=== PATIENT | male | born 1945 | race Caucasian/White ===

== ENCOUNTER 2021-03-18 14:50 | Inpatient (IN) ==
--- NOTE | 2021-03-18 15:11 | Emergency Department Note ---
History of Present Illness General Chief complaint: Bleeding Stated complaint: LARGE R ANKLE BLEED Time Seen by Provider: 03/18/21 15:09 History of Present Illness This is a 75-year-old male that presents to the emergency department via private vehicle with complaints of "large right ankle wound/bleeding". The patient notes that he has been experiencing a wound to the right ankle/heel region and has [facility] for [facility]. He has been seeing a reverse engineer as well as his PCP. He has been applying what he believes is a DuoDERM dressing. He states that he was scheduled to see wound clinic this coming Sunday. Unfortunately about an hour prior to arrival today he notes that the wound opened up and began bleeding a fair amount. He also notes that recently the wound was cultured and he was started on p.o. antibiotics. He denies any known trauma or injury today. No pain. No fevers or chills. Home Medications Medication Instructions Recorded Confirmed Type aspirin 81 mg tablet,delayed 81 mg PO QAM 07/30/18 03/18/21 History release (Adult Low Dose Aspirin) atorvastatin 40 mg tablet 40 mg PO QAM 07/30/18 03/18/21 History gabapentin 300 mg capsule 600 mg PO BID 07/30/18 03/18/21 History losartan 100 mg tablet (Cozaar) 50 mg PO QAM 07/30/18 03/18/21 History tamsulosin 0.4 mg capsule (Flomax) 0.4 mg PO QAM 07/30/18 03/18/21 History tiotropium bromide 18 mcg capsule 1 cap INH QAM 07/30/18 03/18/21 History with inhalation device (Spiriva with HandiHaler) albuterol sulfate 90 mcg/actuation 2 inh INHALATION QID PRN 03/12/20 03/18/21 History breath activated powder inhaler budesonide-formoterol HFA 160 2 puff INHALATION BID 03/12/20 03/18/21 History mcg-4.5 mcg/actuation aerosol inhaler metoprolol succinate 25 mg 25 mg PO QPM 03/12/20 03/18/21 History tablet,extended release 24 hr diclofenac sodium 1 % topical gel 4 g TOPICAL QID PRN 03/25/20 03/18/21 History (Voltaren) finasteride 5 mg tablet 5 mg PO DAILY #90 tab 04/06/20 03/18/21 Rx allopurinol 100 mg tablet 200 mg PO DAILY 03/18/21 03/18/21 History ibuprofen 200 mg tablet 400 mg PO BID 03/18/21 03/18/21 History potassium citrate 10 mEq (1,080 10 meq PO DAILY 03/18/21 03/18/21 History mg) tablet,extended release (Urocit-K 10) sulfamethoxazole 800 1 tab PO BID 03/18/21 03/18/21 History mg-trimethoprim 160 mg tablet Allergies Allergy/AdvReac Type Severity Reaction Status Date / Time No Known Allergies Allergy Verified 03/18/21 17:08 Past Med/Surg History Medical History (Updated 03/18/21 @ 22:12 by Juan Mota PA-C) Ascending aortic aneurysm Stable 4.1 ascending aorta aneurysm per 10/2019 CT, under surveillance by [facility] BPH (benign prostatic hyperplasia) COPD (chronic obstructive pulmonary disease) History of skin cancer Hx of gout Hyperlipemia Hypertension Insomnia Kidney stones Neuropathy Osteoarthritis Prediabetes Surgical History H/O spinal fusion LUMBAR History of colonoscopy History of herniorrhaphy History of tonsillectomy History of tooth extraction Family History Mother Family history of diabetes mellitus Social History Smoking Status: Former smoker Smoking End Date: "two and a half years ago"; Second Hand Exposure: No; Do You Dip or Chew Tobacco: No; Hx Alcohol Use: Yes Alcohol type: beer Hx Substance Use: No Preferred Language: Moldovan Communication Ability: Effective Visual Impairment: Diminished Hearing Ability: Use of Hearing Aid Child Care Lead Teacher Required: No Beliefs That Will Affect Care: None marital status: / Current Living Situation: Alone current occupational status: employed and unemployed Other Information That Helps Us Care for You: No Feels Safe at Home: Yes Safety Concerns: Feels Safe At This Time Assistive Devices: Cane, Glasses, Hearing Aid - Left, Hearing Aid - Right and Walker Physical Exam Vital Signs Vital Signs - 24 hr 03/18/21 14:56 03/18/21 16:00 03/18/21 16:30 Temperature 36.4 C L Temperature Source Temporal Artery Scan Pulse Rate 108 H Pulse Rate [Apical] 69 Pulse Rhythm [Apical] Pulse Strength [Apical] Respiratory Rate 20 16 Respiratory Effort / Characteristics Respiratory Depth Respiratory Pattern Blood Pressure 109/57 L Blood Pressure [Right Arm] 117/46 L Blood Pressure Mean 74 Blood Pressure Mean [Right Arm] 69 Blood Pressure Position Sitting Pulse Oximetry 96 96 91 Oxygen Delivery Method Room Air Room Air Room Air Sepsis Recent Fever Within 48 Hours No Sepsis New/Unexplained Change in Mental Status No Sepsis Action Taken by Nursing No Action Required 03/18/21 17:30 Temperature Temperature Source Pulse Rate Pulse Rate [Apical] 74 Pulse Rhythm [Apical] Regular Pulse Strength [Apical] Normal Respiratory Rate 18 Respiratory Effort / Characteristics Non-Labored Spontaneous Respiratory Depth Normal Respiratory Pattern Regular Blood Pressure Blood Pressure [Right Arm] 100/53 L Blood Pressure Mean Blood Pressure Mean [Right Arm] 68 Blood Pressure Position Pulse Oximetry 94 Oxygen Delivery Method Room Air Sepsis Recent Fever Within 48 Hours Sepsis New/Unexplained Change in Mental Status Sepsis Action Taken by Nursing VITAL SIGNS - Vital signs and nursing notes were reviewed. Stable and afebrile. GENERAL - 75-year-old male appearing his stated age who is in no acute distress. Communicates well with provider and answers questions appropriately. SKIN -there is a large approximately 10 cm x 4 cm open wound noted to the posterior aspect of the patient's right ankle region overlying the Achilles. There is exposed what appears to be muscle belly with fibrinous tissue. Foul- smelling odor noted as well. Small amount of bleeding from the wound noted. No hemorrhage. HEAD - NC/AT. EYES -sclera anicteric. EXTREMITIES - No clubbing or peripheral cyanosis. No pretibial edema present. In addition to the wound noted above there is erythema surrounding the wound on the right lower extremity with surrounding edema. He is neurovascularly intact distal to the wound. +5/5 strength noted in UE/LE bilaterally. PSYCH -patient is alert and oriented. Patient cooperates fully. Course Administered Medications Folic Acid (Folic Acid 1 Mg Tab) 1 mg PO QAM [facility] Stop: 04/17/21 20:21 Last Admin: 03/18/21 21:55 Dose: 1 mg Documented by: [id number] Gabapentin (Gabapentin 600 Mg Tab) 600 mg PO BID [facility] Stop: 04/17/21 20:59 Last Admin: 03/18/21 21:53 Dose: 600 mg Documented by: [id number] Piperacillin Sod/Tazobactam (Sod 3.375 gm/ Dextrose) 115 mls @ 28.75 mls/hr IV Q8H [facility]; Protocol Stop: 03/25/21 21:59 Last Admin: 03/18/21 21:56 Dose: 28.8 mls/hr Documented by: [id number] Ibuprofen (Ibuprofen 200 Mg Tab) 400 mg PO BID [facility] Stop: 04/17/21 20:59 Last Admin: 03/18/21 21:54 Dose: 400 mg Documented by: [id number] Metoprolol Succinate (Metoprolol Succ 25mg Ext Rel Tab) 25 mg PO QPM [facility] Stop: 04/17/21 20:59 Last Admin: 03/18/21 21:55 Dose: 25 mg Documented by: [id number] Thiamine HCl (Thiamine Hcl 100 Mg Tab) 100 mg PO QAM [facility] Stop: 04/17/21 20:21 Last Admin: 03/18/21 21:55 Dose: 100 mg Documented by: [id number] Discontinued Medications Piperacillin Sod/Tazobactam Sod (Zosyn) 4.5 gm in 120 mls @ 240 mls/hr IV NOW ONE Stop: 03/18/21 16:16 Last Infusion: 03/18/21 18:19 Dose: 0 mls/hr Documented by: [id number] Admin: 03/18/21 16:19 Dose: 240 mls/hr Documented by: [id number] Vancomycin HCl 2,000 mg/ (Sodium Chloride) 540 mls @ 200 mls/hr IV NOW ONE Stop: 03/18/21 18:41 Last Infusion: 03/18/21 20:17 Dose: 0 mls/hr Documented by: [id number] Admin: 03/18/21 17:30 Dose: 200 mls/hr Documented by: [id number] Medical Decision Making Laboratory Data Result diagrams: 03/18/21 15:49 03/18/21 15:49 Lab Results 03/18/21 03/18/21 03/18/21 Range/Units 15:49 15:49 15:49 WBC 9.01 (4.8-10.8) K/uL RBC 4.05 L (4.7-6.1) M/uL Hgb 12.7 L (14.0-18.0) g/dL Hct 38.3 L (42-52) % MCV 94.6 (80-100) fL MCH 31.4 (25-34) pg MCHC 33.2 (32-36) g/dL RDW Std Deviation 46.8 H (36.4-46.3) fL RDW Coeff of Norm 13.5 (11.5-14.5) % Plt Count 409 H (130-400) K/uL MPV 10.1 (7.4-10.4) fL Immature Gran % (Auto) 0.8 % Neut % (Auto) 70.2 % Lymph % (Auto) 19.9 % Woodson % (Auto) 5.8 % Eos % (Auto) 2.9 % Baso % (Auto) 0.4 % Neut # (Auto) 6.33 (1.4-6.5) K/uL Lymph # (Auto) 1.79 (1.2-3.4) K/uL Woodson # (Auto) 0.52 (0.11-0.59) K/uL Eos # (Auto) 0.26 (0-0.5) K/uL Baso # (Auto) 0.04 (0-0.2) K/uL Immature Gran # (Auto) 0.07 H (0.00-0.02) K/uL Sodium 138 (136-145) mmol/L Potassium 4.3 (3.5-5.1) mmol/L Chloride 105 (98-107) mmol/L Carbon Dioxide 27 (21-32) mmol/L Anion Gap 6.0 (3-11) BUN 17 (7-18) mg/dl Creatinine 1.08 (0.6-1.4) mg/dl Est Cr Clr Drug Dosing 75.6 ml/min Est GFR ( Amer) 78.5 ml/min Est GFR (Non-Af Amer) 67.7 ml/min BUN/Creatinine Ratio 15.3 (10-20) Glucose 119 H (70-99) mg/dl Lactate 1.3 (0.4-2.0) mmol/L Calcium 9.0 (8.5-10.1) mg/dl Total Bilirubin 0.5 (0.2-1) mg/dl AST 24 (15-37) U/L ALT 44 (12-78) U/L Alkaline Phosphatase 149 H (45-117) U/L Total Protein 8.0 (6.4-8.2) gm/dl Albumin 2.8 L (3.4-5.0) gm/dl Globulin 5.2 H (2.5-4.0) gm/dl Albumin/Globulin Ratio 0.5 L (0.9-2) Procalcitonin (0-0.5) ng/ml COVID-19 Eval Order SARS-CoV-2 (PCR) (Negative) 03/18/21 03/18/21 03/18/21 Range/Units 15:49 16:00 16:00 WBC (4.8-10.8) K/uL RBC (4.7-6.1) M/uL Hgb (14.0-18.0) g/dL Hct (42-52) % MCV (80-100) fL MCH (25-34) pg MCHC (32-36) g/dL RDW Std Deviation (36.4-46.3) fL RDW Coeff of Norm (11.5-14.5) % Plt Count (130-400) K/uL MPV (7.4-10.4) fL Immature Gran % (Auto) % Neut % (Auto) % Lymph % (Auto) % Woodson % (Auto) % Eos % (Auto) % Baso % (Auto) % Neut # (Auto) (1.4-6.5) K/uL Lymph # (Auto) (1.2-3.4) K/uL Woodson # (Auto) (0.11-0.59) K/uL Eos # (Auto) (0-0.5) K/uL Baso # (Auto) (0-0.2) K/uL Immature Gran # (Auto) (0.00-0.02) K/uL Sodium (136-145) mmol/L Potassium (3.5-5.1) mmol/L Chloride (98-107) mmol/L Carbon Dioxide (21-32) mmol/L Anion Gap (3-11) BUN (7-18) mg/dl Creatinine (0.6-1.4) mg/dl Est Cr Clr Drug Dosing ml/min Est GFR ( Amer) ml/min Est GFR (Non-Af Amer) ml/min BUN/Creatinine Ratio (10-20) Glucose (70-99) mg/dl Lactate (0.4-2.0) mmol/L Calcium (8.5-10.1) mg/dl Total Bilirubin (0.2-1) mg/dl AST (15-37) U/L ALT (12-78) U/L Alkaline Phosphatase (45-117) U/L Total Protein (6.4-8.2) gm/dl Albumin (3.4-5.0) gm/dl Globulin (2.5-4.0) gm/dl Albumin/Globulin Ratio (0.9-2) Procalcitonin < 0.05 (0-0.5) ng/ml COVID-19 Eval Order Covid19 at [facility] SARS-CoV-2 (PCR) NEGATIVE (Negative) Imaging Data Radiologist's Impression: Tibia/Fibula X-Ray 03/18/21 15:33 XR tibia fibula RT 2V CLINICAL HISTORY: wound R lower calf COMPARISON: None. DISCUSSION: There are advanced degenerative changes within the knee. There are vascular calcifications present. There is a soft tissue wound over the posterior lower leg. Involvement of the Achilles tendon cannot be excluded on conventional radiographic imaging. An MRI could be obtained in follow-up as deemed clinically appropriate.. IMPRESSION: 1. No fractures identified 2. Degenerative changes within the knee 3. Posterior soft tissue wound within the lower calf posteriorly with an overlying dressing. There is possible air within the soft tissues. Involvement of the Achilles tendon cannot be excluded. An MRI could be obtained in follow-up as deemed clinically appropriate. ACT 112: Negative or not required by law. Electronically signed by: Pankaj Hidalgo M.D. 03/18/2021 4:09 PM [facility] Narrative Patient was seen and evaluated as above in room D02. Review was performed of nursing notes and vital signs. After obtaining a thorough history and physical examination the above work up was performed. Patient presents to us today noting that the chronic wound to the right posterior ankle has now opened up and is bleeding a fair amount. He denies any pain. No fevers or chills. He is currently on antibiotics. Options of care were discussed with the patient. IV access established. Labs were drawn. There is a large wound to the posterior aspect of the right ankle with what appears to be exposed muscle belly that appears to be detached at one end and in poor shape. This is protruding from the wound by several centimeters. This is malodorous as well. Patient was given empiric IV antibiotics. It is felt that the benefit outweighs the risk. Laboratory stud ies reveal no leukocytosis or emergent anemia. No emergent metabolic disturbance. Covid testing negative. X-ray was obtained. Results as above. This time I do believe that further evaluation in the mid inpatient setting is warranted. This wound is something that I believe would be quite complicated if he was discharged at this immediate time. The wound was cleansed with sterile saline and Betadine and dressed with wet-to-dry. I did discuss the presentation with the on-call orthopedist and spoke to Toñito Garrett PA-C. They will consult on the patient and see him while here in the hospital. I believe this is reasonable. Patient stable at this time. Case discussed with the hospitalist. Please refer to further documentation regarding his stay. Case was discussed with the attending physician. GCS: 15 In the evaluation and treatment of this patient the following differential d iagnoses were entertained: Infection, necrosis, fracture, dislocation, subluxation, osteomyelitis, among others. Attending Attestation: I Cedric Paris MD independently saw and evaluated this patient and agree with history and physical is otherwise documented by the physician senior office assistant. See their note for full details. Patient reported with bleeding from R posterior lower leg but on exam bleeding has stopped. Large defect/wound on the posterior RLE in the area of the Achilles ~10x4cm. Appears to have some tendon and muscle belly exposed with foul swell present. Patient with significant neuropathy in the b/l LEs and does not feel pain or touch in area of wound. Intact plantar flexion on R foot. Concern infection here although patient does not appear septic. Wound cleaned by DELIA. IV abx given. Will need admission for wound care and surgical consultations for wound. Impression & Plan Open leg wound Discharge Plan Visit Data Chief Complaint: Bleeding Stated Complaint: LARGE R ANKLE BLEED ED Provider: Cedric Paris ED Midlevel Provider: Juan Mota Discharge Problem: Open leg wound Patient Disposition: Admitted As Inpatient Condition: Good Discharge Instructions Interventions: ED Discharge Assessment Last Done: 03/18/21 21:54
[2021-03-18] MEDS ORDERED: PIPERACILLIN/TAZOBACTAM 4.5 GM/120 ML BAG IV ONE (15:47)
[2021-03-18] MEDS ORDERED: PIPERACILL/TAZOBAC CONSULT ACTIVE PRN ×2 (15:47→20:22)
[2021-03-18] MEDS ORDERED: VANCOMYCIN CONSULT ACTIVE PRN ×2 (16:00→20:22)
[2021-03-18] MEDS ORDERED: VANCOMYCIN HCL 2,000 MG in SODIUM CHLORIDE 0.9% 500 ML IV ONE ×2 (16:00→20:22)
[2021-03-18 16:03] LABS: Basophils # (auto) 0.04 K/uL (0-0.2); Basophils % (auto) 0.4 %; Eosinophils # (auto) 0.26 K/uL (0-0.5); Eosinophils % (auto) 2.9 %; Hematocrit (blood only) 38.3 % (42-52); Hemoglobin 12.7 g/dL (14.0-18.0); Immature Granulocytes # (auto) 0.07 K/uL (0.00-0.02); Immature Granulocytes % (auto) 0.8 %; Lymphocytes # (auto) 1.79 K/uL (1.2-3.4); Lymphocytes % (auto) 19.9 %; Mean Corpuscular Hemoglobin 31.4 pg (25-34); Mean Corpuscular Hgb Conc 33.2 g/dL (32-36); Mean Corpuscular Volume 94.6 fL (80-100); Mean Platelet Volume 10.1 fL (7.4-10.4); Monocytes # (auto) 0.52 K/uL (0.11-0.59); Monocytes % (auto) 5.8 %; Neutrophils # (auto) 6.33 K/uL (1.4-6.5); Neutrophils % (auto) 70.2 %; Platelet Count 409 K/uL (130-400); RDW Coefficient of Variation 13.5 % (11.5-14.5); RDW Standard Deviation 46.8 fL (36.4-46.3); Red Blood Count 4.05 M/uL (4.7-6.1); White Blood Count 9.01 K/uL (4.8-10.8)
--- NOTE | 2021-03-18 16:10 | XRay Report ---
XR tibia fibula RT 2V CLINICAL HISTORY: wound R lower calf COMPARISON: None. DISCUSSION: There are advanced degenerative changes within the knee. There are vascular calcification s present. There is a soft tissue wound over the posterior lower leg. Involvement of the Achilles ten don cannot be excluded on conventional radiographic imaging. An MRI could be obtained in follow-up as deemed clinically appropriate.. IMPRESSION: 1. No fractures identified 2. Degenerative changes within the knee 3. Posterior soft tissue wound within the lower calf posteriorly with an overlying dressing. There is possible air within the soft tissues. Involvement of the Achilles tendon cannot be excluded. An MRI could be obtained in follow-up as deemed clinically appropriate. ACT 112: Negative or not required by law. Electronically signed by: Pankaj Hidalgo M.D. 03/18/2021 4:09 PM
[2021-03-18 16:21] LABS: Albumin Level 2.8 gm/dl (3.4-5.0); BUN Creatinine Ratio 15.3 (10-20); Creatinine Clr Calc Pharmacy 75.6 ml/min; Est GFR (African American) 78.5 ml/min; Est GFR (Non-African American) 67.7 ml/min; Potassium 4.3 mmol/L (3.5-5.1)
[2021-03-18 16:24] LABS: Albumin Globulin Ratio 0.5 (0.9-2); Bilirubin,Total 0.5 mg/dl (0.2-1); Globulin 5.2 gm/dl (2.5-4.0)
--- NOTE | 2021-03-18 18:35 | History & Physical Report ---
Date of Service March 18, 2021 Assessment & Plan (1) Pressure ulcer: Plan: Bola is a 75-year-old male with a notable past medical history hypertension, hyperlipidemia, COPD, BPH, COPD, neuropathy who presented to [facility] for evaluation of right heel ulcer, subsequently found to have evidence of tendon necrosis and exposed muscle belly on exam. Severe RLE Ulcer Significant concern for tendon necrosis and exposed muscle belly on exam in the setting of a patient with profound polyneuropathy. There is also likely a degree of cellulitis present. He does have good pedal pulses Proceed with broad-spectrum antibiotics, inclusive of both Zosyn and vancomycin Consult plastic surgery and vascular surgery for evaluation of potential reconstruction versus need for BKA Consider orthopedics consult if there is need for BKA Consult wound care nurse, appreciate aid in management for now Fall precautions. Patient will require physical therapy prior to leaving the hospital Wound culture ordered N.p.o. at midnight in case of possible procedure Low suspicion for SIRS/sepsis at present. Await BCX. Frequent alcohol use/concern for alcohol withdrawal Patient reporting consumption of 5-6 beers a day, has been found to have Ethyl alcohol level of over 250 in the ER before Patient without known history of alcohol withdrawal We will proceed with AWSS and as needed Ativan for scores greater than 6 Hypertension Found to be with softer pressures in the ED, absence of fever or tachycardia Patient reporting that in the outpatient setting, they have been working on reducing effective overmedication Hold losartan 50 mg daily Continue home metoprolol COPD Patient on room air, no acute needs at present Continue home inhalers Polyneuropathy, radiculopathy at L5 Continue gabapentin Code: Full code Diet: N.p.o. at midnight Prophylaxis: SCDs Dispo: MedSurg (2) Hypertension: (3) Hyperlipemia: (4) Neuropathy: (5) COPD (chronic obstructive pulmonary disease): (6) Benign hypertension: (7) Polyneuropathy: (8) BPH associated with nocturia: (9) Traumatic wound: (10) COPD (chronic obstructive pulmonary disease): (11) S/P hernia repair: (12) HTN, goal to be determined: (13) Dyslipidemia: (14) Polyarthritis: (15) Gout: (16) Nephrolithiasis: History of Present Illness Primary Care Provider: Chrissie Kwan Bola is a 75-year-old male with a notable past medical history hypertension, hyperlipidemia, COPD, BPH, COPD, neuropathy who presented to [facility] for evaluation of right heel ulcer. Patient says that he has been following with wound care regularly for this right ankle ulcer. He said that he noticed increased swelling within this area on Sunday, and return to his wound clinicwas subsequently prescribed antibiotics. Today, he was at the [facility] when he "looked down and saw a puddle of blood." He then reported to the ER for further evaluation. My exam, patient reports significant neuropathy in both of his lower extremities bilaterally, he does not endorse any pain and says that he feels comfortable. Denies any recent fevers, chills, night sweats. Says appetite has been good. Of note, patient reports that he does drink between 5 and 6 beers a day. He denies any withdrawal in the past, but does not think he is ever stop suddenly. In the ED, patient was found to have a gaping right lower extremity ulcer with evidence of necrotic tendon and exposed muscle belly. Peripheral pulses are intact, capillary refill under 3 seconds. Patient was found to be afebrile and hemodynamically stable. X-ray of the right foot demonstrating no fracture, but extensive posterior soft tissue wound as well as air within the soft tissue. Patient was given Zosyn and bank. Hospitalist was Vanc for admission. Allergies Allergy/AdvReac Type Severity Reaction Status Date / Time No Known Allergies Allergy Verified 03/18/21 17:08 Home Medications Medication Instructions Recorded Confirmed Type aspirin 81 mg tablet,delayed 81 mg PO QAM 07/30/18 03/18/21 History release (Adult Low Dose Aspirin) atorvastatin 40 mg tablet 40 mg PO QAM 07/30/18 03/18/21 History gabapentin 300 mg capsule 600 mg PO BID 07/30/18 03/18/21 History losartan 100 mg tablet (Cozaar) 50 mg PO QAM 07/30/18 03/18/21 History tamsulosin 0.4 mg capsule (Flomax) 0.4 mg PO QAM 07/30/18 03/18/21 History tiotropium bromide 18 mcg capsule 1 cap INH QAM 07/30/18 03/18/21 History with inhalation device (Spiriva with HandiHaler) albuterol sulfate 90 mcg/actuation 2 inh INHALATION QID PRN 03/12/20 03/18/21 History breath activated powder inhaler budesonide-formoterol HFA 160 2 puff INHALATION BID 03/12/20 03/18/21 History mcg-4.5 mcg/actuation aerosol inhaler metoprolol succinate 25 mg 25 mg PO QPM 03/12/20 03/18/21 History tablet,extended release 24 hr diclofenac sodium 1 % topical gel 4 g TOPICAL QID PRN 03/25/20 03/18/21 History (Voltaren) finasteride 5 mg tablet 5 mg PO DAILY #90 tab 04/06/20 03/18/21 Rx allopurinol 100 mg tablet 200 mg PO DAILY 03/18/21 03/18/21 History ibuprofen 200 mg tablet 400 mg PO BID 03/18/21 03/18/21 History potassium citrate 10 mEq (1,080 10 meq PO DAILY 03/18/21 03/18/21 History mg) tablet,extended release (Urocit-K 10) sulfamethoxazole 800 1 tab PO BID 03/18/21 03/18/21 History mg-trimethoprim 160 mg tablet Past Med/Surg History Medical History (Updated 02/18/21 @ 00:05 by [employer]) Ascending aortic aneurysm Stable 4.1 ascending aorta aneurysm per 10/2019 CT, under surveillance by [facility] BPH (benign prostatic hyperplasia) COPD (chronic obstructive pulmonary disease) History of skin cancer Hx of gout Hyperlipemia Hypertension Insomnia Kidney stones Neuropathy Osteoarthritis Prediabetes Surgical History H/O spinal fusion LUMBAR History of colonoscopy History of herniorrhaphy History of tonsillectomy History of tooth extraction Family History Mother Family history of diabetes mellitus Social History Smoking Status: Former smoker Second Hand Exposure: Yes (IN THE PAST); Hx Alcohol Use: Yes Alcohol type: beer Hx Substance Use: No Preferred Language: Cypriot Communication Ability: Effective Visual Impairment: Diminished Hearing Ability: Use of Hearing Aid Board Runner Required: No Beliefs That Will Affect Care: None marital status: / Current Living Situation: Alone current occupational status: employed and unemployed Feels Safe at Home: Yes Assistive Devices: Cane, Denture - Upper, Denture - Lower, Glasses and Hearing Aid - Bilateral Review of Systems Review of Systems: Constitutional: Denies fever, chills, malaise, weight change Eyes: Denies double vision, vision change, eye pain ENT: Denies ear pain, sore throat, sinus pain Cardiovascular: Denies Chest pain, chest pressure, palpitations, extremity swelling Respiratory: Denies shortness of breath, cough, sputum production, difficulty breathing Gastrointestinal: Denies abdominal pain, nausea, vomiting, constipation, diarrhea Genitourinary: Denies urinary symptoms including dysuria Musculoskeletal: Denies weakness, muscle aches/pain, joint aches/pain Integumentary:Denies rash, lesions, bruising Neurological: as per HPI Physical Exam Physical Exam: General: Overall, well-appearing 75-year-old male who is lying back in his hospital bed, lies upon my arrival. He converses freely and is alert and oriented. No acute distress. Does not appear sickly. HEENT: NCAT. Eyes - Sclera are white, anicteric, and without injection. PERRL. EOMs display full ROM bilaterally. Mouth - MMM with no tonsillar edema or exud ates. Cardiac: Normal rate and regular rhythm; S1 and S2 present with no murmurs, rubs, or gallops. Pulmonary: Good respiratory effort with symmetric expansion of the chest. No use of accessory muscles. Lungs were clear to auscultation bilaterally with no crackles or wheezes. Abdominal: Normoactive bowel sounds. Abdomen was soft, nondistended, and non- tender to palpation. Derm: Examination of the posterior aspect of the right calf demonstrates a gaping, exposed open wound with protrusion of muscle belly and what appears to be necrotic tendon. There is also surrounding erythema, that is mild, extending circumferentially to the anterior beltrna. Extremities: Upper and lower extremities are warm and well perfused. Radial and dorsalis pedis pulses were 2+ b/l. Capillary refill assessed in UE was < 3 sec. Psych: Well-developed, well-nourished, appropriately dressed for occasion. Behavior is cooperative and appropriate. Affect is WNL. Insight is appropriate. Results & Data Results & Data ([facility]) Vital Signs (Past 12 Hours) Vital Signs Temp Pulse Pulse Resp BP BP Pulse Ox 03/18/21 17:30 74 18 100/53 L 94 03/18/21 16:30 69 16 117/46 L 91 03/18/21 16:00 96 03/18/21 14:56 36.4 C L 108 H 20 109/57 L 96 Supervising Physician Co-Signing Physician Notes Pt seen/examined in conjunction with resident MD. Orders and plan of admission formulated with resident. 75 y/o M Hx HTN, HLD, BPH, gout, COPD, BPH, lower extremity neuropathy. Presenting with an open wound of his RLE and a necrotic tendon. The pt has been attending wound care for some time and noted that his tendon was now protruding through the wound. He has not had fevers or rigors. OE: General: AAO x 3, no distress ENT: No erythema or exudates, no thrush Eyes: VONNIE, EOMI Head and neck: Normocephalic, atraumatic, No JVD, neck is supple. Chest/heart: Nontender, S1,2, RRR, no murmurs, no gallops Lungs: CTAB, no wheezing or crackles Abdomen: Nontender, nondistended, BS+ Neuro: AAO x 3, speech is clear, no unilateral weakness or loss of sensation, coordination intact Musculoskeletal: No joint inflammation, muscle tenderness, FROM Skin: Open wound and mild surrounding cellulitis Extremities: There is a necrotic tendon protruding through the back of the RLE - the foot is well perfused P: 1) Cellulitis - necrotic tendon with open wound - Antibiotics provided - ortho had offered a BKA but pt is reluctant - we have consulted plastics and vascular at the behest of ortho. 2) HTN - cont metoprolol 3) HLD - statin 4) Gout - allopurinol 5) COPD - cont prescribed inhalers 6) Neuropathy - cont BRII 7) The pt does describe excessive ETOH - placed on a CIWA protocol although he has not previously had issues withdrawing form ETOH Full code - SCDs Total time for this admit including review of labs, meds, imaging, records - discussion with pt and ER attending - 38 min Resident Activity Tracking Resident Involvement: Resident Care Provided Care Provided: Adult Hospital Medicine (1) Pressure ulcer Laterality: left Pressure injury location: heel Pressure injury stage: stage 1 Qualified Code(s): L89.621 - Pressure ulcer of left heel, stage 1 (2) Hypertension Hypertension type: unspecified Qualified Code(s): I10 - Essential (primary) hypertension
[2021-03-18] MEDS ORDERED: ONDANSETRON INJ 2 MG/ML 2 ML VIAL IV PRN (20:22)
[2021-03-18] MEDS ORDERED: DICLOFENAC SOD 1% GEL 100 GM TUBE EXT PRN (20:22)
[2021-03-18] MEDS ORDERED: LORazepam 1 MG TAB PO PRN (20:22)
[2021-03-18] MEDS ORDERED: POLYETHYLENE (MIRALAX) 17 GM PACK PO PRN (20:22)
[2021-03-18] MEDS ORDERED: ALBUTEROL HFA 8 GM INHALER INH PRN (20:22)
[2021-03-18] MEDS ORDERED: ACETAMINOPHEN 325 MG TAB PO PRN (20:22)
--- NOTE | 2021-03-18 20:58 | Pharmacy Report ---
Pharmacy Abx Dose Short Note - Date of Service March 18, 2021 - Assessment & Plan Assessment 75 year old M receiving IV Vancomycin and Zosyn for treatment of severe RLE ulcer Day # 1 of antimicrobial therapy. * Patient received Vancomycin 2000mg (~20mg/kg) IV x 1 as a loading dose in the ED * Renal function appears to be at baseline. Estimated pharmacokinetic parameters: * Ke ~0.067/hr, T1/2 ~10.3 hrs Plan Vancomycin * Initiate Vancomycin 1500mg (~15mg/kg) IV q12 as maintenance regimen * Goal trough level for SST : ~15 mcg/mL * Trough level ordered for: 03/20/21 @ 1330 Zosyn * Zosyn 4.5g was given x 1 as a loading dose in the ED * Initiate Zosyn 3.375g IV q8 (extended infusion) for CrCl >20 mL/min Pharmacy will continue to follow and will adjust dose/frequency as necessary. Thank you.
--- NOTE | 2021-03-18 21:04 | Consultation Report ---
DATE OF CONSULTATION: 03/18/2021 CHIEF COMPLAINT: Right leg/ankle ulcer. HISTORY OF PRESENT ILLNESS: A 75-year-old gentleman with multiple medical comorbidities including hy pertension, elevated cholesterol, COPD, chronic neuropathy, BPH, who we are consulted on for right he el/lower leg ulcer. The patient states he has about a 3-month history of ulceration on the posterior aspect of his ankle, managed by the [facility] along with the straightener gun parts. It sounds like was it pretty stable and healing; it has gotten worse over the past week or so. He was at the local [employer] I think this afternoon when it started bleeding, he presented to the Emergency Room. Not a lot of pain. Denies any significant diabetes. He apparently does have some underlying neuropathy. PAST MEDICAL HISTORY: Ast per the admission H and P. PHYSICAL EXAMINATION: VITAL SIGNS: Temperature is 36.4. Vital signs are stable. GENERAL: Shows a pleasant, elderly male. He is lying in bed with his ankle up on some gauze pads. EXTREMITIES: Examination of the right lower extremity reveals venous stasis changes distally. He do es have an open ulcer over the posterior distal Achilles, measuring about 10 cm x 4 cm. There is a c learly exposed necrotic tendon with some muscle belly also in the wound. There is a surrounding red appearance to it consistent with dysvascularity. There is no obvious gross pus. He can dorsiflex an d plantarflex his foot appropriately. He does have a distal pulse in the dorsalis pedis. X-RAYS: X-rays of the right tib-fib reveal a soft tissue defect. He has got knee arthritis. No obv ious sign of bone involvement. ASSESSMENT: A 75-year-old male with multiple medical comorbidities including peripheral neuropathy w ith a large exposed chronic heel ulcer over his Achilles tendon with necrosis of the Achilles tendon. I think the likelihood of him healing this wound is essentially zero. He has got a necrotic A chilles tendon in the wound and I do not think there is any significant chance of him healing this wi th good function of his leg. Having said that, the patient is not keen on considering a below-knee a mputation, which would be my recommendation. PLAN: We discussed treatment options. He can certainly have a wet-to-dry normal saline dressing lena kathies. I do not think there is any active infection that necessarily needs an urgent debridement. In my opinion, I do not think a debridement is appropriate and I think the most appropriate next step w ould be a below-knee amputation. The patient is not in favor of that, that certainly understanding. In light of this, I might recommend a plastic surgery consult to see if there is anything they could do. I would also recommend a vascular consult to see if he has gotten a blood supply to even have a chance of healing this wound distally. I would also recommend a wound care consult as they can do a bedside debridement and maybe treat with wound VAC. Once again from the orthopedic standpoint, treat ment would be below-knee amputation, and if and when he decides that, we can certainly be reconsulted . I do not think he needs any formal irrigation and debridement from my standpoint as I think it is unlikely to be successful. He should be wet-to-dry dressings currently. Currently antibiotics are ap propriate. I do not think they necessarily need to be IV for suppression of the infection. Any orth opedic questions can be directed to me at . Job ID: [id number]
[2021-03-18] MEDS: GABAPENTIN 600 MG TAB PO SCH (21:53)
[2021-03-18] MEDS: IBUPROFEN 200 MG TAB PO SCH (21:54)
[2021-03-18] MEDS: METOPROLOL SUCC 25MG EXT REL TAB PO SCH (21:55)
[2021-03-18] MEDS: FOLIC ACID 1 MG TAB PO SCH (21:55)
[2021-03-18] MEDS: THIAMINE HCL 100 MG TAB PO SCH (21:55)
[2021-03-18] MEDS: PIPERACILLIN/TAZOBACTAM 3.375 GM in DEXTROSE 5% 100 ML IV SCH (21:56)
[2021-03-19] MEDS: VANCOMYCIN HCL 1,500 MG in SODIUM CHLORIDE 0.9% 500 ML IV SCH ×2 (02:07→13:38)
[2021-03-19] MEDS: PIPERACILLIN/TAZOBACTAM 3.375 GM in DEXTROSE 5% 100 ML IV SCH ×3 (05:00→22:15)
[2021-03-19 06:35] LABS: Basophils # (auto) 0.06 K/uL (0-0.2); Basophils % (auto) 0.7 %; Eosinophils # (auto) 0.26 K/uL (0-0.5); Eosinophils % (auto) 3.1 %; Hematocrit (blood only) 35.3 % (42-52); Hemoglobin 11.6 g/dL (14.0-18.0); Immature Granulocytes # (auto) 0.06 K/uL (0.00-0.02); Immature Granulocytes % (auto) 0.7 %; Lymphocytes # (auto) 2.06 K/uL (1.2-3.4); Lymphocytes % (auto) 24.2 %; Mean Corpuscular Hemoglobin 31.4 pg (25-34); Mean Corpuscular Hgb Conc 32.9 g/dL (32-36); Mean Corpuscular Volume 95.7 fL (80-100); Monocytes # (auto) 0.53 K/uL (0.11-0.59); Monocytes % (auto) 6.2 %; Neutrophils # (auto) 5.53 K/uL (1.4-6.5); Neutrophils % (auto) 65.1 %; Platelet Count 410 K/uL (130-400); RDW Coefficient of Variation 13.4 % (11.5-14.5); RDW Standard Deviation 47.1 fL (36.4-46.3); Red Blood Count 3.69 M/uL (4.7-6.1)
[2021-03-19 07:06] LABS: BUN Creatinine Ratio 16.3 (10-20); Calcium 8.7 mg/dl (8.5-10.1); Est GFR (African American) 72.8 ml/min; Est GFR (Non-African American) 62.8 ml/min; Potassium 4.6 mmol/L (3.5-5.1)
[2021-03-19 07:11] LABS: C Reactive Protein 2.82 mg/dl (0-0.29); Prealbumin 11.5 mg/dl (20-40)
[2021-03-19 07:22] LABS: Estimated Average Glucose 143 mg/dl; Hemoglobin A1C 6.6 % (4.5-5.6)
--- NOTE | 2021-03-19 09:15 | Surgery Consultation ---
Date of Consultation March 19, 2021 Assessment & Plan (1) Open leg wound: (2) Polyneuropathy: Findings discussed with patient. Will await vascular input and culture results. Consider MRI of lower extremity to ankle with contrast to look for osteomyelitis/extent of muscle involvement per radiology report. In the setting of patient's age, extensive smoking history, alcoholism, poor nutrition, diabetes, and lack of protective sensation, as well as likely loss of function per ortho assessment, amputation is the most likely outcome. He is not willing to consider this at the present time. Attempted reconstruction of distal lower extremity wound this size would require free tissue transfer, which cannot be performed here. As such, would recommend local wound care, offloading of foot with waffle boot, optimization of nutrition for now. Pending MRI results, can further discuss options re potential for BK vs salvage. History of Present Illness Reason for Consultation: RLE posterior leg wound Attending Physician: Sky Matos MD History of Present Illness 75-year-old male with a past medical history DM II (on no meds per patient due to HA1c <7) hypertension, hyperlipidemia, COPD, BPH, COPD, 20 year history of neuropathy who presented to [facility] for evaluation of right heel ulcer. Patient says wound began about three months ago, unknown mechanism but believes it was from a sneaker rubbing. He had been seen by podiatry at the [place], treated with Duoderm. He said that he noticed increased swelling within this area on Sunday, and is scheduled to be seen at the wound care center Sunday. Yesterday he was at the [facility] when he noted significant bleeding. Denies pain at present, states it was painful previously. Denies any recent fevers, chills, night sweats. Notes very minimal sensation of feet. Ortho evaluated patient last evening, recommended BKA. Patient does not want to consider, concerned about ability to drive. Was seen by [facility] about 2 years ago for left lower extremity wound that did ultimately heal. Denies symptoms of claudication at present. Review of chart indicates he drinks between 5 and 6 beers a day. Previously a 2 pack per day smoker, has now quit. X-ray of the right foot demonstrating no fracture, but extensive posterior soft tissue wound as well as air within the soft tissue. Allergies Allergy/AdvReac Type Severity Reaction Status Date / Time No Known Allergies Allergy Verified 03/18/21 17:08 Home Medications Medication Instructions Recorded Confirmed Type aspirin 81 mg tablet,delayed 81 mg PO QAM 07/30/18 03/18/21 History release (Adult Low Dose Aspirin) atorvastatin 40 mg tablet 40 mg PO QAM 07/30/18 03/18/21 History gabapentin 300 mg capsule 600 mg PO BID 07/30/18 03/18/21 History losartan 100 mg tablet (Cozaar) 50 mg PO QAM 07/30/18 03/18/21 History tamsulosin 0.4 mg capsule (Flomax) 0.4 mg PO QAM 07/30/18 03/18/21 History tiotropium bromide 18 mcg capsule 1 cap INH QAM 07/30/18 03/18/21 History with inhalation device (Spiriva with HandiHaler) albuterol sulfate 90 mcg/actuation 2 inh INHALATION QID PRN 03/12/20 03/18/21 History breath activated powder inhaler budesonide-formoterol HFA 160 2 puff INHALATION BID 03/12/20 03/18/21 History mcg-4.5 mcg/actuation aerosol inhaler metoprolol succinate 25 mg 25 mg PO QPM 03/12/20 03/18/21 History tablet,extended release 24 hr diclofenac sodium 1 % topical gel 4 g TOPICAL QID PRN 03/25/20 03/18/21 History (Voltaren) finasteride 5 mg tablet 5 mg PO DAILY #90 tab 04/06/20 03/18/21 Rx allopurinol 100 mg tablet 200 mg PO DAILY 03/18/21 03/18/21 History ibuprofen 200 mg tablet 400 mg PO BID 03/18/21 03/18/21 History potassium citrate 10 mEq (1,080 10 meq PO DAILY 03/18/21 03/18/21 History mg) tablet,extended release (Urocit-K 10) sulfamethoxazole 800 1 tab PO BID 03/18/21 03/18/21 History mg-trimethoprim 160 mg tablet Patient History Medical History (Updated 03/18/21 @ 22:12 by Juan Mota PA-C) Ascending aortic aneurysm Stable 4.1 ascending aorta aneurysm per 10/2019 CT, under surveillance by [facility] BPH (benign prostatic hyperplasia) COPD (chronic obstructive pulmonary disease) History of skin cancer Hx of gout Hyperlipemia Hypertension Insomnia Kidney stones Neuropathy Osteoarthritis Prediabetes Surgical History H/O spinal fusion LUMBAR History of colonoscopy History of herniorrhaphy History of tonsillectomy History of tooth extraction Family History Mother Family history of diabetes mellitus Social History Smoking Status: Former smoker Smoking End Date: "two and a half years ago"; Second Hand Exposure: No; Do You Dip or Chew Tobacco: No; Hx Alcohol Use: Yes Alcohol type: beer Hx Substance Use: No Preferred Language: Syriac Communication Ability: Effective Visual Impairment: Diminished Hearing Ability: Use of Hearing Aid Stone Layer Required: No Beliefs That Will Affect Care: None marital status: / Current Living Situation: Alone current occupational status: employed and unemployed Other Information That Helps Us Care for You: No Feels Safe at Home: Yes Safety Concerns: Feels Safe At This Time Assistive Devices: Cane, Glasses, Hearing Aid - Left, Hearing Aid - Right and Walker Physical Exam Physical Exam: 10x4 cm open wound posterior right lower leg involving ankle and heel; foul odor, necrotic tendon and bogginess to muscle. some peripheral erythema. Able to dorsi/plantar flex foot. No purulence. Results & Data ([facility]) Vital Signs (Past 12 Hours) Vital Signs Temp Pulse Resp BP Pulse Ox 03/19/21 07:14 97.9 F 58 L 16 108/56 L 93 03/19/21 06:17 97.9 F 64 18 122/71 92 03/19/21 01:11 97.5 F L 61 18 117/71 92 03/18/21 22:39 97.5 F L 64 18 125/78 94 03/18/21 21:54 98.1 F 18 94 03/18/21 21:50 69 125/73 Laboratory Results WBC 8.5 ESR 76 HA1c 6.6 CRP 2.82 Prealbumin 11.5 Etoh ED last evening 252 wound culture pending Diagnostic Findings XR right tib/fib 1. No fractures identified 2. Degenerative changes within the knee 3. Posterior soft tissue wound within the lower calf posteriorly with an overlying dressing. There is possible air within the soft tissues. Involvement of the Achilles tendon cannot be excluded. An MRI could be obtained in follow-up as deemed clinically appropriate. PG Care Time/CCT Total # of Minutes Spent Total Time Spent with Patient: Total time spent is greater than 50% in coordination of care (as documented) at patient's floor/unit and/or counseling patient: Coding Level of Care Code 89763 Inpt Consult Level 3 Diagnoses Open leg wound S81.809A Polyneuropathy G62.9
[2021-03-19 09:31] LABS: Folate (Folic Acid) 11.9 ng/ml (>5.38)
[2021-03-19] MEDS: ASPIRIN 81 MG ECTAB PO SCH (09:41)
[2021-03-19] MEDS: FOLIC ACID 1 MG TAB PO SCH (09:42)
[2021-03-19] MEDS: IBUPROFEN 200 MG TAB PO SCH ×2 (09:42→22:06)
[2021-03-19] MEDS: GABAPENTIN 600 MG TAB PO SCH ×2 (09:42→22:07)
[2021-03-19] MEDS: FINASTERIDE 5 MG TAB PO SCH (09:42)
[2021-03-19] MEDS: ATORVASTATIN 40 MG TAB PO SCH (09:42)
[2021-03-19] MEDS: THIAMINE HCL 100 MG TAB PO SCH (09:43)
[2021-03-19] MEDS: POTASSIUM CITRATE 10 MEQ TAB PO SCH (09:43)
[2021-03-19] MEDS: TAMSULOSIN HCL 0.4 MG CAP PO SCH (09:43)
[2021-03-19] MEDS: allopurinoL 100 MG TAB PO SCH (09:43)
[2021-03-19] MEDS: UMECLIDINIUM BROMIDE 62.5MCG/BLISTER 7 PUFFS/INHALER INH SCH (09:45)
[2021-03-19] MEDS: FLUTICASONE/VILANTEROL 100/25MCG 14 PUFFS/INHALER INH SCH (09:45)
[2021-03-19] MEDS: DAKIN'S SOLN 0.125% QUARTER STRENGTH 1000 ML BTL EXT SCH ×2 (11:18→22:07)
[2021-03-19] MEDS ORDERED: LORazepam 1 MG TAB PO PRN (11:30)
[2021-03-19] MEDS ORDERED: diazePAM 5 MG TABLET PO PRN (15:52)
--- NOTE | 2021-03-19 15:53 | Hospitalist Progress Note ---
Date of Service March 19, 2021 Assessment & Plan (1) Open leg wound: Plan: Significant concern for tendon necrosis and exposed muscle belly on exam in the setting of a patient with profound polyneuropathy. There is also likely a degree of cellulitis present. Continue Zosyn/Vancomycin for broad spectrum coverage. - Gram stain/wound culture and blood cultures pending. - Plastic surgery consulted - would ultimately recommend BKA but patient does not wish to pursue this option. Reconstruction cannot be completed at [facility]. - Orthopedics consulted - recommend BKA as well, will continue to follow. - Vascular surgery consult and wound nurse consult is pending. - Did not tolerate MRI of right ankle today; will attempt to repeat on 03/20 with Valium 5 mg PO prior to imaging. - Will require PT evaluation prior to leaving hospital. (2) Polyneuropathy: Plan: - Continue home Gabapentin 600 mg BID. - Continue Folic acid 1 mg PO daily. (3) ETOH abuse: Plan: - AWSS protocol. (4) Hypertension: Plan: - Continue Metoprolol as prescribed. (5) COPD (chronic obstructive pulmonary disease): Plan: - Continue home inhalers. (6) Dyslipidemia: Plan: - Continue home Lipitor. (7) BPH associated with nocturia: Plan: - Continue home Flomax and Proscar. (8) Anemia: Plan: - Hgb trending down - will continue to monitor. DVT ppx: SCDs bilat; holding pharmacologic ppx for possible procedure. Dispo: Discharge pending vascular consult along with MRI results. Will require close follow up with the wound clinic, does have appt on 03/22/21. Admission and Anticipated Discharge Date Admission Date: March 18, 2021 Supervising Physician Co-Signing Physician Notes Attending Attestation - Personal bedside evaluation not performed, but chart reviewed, and care plan d/w DELIA Rodriguez. I agree w/ the urrutia components of her documentation. Sanchez Lopez MD Subjective Mr. España is doing well overall; patient does not wish to pursue BKA but this would be the best option. Evaluated by both orthopedics and plastic surgery; vascular surgery consult is pending. He was not able to tolerate right ankle MRI today to rule out osteomyelitis; will attempt MRI again on 03/20 with Valium prior to study. Review of Systems Review of Systems: Constitutional: Negative for weight loss, night sweats, or fever Eyes: Negative for event change of vision ENT: Negative for epistaxis, nasal discharge, sore throat, or deafness Cardiovascular: Negative for anginal type chest pain, palpitations, dizziness, diaphoresis Respiratory: Negative for new shortness of breath,hemoptysis, or purulent cough Gastrointestinal: Negative for diarrhea, hematemesis, melena, nausea, vomiting, or dyspepsia Integumentary (skin): Negative for rash or jaundice discoloration Genitourinary: Negative for urinary frequency, hematuria, or dysuria Neurological: Negative for weakness, seizure activity, headache, or dizziness Lymphatic/Hematologic: Negative for petechiae, bleeding or new adenopathy Musculoskeletal: Negative for new joint or back pain Allergic/Immunologic: +Right ankle ulcer Physical Exam Physical Exam: Constitutional: Vitals are stable Respiratory: Lung sounds were generally clear bilaterally. Cardiovascular: Heart was RRR without significant murmur, gallops or rubs. Musculoskeletal System: The musculoskeletal system seemed concordant with age. Skin: The skin was negative for jaundice. Extremities: Did not visualize ulcer on right LE. Results & Data Results & Data ([facility]) Vital Signs (Past 12 Hours) Vital Signs Temp Pulse Resp BP Pulse Ox 03/19/21 07:14 36.6 C 58 L 16 108/56 L 93 03/19/21 06:17 36.6 C 64 18 122/71 92 Laboratory Results 03/19/21 03/19/21 03/19/21 Range/Units 05:57 05:57 05:57 WBC (4.8-10.8) K/uL RBC (4.7-6.1) M/uL Hgb (14.0-18.0) g/dL Hct (42-52) % MCV (80-100) fL MCH (25-34) pg MCHC (32-36) g/dL RDW Std Deviation (36.4-46.3) fL RDW Coeff of Norm (11.5-14.5) % Plt Count (130-400) K/uL MPV (7.4-10.4) fL Immature Gran % (Auto) % Neut % (Auto) % Lymph % (Auto) % [place] % (Auto) % Eos % (Auto) % Baso % (Auto) % Neut # (Auto) (1.4-6.5) K/uL Lymph # (Auto) (1.2-3.4) K/uL [place] # (Auto) (0.11-0.59) K/uL Eos # (Auto) (0-0.5) K/uL Baso # (Auto) (0-0.2) K/uL Immature Gran # (Auto) (0.00-0.02) K/uL ESR (0-20) mm/hr Sodium 136 (136-145) mmol/L Potassium 4.6 (3.5-5.1) mmol/L Chloride 106 (98-107) mmol/L Carbon Dioxide 28 (21-32) mmol/L Anion Gap 2.0 L (3-11) BUN 19 H (7-18) mg/dl Creatinine 1.15 (0.6-1.4) mg/dl Est Cr Clr Drug Dosing 73.0 ml/min Est GFR ( Amer) 72.8 ml/min Est GFR (Non-Af Amer) 62.8 ml/min BUN/Creatinine Ratio 16.3 (10-20) Glucose 105 H (70-99) mg/dl Estimat Average Glucose 143 mg/dl Hemoglobin A1c 6.6 H (4.5-5.6) % Lactate (0.4-2.0) mmol/L Calcium 8.7 (8.5-10.1) mg/dl Total Bilirubin (0.2-1) mg/dl AST (15-37) U/L ALT (12-78) U/L Alkaline Phosphatase (45-117) U/L C-Reactive Protein 2.82 H (0-0.29) mg/dl Total Protein (6.4-8.2) gm/dl Albumin (3.4-5.0) gm/dl Globulin (2.5-4.0) gm/dl Albumin/Globulin Ratio (0.9-2) Prealbumin 11.5 L (20-40) mg/dl Vitamin B12 437 (193-986) pg/ml Folate 11.90 (>5.38) ng/ml Procalcitonin (0-0.5) ng/ml COVID-19 Eval Order SARS-CoV-2 (PCR) (Negative) Hepatitis C Ab Screen 03/19/21 03/19/21 03/19/21 Range/Units 05:57 05:57 05:57 WBC 8.50 (4.8-10.8) K/uL RBC 3.69 L (4.7-6.1) M/uL Hgb 11.6 L (14.0-18.0) g/dL Hct 35.3 L (42-52) % MCV 95.7 (80-100) fL MCH 31.4 (25-34) pg MCHC 32.9 (32-36) g/dL RDW Std Deviation 47.1 H (36.4-46.3) fL RDW Coeff of Norm 13.4 (11.5-14.5) % Plt Count 410 H (130-400) K/uL MPV 10.0 (7.4-10.4) fL Immature Gran % (Auto) 0.7 % Neut % (Auto) 65.1 % Lymph % (Auto) 24.2 % [place] % (Auto) 6.2 % Eos % (Auto) 3.1 % Baso % (Auto) 0.7 % Neut # (Auto) 5.53 (1.4-6.5) K/uL Lymph # (Auto) 2.06 (1.2-3.4) K/uL [place] # (Auto) 0.53 (0.11-0.59) K/uL Eos # (Auto) 0.26 (0-0.5) K/uL Baso # (Auto) 0.06 (0-0.2) K/uL Immature Gran # (Auto) 0.06 H (0.00-0.02) K/uL ESR 76 H (0-20) mm/hr Sodium (136-145) mmol/L Potassium (3.5-5.1) mmol/L Chloride (98-107) mmol/L Carbon Dioxide (21-32) mmol/L Anion Gap (3-11) BUN (7-18) mg/dl Creatinine (0.6-1.4) mg/dl Est Cr Clr Drug Dosing ml/min Est GFR ( Amer) ml/min Est GFR (Non-Af Amer) ml/min BUN/Creatinine Ratio (10-20) Glucose (70-99) mg/dl Estimat Average Glucose mg/dl Hemoglobin A1c (4.5-5.6) % Lactate (0.4-2.0) mmol/L Calcium (8.5-10.1) mg/dl Total Bilirubin (0.2-1) mg/dl AST (15-37) U/L ALT (12-78) U/L Alkaline Phosphatase (45-117) U/L C-Reactive Protein (0-0.29) mg/dl Total Protein (6.4-8.2) gm/dl Albumin (3.4-5.0) gm/dl Globulin (2.5-4.0) gm/dl Albumin/Globulin Ratio (0.9-2) Prealbumin (20-40) mg/dl Vitamin B12 (193-986) pg/ml Folate (>5.38) ng/ml Procalcitonin (0-0.5) ng/ml COVID-19 Eval Order SARS-CoV-2 (PCR) (Negative) Hepatitis C Ab Screen Pending 03/18/21 03/18/21 03/18/21 Range/Units 16:00 16:00 15:49 WBC (4.8-10.8) K/uL RBC (4.7-6.1) M/uL Hgb (14.0-18.0) g/dL Hct (42-52) % MCV (80-100) fL MCH (25-34) pg MCHC (32-36) g/dL RDW Std Deviation (36.4-46.3) fL RDW Coeff of Norm (11.5-14.5) % Plt Count (130-400) K/uL MPV (7.4-10.4) fL Immature Gran % (Auto) % Neut % (Auto) % Lymph % (Auto) % [place] % (Auto) % Eos % (Auto) % Baso % (Auto) % Neut # (Auto) (1.4-6.5) K/uL Lymph # (Auto) (1.2-3.4) K/uL [place] # (Auto) (0.11-0.59) K/uL Eos # (Auto) (0-0.5) K/uL Baso # (Auto) (0-0.2) K/uL Immature Gran # (Auto) (0.00-0.02) K/uL ESR (0-20) mm/hr Sodium (136-145) mmol/L Potassium (3.5-5.1) mmol/L Chloride (98-107) mmol/L Carbon Dioxide (21-32) mmol/L Anion Gap (3-11) BUN (7-18) mg/dl Creatinine (0.6-1.4) mg/dl Est Cr Clr Drug Dosing ml/min Est GFR ( Amer) ml/min Est GFR (Non-Af Amer) ml/min BUN/Creatinine Ratio (10-20) Glucose (70-99) mg/dl Estimat Average Glucose mg/dl Hemoglobin A1c (4.5-5.6) % Lactate (0.4-2.0) mmol/L Calcium (8.5-10.1) mg/dl Total Bilirubin (0.2-1) mg/dl AST (15-37) U/L ALT (12-78) U/L Alkaline Phosphatase (45-117) U/L C-Reactive Protein (0-0.29) mg/dl Total Protein (6.4-8.2) gm/dl Albumin (3.4-5.0) gm/dl Globulin (2.5-4.0) gm/dl Albumin/Globulin Ratio (0.9-2) Prealbumin (20-40) mg/dl Vitamin B12 (193-986) pg/ml Folate (>5.38) ng/ml Procalcitonin < 0.05 (0-0.5) ng/ml COVID-19 Eval Order Covid19 at [facility] SARS-CoV-2 (PCR) NEGATIVE (Negative) Hepatitis C Ab Screen 03/18/21 03/18/21 03/18/21 Range/Units 15:49 15:49 15:49 WBC 9.01 (4.8-10.8) K/uL RBC 4.05 L (4.7-6.1) M/uL Hgb 12.7 L (14.0-18.0) g/dL Hct 38.3 L (42-52) % MCV 94.6 (80-100) fL MCH 31.4 (25-34) pg MCHC 33.2 (32-36) g/dL RDW Std Deviation 46.8 H (36.4-46.3) fL RDW Coeff of Norm 13.5 (11.5-14.5) % Plt Count 409 H (130-400) K/uL MPV 10.1 (7.4-10.4) fL Immature Gran % (Auto) 0.8 % Neut % (Auto) 70.2 % Lymph % (Auto) 19.9 % [place] % (Auto) 5.8 % Eos % (Auto) 2.9 % Baso % (Auto) 0.4 % Neut # (Auto) 6.33 (1.4-6.5) K/uL Lymph # (Auto) 1.79 (1.2-3.4) K/uL [place] # (Auto) 0.52 (0.11-0.59) K/uL Eos # (Auto) 0.26 (0-0.5) K/uL Baso # (Auto) 0.04 (0-0.2) K/uL Immature Gran # (Auto) 0.07 H (0.00-0.02) K/uL ESR (0-20) mm/hr Sodium 138 (136-145) mmol/L Potassium 4.3 (3.5-5.1) mmol/L Chloride 105 (98-107) mmol/L Carbon Dioxide 27 (21-32) mmol/L Anion Gap 6.0 (3-11) BUN 17 (7-18) mg/dl Creatinine 1.08 (0.6-1.4) mg/dl Est Cr Clr Drug Dosing 75.6 ml/min Est GFR ( Amer) 78.5 ml/min Est GFR (Non-Af Amer) 67.7 ml/min BUN/Creatinine Ratio 15.3 (10-20) Glucose 119 H (70-99) mg/dl Estimat Average Glucose mg/dl Hemoglobin A1c (4.5-5.6) % Lactate 1.3 (0.4-2.0) mmol/L Calcium 9.0 (8.5-10.1) mg/dl Total Bilirubin 0.5 (0.2-1) mg/dl AST 24 (15-37) U/L ALT 44 (12-78) U/L Alkaline Phosphatase 149 H (45-117) U/L C-Reactive Protein (0-0.29) mg/dl Total Protein 8.0 (6.4-8.2) gm/dl Albumin 2.8 L (3.4-5.0) gm/dl Globulin 5.2 H (2.5-4.0) gm/dl Albumin/Globulin Ratio 0.5 L (0.9-2) Prealbumin (20-40) mg/dl Vitamin B12 (193-986) pg/ml Folate (>5.38) ng/ml Procalcitonin (0-0.5) ng/ml COVID-19 Eval Order SARS-CoV-2 (PCR) (Negative) Hepatitis C Ab Screen PG Care Time/CCT Total # of Minutes Spent Total Time Spent with Patient: Total time spent is greater than 50% in coordination of care (as documented) at patient's floor/unit and/or counseling patient: [place] [address] Subseq Hosp Care Lvl 2 Patient Type Established Diagnoses Open leg wound S81.809A Polyneuropathy G62.9 ETOH abuse F10.10 Hypertension I10 Hypertension type: unspecified COPD (chronic obstructive pulmonary disease) J44.9 Anemia D64.9 Dyslipidemia E78.5 BPH associated with nocturia N40.1; R35.1 (1) Hypertension Hypertension type: unspecified Qualified Code(s): I10 - Essential (primary) hypertension
[2021-03-19] MEDS: METOPROLOL SUCC 25MG EXT REL TAB PO SCH (22:06)
[2021-03-20] MEDS: VANCOMYCIN HCL 1,500 MG in SODIUM CHLORIDE 0.9% 500 ML IV SCH ×2 (02:24→14:16)
[2021-03-20] MEDS: PIPERACILLIN/TAZOBACTAM 3.375 GM in DEXTROSE 5% 100 ML IV SCH ×3 (05:51→21:38)
[2021-03-20 08:24] LABS: Hematocrit (blood only) 36.9 % (42-52); Hemoglobin 12.2 g/dL (14.0-18.0); Mean Corpuscular Hemoglobin 31.4 pg (25-34); Mean Corpuscular Hgb Conc 33.1 g/dL (32-36); Mean Corpuscular Volume 95.1 fL (80-100); Mean Platelet Volume 9.8 fL (7.4-10.4); Platelet Count 418 K/uL (130-400); RDW Coefficient of Variation 13.5 % (11.5-14.5); RDW Standard Deviation 46.6 fL (36.4-46.3); Red Blood Count 3.88 M/uL (4.7-6.1); White Blood Count 8.85 K/uL (4.8-10.8)
[2021-03-20 08:41] LABS: Albumin Level 2.6 gm/dl (3.4-5.0); BUN Creatinine Ratio 13.8 (10-20); Calcium 8.9 mg/dl (8.5-10.1); Creatinine Clr Calc Pharmacy 76.4 ml/min; Est GFR (African American) 76.8 ml/min; Est GFR (Non-African American) 66.2 ml/min; Potassium 4.5 mmol/L (3.5-5.1)
[2021-03-20 08:44] LABS: Albumin Globulin Ratio 0.5 (0.9-2); Bilirubin,Total 0.5 mg/dl (0.2-1); Globulin 4.9 gm/dl (2.5-4.0); Total Protein 7.5 gm/dl (6.4-8.2)
[2021-03-20] MEDS: FINASTERIDE 5 MG TAB PO SCH (09:34)
[2021-03-20] MEDS: ATORVASTATIN 40 MG TAB PO SCH (09:34)
[2021-03-20] MEDS: POTASSIUM CITRATE 10 MEQ TAB PO SCH (09:34)
[2021-03-20] MEDS: ASPIRIN 81 MG ECTAB PO SCH (09:34)
[2021-03-20] MEDS: FOLIC ACID 1 MG TAB PO SCH (09:35)
[2021-03-20] MEDS: allopurinoL 100 MG TAB PO SCH (09:35)
[2021-03-20] MEDS: TAMSULOSIN HCL 0.4 MG CAP PO SCH (09:35)
[2021-03-20] MEDS: THIAMINE HCL 100 MG TAB PO SCH ×2 (09:35→20:25)
[2021-03-20] MEDS: GABAPENTIN 600 MG TAB PO SCH ×2 (09:36→20:25)
[2021-03-20] MEDS: IBUPROFEN 200 MG TAB PO SCH ×2 (09:36→20:25)
[2021-03-20] MEDS: UMECLIDINIUM BROMIDE 62.5MCG/BLISTER 7 PUFFS/INHALER INH SCH (09:36)
[2021-03-20] MEDS: DAKIN'S SOLN 0.125% QUARTER STRENGTH 1000 ML BTL EXT SCH ×2 (09:37→20:34)
[2021-03-20] MEDS: FLUTICASONE/VILANTEROL 100/25MCG 14 PUFFS/INHALER INH SCH (09:37)
--- NOTE | 2021-03-20 11:23 | Surgery Progress Note ---
Date of Service March 20, 2021 Assessment & Plan (1) Open leg wound: Plan: MRI to be completed today with Valium pre study. Patient would like second opinion. Case discussed with Dr. Cormier who is agreeable to seeing him. Admission and Anticipated Discharge Date Admission Date: March 18, 2021 Subjective MRI attempted yesterday, study not completed due to movement. cx pending, gram stain shows no growth. Reports a history of lower extremity revascularization in [place] previously. Physical Exam Physical Exam: right ankle dressed pulses not palpable Results & Data ([facility]) Vital Signs (Past 12 Hours) Vital Signs Temp Pulse Resp BP Pulse Ox 03/20/21 07:14 97.9 F 71 16 145/83 H 94 PG Care Time/CCT Total # of Minutes Spent Total Time Spent with Patient: Total time spent is greater than 50% in coordination of care (as documented) at patient's floor/unit and/or counseling patient: Coding Level of Care Code 96649 Subseq Hosp Care Lvl 1 Diagnoses Open leg wound S81.809A
[2021-03-20] MEDS ORDERED: GADOBUTROL 10ML VIAL IV ONE (12:15)
[2021-03-20] MEDS: CEROVITE ADV FORMULA TAB PO SCH (12:54)
[2021-03-20] MEDS ORDERED: VANCOMYCIN TROUGH ONE (13:30)
--- NOTE | 2021-03-20 14:35 | Pharmacy Report ---
Pharmacy Abx Dose Short Note - Date of Service March 20, 2021 - Assessment & Plan Assessment 75 year old M receiving Vancomycin and Zosyn for treatment of severe RLE ulcer Day #3 of antimicrobial therapy. Plan Vancomycin * Trough level of 20.1 mcg/mL is supratherapeutic * Change to 1250 mg IV every 12 hours * Goal trough: 15 to 20 mcg/mL * Trough ordered for: 03/22 @0530 Zosyn * Continue Zosyn 3.375g IV q8 (extended infusion) for CrCl >20 mL/min Pharmacy will continue to follow and will adjust dose/frequency as necessary. Thank you.
--- NOTE | 2021-03-20 17:23 | Ultrasound Report ---
ULTRASOUND US arterial duplex LE RT CLINICAL HISTORY: severe Right ankle/leg wound; eval PAD RLE COMPARISON STUDY: None FINDINGS: Real-time as well as Doppler evaluation of the arterial structures of the lower legs was performed. Extensive atherosclerotic involvement is seen within right lower extremity arteriovascular bed and sh ow monophasic waveform. Peak systolic velocities are not increased likely due to upstream stenosis. Limited evaluation of the right dorsalis pedis artery due to overlying bandages. The following blood pressure indices were obtained. On the right, posterior tibial is 96 and dorsali s pedis is 78. On the left, posterior tibial is 95 and dorsalis pedis is 102. IMPRESSION: 1. Extensive atherosclerotic involvement of the arterial vascular but of the right lower extremity w ith monophasic flow and no evidence of increased velocity likely due to upstream stenosis. Electronically signed by: Savi Andrdae DO 03/20/2021 5:21 PM
[2021-03-20] MEDS ORDERED: PNEUMOCOCCAL Polysaccharide Vaccine 25mcg/0.5mL vial/Syr IM ONE (18:00)
[2021-03-20] MEDS: VANCOMYCIN HCL 1,250 MG in SODIUM CHLORIDE 0.9% 250 ML IV SCH (18:32)
[2021-03-20] MEDS: METOPROLOL SUCC 25MG EXT REL TAB PO SCH (20:26)
--- NOTE | 2021-03-21 00:28 | Hospitalist Progress Note ---
Date of Service March 20, 2021 Assessment & Plan (1) Open leg wound: Plan: Distal RLE/ankle. Per plastics & ortho there is concern for tendon necrosis and exposed muscle. Remains on Zosyn/Vancomycin. Wound culture and blood cultures pending. Both plastic surgery & ortho advising BKA. Patient wishes for more conservative approach/salvage surgery. Obtained RLE arterial duplex - this suggests proximal inflow disease. Dr Sylvester is not available for the next 2 weeks. Could consider consulting Dr Euceda from cardiology. Right ankle MRI completed but has not been read. Right leg MRI to be completed tomorrow. Add vit C and zinc to promote wound healing. Cont MVI, thiamine, folate, etc as well. (2) Polyneuropathy: Plan: Continue home Gabapentin 600 mg BID. 2nd to chronic etoh abuse?? other? (3) ETOH abuse: Plan: AWSS protocol. Cont thiamine high dose, folic acid, MVI. No signs/symptoms of etoh withdrawal at this time. (4) Hypertension: Plan: Controlled (5) COPD (chronic obstructive pulmonary disease): Plan: continue home inhalers. no exacerbation at this time. (6) Dyslipidemia: Plan: statin (7) BPH associated with nocturia: Plan: Continue home Flomax and Proscar. no LUTS at this time (8) Anemia: Plan: mild, Hb 12.2 today - acceptable (9) DVT prophylaxis: Plan: add heparin 5000 TID (10) Prediabetes: Plan: a1c 6.6% - this is c/w early T2DM change diet to DM diet and check BSGs in am to trend Admission and Anticipated Discharge Date Admission Date: March 18, 2021 Subjective patient had completed his right ankle MRI and his RLE arterial duplex study just before my arrival. he was lying in bed comfortably. denied any complaints. states the ulcer on RLE had been present for ~3 months. denies pain in RLE. Review of Systems Review of Systems: general: no fever, no chills, good appetite. CV: no chest pain. Pulm: no dyspnea. GI: no abd pain, nausea, vomiting or diarrhea. Physical Exam Physical Exam: gen: WD, WN, NAD mouth: MMM, no thrush heart: RRR, s1 s2 lungs: end-exp wheeze b/l abd: soft, NT, ND, BS+ vascular: popliteal pulses 1-2+ b/l; DP, pos tib pulses right foot ~1+, left foot 1-2+ skin: dressing intact right distal leg/ankle (not removed today) Results & Data Results & Data ([facility]) Vital Signs (Past 12 Hours) Vital Signs Temp Pulse Resp BP Pulse Ox 03/20/21 22:33 36.5 C 65 16 117/70 94 03/20/21 20:15 36.4 C L 64 18 119/65 03/20/21 15:34 36.4 C L 60 16 101/55 L 92 Laboratory Results Laboratory Results - last 24 hr 03/20/21 03/20/21 03/20/21 08:01 08:01 13:14 WBC 8.85 RBC 3.88 L Hgb 12.2 L Hct 36.9 L MCV 95.1 MCH 31.4 MCHC 33.1 RDW Std Deviation 46.6 H RDW Coeff of Norm 13.5 Plt Count 418 H MPV 9.8 Sodium 137 Potassium 4.5 Chloride 107 Carbon Dioxide 26 Anion Gap 4.0 BUN 15 Creatinine 1.10 Est Cr Clr Drug Dosing 76.4 Est GFR ( Amer) 76.8 Est GFR (Non-Af Amer) 66.2 BUN/Creatinine Ratio 13.8 Glucose 102 H Calcium 8.9 Total Bilirubin 0.5 AST 25 ALT 37 Alkaline Phosphatase 123 H Total Protein 7.5 Albumin 2.6 L Globulin 4.9 H Albumin/Globulin Ratio 0.5 L Vancomycin Trough 20.1 Diagnostic Findings Tibia/Fibula X-Ray 03/18/21 15:33 XR tibia fibula RT 2V CLINICAL HISTORY: wound R lower calf COMPARISON: None. DISCUSSION: There are advanced degenerative changes within the knee. There are vascular calcifications present. There is a soft tissue wound over the posterior lower leg. Involvement of the Achilles tendon cannot be excluded on conventional radiographic imaging. An MRI could be obtained in follow-up as deemed clinically appropriate.. IMPRESSION: 1. No fractures identified 2. Degenerative changes within the knee 3. Posterior soft tissue wound within the lower calf posteriorly with an overlying dressing. There is possible air within the soft tissues. Involvement of the Achilles tendon cannot be excluded. An MRI could be obtained in follow-up as deemed clinically appropriate. ACT 112: Negative or not required by law. Electronically signed by: Pankaj Hidalgo M.D. 03/18/2021 4:09 PM Duplex Scan Lower Extremity Artery 03/20/21 11:12 ULTRASOUND US arterial duplex LE RT CLINICAL HISTORY: severe Right ankle/leg wound; eval PAD RLE COMPARISON STUDY: None FINDINGS: Real-time as well as Doppler evaluation of the arterial structures of the lower legs was performed. Extensive atherosclerotic involvement is seen within right lower extremity arteriovascular bed and show monophasic waveform. Peak systolic velocities are not increased likely due to upstream stenosis. Limited evaluation of the right dorsalis pedis artery due to overlying bandages. The following blood pressure indices were obtained. On the right, posterior tibial is 96 and dorsalis pedis is 78. On the left, posterior tibial is 95 and dorsalis pedis is 102. IMPRESSION: 1. Extensive atherosclerotic involvement of the arterial vascular but of the right lower extremity with monophasic flow and no evidence of increased velocity likely due to upstream stenosis. Electronically signed by: Savi Andrade DO 03/20/2021 5:21 PM PG Care Time/CCT Total # of Minutes Spent Total Time Spent with Patient: Total time spent is greater than 50% in coordination of care (as documented) at patient's floor/unit and/or counseling patient: Coding Level of Care Code 02731 Subseq Hosp Care Lvl 3 Diagnoses Open leg wound S81.809A Polyneuropathy G62.9 ETOH abuse F10.10 Hypertension I10 Hypertension type: unspecified COPD (chronic obstructive pulmonary disease) J44.9 Dyslipidemia E78.5 BPH associated with nocturia N40.1; R35.1 Anemia D64.9 DVT prophylaxis Z29.9 Prediabetes R73.03 (1) Hypertension Hypertension type: unspecified Qualified Code(s): I10 - Essential (primary) hypertension
[2021-03-21] MEDS: DAKIN'S SOLN 0.125% QUARTER STRENGTH 1000 ML BTL EXT SCH ×3 (03:00→20:04)
[2021-03-21] MEDS: VANCOMYCIN HCL 1,250 MG in SODIUM CHLORIDE 0.9% 250 ML IV SCH ×2 (05:31→17:26)
[2021-03-21] MEDS: PIPERACILLIN/TAZOBACTAM 3.375 GM in DEXTROSE 5% 100 ML IV SCH ×3 (05:32→21:58)
[2021-03-21] MEDS: HEPARIN SOD 5,000 UNIT/0.5 ML VIAL SQ SCH ×3 (05:44→21:58)
[2021-03-21] MEDS: allopurinoL 100 MG TAB PO SCH (07:48)
[2021-03-21] MEDS: ASCORBIC ACID 500 MG TAB PO SCH (07:48)
[2021-03-21] MEDS: IBUPROFEN 200 MG TAB PO SCH ×2 (07:49→20:03)
[2021-03-21] MEDS: ATORVASTATIN 40 MG TAB PO SCH (07:49)
[2021-03-21] MEDS: FLUTICASONE/VILANTEROL 100/25MCG 14 PUFFS/INHALER INH SCH (07:49)
[2021-03-21] MEDS: FINASTERIDE 5 MG TAB PO SCH (07:49)
[2021-03-21] MEDS: GABAPENTIN 600 MG TAB PO SCH ×2 (07:49→20:03)
[2021-03-21] MEDS: FOLIC ACID 1 MG TAB PO SCH (07:49)
[2021-03-21] MEDS: ASPIRIN 81 MG ECTAB PO SCH (07:49)
[2021-03-21] MEDS: TAMSULOSIN HCL 0.4 MG CAP PO SCH (07:50)
[2021-03-21] MEDS: UMECLIDINIUM BROMIDE 62.5MCG/BLISTER 7 PUFFS/INHALER INH SCH (07:50)
[2021-03-21] MEDS: CEROVITE ADV FORMULA TAB PO SCH (07:50)
[2021-03-21] MEDS: THIAMINE HCL 100 MG TAB PO SCH ×2 (07:50→20:04)
[2021-03-21] MEDS: POTASSIUM CITRATE 10 MEQ TAB PO SCH (07:50)
[2021-03-21] MEDS: ZINC SULFATE 220 MG CAPSULE PO SCH (07:51)
[2021-03-21 08:24] LABS: BUN Creatinine Ratio 13.6 (10-20); Creatinine Clr Calc Pharmacy 85.7 ml/min; Est GFR (African American) 88.3 ml/min; Est GFR (Non-African American) 76.2 ml/min; Potassium 4.2 mmol/L (3.5-5.1)
--- NOTE | 2021-03-21 10:50 | Orthopedic Consultation ---
Date of Consultation March 21, 2021 Assessment & Plan (1) Open leg wound: Neuropathic ulcer that is turned into a large necrotic ulcer. Ulcer started at approximately 3 cm per the patient and has now progressed to 11 cm in length and 3 to 4 cm in width. Moderate necrosis noted. MRI of the ankle has been performed. Brief review of MRI with Dr. Cormier showing necrosis and possibility of osteomyelitis into the calcaneus. Duplex ultrasound lower extremity has been performed. Dr. Euceda has been consulted. Await for his input. Dr. Cormier to fully review MRI and to examine the patient. He will have a discussion with the patient concerning limb salvageability versus BKA. Supervising Physician Co-Signing Physician Notes Patient was seen and examined while lying supine in bed. He is awake and alert. Lengthy discussion was had with the patient regarding the pros and cons and possible risks and benefits of embarking upon a limb salvage program. Patient clearly understands that this will take approximately 3 to 6 months to determine whether limb salvage is successful. He understands that despite best efforts that the patient may still eventually have a left BKA, sepsis and possible are the maximum risks. Patient is fully aware of the potential risks and is adamant that he wants to attempt limb salvage for his left lower extremity. He is aware that we are awaiting final decision from interventional cardiology for possible stenting. We will have further discussion with the patient and attempt first washout with debridement of the Achilles at next available OR date. Thank you for the opportunity to offer consultation in the care of this patient. Cl Cormier DO. History of Present Illness Reason for Consultation: Right lower extremity wound necrosis Attending Physician: Quincy Clinton History of Present Illness The patient is a 75-year-old male with a notable past medical history hypertension, hyperlipidemia, COPD, BPH, COPD, neuropathy who presented to [facility] for evaluation of right heel ulcer. The patient states he has been having wound care take care of the ulcer on his right heel for some time now. He states that it was about the size of a quarter or little bigger. They were using DuoDERM dressings for a fairly long period of time. He states that he noticed that over time the ulcerative area was getting increasingly moist and draining. He had returned to the wound clinic for continued care and they started him on antibiotics. He was not having much in the way of overt pain. He has a history of neuropathy which she has had for close to 15 years. At one point he apparently was at the [employer] and looked down and noticed blood on the floor next to his foot. He was brought to the emergency room for evaluation and was admitted for further care. He was initially seen by Dr. Hunt from [facility] physician group orthopedics who recommended BKA. Patient currently is not willing to go with the BKA at this point in time and is hoping for some type of limb salvage. Dr. Mccray from plastics was also seen the patient for question of doing a skin flap of some kind if limb salvage was going to be attempted. We have been asked to see the patient for a second opinion on his ulceration. Currently the patient is awake and alert and in no acute distress. Pleasant cooperative. Allergies Allergy/AdvReac Type Severity Reaction Status Date / Time No Known Allergies Allergy Verified 03/18/21 17:08 Home Medications Medication Instructions Recorded Confirmed Type aspirin 81 mg tablet,delayed 81 mg PO QAM 07/30/18 03/18/21 History release (Adult Low Dose Aspirin) atorvastatin 40 mg tablet 40 mg PO QAM 07/30/18 03/18/21 History gabapentin 300 mg capsule 600 mg PO BID 07/30/18 03/18/21 History losartan 100 mg tablet (Cozaar) 50 mg PO QAM 07/30/18 03/18/21 History tamsulosin 0.4 mg capsule (Flomax) 0.4 mg PO QAM 07/30/18 03/18/21 History tiotropium bromide 18 mcg capsule 1 cap INH QAM 07/30/18 03/18/21 History with inhalation device (Spiriva with HandiHaler) albuterol sulfate 90 mcg/actuation 2 inh INHALATION QID PRN 03/12/20 03/18/21 History breath activated powder inhaler budesonide-formoterol HFA 160 2 puff INHALATION BID 03/12/20 03/18/21 History mcg-4.5 mcg/actuation aerosol inhaler metoprolol succinate 25 mg 25 mg PO QPM 03/12/20 03/18/21 History tablet,extended release 24 hr diclofenac sodium 1 % topical gel 4 g TOPICAL QID PRN 03/25/20 03/18/21 History (Voltaren) finasteride 5 mg tablet 5 mg PO DAILY #90 tab 04/06/20 03/18/21 Rx allopurinol 100 mg tablet 200 mg PO DAILY 03/18/21 03/18/21 History ibuprofen 200 mg tablet 400 mg PO BID 03/18/21 03/18/21 History potassium citrate 10 mEq (1,080 10 meq PO DAILY 03/18/21 03/18/21 History mg) tablet,extended release (Urocit-K 10) sulfamethoxazole 800 1 tab PO BID 03/18/21 03/18/21 History mg-trimethoprim 160 mg tablet Patient History Medical History Ascending aortic aneurysm Stable 4.1 ascending aorta aneurysm per 10/2019 CT, under surveillance by [facility] BPH (benign prostatic hyperplasia) COPD (chronic obstructive pulmonary disease) History of skin cancer Hx of gout Hyperlipemia Hypertension Insomnia Kidney stones Neuropathy Osteoarthritis Prediabetes Surgical History H/O spinal fusion LUMBAR History of colonoscopy History of herniorrhaphy History of tonsillectomy History of tooth extraction Family History Mother Family history of diabetes mellitus Social History Smoking Status: Former smoker Smoking End Date: "two and a half years ago"; Second Hand Exposure: No; Do You Dip or Chew Tobacco: No; Hx Alcohol Use: Yes Alcohol type: beer Hx Substance Use: No Preferred Language: Frisian Communication Ability: Effective Visual Impairment: Diminished Hearing Ability: Use of Hearing Aid Payment Manager Required: No Beliefs That Will Affect Care: None marital status: / Current Living Situation: Alone current occupational status: employed and unemployed Other Information That Helps Us Care for You: No Feels Safe at Home: Yes Safety Concerns: Feels Safe At This Time Assistive Devices: Glasses and Walker Review of Systems Review of Systems: All systems reviewed & are unremarkable except as noted in HPI & below Physical Exam Physical Exam: On examination, the patient has a dressing over the right heel and lower extremity. Dressing is removed revealing a large open ulcer area with moderate skin loss and necrosis of muscle and tendon. There is no foul odor and not much in the way of purulent drainage. He has a large section of black tissue that appears to be either part of his Achilles tendon and/or muscle belly that is hanging down from the proximal portion of the wound. Traveling further distally there is yellow slough and or firm purulence at the heel. Palpable defect of the Achilles tendon. I can push on the tissue for palpation without causing him much in the way of discomfort. Wound care nursing is present and current wound measures approximate 11 cm x 3 to 4 cm at its width. Mild chronic venous stasis changes noted bilateral lower extremities. His foot is warm to the touch and when blanching his skin, he has sluggish refill. Doppler was perfor med by wound care nurse and found the dorsalis pedis was very faint on Doppler but posterior tibial was fairly strong on Doppler. I could not appreciate palpating a dorsalis pedis pulse at this time. Patient with neuropathy as noted above. Results & Data ([facility]) Vital Signs (Past 12 Hours) Vital Signs Temp Pulse Resp BP Pulse Ox 03/21/21 07:00 36.7 C 55 L 20 134/80 93 Diagnostic Findings Patient: SHELL VALDEZAdmit Date: 03/18/21#: [id number]: [id number] [facility] DRAcct ID:[id number]: Date: 1945[facility] Zip: [place], [place] [address]Yxu: 75Location: 3WSex: MRoom/Bed: [id number] Phy: Sanchez Lopez MDDiagnosis: GAPING RLE ULCERPri Phy: Chrissie Kwan PA-CService Date: 03/20/21Fa Phy:Interpreting Phy: Savi Andrade DOAdmit Phy: Lyle Kumari MD Ordering Phy: Sanchez Lopez MD cc: ~ ULTRASOUND US arterial duplex LE RT CLINICAL HISTORY: severe Right ankle/leg wound; eval PAD RLE COMPARISON STUDY: None FINDINGS: Real-time as well as Doppler evaluation of the arterial structures of the lower legs was performed. Extensive atherosclerotic involvement is seen within right lower extremity arteriovascular bed and show monophasic waveform. Peak systolic velocities are not increased likely due to upstream stenosis. Limited evaluation of the right dorsalis pedis artery due to overlying bandages. The following blood pressure indices were obtained. On the right, posterior tibial is 96 and dorsalis pedis is 78. On the left, posterior tibial is 95 and dorsalis pedis is 102. IMPRESSION: 1. Extensive atherosclerotic involvement of the arterial vascular but of the right lower extremity with monophasic flow and no evidence of increased velocity likely due to upstream stenosis.
--- NOTE | 2021-03-21 11:20 | Magnetic Resonance Report ---
MR ankle RT wo/w con CLINICAL HISTORY: 75 years-old Male with Rule out osteomyelitis in setting of ulcer. COMPARISON: None. TECHNIQUE: Multiplanar, multi sequence MRI of the right ankle was performed without contrast. FINDINGS: LATERAL LIGAMENT COMPLEX: There is complete tear of anterior talus fibular ligament. Posterior talofi bular ligament is intact. SYNDESMOTIC LIGAMENTS: The anterior-inferior tibiofibular ligament, interosseous membrane and posteri or-inferior tibiofibular ligaments are intact. DELTOID LIGAMENT COMPLEX: The superficial and deep components of the deltoid ligament are intact. ANTERIOR TENDONS: The tibialis anterior, extensor hallucis longus and extensor digitorum longus tendo ns are normal in position, morphology and signal. LATERAL TENDONS: The peroneus longus and brevis tendons are intact. MEDIAL TENDONS: The posterior tibialis, flexor digitorum longus and flexor hallucis longus tendons ar e intact. PLANTAR FASCIA: The medial and lateral bundles of the plantar fascia are normal in morphology and sig nal. There is no evidence of acute plantar fasciitis or tear. No evidence of plantar fascial nodule s. ACHILLES TENDON: There is complete tear of distal aspect of a Achilles tendon associated with overlyi ng soft tissue defect and diffuse soft tissue edema. SINUS TARSI: There is mixed fat and fluid signal within the sinus tarsi. The interosseous and cervica l ligaments are normal. The navicular-calcaneal (spring) ligament iswithout acute abnormality. TARSAL TUNNEL: There are no obstructing lesions within the tarsal tunnel. BONE MARROW: No evidence of acute fracture. Cystic lesion is seen at subchondral aspect of the distal tibia associated with focal cartilage narrowing likely representing degenerative process. Also bone marrow edema of the calcaneal bone is seen. Diffuse soft tissue edema is seen. IMPRESSION: 1. Complete tear of Achilles tendon with overlying soft tissue and cutaneous defect and diffuse soft tissue edema. 2. Complete tear of anterior talofibular ligament. The rest of the tendons and ligaments are intact. 3. Diffuse soft tissue edema. ACT 112: Negative or not required by law. The above report was generated using voice recognition software. It may contain grammatical, syntax o r spelling errors. Electronically signed by: Savi Andrade DO 03/21/2021 11:19 AM
--- NOTE | 2021-03-21 16:44 | Vascular Medicine Consultation ---
Date of Consultation March 21, 2021 Assessment & Plan (1) Open leg wound: 2. Suspected PAD 3. Peripheral neuropathy Reviewed arterial duplex, and prior noncontrast CT of abdomen/pelvis. Based on imaging and exam do suspect patient has some degree of inflow disease that should be further evaluated. Recommend CTA with runoff. On duplex though no clear infrainguinal disease and does appear to have three- vessel runoff. Distal foot appears reasonably perfused. With extent of wound even if found to have severe inflow disease unsure revascularization would significantly change likelihood of limb salvage. Further recommendations pending findings of CTA. History of Present Illness Attending Physician: Quincy Clinton History of Present Illness Mr. España is a 75-year-old man admitted currently with a large necrotic right lower extremity heel ulceration with tendon involvement and possible osteomyelitis. Vascular medicine consulted due to concerns for possible inflow disease on lower extremity arterial duplex. Has a history of an ascending aortic aneurysm (4.1 cm) and borderline abdominal aortic aneurysm (3.1 cm). Had a Lexiscan nuclear stress 02/2020 was negative for ischemia, EF 72%. Reports prior vascular noninvasive testing at the [facility] maybe 2 years ago. He was told that "things were okay." No history of cardiac or vascular interventions. He has longstanding peripheral neuropathy. Other issues include dyslipidemia, COPD, BPH, nephrolithiasis heavy alcohol use and prior long-term smoking. Has been treated by [place] pod[facility]ry for more than 3 months due to ulceration. Significant progression with bleeding the week prior to admission. Now on broad-spectrum antibiotics. MRI with Achilles tear, calcaneal bone edema. Has been evaluated by orthopedics and plastic surgery. BKA recommended. Allergies Allergy/AdvReac Type Severity Reaction Status Date / Time No Known Allergies Allergy Verified 03/18/21 17:08 Home Medications Medication Instructions Recorded Confirmed Type aspirin 81 mg tablet,delayed 81 mg PO QAM 07/30/18 03/18/21 History release (Adult Low Dose Aspirin) atorvastatin 40 mg tablet 40 mg PO QAM 07/30/18 03/18/21 History gabapentin 300 mg capsule 600 mg PO BID 07/30/18 03/18/21 History losartan 100 mg tablet (Cozaar) 50 mg PO QAM 07/30/18 03/18/21 History tamsulosin 0.4 mg capsule (Flomax) 0.4 mg PO QAM 07/30/18 03/18/21 History tiotropium bromide 18 mcg capsule 1 cap INH QAM 07/30/18 03/18/21 History with inhalation device (Spiriva with HandiHaler) albuterol sulfate 90 mcg/actuation 2 inh INHALATION QID PRN 03/12/20 03/18/21 History breath activated powder inhaler budesonide-formoterol HFA 160 2 puff INHALATION BID 03/12/20 03/18/21 History mcg-4.5 mcg/actuation aerosol inhaler metoprolol succinate 25 mg 25 mg PO QPM 03/12/20 03/18/21 History tablet,extended release 24 hr diclofenac sodium 1 % topical gel 4 g TOPICAL QID PRN 03/25/20 03/18/21 History (Voltaren) finasteride 5 mg tablet 5 mg PO DAILY #90 tab 04/06/20 03/18/21 Rx allopurinol 100 mg tablet 200 mg PO DAILY 03/18/21 03/18/21 History ibuprofen 200 mg tablet 400 mg PO BID 03/18/21 03/18/21 History potassium citrate 10 mEq (1,080 10 meq PO DAILY 03/18/21 03/18/21 History mg) tablet,extended release (Urocit-K 10) sulfamethoxazole 800 1 tab PO BID 03/18/21 03/18/21 History mg-trimethoprim 160 mg tablet Patient History Medical History Ascending aortic aneurysm Stable 4.1 ascending aorta aneurysm per 10/2019 CT, under surveillance by [facility] BPH (benign prostatic hyperplasia) COPD (chronic obstructive pulmonary disease) History of skin cancer Hx of gout Hyperlipemia Hypertension Insomnia Kidney stones Neuropathy Osteoarthritis Prediabetes Surgical History H/O spinal fusion LUMBAR History of colonoscopy History of herniorrhaphy History of tonsillectomy History of tooth extraction Family History Mother Family history of diabetes mellitus Social History Smoking Status: Former smoker Smoking End Date: "two and a half years ago"; Second Hand Exposure: No; Do You Dip or Chew Tobacco: No; Hx Alcohol Use: Yes Alcohol type: beer Hx Substance Use: No Preferred Language: Nepali Communication Ability: Effective Visual Impairment: Diminished Hearing Ability: Use of Hearing Aid Aircraft Structural Design Engineer Required: No Beliefs That Will Affect Care: None marital status: / Current Living Situation: Alone current occupational status: employed and unemployed Other Information That Helps Us Care for You: No Feels Safe at Home: Yes Safety Concerns: Feels Safe At This Time Assistive Devices: Glasses and Walker Review of Systems Review of Systems: 10 point review of systems was completed and was otherwise negative unless stated in HPI Physical Exam Physical Exam: General: Comfortable, no acute distress Eyes: Sclerae anicteric Neck: Normal carotid upstrokes, no bruits. Lungs: Clear to auscultation bilaterally Cardiac: Regular rate and rhythm, no murmurs Abdomen: Soft, nontender Neuro: Nonfocal Psych: Alert orient x3, normal affect and mood Extremities/Vascular: -- 2+ radial bilaterally -- 1+ femoral bilaterally --1+ popliteal on left, nonpalpable right --Palpable DP on right, nonpalpable PT. 2+ DP on left, palpable PT on left Right tenderness pale but normal capillary refill --Right lower extremity dressed. Wound care images reviewed. --1+ edema to beltran on right Results & Data ([facility]) Vital Signs (Past 12 Hours) Vital Signs Temp Pulse Resp BP Pulse Ox 03/21/21 15:20 97.7 F 63 20 156/79 H 93 03/21/21 07:00 98.1 F 55 L 20 134/80 93 PG Care Time/CCT Total # of Minutes Spent Total Time Spent with Patient: Total time spent is greater than 50% in coordination of care (as documented) at patient's floor/unit and/or counseling patient: Coding Level of Care Code 53197 Initial Inpt Care Lvl 3 Diagnoses Open leg wound S81.809A
[2021-03-21] MEDS ORDERED: hydrOXYzine HCl 25 MG TAB PO STA (19:48)
[2021-03-21] MEDS: METOPROLOL SUCC 25MG EXT REL TAB PO SCH (20:03)
[2021-03-21] MEDS ORDERED: OPTIRAY 320 125ml IV ONE (20:53)
--- NOTE | 2021-03-21 21:06 | Hospitalist Progress Note ---
Date of Service March 21, 2021 Assessment & Plan (1) Open leg wound: Plan: Distal RLE/ankle. Per plastics & ortho there is concern for tendon necrosis and exposed muscle. Remains on Zosyn/Vancomycin. Wound culture and blood cultures pending. Both plastic surgery & ortho advising BKA. Patient wishes for more conservative approach/salvage surgery. Obtained RLE arterial duplex - this suggests proximal inflow disease. Dr Sylvester is not available for the next [address] Euceda from cardiology. Awaiting input. Right ankle MRI completed but has not been read. Right leg MRI will be cancelled for now as ortho does not appear to need this for now. D/W ortho, will review MRI of ankle and perhaps may do a debridement. Add vit C and zinc to promote wound healing. Cont MVI, thiamine, folate, etc as well. (2) Polyneuropathy: Plan: Continue home Gabapentin 600 mg BID. 2nd to chronic etoh abuse?? other? (3) ETOH abuse: Plan: AWSS protocol. Cont thiamine high dose, folic acid, MVI. No signs/symptoms of etoh withdrawal at this time. (4) Hypertension: Plan: Controlled (5) COPD (chronic obstructive pulmonary disease): Plan: continue home inhalers. no exacerbation at this time. (6) Dyslipidemia: Plan: statin (7) BPH associated with nocturia: Plan: Continue home Flomax and Proscar. no LUTS at this time (8) Anemia: Plan: mild, Hb 12.2 today - acceptable (9) DVT prophylaxis: Plan: add heparin 5000 TID (10) Prediabetes: Plan: a1c 6.6% - this is c/w early T2DM change diet to DM diet and check BSGs in am to trend Admission and Anticipated Discharge Date Admission Date: March 18, 2021 Subjective Patient reports no new symptons Review of Systems 2 Review of Systems: All systems reviewed & are unremarkable except as noted in HPI & below Physical Exam Physical Exam: Constitutional: Patient is lying in bed, and in no acute distress. WD, WN. Eyes: EOMI ENMT: MMM, no thrush Heart: RRR, Normal S1 S2 Lungs: B/L end-exp wheeze Abd: soft, NT, ND, BS+ Vascular: popliteal pulses 1-2+ b/l; DP, pos tib pulses right foot ~1+, left foot 1-2+ skin: large open wound noted on right posterior foot Results & Data Results & Data ([facility]) Vital Signs (Past 12 Hours) Vital Signs Temp Pulse Resp BP BP Pulse Ox 03/21/21 19:58 64 129/79 03/21/21 15:20 36.5 C 63 20 156/79 H 93 PG Care Time/CCT Total # of Minutes Spent Total Time Spent with Patient: Total time spent is greater than 50% in coordination of care (as documented) at patient's floor/unit and/or counseling patient: Coding Level of Care Code 11867 Subseq Hosp Care Lvl 3 Diagnoses Open leg wound S81.809A Polyneuropathy G62.9 ETOH abuse F10.10 Hypertension I10 Hypertension type: unspecified COPD (chronic obstructive pulmonary disease) J44.9 Dyslipidemia E78.5 BPH associated with nocturia N40.1; R35.1 Anemia D64.9 DVT prophylaxis Z29.9 Prediabetes R73.03 Time Spent (min) 35 Comment chart review (1) Hypertension Hypertension type: unspecified Qualified Code(s): I10 - Essential (primary) hypertension
[2021-03-22] MEDS: HEPARIN SOD 5,000 UNIT/0.5 ML VIAL SQ SCH ×3 (05:26→21:51)
[2021-03-22] MEDS: PIPERACILLIN/TAZOBACTAM 3.375 GM in DEXTROSE 5% 100 ML IV SCH ×3 (05:28→22:45)
[2021-03-22] MEDS ORDERED: VANCOMYCIN TROUGH ONE (05:30)
[2021-03-22] MEDS: VANCOMYCIN HCL 1,250 MG in SODIUM CHLORIDE 0.9% 250 ML IV SCH ×2 (05:34→17:43)
[2021-03-22 05:54] LABS: Hematocrit (blood only) 38.1 % (42-52); Hemoglobin 12.3 g/dL (14.0-18.0); Mean Corpuscular Hemoglobin 31.4 pg (25-34); Mean Corpuscular Hgb Conc 32.3 g/dL (32-36); Mean Corpuscular Volume 97.2 fL (80-100); Mean Platelet Volume 9.8 fL (7.4-10.4); Platelet Count 417 K/uL (130-400); RDW Coefficient of Variation 13.4 % (11.5-14.5); RDW Standard Deviation 47.5 fL (36.4-46.3); Red Blood Count 3.92 M/uL (4.7-6.1); White Blood Count 8.37 K/uL (4.8-10.8)
[2021-03-22 06:18] LABS: Est GFR (African American) 86.2 ml/min; Est GFR (Non-African American) 74.3 ml/min; Potassium 4.3 mmol/L (3.5-5.1)
[2021-03-22] MEDS: TAMSULOSIN HCL 0.4 MG CAP PO SCH (08:45)
[2021-03-22] MEDS: THIAMINE HCL 100 MG TAB PO SCH ×2 (08:45→21:51)
[2021-03-22] MEDS: FOLIC ACID 1 MG TAB PO SCH (08:45)
[2021-03-22] MEDS: GABAPENTIN 600 MG TAB PO SCH ×2 (08:45→21:51)
[2021-03-22] MEDS: allopurinoL 100 MG TAB PO SCH (08:46)
[2021-03-22] MEDS: CEROVITE ADV FORMULA TAB PO SCH (08:46)
[2021-03-22] MEDS: POTASSIUM CITRATE 10 MEQ TAB PO SCH (08:46)
[2021-03-22] MEDS: IBUPROFEN 200 MG TAB PO SCH ×2 (08:46→21:52)
[2021-03-22] MEDS: FINASTERIDE 5 MG TAB PO SCH (08:47)
[2021-03-22] MEDS: DAKIN'S SOLN 0.125% QUARTER STRENGTH 1000 ML BTL EXT SCH ×2 (08:47→21:50)
[2021-03-22] MEDS: ATORVASTATIN 40 MG TAB PO SCH (08:47)
[2021-03-22] MEDS: ASPIRIN 81 MG ECTAB PO SCH (08:47)
[2021-03-22] MEDS: ASCORBIC ACID 500 MG TAB PO SCH (08:47)
[2021-03-22] MEDS: ZINC SULFATE 220 MG CAPSULE PO SCH (08:47)
[2021-03-22] MEDS: FLUTICASONE/VILANTEROL 100/25MCG 14 PUFFS/INHALER INH SCH (08:48)
[2021-03-22] MEDS: UMECLIDINIUM BROMIDE 62.5MCG/BLISTER 7 PUFFS/INHALER INH SCH (08:48)
--- NOTE | 2021-03-22 11:05 | CT Scan Report ---
CT ang [facility] CT DOSE: 2012.14 mGy.cm CLINICAL HISTORY: suspected aorto-iliac disease TECHNIQUE: A dose lowering technique was utilized adhering to the principles of ALARA. COMPARISON STUDY: None. Correlation is made with CT of the abdomen and pelvis performed on February 03, 2021. FINDINGS: -Visualized portion of ascending aorta is normal in caliber. -Descending portion of thoracic aorta is slightly ectatic measuring 2.9 cm in diameter. -Proximal suprarenal intra-abdominal aorta measures 2.6 cm in diameter. There are extensive partial calcified plaques within distal thoracic and abdominal aorta which is cau sing mild stenosis of celiac artery. -Small intimal flap is seen at the origin of the celiac artery (3/117). Comparison with prior CT of t he abdomen is difficult due to different contrast timing. No other areas of intimal flap is seen to suggest dissection. -There is heavy partially calcified plaque within proximal aspect of superior mesenteric artery which is causing mild stenosis. -Calcified plaques are seen within bilateral renal arteries with associated mild narrowing. -Proximal portion of infrarenal aorta is measuring 2.3 cm in diameter. -Distal portion of infrarenal aorta is measuring 2.1 cm in diameter and associated with heavy concent rajesh calcified plaques. -Right and left common iliac arteries are normal in caliber measuring approximately 1.2 cm on the rig ht and 1.5 cm on the left and surrounds by heavily calcified plaques. -Bilateral external iliac arteries are patent with extensive partially calcified plaques within its w all. RIGHT LOWER EXTREMITY: Common femoral artery, superficial femoral artery and profunda are patent. Extensive calcified plaque s are seen within superficial femoral artery which is causing severe stenosis at the distal aspect of superficial femoral artery (3/746). There is flow seen within popliteal artery. Peripheral location and anterior, posterior tibialis and peroneal arteries shows evidence of flow and multiple peripheral calcified plaques. There is evidence of blood flow within arteries of the right foot. LEFT LOWER EXTREMITY: Common femoral artery is patent. Superficial femoral artery and profunda are patent at its proximal aspect. Profunda flow is not well seen at the level of the mid thigh which could be due to its narrowing. Extensive calcified plaques are seen within superficial femoral artery which is causing multiple area s of stenosis, for example series 3 image 687. There is flow visualized within popliteal artery and peripheral extensive partial calcified plaques. Possible mild stenosis within popliteal artery is seen on series 3 image 837. Heavily calcified plaques are seen trifurcation and origin of the left peroneal artery with possible stenosis however flow is seen within anterior, posterior tibialis and peroneal arteries within proxim al-mid calf. Flow is not well seen within distal aspect of the anterior tibialis artery at the distal aspect of th e left calf. Minimal flow is seen within arteries of the feet. ABDOMEN AND PELVIS: Limited evaluation of lung bases shows patchy areas of septal thickening associated with small surrou nding cystic changes and few groundglass nodules within left lower lung. 1.3 cm groundglass nodule is seen within left lower lobe on series 3 image 59. -Irregular part solid nodule is seen within subpleural aspect of the left lower lobe and shows 9 mm s olid component (3/73). This nodule was not seen on June 07, 2020 CT of abdomen and pelvis and migh t represent sequela from prior infectious/inflammatory process within left lower lobe that was seen o n CT of chest performed on February 03, 2021 or represent neoplastic process. Please follow recommendatio n of CT chest. Partial calcified nodule is seen at the subpleural aspect of the right lower lobe. Liver, spleen, pancreas and right adrenal gland are unremarkable. Mild nodularity of the left adrenal gland is seen. Gallbladder is contracted which limits evaluation. No hydronephrosis or nephrolithiasis is seen. No definite renal lesions demonstrated. Urinary bladder is partially decompressed which limits evaluation. Mild diffuse thickening of urinary bladder wall is seen which could be due to low volume. Prostate gland is not enlarged. Stomach was distended with ingested material. Bowel loops are nondilated. Appendix is normal in calib er. No inflammatory changes are seen within right lower quadrant. Mild diverticulosis of descending a nd sigmoid colon is seen without evidence of diverticulitis. No significant lymphadenopathy seen. Evaluation of osseous structures shows multilevel degenerative changes of the spine, postlaminectomy changes within lower lumbar spine L2-S1 level. IMPRESSION: 1. Small intimal flap is seen at the origin of the celiac artery which might represent developing di ssection or chronic findings. Comparison to prior studies is impossible due to the lack of IV contras t or different contrast timing. Other areas of visualized thoracic and abdominal aorta shows no evide nce of dissection. No definite dilatation of focal stenosis of aorta are seen. Extensive partial calc ified plaques within aortic wall and its branches associated with mild stenosis of celiac, superior m esenteric and renal arteries. Follow-up evaluation is per clinical protocol. 2. Extensive partial calcified plaques throughout vessels of bilateral lower extremities with few ar eas of stenosis and possible occlusion of the distal aspect of the left posterior tibialis artery as detailed above. 3. No acute intra-abdominal findings. Contracted gallbladder likely in postprandial state. 4. Diffuse thickening of urinary bladder wall which could be due to low volume or due to cystitis. P lease correlate above-mentioned findings with results of urinalysis. 5. Nondilated appendix. 6. Diverticulosis of sigmoid colon without evidence of diverticulitis. 7. Findings within left lower lobe might represent sequela from recent pneumonia however neoplastic process cannot be completely ruled out. Please see discussion above. 8. Other findings as above. ACT 112: Positive. There are findings on this exam that require communication between the performing entity and the patient following Patient Test Result Information Act ([place] Act 112) guidelines. The above report was generated using voice recognition software. It may contain grammatical, syntax o r spelling errors. Electronically signed by: Savi Andrade DO 03/22/2021 11:03 AM
--- NOTE | 2021-03-22 11:09 | Vascular Medicine ProgressNote ---
Date of Service March 22, 2021 Assessment & Plan (1) Open leg wound: Plan: 2. Lower extremity PAD 3. Peripheral neuropathy Reviewed CTA. Abdominal aorta/iliacs appear widely patent bilaterally. Appears to have severe, heavily calcified distal SFA/popliteal disease on right. Tibial/peroneal on right appear patent. Patient again voiced his desire to proceed with attempts at limb salvage. Reviewed opinion from Dr. Cormier. We will attempt to optimize arterial perfusion and plan for right lower extremity angiogram with likely right SFA-popliteal angioplasty/stenting. Tentatively plan on procedure tomorrow a.m. N.p.o. past midnight. Admission and Anticipated Discharge Date Admission Date: March 18, 2021 Subjective Feeling well today. Denies significant pain in right leg. No other new concerns. Review of Systems Review of Systems: 10 point review of systems was completed and was otherwise negative unless stated in HPI Physical Exam Physical Exam: General: Comfortable, no acute distress Eyes: Sclerae anicteric Lungs: Clear to auscultation bilaterally Cardiac: Regular rate and rhythm, no murmurs Abdomen: Soft, nontender Neuro: Nonfocal Psych: Alert orient x3, normal affect and mood Extremities/Vascular: -- 2+ radial bilaterally -- 2+ femoral bilaterally -- --1+DP on right, nonpalpable PT. 2+ DP on left, palpable PT on left Right toes pale but normal capillary refill --Right lower extremity dressed. --1+ edema to beltran on right Results & Data ([facility]) Vital Signs (Past 12 Hours) Vital Signs Temp Pulse Resp BP BP Pulse Ox 03/22/21 07:16 97.5 F L 55 L 16 130/71 92 03/21/21 23:57 97.9 F 63 17 139/73 93 PG Care Time/CCT Total # of Minutes Spent Total Time Spent with Patient: Total time spent is greater than 50% in coordination of care (as documented) at patient's floor/unit and/or counseling patient: Coding Level of Care Code 46253 Subseq Hosp Care Lvl 3 Diagnoses Open leg wound S81.809A
--- NOTE | 2021-03-22 21:27 | Hospitalist Progress Note ---
Date of Service March 22, 2021 Assessment & Plan (1) Open leg wound: Plan: Distal RLE/ankle. Per plastics & ortho there is concern for tendon necrosis and exposed muscle. Remains on Zosyn/Vancomycin. Wound culture and blood cultures pending. Both plastic surgery & ortho advising BKA. Patient wishes for more conservative approach/salvage surgery. Obtained RLE arterial duplex - this suggests proximal inflow disease. Dr Sylvester is not available for the next [address] Euceda from cardiology. Awaiting input. Right ankle MRI completed Consulted vascular surgery: Reviewed CTA. Abdominal aorta/iliacs appear widely patent bilaterally. Appears t o have severe, heavily calcified distal SFA/popliteal disease on right. Tibial/peroneal on right appear patent. As patient remains interested in a limb salvage: will try to optimize arterial perfusion and plan for right lower extremity angiogram with likely right SFA- popliteal angioplasty/stenting. Tentatively plan on procedure tomorrow a.m. N.p.o. past midnight. Add vit C and zinc to promote wound healing. Cont MVI, thiamine, folate, etc as well. (2) Polyneuropathy: Plan: Continue home Gabapentin 600 mg BID. 2nd to chronic etoh abuse?? other? (3) ETOH abuse: Plan: AWSS protocol. Cont thiamine high dose, folic acid, MVI. No signs/symptoms of etoh withdrawal at this time. (4) Hypertension: Plan: Controlled (5) COPD (chronic obstructive pulmonary disease): Plan: continue home inhalers. no exacerbation at this time. (6) Dyslipidemia: Plan: statin (7) BPH associated with nocturia: Plan: Continue home Flomax and Proscar. no LUTS at this time (8) Anemia: Plan: mild, Hb 12.2 today - acceptable (9) DVT prophylaxis: Plan: add heparin 5000 TID (10) Prediabetes: Plan: a1c 6.6% - this is c/w early T2DM change diet to DM diet and check BSGs in am to trend Admission and Anticipated Discharge Date Admission Date: March 18, 2021 Subjective Patient reports no new symptoms today. Review of Systems Review of Systems: All systems reviewed & are unremarkable except as noted in HPI & below Physical Exam Physical Exam: Constitutional: Patient is lying in bed, and in no acute distress. WD, WN. Eyes: EOMI ENMT: MMM, no thrush Heart: RRR, Normal S1 S2 Lungs: B/L end-exp wheeze Abd: soft, NT, ND, BS+ Vascular: popliteal pulses 1-2+ b/l; DP, pos tib pulses right foot ~1+, left foot 1-2+ skin: large open wound noted on right posterior foot Results & Data Results & Data ([facility]) Vital Signs (Past 12 Hours) Vital Signs Temp Pulse Resp BP Pulse Ox 03/22/21 15:02 36.3 C L 62 16 106/65 91 PG Care Time/CCT Total # of Minutes Spent Total Time Spent with Patient: Total time spent is greater than 50% in coordination of care (as documented) at patient's floor/unit and/or counseling patient: Coding Level of Care Code 11155 Subseq Hosp Care Lvl 2 Diagnoses Open leg wound S81.809A Polyneuropathy G62.9 ETOH abuse F10.10 Hypertension I10 Hypertension type: unspecified COPD (chronic obstructive pulmonary disease) J44.9 Dyslipidemia E78.5 BPH associated with nocturia N40.1; R35.1 Anemia D64.9 DVT prophylaxis Z29.9 Prediabetes R73.03 Time Spent (min) 25 (1) Hypertension Hypertension type: unspecified Qualified Code(s): I10 - Essential (primary) hypertension
[2021-03-22] MEDS: METOPROLOL SUCC 25MG EXT REL TAB PO SCH (21:52)
[2021-03-23] MEDS: PIPERACILLIN/TAZOBACTAM 3.375 GM in DEXTROSE 5% 100 ML IV SCH (05:29)
[2021-03-23] MEDS: VANCOMYCIN HCL 1,250 MG in SODIUM CHLORIDE 0.9% 250 ML IV SCH (05:30)
[2021-03-23] MEDS: HEPARIN SOD 5,000 UNIT/0.5 ML VIAL SQ SCH ×3 (05:30→22:21)
[2021-03-23] MEDS: TAMSULOSIN HCL 0.4 MG CAP PO SCH (08:18)
[2021-03-23] MEDS: ASPIRIN 81 MG ECTAB PO SCH (08:18)
[2021-03-23] MEDS: IBUPROFEN 200 MG TAB PO SCH ×2 (08:19→22:19)
[2021-03-23] MEDS: THIAMINE HCL 100 MG TAB PO SCH ×2 (08:19→22:21)
[2021-03-23] MEDS: GABAPENTIN 600 MG TAB PO SCH ×2 (08:19→22:20)
[2021-03-23] MEDS: allopurinoL 100 MG TAB PO SCH (08:20)
[2021-03-23] MEDS: ASCORBIC ACID 500 MG TAB PO SCH (08:20)
[2021-03-23] MEDS: CEROVITE ADV FORMULA TAB PO SCH (08:20)
[2021-03-23] MEDS: POTASSIUM CITRATE 10 MEQ TAB PO SCH (08:21)
[2021-03-23] MEDS: FINASTERIDE 5 MG TAB PO SCH (08:21)
[2021-03-23] MEDS: ZINC SULFATE 220 MG CAPSULE PO SCH (08:21)
[2021-03-23] MEDS: ATORVASTATIN 40 MG TAB PO SCH (08:21)
[2021-03-23] MEDS: FOLIC ACID 1 MG TAB PO SCH (08:22)
[2021-03-23] MEDS: UMECLIDINIUM BROMIDE 62.5MCG/BLISTER 7 PUFFS/INHALER INH SCH (08:22)
[2021-03-23] MEDS: FLUTICASONE/VILANTEROL 100/25MCG 14 PUFFS/INHALER INH SCH (08:22)
[2021-03-23] MEDS: DAKIN'S SOLN 0.125% QUARTER STRENGTH 1000 ML BTL EXT SCH ×2 (08:23→21:23)
[2021-03-23] MEDS ORDERED: cefTRIAXone SODIUM 2,000 MG in DEXTROSE 5% 50 ML IV SCH (14:00)
--- NOTE | 2021-03-23 16:15 | Surgery Progress Note ---
Date of Service March 23, 2021 Assessment & Plan (1) Open leg wound: Plan: Dr. Cormier planning OR debridement tomorrow on right lower extremity. Will sign off. Please reconsult if needed for assistance in wound care. 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 Chart reviewed. Results & Data ([facility]) Vital Signs (Past 12 Hours) Vital Signs Temp Pulse Resp BP BP Pulse Ox 03/23/21 12:13 60 18 124/54 L 94 03/23/21 07:05 97.2 F L 52 L 18 117/72 93 PG Care Time/CCT Total # of Minutes Spent Total Time Spent with Patient: Total time spent is greater than 50% in coordination of care (as documented) at patient's floor/unit and/or counseling patient: Coding Level of Care Code 11370 Subseq Hosp Care Lvl 1 Diagnoses Open leg wound S81.809A
[2021-03-23] MEDS ORDERED: fentaNYL citrate 100 MCG/2 ML VIAL ONE ×2 (17:38→18:17)
[2021-03-23] MEDS ORDERED: HEPARIN (PORCINE) 1000 UNIT/ML 10 ML (CATH LAB USE ONLY) ONE (17:38)
[2021-03-23] MEDS ORDERED: niCARdipine HCL INJ 2.5 MG/ML 10 ML AMP ONE (17:38)
[2021-03-23] MEDS ORDERED: MIDAZOLAM HCL 1 MG/ML 2ML VIAL ONE ×3 (17:38→18:17)
--- NOTE | 2021-03-23 17:39 | Pre Anesthesia Assessment ---
Date of Service March 23, 2021 Pre Sedation Assessment Vital Signs Temp Pulse Pulse Resp BP BP Pulse Ox 03/23/21 17:19 78 16 126/66 96 03/23/21 12:13 60 18 124/54 L 94 03/23/21 07:05 97.2 F L 52 L 18 117/72 93 03/22/21 23:00 97.2 F L 59 L 18 120/65 92 03/22/21 21:46 63 121/61 Cardiovascular RRR, no murmur, no edema Respiratory normal respiratory effort, lungs clear to auscultation Pre-Sedation Airway Assessment Smoking Status: Former smoker Hx Sleep Apnea: No Hx Difficult Intubation: No Short, Thick Neck: No Thyromental Distance: > or= 3.5 Finger Breadths Oral Cavity: + WNL Mallampati Class: III ASA: ASA2 NPO Status Date of Last Intake of Fluids: 03/23/21 Time of Last Intake of Fluids: 07:00 Date of Last Intake of Solid Food: 03/22/21 Time of Last Intake of Solid Foods: 19:00 Procedure Planning Contraindications for Sedation: none Current Medications Reviewed: Yes Notes The planned sedation has been discussed with the patient. Informed Consent was obtained. I have identified the patient, determined the appropriateness of sedation and have assessed the patient immediately prior to the procedure. All medicine(s) and interventions are by my order.
[2021-03-23] MEDS ORDERED: NITROGLYCERIN/D5W 100MCG/ML 20ML SYR ONE (17:43)
[2021-03-23] MEDS ORDERED: CLOPIDOGREL BISULFATE 300 MG TAB ONE (18:39)
--- NOTE | 2021-03-23 18:39 | Post Anesthesia Assessment ---
Date of Service March 23, 2021 Post Sedation Assessment Vital Signs Temp Pulse Pulse Resp BP BP Pulse Ox 03/23/21 17:19 78 16 126/66 96 03/23/21 12:13 60 18 124/54 L 94 03/23/21 07:05 97.2 F L 52 L 18 117/72 93 03/22/21 23:00 97.2 F L 59 L 18 120/65 92 03/22/21 21:46 63 121/61 Recovery Score Activity: Moves 4 extremities Respiration: Deep Breath/Cough Circulation: +/-20% PreAnes Value Consciousness: Fully Awake Oxygen Saturation: O2 needed for >90% Discharge Sedation Level of Care: Fast Track Phase II Post Sedation Plan On clinical assessment, the patient appears to have tolerated the sedation without complications. Patient is recovering as anticipated. Patient will continue to be monitored by nursing and may be discharged when sedation discharge criteria are met per below protocol. Upon Completions of procedure up to 15 minutes continue every 5 minute vital signs and the P.A.R. score; then discharge to a Phase I or Fast Track to Phase II per the following guidelines: * Discharge Patient to appropriate Phase II area if PAR is 8 or greater or return to pre- procedure baseline. The post - procedure orders will be as directed. * If PAR score is less than 8 or not return to pre-procedure baseline then patient will follow Phase I monitoring till PAR is reached for Phase II. The Phase I may be done in procedure room or may call to secure a Phase I area. * If naloxone or flumazenil are used for reversal, hold in Phase I for continued monitoring from when last reversal dose was given for a minimum of 60 minutes or longer pending the nurse and/or physician discretion of patient condition before discharge to Phase II. Please call the Sedation Physician to re-evaluate and complete post-note for discharge to Phase II area. Do NOT discharge from procedure sedation or Phase 1 until post- sedation evaluation note is complete by procedure /sedation MD Sedation Discharge Instructions to be given to the patient at discharge to home.
[2021-03-23] MEDS ORDERED: SODIUM CHLORIDE 0.9% 1000ML 1,000 ML IV SCH (18:45)
--- NOTE | 2021-03-23 18:49 | Endovascular Procedure Note ---
[facility] Endovascular Procedure Rpt Pre & Post Diagnosis Peripheral arterial disease I identified the patient and participated in the time-out.: Yes Procedure Operation Date: 03/23/21 08:00 Actual Procedures p Angio Extremity Unilateral - Konrad Euceda MD Operation Date: 03/24/21 07:30 <No data on this case meets the specified criteria> Surgeon Tomas Euceda MD Personnel Security Assistant Deibler Estimated Blood Loss 15 Findings See Below Right lower extremity-- -Common iliac, external iliac, internal iliac calcified but widely patent -BALL MACHINE OPERATOR calcified with 40% mid stenosis (no significant pullback gradient), profunda widely patent -SFA/poplitealheavily calcified with diffuse mid SFA to proximal popliteal disease up to 90% -NANCY angulated takeoff with calcified moderate proximal stenosis -ADMINISTRATIVE SPECIALIST widely patent to the foot and provides branches to posterior calf wound bed Peroneal patent to the ankle Left lower extremity-- -Common iliac, external iliac, internal iliac widely patent -BALL MACHINE OPERATOR (suitable for device closure) Fluids 88 Anesthesia Type RN Sedation Radiation Exposure (mGv) Radiation (mGy): 372 Contrast Contrast: 50 Complications none Disposition Accompanied Patient To Recovery: No Disposition: PCU Description of Procedure Left BALL MACHINE OPERATOR obtained under ultrasound guidance, short 5Fr sheath placed Proximal right lower extremity angiogram performed with RIM catheter. Selective angiography with quick cross catheter placed in right SFA 6 Fr T5 cm destination sheath placed from left BALL MACHINE OPERATOR to right BALL MACHINE OPERATOR. Distal SFA/popliteal disease crossed with glide advantage wire and cross support catheter. Angioplasty of mid SFA to proximal popliteal with 6.0 balloon Repeat angioplasty with scoring balloon (6 x 80) with expansion of heavily calcified distal SFA segment Mid SFA to popliteal treated with 6.0 x 220 mm Lutonix drug-eluting balloon Post procedure good angiographic result, no evidence of dissection and brisk 2 vessel run-off. Contrast used: 50 Moderate sedation: [id number] Access closure: Star close Summary: 1. Right lower extremity --calcified severe diffuse mid SFA to proximal popliteal disease up to 90%. Two-vessel runoff to the foot and wound bed via peroneal, ADMINISTRATIVE SPECIALIST. 2. Successful angioplasty of mid SFA to proximal popliteal with single drug- eluting balloon (6.0 x 220 mm Lutonix). Recommendations: Continue DAPT with ASA/Clopidogrel for 1 months. Okay to hold clopidogrel as necessary for surgical procedures for wound. Follow-up non-invasive vascular testing in 2 weeks. I attest to the content of the Intraoperative Record and any orders documented therein. Any exceptions are noted below. Vascular Charges Angiography/Venography Procedure 1: Angiography/Venography charges: [id number] Initial 3rd order or selective abd, pelvic, or LE branch Lower Extremity Interventions Procedure 1: Lower Extremity Intervention charges: [id number] Angioplasty, femoral, popliteal artery(s), unilateral Additional Services Procedure 1: Additional Services Charges: 27159 Ultrasound guidance - vascular access Procedure 2: Additional Services Charges: 80183 Moderate sedation initial 15 min Procedure 3: Additional Services Charges: 87407 Moderate sedation, each additional 15 min
[2021-03-23] MEDS ORDERED: MoRPHine SULFATE 2 MG/ML CARP IV PRN (20:53)
[2021-03-23] MEDS ORDERED: NITROGLYCERIN SL 0.4 MG/TAB TAB SL PRN (20:53)
--- NOTE | 2021-03-23 22:01 | Hospitalist Progress Note ---
Date of Service March 23, 2021 Assessment & Plan (1) Open leg wound: Plan: Distal RLE/ankle. Per plastics & ortho there is concern for tendon necrosis and exposed muscle. Remains on Zosyn/Vancomycin. Wound culture and blood cultures pending. Both plastic surgery & ortho advising BKA. Patient wishes for more conservative approach/salvage surgery. Obtained RLE arterial duplex - this suggests proximal inflow disease. Dr Sylvester is not available for the next [address] Euceda from cardiology. Awaiting input. Right ankle MRI completed Consulted vascular surgery: Reviewed CTA. Abdominal aorta/iliacs appear widely patent bilaterally. Appears t o have severe, heavily calcified distal SFA/popliteal disease on right. Tibial/peroneal on right appear patent. As patient remains interested in a limb salvage: will try to optimize arterial perfusion and plan for right lower extremity angiogram with likely right SFA- popliteal angioplasty/stenting. Tentatively plan on procedure later today: angiogram with possible angioplasty Add vit C and zinc to promote wound healing. Cont MVI, thiamine, folate, etc as well. (2) Polyneuropathy: Plan: Continue home Gabapentin 600 mg BID. 2nd to chronic etoh abuse?? other? (3) ETOH abuse: Plan: AWSS protocol. Cont thiamine high dose, folic acid, MVI. No signs/symptoms of etoh withdrawal at this time. (4) Hypertension: Plan: Controlled (5) COPD (chronic obstructive pulmonary disease): Plan: continue home inhalers. no exacerbation at this time. (6) Dyslipidemia: Plan: statin (7) BPH associated with nocturia: Plan: Continue home Flomax and Proscar. no LUTS at this time (8) Anemia: Plan: mild, Hb 12.2 today - acceptable (9) DVT prophylaxis: Plan: add heparin 5000 TID (10) Prediabetes: Plan: a1c 6.6% - this is c/w early T2DM change diet to DM diet and check BSGs in am to trend Admission and Anticipated Discharge Date Admission Date: March 18, 2021 Subjective Patient reports no new symptoms today. Review of Systems Review of Systems: All systems reviewed & are unremarkable except as noted in HPI & below Physical Exam Physical Exam: Constitutional: Patient is lying in bed, and in no acute distress. WD, WN. Eyes: EOMI ENMT: MMM, no thrush Heart: RRR, Normal S1 S2 Lungs: B/L end-exp wheeze Abd: soft, NT, ND, BS+ Vascular: popliteal pulses 1-2+ b/l; DP, pos tib pulses right foot ~1+, left foot 1-2+ skin: large open wound noted on right posterior foot Results & Data Results & Data ([facility]) Vital Signs (Past 12 Hours) Vital Signs Temp Pulse Pulse Resp BP BP Pulse Ox 03/23/21 20:19 72 18 114/95 03/23/21 19:25 59 L 15 110/58 L 91 03/23/21 18:57 36.1 C L 65 16 131/71 97 03/23/21 17:19 78 16 126/66 96 03/23/21 12:13 60 18 124/54 L 94 PG Care Time/CCT Total # of Minutes Spent Total Time Spent with Patient: Total time spent is greater than 50% in coordination of care (as documented) at patient's floor/unit and/or counseling patient: Coding Level of Care Code 41834 Subseq Hosp Care Lvl 2 Diagnoses Open leg wound S81.809A Polyneuropathy G62.9 ETOH abuse F10.10 Hypertension I10 Hypertension type: unspecified COPD (chronic obstructive pulmonary disease) J44.9 Dyslipidemia E78.5 BPH associated with nocturia N40.1; R35.1 Anemia D64.9 DVT prophylaxis Z29.9 Prediabetes R73.03 Time Spent (min) 25 (1) Hypertension Hypertension type: unspecified Qualified Code(s): I10 - Essential (primary) hypertension
[2021-03-23] MEDS: cefTRIAXone SODIUM 2,000 MG in DEXTROSE 5% 50 ML IV SCH (22:08)
[2021-03-23] MEDS: METOPROLOL SUCC 25MG EXT REL TAB PO SCH (22:20)
--- NOTE | 2021-03-23 23:13 | Vascular Medicine ProgressNote ---
Date of Service March 23, 2021 Assessment & Plan (1) Open leg wound: Plan: 2. Lower extremity PAD 3. Peripheral neuropathy Post angioplasty of severe thigh/popliteal stenosis. Post procedure appears to have improved recommend follow-up to wound bed. Loaded with clopidogrel 300 mg post procedure Clopidogrel can be held as necessary for planned surgical debridements Continue DAPT with aspirin/clopidogrel for 1 month Repeat noninvasive vascular testing in 2 weeks. Admission and Anticipated Discharge Date Admission Date: March 18, 2021 Subjective Patient underwent successful endovascular intervention to right SFA/popliteal stenosis. Post procedure endorse some back pain from lying on table but otherwise no new complaints. Review of Systems Review of Systems: All systems reviewed & are unremarkable except as noted in HPI & below Physical Exam Physical Exam: General: Comfortable, no acute distress Eyes: Sclerae anicteric Lungs: Clear to auscultation bilaterally Cardiac: Regular rate and rhythm, no murmurs Abdomen: Soft, nontender Neuro: Nonfocal Psych: Alert orient x3, normal affect and mood Extremities/Vascular: -- 2+ radial bilaterally -- 2+ femoral bilaterally --- dressing in place over left LADLE LINER access site --1+DP on right, PT. 2+ DP on left, palpable PT on left Right toes with normal capillary refill --Right lower extremity dressed. Results & Data ([facility]) Vital Signs (Past 12 Hours) Vital Signs Temp Pulse Pulse Resp BP BP Pulse Ox 03/23/21 22:20 73 111/59 L 03/23/21 22:03 77 16 98/63 L 03/23/21 21:25 70 18 168/82 H 03/23/21 20:19 72 18 114/95 03/23/21 19:25 59 L 15 110/58 L 91 03/23/21 18:57 97.0 F L 65 16 131/71 97 03/23/21 17:19 78 16 126/66 96 03/23/21 12:13 60 18 124/54 L 94 PG Care Time/CCT Total # of Minutes Spent Total Time Spent with Patient: Total time spent is greater than 50% in coordination of care (as documented) at patient's floor/unit and/or counseling patient: Coding Level of Care Code 10859 Subseq Hosp Care Lvl 3 Diagnoses Open leg wound S81.809A
[2021-03-24] MEDS: HEPARIN SOD 5,000 UNIT/0.5 ML VIAL SQ SCH (05:26)
[2021-03-24] MEDS ORDERED: MIDAZOLAM HCL 1 MG/ML 2ML VIAL ONE (06:40)
[2021-03-24] MEDS ORDERED: fentaNYL citrate 100 MCG/2 ML VIAL ONE (06:40)
[2021-03-24] MEDS ORDERED: BUPIVACAINE 0.5 % 5 MG/1 ML MPF 30ML VIAL ONE (07:05)
--- NOTE | 2021-03-24 07:14 | Anesthesiology Consultation ---
Date of Service March 24, 2021 Assessment & Plan (1) Encounter for pre-operative examination: Chart Review Chart Review: Acceptable Risk for Surgery History Surgery Operation Date: 03/23/21 08:00 Proposed Procedures p RLE POPLITEAL STENT PLACEMENT - Konrad Euceda MD Operation Date: 03/24/21 07:30 Proposed Procedures p Incision and Drainage with Saucerization of Right Foot Wound - Cl Cormier, Height/Weight Height: 6 ft 1 in Weight: 105.8 kg Allergies Allergy/AdvReac Type Severity Reaction Status Date / Time No Known Allergies Allergy Verified 03/18/21 17:08 Medications Home Medications Medication Instructions Recorded Confirmed Last Taken aspirin 81 mg tablet,delayed 81 mg PO QAM 07/30/18 03/18/21 03/24/20 05:30 release (Adult Low Dose Aspirin) atorvastatin 40 mg tablet 40 mg PO QAM 07/30/18 03/18/21 03/25/20 05:30 gabapentin 300 mg capsule 600 mg PO BID 07/30/18 03/18/21 03/25/20 05:30 losartan 100 mg tablet (Cozaar) 50 mg PO QAM 07/30/18 03/18/21 03/24/20 05:30 tamsulosin 0.4 mg capsule (Flomax) 0.4 mg PO QAM 07/30/18 03/18/21 03/25/20 05:30 tiotropium bromide 18 mcg capsule 1 cap INH QAM 07/30/18 03/18/21 03/25/20 05:30 with inhalation device (Spiriva with HandiHaler) albuterol sulfate 90 mcg/actuation 2 inh INHALATION QID PRN 03/12/20 03/18/21 Unknown breath activated powder inhaler budesonide-formoterol HFA 160 2 puff INHALATION BID 03/12/20 03/18/21 03/25/20 05:30 mcg-4.5 mcg/actuation aerosol inhaler metoprolol succinate 25 mg 25 mg PO QPM 03/12/20 03/18/21 03/24/20 05:30 tablet,extended release 24 hr diclofenac sodium 1 % topical gel 4 g TOPICAL QID PRN 03/25/20 03/18/21 03/24/20 09:30 (Voltaren) finasteride 5 mg tablet 5 mg PO DAILY #90 tab 04/06/20 03/18/21 Unknown allopurinol 100 mg tablet 200 mg PO DAILY 03/18/21 03/18/21 Unknown ibuprofen 200 mg tablet 400 mg PO BID 03/18/21 03/18/21 Unknown potassium citrate 10 mEq (1,080 10 meq PO DAILY 03/18/21 03/18/21 Unknown mg) tablet,extended release (Urocit-K 10) sulfamethoxazole 800 1 tab PO BID 03/18/21 03/18/21 03/18/21 07:00 mg-trimethoprim 160 mg tablet Active Medications Generic Name Dose Route Start Last Admin Trade Name Freq PRN Reason Stop Dose Admin Allopurinol 200 mg 03/19/21 09:00 03/23/21 08:20 Allopurinol 100 Mg Tab PO 04/18/21 08:59 200 mg DAILY BRENDAN Administration Ascorbic Acid 500 mg 03/21/21 09:00 03/23/21 08:20 Ascorbic Acid 500 Mg Tab PO 04/20/21 08:59 500 mg QAM BRENDAN Administration Aspirin 81 mg 03/19/21 09:00 03/23/21 08:18 Aspirin 81 Mg Ectab PO 04/18/21 08:59 81 mg QAM BRENDAN Administration Atorvastatin Calcium 40 mg 03/19/21 09:00 03/23/21 08:21 Atorvastatin 40 Mg Tab PO 04/18/21 08:59 40 mg QAM BRENDAN Administration Finasteride 5 mg 03/19/21 09:00 03/23/21 08:21 Finasteride 5 Mg Tab PO 04/18/21 08:59 5 mg DAILY BRENDAN Administration Fluticasone/Vilanterol 1 puffs 03/19/21 09:00 03/23/21 08:22 Fluticasone/Vilanterol 100/25mcg 14 Puffs/Inhaler INH 04/18/21 08:59 1 puffs DAILY BRENDAN Administration Folic Acid 1 mg 03/18/21 20:22 03/23/21 08:22 Folic Acid 1 Mg Tab PO 04/17/21 20:21 1 mg QAM BRENDAN Administration Gabapentin 600 mg 03/18/21 21:00 03/23/21 22:20 Gabapentin 600 Mg Tab PO 04/17/21 20:59 600 mg BID BRENDAN Administration Heparin Sodium (Porcine) 5,000 units 03/21/21 06:00 03/24/21 05:26 Heparin Sod 5,000 Unit/0.5 Ml Vial SQ 04/20/21 05:59 5,000 units Q8 BRENDAN Administration Ceftriaxone Sodium 2,000 mg/ 70 mls @ 140 mls/hr 03/23/21 21:30 03/23/21 22:55 Dextrose IV 03/30/21 21:29 Infused Q24H BRENDAN Infusion Ibuprofen 400 mg 03/18/21 21:00 03/23/21 22:19 Ibuprofen 200 Mg Tab PO 04/17/21 20:59 400 mg BID BRENDAN Administration Metoprolol Succinate 25 mg 03/18/21 21:00 03/23/21 22:20 Metoprolol Succ 25mg Ext Rel Tab PO 04/17/21 20:59 25 mg QPM BRENDAN Administration Multivitamins/Minerals 1 tab 03/20/21 12:00 03/23/21 08:20 Cerovite Adv Formula Tab PO 04/19/21 11:59 1 tab QAM BRENDAN Administration Potassium Citrate 10 meq 03/19/21 09:00 03/23/21 08:21 Potassium Citrate 10 Meq Tab PO 04/18/21 08:59 10 meq DAILY BRENDAN Administration Sodium Hypochlorite 1 appln 03/19/21 11:00 03/23/21 21:23 Dakin's Soln 0.125% Quarter Strength 1000 Ml Btl EXT 04/18/21 10:59 Not Given Q12 BRENDAN Tamsulosin HCl 0.4 mg 03/19/21 09:00 03/23/21 08:18 Tamsulosin Hcl 0.4 Mg Cap PO 04/18/21 08:59 0.4 mg QAM BRENDAN Administration Thiamine HCl 200 mg 03/20/21 21:00 03/23/21 22:21 Thiamine Hcl 100 Mg Tab PO 04/19/21 20:59 200 mg BID BRENDAN Administration Umeclidinium [place] 1 puffs 03/19/21 09:00 03/23/21 08:22 Umeclidinium [place] 62.5mcg/Blister 7 Puffs/Inhaler INH 04/18/21 08:59 1 puffs QAM BRENDAN Administration Zinc Sulfate 220 mg 03/21/21 09:00 03/23/21 08:21 Zinc Sulfate 220 Mg Capsule PO 04/20/21 08:59 220 mg QAM BRENDAN Administration NPO Date Last Intake of Fluids: 03/23/21 Time Last Intake of Fluids: 20:00 Date Last Intake of Solids: 03/23/21 Time Last Intake of Solids: 20:00 Past Medical History Medical History Ascending aortic aneurysm Stable 4.1 ascending aorta aneurysm per 10/2019 CT, under surveillance by [facility] BPH (benign prostatic hyperplasia) COPD (chronic obstructive pulmonary disease) History of skin cancer Hx of gout Hyperlipemia Hypertension Insomnia Kidney stones Neuropathy Osteoarthritis Prediabetes Past Family History Family History Mother Family history of diabetes mellitus Past Surgical History Surgical History H/O spinal fusion LUMBAR History of colonoscopy History of herniorrhaphy History of tonsillectomy History of tooth extraction Social History Smoking Status: Former smoker tobacco type: cigarettes Do You Dip or Chew Tobacco: No Smoking End Date: "two and a half years ago" Hx Alcohol Use: Yes Alcohol type: beer alcohol intake frequency: 3 or more drinks per day Hx Substance Use: No substance use type: does not use Substance Use Type Other:: has a medical card for it Physical Exam Vital Signs Last Vital Signs Temp 36.5 C 03/24/21 07:02 Pulse 61 03/24/21 07:02 Resp 20 03/24/21 07:02 BP 120/63 03/24/21 07:02 Pulse Ox 95 03/24/21 07:02 Testing Laboratory Results 03/22/21 05:27 03/22/21 05:27 Hemoglobin A1c 6.6 % (4.5-5.6) H 03/19/21 05:57 03/18/21 15:49 Aerobic Blood Culture - Final Blood No growth in Aerobic bottle after 5 days. Anaerobic Blood Culture - Final No growth in Anaerobic bottle after 5 days. 03/18/21 15:49 Aerobic Blood Culture - Final Blood No growth in Aerobic bottle after 5 days. Anaerobic Blood Culture - Final No growth in Anaerobic bottle after 5 days. 03/18/21 23:00 Gram Stain - Final Foot,Right Deep Wound Culture - Final Staphylococcus aureus Alcaligenes faecalis Staphylococcus aureus#2 Anaerobic gram positive cocci 03/23/21 19:54 POC Glucose 88 Electrocardiogram Date: 06/09/21 Findings: + NSR @ (66 1st degree AV block)
[2021-03-24] MEDS ORDERED: ALBUT/IPRATROP 3MG/0.5MG NEB 3 ML VIAL ONE (07:21)
--- NOTE | 2021-03-24 07:32 | History & Physical Bridge Note ---
Date of Service March 24, 2021 History & Physical Bridge Note I have examined the patient, reviewed the History & Physical and in the interval since the performance of the History & Physical I have noted the following changes of clinical significance: no changes noted
[2021-03-24] MEDS ORDERED: PHENYLEPHRINE 100MCG/ML 5ML SYR IV PRN (07:44)
[2021-03-24] MEDS ORDERED: fentaNYL citrate 100 MCG/2 ML VIAL IV PRN (07:44)
[2021-03-24] MEDS ORDERED: ONDANSETRON INJ 2 MG/ML 2 ML VIAL IV PRN (07:44)
[2021-03-24] MEDS ORDERED: ePHEDrine sulfate 50 MG/ML AMP IV PRN (07:44)
[2021-03-24] MEDS ORDERED: LABETALOL HCL IV 5 MG/ML 20ML IV PRN (07:44)
[2021-03-24] MEDS ORDERED: ATROPINE SULFATE 0.1 MG/ML 10ML SYR IV PRN (07:44)
[2021-03-24] MEDS ORDERED: ceFAZolin 2,000 MG/15 ML IV PUSH IV ONE (07:46)
[2021-03-24] MEDS ORDERED: ceFAZolin 2000MG 2,000 MG/15 ML SYR IV ONE (07:47)
[2021-03-24] MEDS ORDERED: CLOPIDOGREL BISULFATE 75 MG TAB PO SCH (09:00)
[2021-03-24] MEDS ORDERED: GELATIN SPONGE 12-7MM ONE (09:02)
[2021-03-24] MEDS ORDERED: THROMBIN FOR SOLN 20000 UNIT KIT ONE (09:02)
[2021-03-24] MEDS ORDERED: GENTAMICIN SULFATE 40 MG/ML 2 ML VIAL ONE (09:12)
[2021-03-24] MEDS ORDERED: GELATIN SPONGE SZ 100 ONE (09:36)
[2021-03-24] MEDS ORDERED: ALBUT/IPRATROP 3MG/0.5MG NEB 3 ML VIAL NEB STA (09:47)
[2021-03-24] MEDS ORDERED: ePHEDrine sulfate 50 MG/ML AMP ONE (09:47)
[2021-03-24] MEDS ORDERED: PHENYLEPHRINE HCL 10 MG/ML VIAL ONE (09:47)
[2021-03-24] MEDS ORDERED: LIDOCAINE 2% 2 ML VIAL/AMP(20MG/ML) INFIL ONE (09:47)
[2021-03-24] MEDS ORDERED: PHENYLEPHRINE 100MCG/ML 5ML SYR ONE (09:47)
[2021-03-24] MEDS ORDERED: PROPOFOL IV EMULSION 10 MG/ML 20 ML VIAL IV ONE (09:48)
[2021-03-24] MEDS ORDERED: ONDANSETRON INJ 2 MG/ML 2 ML VIAL ONE (09:48)
[2021-03-24] MEDS ORDERED: VANCOMYCIN HCL 1000MG/20ML VIAL ONE (10:06)
--- NOTE | 2021-03-24 10:09 | Post Operative Brief Note ---
Immediate Post Op Note v1 Date of Surgery March 24, 2021 Pre & Post Diagnosis Operation Date: 03/23/21 08:00 <No data on this case meets the specified criteria> Operation Date: 03/24/21 07:30 Pre-Op Diagnosis: Right posterior lower Extremity Wound Necrosis; Deep Necrotic Ulcer, Infected Achilles tendon rupture, posterior right leg abscess, diabetic ulcer- [id number], diabetic neuropathy, peripheral vascular disease Post-Op Diagnosis: Right posterior lower Extremity Wound Necrosis; Deep Necrotic Ulcer, Infected Achilles tendon rupture, posterior right leg abscess, diabetic ulcer-15c [id number], diabetic neuropathy, peripheral vascular disease I identified the patient and participated in the time-out.: Yes Procedure Operation Date: 03/23/21 08:00 Actual Procedures p Angio Extremity Unilateral - Konrad Euceda MD s Femoral Popliteal Balloon - Konrad Euceda MD s SC Select Cath ALEP 3rd Order - Konrad Euceda MD s Ultrasound Vascular Access - Konrad Euceda MD Operation Date: 03/24/21 07:30 Actual Procedures p Incision and Drainage of abscess right posterior leg, Irrigation and debridement of infected right Achilles tendon rupture, irrigation debridement of skin,Subcutaneous Tissue, fascia, muscle and tendon of Right posterior lower leg; Saucerization of Right posterior lower leg wound, debridement diabetic ulcer [id number](Right) - Cl Cormier DO Surgeon Cl Cormier DO Liquefied [employer] Operator None Estimated Blood Loss 450 Findings Consistent with Post-Op Diagnosis Specimens Aerobic anaerobic Gram stain posterior right lower leg abscess Infected Achilles tendon rupture for specimen Anesthesia Type General Complications none Disposition Accompanied Patient To Recovery: No
[2021-03-24 10:28] LABS: Hematocrit (blood only) 33.1 % (42-52); Hemoglobin 10.6 g/dL (14.0-18.0)
--- NOTE | 2021-03-24 11:17 | Anesthesiology Progress Note ---
Date of Service March 24, 2021 Anesthesia Post Procedure Vital Signs Vital Signs: Temp Pulse Pulse Pulse Resp BP BP 03/24/21 11:10 36.3 C L 78 16 100/48 L 03/24/21 11:00 81 19 118/47 L 03/24/21 10:50 83 21 77/50 L 03/24/21 10:40 86 17 89/48 L 03/24/21 10:30 87 20 90/50 L 03/24/21 10:20 91 H 20 96/53 L 03/24/21 10:14 36.2 C L 91 H 12 99/52 L 03/24/21 07:02 36.5 C 61 20 120/63 03/24/21 03:21 36.4 C L 88 18 110/73 03/24/21 00:00 73 03/23/21 23:20 36.4 C L 74 18 124/64 03/23/21 22:20 73 111/59 L 03/23/21 22:03 77 16 98/63 L 03/23/21 21:25 70 18 168/82 H 03/23/21 20:19 72 18 114/95 03/23/21 19:25 59 L 15 110/58 L 03/23/21 18:57 36.1 C L 65 16 131/71 03/23/21 17:19 78 16 126/66 03/23/21 12:13 60 18 124/54 L Pulse Ox 03/24/21 11:10 93 03/24/21 11:00 93 03/24/21 10:50 93 03/24/21 10:40 92 03/24/21 10:30 97 03/24/21 10:20 100 03/24/21 10:14 96 03/24/21 07:02 95 03/24/21 03:21 96 03/24/21 00:00 03/23/21 23:20 90 03/23/21 22:20 03/23/21 22:03 03/23/21 21:25 03/23/21 20:19 03/23/21 19:25 91 03/23/21 18:57 97 03/23/21 17:19 96 03/23/21 12:13 94 Transfer of Care Handoff Completed per policy Notes Mental Status: alert / awake / arousable Patient Amnestic to Procedure: Yes Nausea / Vomiting: adequately controlled Pain: adequately controlled Airway Patency, RR, SpO2: stable & adequate BP & HR: stable & adequate and see Notes below Hydration State: stable & adequate Anesthetic Complications: no major complications apparent and Pt Satisfied with anesthetic care Notes: The patient is awake and comfortable. He required phenylephrine in the OR to maintain normotension. Blood loss for the procedure was over 300 ml. He also received almost two liters of LR. In PACU, he continued to be hypotensive. Postop hgb was 10.6 down from 12.3. He was given a third liter of LR in PACU. His SBP is now over 100 and his other vital signs are stable.
[2021-03-24] MEDS ORDERED: MULTIVITAMIN TAB PO SCH (11:37)
[2021-03-24] MEDS ORDERED: MAGNESIUM HYDROXIDE SUSP 30 ML UDC PO PRN (11:37)
[2021-03-24] MEDS ORDERED: bisacodyL 10 MG SUPP PR PRN (11:37)
[2021-03-24] MEDS ORDERED: HYDROmorphone INJ 0.5 MG/0.5 ML SYR IV PRN (11:37)
[2021-03-24] MEDS ORDERED: NALOXONE HCL 0.4 MG/1 ML VIAL/CARP IV PRN (11:37)
[2021-03-24] MEDS ORDERED: oxyCODONE HCL IR 5 MG TAB (IMMEDIATE RELEASE) PO PRN (11:37)
[2021-03-24] MEDS: DAKIN'S SOLN 0.125% QUARTER STRENGTH 1000 ML BTL EXT SCH ×2 (11:43→20:53)
--- NOTE | 2021-03-24 11:53 | Operative Report (OR) ---
DATE OF PROCEDURE: 03/24/2021. PREOPERATIVE DIAGNOSES: 1. Right infected Achilles tendon rupture. 2. Abscess posterior right lower extremity. 3. Diabetic ulcer 15 x 4 x 0.5 cm. 4. Necrotic tissue, right posterior lower extremity. 5. Diabetic neuropathy. 6. Peripheral vascular disease. POSTOPERATIVE DIAGNOSES: 1. Right infected Achilles tendon rupture. 2. Abscess posterior right lower extremity. 3. Diabetic ulcer 15 x 4 x 0.5 cm. 4. Necrotic tissue, right posterior lower extremity. 5. Diabetic neuropathy. 6. Peripheral vascular disease. PROCEDURE PERFORMED: 1. Incision and drainage abscess, right posterior leg. 2. Irrigation and debridement infected Achilles tendon rupture. 3. Irrigation and debridement of posterior right leg skin, subcutaneous tissue, fascia, muscle and t endon. 4. Saucerization right posterior lower leg wound. 5. Debridement diabetic ulcer measuring 15 x 4 x 0.5 cm. SURGEON: Cl Cormier DO. CHEMICAL ENGINEERING PROFESSOR: None. ANESTHESIA: General. SPECIMENS: 1. Aerobic, anaerobic, Gram stain, abscess, right posterior lower leg. 2. Infected Achilles tendon rupture for specimen. DRAINS: None. COMPLICATIONS: None. BLOOD LOSS: 450 mL PERTINENT HISTORY: This is a 75-year-old gentleman with diabetes mellitus, multiple comorbidities in cluding polyneuropathy and peripheral vascular disease, who apparently had an ulceration on the poste rior aspect of the right lower leg over the top of his Achilles tendon. He was managed by the [facility] and a local lithographic etcher and he stated that he was having some stability of the wound possi harish even some improvement; however, he had increased swelling and upon return to the [facility] was given antibiotics. He was at the [facility] when he looked down and saw a puddle of blood and then reported to the ER for further evaluation. The patient was then admitted to the hospitalist jelani jose. The patient had prior consultation with multiple providers including Dr. Hunt who had recomm ended a below-knee amputation. The patient was not amenable to undergoing the below-knee amputation at this time and elected for salvage attempt. I explained to the patient this is a difficult proposi tion with his current medical condition. However, there is a possibility that limb salvage is possib le with clearance of the infection. He had undergone a revascularization procedure with Dr. Brandon pollard yesterday and he is scheduled today for surgery. All potential risks, benefits, complications, alternatives, rehab potential for incomplete relief of symptoms, need for further surgery, DVT, PE, , persistent pain, swelling, scarring, weakness, ne urovascular injury, wound complications, need for further surgery, possible amputation and prolonged recovery course were discussed with the patient. The patient decided to proceed with the procedure a s indicated. DESCRIPTION OF PROCEDURE: The patient was taken to the operative suite and placed supine on the tabl e. After review of consent and identification of proper site, the patient was anesthetized, endotrac heal tube was placed. The patient was then rolled prone over a padded bolsters and all bony prominen sejal were properly padded and protected. Tourniquet was applied high on the right thigh over cast pad ding. Right lower extremity was then sterilely prepped and draped in the usual sterile fashion, elev ated, and tourniquet inflated to 300 mmHg. Next, after surgical timeout was performed, a 10 blade sc alpel debridement was then performed of the skin edges of the 15 x 4 x 0.5 cm diabetic ulcer. Next, the grossly infected and exposed Achilles tendon was then sharply excised and debrided. This was pas sed off as specimen for pathology. After the avascular and necrotic Achilles tendon was then passed off, reasonable bed of bleeding tissue was encountered. Electrocautery was judiciously used to stem the bleeding as necessary was irrigated with pulse lavage with Ancef additive. Careful deep dissecti on was performed down to the area of suspected abscess and indeed there was an abscess pocket adjacen t to Kager's fat pad. The culture was obtained. Aerobic, anaerobic and Gram stain specimen sent for specimen. Next necrotic fascia skin, subcutaneous fat, and interstitial tissue including muscle bel ly and the adjacent surrounding tendon was then sharply excised with a 10 blade scalpel. After sauce rization was performed of any necrotic or devitalized tissue. Pulsatile lavage was then used with 3 liters and 1 gram Ancef 2 lavage. All tissue sites in the posterior lower leg. Next, after ulcerati on was freshened with a 15-blade scalpel along the margins, a small ellipse was then excised proximal ly and distally to help reduce the tissue tension at the closure site. The peritenon was salvaged as a vascular tissue, possibly help her for healing of the surrounding soft tissues. The site was then irrigated once again with sterile saline with Ancef and next antibiotic Stimulan beads were then cre ated with vancomycin and gentamicin. The small beads after graft were then placed in deep soft tissu e covered by Gelfoam and thrombin to stop the venous bleeding associated with the patient's chronic P lavix use. Next, beads were then placed superficially as well and the bone prior to placement of the thrombin was noted to be intact and stable, did not appear to be necrotic. No evidence of osteomyeli tis at this time. Next, the Adaptic was then shaped appropriate sizing for the posterior right lower extremity lesion and then 3-0 nylon sutures were then used to close the ellipse to reduce the volume of the necrotic site of the posterior leg followed by use of a staple closure over the single layer Adaptic. This was then followed by placement of the single layer Xeroform, sterile 4 x 4s, ABD pads x4, sterile cast roll, posterior fiberglass splint overwrapped with an Jose wrap. The tourniquet was released. Normal hyperemic response turned in the toes. The patient was awakened and taken to [facility] in stable condition. Job ID: [id number]
[2021-03-24] MEDS: SODIUM CHLORIDE 0.9% 1000ML 1,000 ML IV SCH ×2 (12:15→23:45)
[2021-03-24] MEDS ORDERED: SODIUM CHLORIDE 0.9% 1000ML 1,000 ML IV SCH (12:25)
[2021-03-24] MEDS: IBUPROFEN 200 MG TAB PO SCH ×2 (12:38→20:52)
[2021-03-24] MEDS: FLUTICASONE/VILANTEROL 100/25MCG 14 PUFFS/INHALER INH SCH (12:53)
[2021-03-24] MEDS: UMECLIDINIUM BROMIDE 62.5MCG/BLISTER 7 PUFFS/INHALER INH SCH (12:53)
[2021-03-24] MEDS: allopurinoL 100 MG TAB PO SCH (12:54)
[2021-03-24] MEDS: FINASTERIDE 5 MG TAB PO SCH (12:54)
[2021-03-24] MEDS: GABAPENTIN 600 MG TAB PO SCH ×2 (12:54→20:52)
[2021-03-24] MEDS: ATORVASTATIN 40 MG TAB PO SCH (12:55)
[2021-03-24] MEDS: ASPIRIN 81 MG ECTAB PO SCH (12:55)
[2021-03-24] MEDS: THIAMINE HCL 100 MG TAB PO SCH ×2 (12:55→20:51)
[2021-03-24] MEDS: FOLIC ACID 1 MG TAB PO SCH (12:56)
[2021-03-24] MEDS: POTASSIUM CITRATE 10 MEQ TAB PO SCH (12:56)
[2021-03-24] MEDS: ZINC SULFATE 220 MG CAPSULE PO SCH (12:56)
[2021-03-24] MEDS: TAMSULOSIN HCL 0.4 MG CAP PO SCH (12:56)
[2021-03-24] MEDS: ASCORBIC ACID 500 MG TAB PO SCH (12:57)
[2021-03-24] MEDS: CEROVITE ADV FORMULA TAB PO SCH (12:57)
[2021-03-24] MEDS: DOCUSATE SODIUM 100 MG CAP PO SCH ×2 (12:59→20:51)
[2021-03-24] MEDS ORDERED: ROCURONIUM BROMIDE 10 MG/ML 5 ML VIAL IV ONE (13:16)
[2021-03-24] MEDS ORDERED: SUCCINYLCHOLINE CHLORIDE 20 MG/ML 10 ML VIAL IV ONE (13:16)
[2021-03-24] MEDS: metroNIDAZOLE 500 MG/100 ML BAG IV SCH ×2 (13:40→20:50)
[2021-03-24] MEDS: METOPROLOL SUCC 25MG EXT REL TAB PO SCH (20:51)
[2021-03-24] MEDS: cefTRIAXone SODIUM 2,000 MG in DEXTROSE 5% 50 ML IV SCH (21:56)
--- NOTE | 2021-03-24 22:32 | Hospitalist Progress Note ---
Date of Service March 24, 2021 Assessment & Plan (1) Hypotension: Plan: After orthopedic procedure, patient found to be hypotensive, however patient asymptomatic. D/W otr flatbed driver, hold transfer to ICU as patient responded to fluid bolus. will monitor. (2) Open leg wound: Plan: Distal RLE/ankle. Per plastics & ortho there is concern for tendon necrosis and exposed muscle. Remains on Zosyn/Vancomycin. Wound culture and blood cultures pending. Both plastic surgery & ortho advising BKA. Patient wishes for more conservative approach/salvage surgery. Obtained RLE arterial duplex - this suggests proximal inflow disease. Dr Sylvester is not available for the next [address] Euceda from cardiology. Awaiting input. Right ankle MRI completed Consulted vascular surgery: Reviewed CTA. Abdominal aorta/iliacs appear widely patent bilaterally. Appears to have severe, heavily calcified distal SFA/popliteal disease on right. Tibial/peroneal on right appear patent. As patient remains interested in a limb salvage: will try to optimize arterial perfusion and plan for right lower extremity angiogram with likely right SFA- popliteal angioplasty/stenting. Post angioplasty of severe thigh/popliteal stenosis. Post procedure appears to have improved recommend follow-up to wound bed. Loaded with clopidogrel 300 mg post procedure Clopidogrel can be held as necessary for planned surgical debridements Continue DAPT with aspirin/clopidogrel for 1 month Repeat noninvasive vascular testing in 2 weeks. S/P p Incision and Drainage of abscess right posterior leg, Irrigation and debridement of infected right Achilles tendon rupture, irrigation debridement of skin,Subcutaneous Tissue, fascia, muscle and tendon of Right posterior lower leg; Saucerization of Right posterior lower leg wound, debridement diabetic ulcer [id number](Right) - Cl Cormier, DO Add vit C and zinc to promote wound healing. Cont MVI, thiamine, folate, etc as well. (3) Polyneuropathy: Plan: Continue home Gabapentin 600 mg BID. 2nd to chronic etoh abuse?? other? (4) ETOH abuse: Plan: AWSS protocol. Cont thiamine high dose, folic acid, MVI. No signs/symptoms of etoh withdrawal at this time. (5) Hypertension: Plan: Controlled (6) COPD (chronic obstructive pulmonary disease): Plan: continue home inhalers. no exacerbation at this time. (7) Dyslipidemia: Plan: statin (8) BPH associated with nocturia: Plan: Continue home Flomax and Proscar. no LUTS at this time (9) Anemia: Plan: mild, Hb 12.2 today - acceptable (10) DVT prophylaxis: Plan: add heparin 5000 TID (11) Prediabetes: Plan: a1c 6.6% - this is c/w early T2DM change diet to DM diet and check BSGs in am to trend Admission and Anticipated Discharge Date Admission Date: March 18, 2021 Subjective Patient reports no new symptoms. Review of Systems Review of Systems: All systems reviewed & are unremarkable except as noted in HPI & below Physical Exam Physical Exam: Constitutional: Patient is lying in bed, and in no acute distress. WD, WN. Eyes: EOMI ENMT: MMM, no thrush Heart: RRR, Normal S1 S2 Lungs: CTA BL Abd: soft, NT, ND, BS+ Vascular: popliteal pulses 1-2+ b/l; DP, pos tib pulses right foot ~1+, left foot 1-2+ skin: large open wound noted on right posterior foot Results & Data Results & Data ([facility]) Vital Signs (Past 12 Hours) Vital Signs Temp Pulse Pulse Resp BP BP Pulse Ox 03/24/21 19:28 36.6 C 85 16 91/55 L 93 03/24/21 15:29 36.6 C 84 16 87/56 L 97 03/24/21 14:43 36.3 C L 90 18 101/70 95 03/24/21 13:30 36.3 C L 93 H 16 103/67 97 03/24/21 12:31 92 H 18 87/58 L 95 03/24/21 12:05 91 H 18 70/53 L 93 03/24/21 11:35 36.4 C L 82 16 95/55 L 94 03/24/21 11:20 77 16 96/49 L 93 03/24/21 11:10 36.3 C L 78 16 100/48 L 93 03/24/21 11:00 81 19 118/47 L 93 03/24/21 10:50 83 21 77/50 L 93 03/24/21 10:40 86 17 89/48 L 92 PG Care Time/CCT Total # of Minutes Spent Total Time Spent with Patient: Total time spent is greater than 50% in coordination of care (as documented) at patient's floor/unit and/or counseling patient: Coding Level of Care Code 19861 Subseq Hosp Care Lvl 3 Diagnoses Open leg wound S81.809A Polyneuropathy G62.9 ETOH abuse F10.10 Hypertension I10 Hypertension type: unspecified COPD (chronic obstructive pulmonary disease) J44.9 Dyslipidemia E78.5 BPH associated with nocturia N40.1; R35.1 Anemia D64.9 DVT prophylaxis Z29.9 Prediabetes R73.03 Hypotension I95.9 Time Spent (min) 35 (1) Hypertension Hypertension type: unspecified Qualified Code(s): I10 - Essential (primary) hypertension
[2021-03-25] MEDS: metroNIDAZOLE 500 MG/100 ML BAG IV SCH ×3 (05:38→20:41)
[2021-03-25] MEDS: DAKIN'S SOLN 0.125% QUARTER STRENGTH 1000 ML BTL EXT SCH (08:08)
[2021-03-25] MEDS: UMECLIDINIUM BROMIDE 62.5MCG/BLISTER 7 PUFFS/INHALER INH SCH (08:12)
[2021-03-25] MEDS: FLUTICASONE/VILANTEROL 100/25MCG 14 PUFFS/INHALER INH SCH (08:12)
[2021-03-25] MEDS: GABAPENTIN 600 MG TAB PO SCH ×2 (08:13→20:40)
[2021-03-25] MEDS: THIAMINE HCL 100 MG TAB PO SCH ×2 (08:13→20:41)
[2021-03-25] MEDS: IBUPROFEN 200 MG TAB PO SCH ×2 (08:13→20:40)
[2021-03-25] MEDS: POTASSIUM CITRATE 10 MEQ TAB PO SCH (08:14)
[2021-03-25] MEDS: DOCUSATE SODIUM 100 MG CAP PO SCH ×2 (08:14→20:39)
[2021-03-25] MEDS: ASCORBIC ACID 500 MG TAB PO SCH (08:14)
[2021-03-25] MEDS: ZINC SULFATE 220 MG CAPSULE PO SCH (08:14)
[2021-03-25] MEDS: allopurinoL 100 MG TAB PO SCH (08:15)
[2021-03-25] MEDS: FOLIC ACID 1 MG TAB PO SCH (08:15)
[2021-03-25] MEDS: TAMSULOSIN HCL 0.4 MG CAP PO SCH (08:16)
[2021-03-25] MEDS: ASPIRIN 81 MG ECTAB PO SCH (08:20)
[2021-03-25] MEDS: FINASTERIDE 5 MG TAB PO SCH (08:21)
[2021-03-25] MEDS: ATORVASTATIN 40 MG TAB PO SCH (08:21)
[2021-03-25] MEDS: CEROVITE ADV FORMULA TAB PO SCH (08:21)
[2021-03-25 08:30] LABS: Hematocrit (blood only) 26.4 % (42-52); Hemoglobin 8.3 g/dL (14.0-18.0); Mean Corpuscular Hgb Conc 31.4 g/dL (32-36); Mean Corpuscular Volume 98.5 fL (80-100); Mean Platelet Volume 9.6 fL (7.4-10.4); Platelet Count 310 K/uL (130-400); RDW Standard Deviation 50.2 fL (36.4-46.3); Red Blood Count 2.68 M/uL (4.7-6.1); White Blood Count 6.74 K/uL (4.8-10.8)
[2021-03-25 09:02] LABS: Calcium 7.9 mg/dl (8.5-10.1); Est GFR (African American) 102.7 ml/min; Est GFR (Non-African American) 88.6 ml/min; Potassium 3.7 mmol/L (3.5-5.1)
--- NOTE | 2021-03-25 11:40 | Orthopedic Progress Note ---
Date of Service March 25, 2021 Assessment & Plan (1) Open leg wound: Plan: Postop day 1 status post1. Incision and drainage abscess, right posterior leg. 2. Irrigation and debridement infected Achilles tendon rupture. 3. Irrigation and debridement of posterior right leg skin, subcutaneous tissue, fascia, muscle and tendon. 4. Saucerization right posterior lower leg wound. 5. Debridement diabetic ulcer measuring 15 x 4 x 0.5 cm. Plan for dressing change tomorrow. Continue posterior splint for support. Continue IV antibiotics as per medicine service. Operative cultures showing pinpoint growth and reincubating. Preoperative cultures as noted. PT/OT protocols-nonweightbearing on the right lower extremity. Okay to put toes down for balance. Admission and Anticipated Discharge Date Admission Date: March 18, 2021 Subjective Postop day 1 Patient is lying in bed awake and alert. No complaints this morning pain is controlled. Denies any shortness of breath, chest pain, lightheadedness. Physical Exam Physical Exam: Splint/dressing are intact. He has some mild drainage noted on the posterior lateral aspect. Toes are pink and warm with decreased sensation secondary to neuropathy. Results & Data ([facility]) Vital Signs (Past 12 Hours) Vital Signs Temp Pulse Resp BP Pulse Ox 03/25/21 07:43 36.5 C 70 18 113/67 90 03/25/21 03:00 36.5 C 72 17 99/64 L 92
[2021-03-25] MEDS: METOPROLOL SUCC 25MG EXT REL TAB PO SCH (20:40)
[2021-03-25] MEDS: cefTRIAXone SODIUM 2,000 MG in DEXTROSE 5% 50 ML IV SCH (21:49)
[2021-03-26] MEDS: metroNIDAZOLE 500 MG/100 ML BAG IV SCH ×3 (05:11→21:09)
[2021-03-26] MEDS: THIAMINE HCL 100 MG TAB PO SCH ×2 (09:17→21:08)
[2021-03-26] MEDS: DOCUSATE SODIUM 100 MG CAP PO SCH ×2 (09:17→21:07)
[2021-03-26] MEDS: allopurinoL 100 MG TAB PO SCH (09:17)
[2021-03-26] MEDS: IBUPROFEN 200 MG TAB PO SCH ×2 (09:17→21:07)
[2021-03-26] MEDS: GABAPENTIN 600 MG TAB PO SCH ×2 (09:17→21:08)
[2021-03-26] MEDS: FINASTERIDE 5 MG TAB PO SCH (09:18)
[2021-03-26] MEDS: ZINC SULFATE 220 MG CAPSULE PO SCH (09:18)
[2021-03-26] MEDS: POTASSIUM CITRATE 10 MEQ TAB PO SCH (09:18)
[2021-03-26] MEDS: ASCORBIC ACID 500 MG TAB PO SCH (09:18)
[2021-03-26] MEDS: ASPIRIN 81 MG ECTAB PO SCH (09:19)
[2021-03-26] MEDS: TAMSULOSIN HCL 0.4 MG CAP PO SCH (09:19)
[2021-03-26] MEDS: ATORVASTATIN 40 MG TAB PO SCH (09:19)
[2021-03-26] MEDS: CEROVITE ADV FORMULA TAB PO SCH (09:19)
[2021-03-26] MEDS: FOLIC ACID 1 MG TAB PO SCH (09:19)
[2021-03-26] MEDS: FLUTICASONE/VILANTEROL 100/25MCG 14 PUFFS/INHALER INH SCH (09:22)
[2021-03-26] MEDS: UMECLIDINIUM BROMIDE 62.5MCG/BLISTER 7 PUFFS/INHALER INH SCH (09:23)
--- NOTE | 2021-03-26 12:40 | Orthopedic Progress Note ---
Date of Service March 26, 2021 Assessment & Plan (1) Open leg wound: Plan: Postop day 2 status post1. Incision and drainage abscess, right posterior leg. 2. Irrigation and debridement infected Achilles tendon rupture. 3. Irrigation and debridement of posterior right leg skin, subcutaneous tissue, fascia, muscle and tendon. 4. Saucerization right posterior lower leg wound. 5. Debridement diabetic ulcer measuring 15 x 4 x 0.5 cm. Dressing changed today Continue posterior splint for support. Continue IV antibiotics as per medicine service. Operative cultures showing pinpoint growth and reincubating. Continue ceftriaxone and flagyl currently. PT/OT protocols-nonweightbearing on the right lower extremity. Okay to put toes down for balance. Admission and Anticipated Discharge Date Admission Date: March 18, 2021 Subjective Postop day 2 Patient is lying in bed awake and alert. No complaints this morning pain is controlled. Denies any shortness of breath, chest pain, lightheadedness. Physical Exam Physical Exam: dressing changed today. No active erythema. Appropriate drainage. Adaptic in place. Toes mobile. Results & Data ([facility]) Vital Signs (Past 12 Hours) Vital Signs Temp Pulse Resp BP Pulse Ox 03/26/21 07:22 36.4 C L 54 L 16 144/85 H 94
--- NOTE | 2021-03-26 14:23 | Hospitalist Progress Note ---
Date of Service March 25, 2021 Assessment & Plan (1) Hypotension: Plan: After orthopedic procedure, patient found to be hypotensive on postop day zero. POSTOP DAY #1 is normal. however patient asymptomatic. D/W sewer builder, hold transfer to ICU as patient responded to fluid bolus. will monitor. (2) Open leg wound: Plan: Distal RLE/ankle. Per plastics & ortho there is concern for tendon necrosis and exposed muscle. Remains on Zosyn/Vancomycin. Wound culture and blood cultures pending. Both plastic surgery & ortho advising BKA. Patient wishes for more conservative approach/salvage surgery. Obtained RLE arterial duplex - this suggests proximal inflow disease. Dr Sylvester is not available for the next [address] Euceda from cardiology. Awaiting input. Right ankle MRI completed Consulted vascular surgery: Reviewed CTA. Abdominal aorta/iliacs appear widely patent bilaterally. Appears to have severe, heavily calcified distal SFA/popliteal disease on right. Tibial/peroneal on right appear patent. As patient remains interested in a limb salvage: will try to optimize arterial perfusion and plan for right lower extremity angiogram with likely right SFA- popliteal angioplasty/stenting. Post angioplasty of severe thigh/popliteal stenosis. Post procedure appears to have improved recommend follow-up to wound bed. Loaded with clopidogrel 300 mg post procedure Clopidogrel can be held as necessary for planned surgical debridements Continue DAPT with aspirin/clopidogrel for 1 month Repeat noninvasive vascular testing in 2 weeks. S/P p Incision and Drainage of abscess right posterior leg, Irrigation and debridement of infected right Achilles tendon rupture, irrigation debridement of skin,Subcutaneous Tissue, fascia, muscle and tendon of Right posterior lower leg; Saucerization of Right posterior lower leg wound, debridement diabetic ulcer [id number](Right) - Cl Cormier, DO Add vit C and zinc to promote wound healing. Cont MVI, thiamine, folate, etc as well. (3) Polyneuropathy: Plan: Continue home Gabapentin 600 mg BID. 2nd to chronic etoh abuse?? other? (4) ETOH abuse: Plan: AWSS protocol. Cont thiamine high dose, folic acid, MVI. No signs/symptoms of etoh withdrawal at this time. (5) Hypertension: Plan: Controlled (6) COPD (chronic obstructive pulmonary disease): Plan: continue home inhalers. no exacerbation at this time. (7) Dyslipidemia: Plan: statin (8) BPH associated with nocturia: Plan: Continue home Flomax and Proscar. no LUTS at this time (9) Anemia: Plan: mild, Hb 12.2 today - acceptable (10) DVT prophylaxis: Plan: add heparin 5000 TID (11) Prediabetes: Plan: a1c 6.6% - this is c/w early T2DM change diet to DM diet and check BSGs in am to trend Admission and Anticipated Discharge Date Admission Date: March 18, 2021 Subjective Patient is feeling better and has no new complaints. Review of Systems Review of Systems: All systems reviewed & are unremarkable except as noted in HPI & below Physical Exam Physical Exam: Constitutional: Patient is lying in bed, and in no acute distress. WD, WN. Eyes: EOMI ENMT: MMM, no thrush Heart: RRR, Normal S1 S2 Lungs: CTA BL Abd: soft, NT, ND, BS+ Vascular: popliteal pulses 1-2+ b/l; DP, pos tib pulses right foot ~1+, left foot 1-2+ skin: right foot with dry dressing. Results & Data Results & Data ([facility]) Vital Signs (Past 12 Hours) Vital Signs Temp Pulse Resp BP Pulse Ox 03/26/21 07:22 36.4 C L 54 L 16 144/85 H 94 PG Care Time/CCT Total # of Minutes Spent Total Time Spent with Patient: Total time spent is greater than 50% in coordination of care (as documented) at patient's floor/unit and/or counseling patient: Coding Level of Care Code 14700 Subseq Hosp Care Lvl 2 Diagnoses Hypotension I95.9 Open leg wound S81.809A Polyneuropathy G62.9 ETOH abuse F10.10 Hypertension I10 Hypertension type: unspecified COPD (chronic obstructive pulmonary disease) J44.9 Dyslipidemia E78.5 BPH associated with nocturia N40.1; R35.1 Anemia D64.9 DVT prophylaxis Z29.9 Prediabetes R73.03 (1) Hypertension Hypertension type: unspecified Qualified Code(s): I10 - Essential (primary) hypertension
--- NOTE | 2021-03-26 14:33 | Hospitalist Progress Note ---
Date of Service March 26, 2021 Assessment & Plan (1) Hypotension: Plan: After orthopedic procedure, patient found to be hypotensive on postop day zero. POSTOP DAY #2 is normo/hypertensive Patient is asymptomatic. will check hemoglbin for dark stools. will monitor. (2) Open leg wound: Plan: Distal RLE/ankle. Per plastics & ortho there is concern for tendon necrosis and exposed muscle. Remains on Zosyn/Vancomycin. Wound culture and blood cultures pending. Both plastic surgery & ortho advising BKA. Patient wishes for more conservative approach/salvage surgery. Obtained RLE arterial duplex - this suggests proximal inflow disease. Dr Sylvester is not available for the next [address] Euceda from cardiology. Awaiting input. Right ankle MRI completed Consulted vascular surgery: Reviewed CTA. Abdominal aorta/iliacs appear widely patent bilaterally. Appears to have severe, heavily calcified distal SFA/popliteal disease on right. Tibial/peroneal on right appear patent. As patient remains interested in a limb salvage: will try to optimize arterial perfusion and plan for right lower extremity angiogram with likely right SFA- popliteal angioplasty/stenting. Post angioplasty of severe thigh/popliteal stenosis. Post procedure appears to have improved recommend follow-up to wound bed. Loaded with clopidogrel 300 mg post procedure Clopidogrel can be held as necessary for planned surgical debridements Continue DAPT with aspirin/clopidogrel for 1 month Repeat noninvasive vascular testing in 2 weeks. S/P p Incision and Drainage of abscess right posterior leg, Irrigation and debridement of infected right Achilles tendon rupture, irrigation debridement of skin,Subcutaneous Tissue, fascia, muscle and tendon of Right posterior lower leg; Saucerization of Right posterior lower leg wound, debridement diabetic ulcer [id number](Right) - Cl Cormier, DO Add vit C and zinc to promote wound healing. Cont MVI, thiamine, folate, etc as well. (3) Polyneuropathy: Plan: Continue home Gabapentin 600 mg BID. 2nd to chronic etoh abuse?? other? (4) ETOH abuse: Plan: AWSS protocol. Cont thiamine high dose, folic acid, MVI. No signs/symptoms of etoh withdrawal at this time. (5) Hypertension: Plan: Controlled (6) COPD (chronic obstructive pulmonary disease): Plan: continue home inhalers. no exacerbation at this time. (7) Dyslipidemia: Plan: statin (8) BPH associated with nocturia: Plan: Continue home Flomax and Proscar. no LUTS at this time (9) Anemia: Plan: mild, Hb dropped to 8.3, repeat was 9.3 will monitor (10) DVT prophylaxis: Plan: add heparin 5000 TID (11) Prediabetes: Plan: a1c 6.6% - this is c/w early T2DM change diet to DM diet and check BSGs in am to trend Admission and Anticipated Discharge Date Admission Date: March 18, 2021 Subjective Patient is having dark stools. Patient denies any other symptoms. Review of Systems Review of Systems: All systems reviewed & are unremarkable except as noted in HPI & below Physical Exam Physical Exam: Constitutional: Patient is lying in bed, and in no acute distress. WD, WN. Eyes: EOMI ENMT: MMM, no thrush Heart: RRR, Normal S1 S2 Lungs: CTA BL Abd: soft, NT, ND, BS+ Vascular: popliteal pulses 1-2+ b/l; DP, pos tib pulses right foot ~1+, left foot 1-2+ skin: right foot with dry dressing. Results & Data Results & Data ([facility]) Vital Signs (Past 12 Hours) Vital Signs Temp Pulse Resp BP Pulse Ox 03/26/21 07:22 36.4 C L 54 L 16 144/85 H 94 PG Care Time/CCT Total # of Minutes Spent Total Time Spent with Patient: Total time spent is greater than 50% in coordination of care (as documented) at patient's floor/unit and/or counseling patient: Coding Level of Care Code 83891 Subseq Hosp Care Lvl 2 Diagnoses Hypotension I95.9 Open leg wound S81.809A Polyneuropathy G62.9 ETOH abuse F10.10 Hypertension I10 Hypertension type: unspecified COPD (chronic obstructive pulmonary disease) J44.9 Dyslipidemia E78.5 BPH associated with nocturia N40.1; R35.1 Anemia D64.9 DVT prophylaxis Z29.9 Prediabetes R73.03 (1) Hypertension Hypertension type: unspecified Qualified Code(s): I10 - Essential (primary) hypertension
[2021-03-26 15:35] LABS: Hematocrit (blood only) 29.3 % (42-52); Hemoglobin 9.3 g/dL (14.0-18.0); Mean Corpuscular Hemoglobin 30.7 pg (25-34); Mean Corpuscular Hgb Conc 31.7 g/dL (32-36); Mean Corpuscular Volume 96.7 fL (80-100); Mean Platelet Volume 9.2 fL (7.4-10.4); Platelet Count 301 K/uL (130-400); RDW Standard Deviation 49.1 fL (36.4-46.3); Red Blood Count 3.03 M/uL (4.7-6.1); White Blood Count 8.35 K/uL (4.8-10.8)
[2021-03-26 15:52] LABS: BUN Creatinine Ratio 13.9 (10-20); Calcium 8.6 mg/dl (8.5-10.1); Creatinine Clr Calc Pharmacy 107.7 ml/min; Est GFR (African American) 103.8 ml/min; Est GFR (Non-African American) 89.6 ml/min; Potassium 3.8 mmol/L (3.5-5.1)
[2021-03-26] MEDS: METOPROLOL SUCC 25MG EXT REL TAB PO SCH (21:09)
[2021-03-26] MEDS: cefTRIAXone SODIUM 2,000 MG in DEXTROSE 5% 50 ML IV SCH (22:11)
[2021-03-27] MEDS: metroNIDAZOLE 500 MG/100 ML BAG IV SCH ×3 (05:01→20:43)
[2021-03-27 06:14] LABS: Hematocrit (blood only) 27.9 % (42-52); Hemoglobin 8.9 g/dL (14.0-18.0); Mean Corpuscular Hemoglobin 30.8 pg (25-34); Mean Corpuscular Hgb Conc 31.9 g/dL (32-36); Mean Corpuscular Volume 96.5 fL (80-100); Platelet Count 305 K/uL (130-400); RDW Coefficient of Variation 13.9 % (11.5-14.5); RDW Standard Deviation 48.4 fL (36.4-46.3); Red Blood Count 2.89 M/uL (4.7-6.1); White Blood Count 7.69 K/uL (4.8-10.8)
[2021-03-27 06:44] LABS: BUN Creatinine Ratio 13.2 (10-20); Calcium 8.4 mg/dl (8.5-10.1); Creatinine Clr Calc Pharmacy 107.7 ml/min; Est GFR (African American) 103.8 ml/min; Est GFR (Non-African American) 89.6 ml/min; Potassium 4.1 mmol/L (3.5-5.1)
[2021-03-27] MEDS: IBUPROFEN 200 MG TAB PO SCH ×2 (08:17→20:42)
[2021-03-27] MEDS: ATORVASTATIN 40 MG TAB PO SCH (08:17)
[2021-03-27] MEDS: FOLIC ACID 1 MG TAB PO SCH (08:17)
[2021-03-27] MEDS: ASCORBIC ACID 500 MG TAB PO SCH (08:17)
[2021-03-27] MEDS: CEROVITE ADV FORMULA TAB PO SCH (08:17)
[2021-03-27] MEDS: THIAMINE HCL 100 MG TAB PO SCH ×2 (08:17→20:42)
[2021-03-27] MEDS: POTASSIUM CITRATE 10 MEQ TAB PO SCH (08:17)
[2021-03-27] MEDS: GABAPENTIN 600 MG TAB PO SCH ×2 (08:17→20:39)
[2021-03-27] MEDS: ASPIRIN 81 MG ECTAB PO SCH (08:17)
[2021-03-27] MEDS: UMECLIDINIUM BROMIDE 62.5MCG/BLISTER 7 PUFFS/INHALER INH SCH (08:18)
[2021-03-27] MEDS: DOCUSATE SODIUM 100 MG CAP PO SCH ×2 (08:18→20:39)
[2021-03-27] MEDS: allopurinoL 100 MG TAB PO SCH (08:18)
[2021-03-27] MEDS: ZINC SULFATE 220 MG CAPSULE PO SCH (08:18)
[2021-03-27] MEDS: TAMSULOSIN HCL 0.4 MG CAP PO SCH (08:18)
[2021-03-27] MEDS: FINASTERIDE 5 MG TAB PO SCH (08:18)
[2021-03-27] MEDS: FLUTICASONE/VILANTEROL 100/25MCG 14 PUFFS/INHALER INH SCH (08:18)
--- NOTE | 2021-03-27 09:53 | Orthopedic Progress Note ---
Date of Service March 27, 2021 Assessment & Plan (1) Open leg wound: Plan: Postop day 3 status post 1. Incision and drainage abscess, right posterior leg. 2. Irrigation and debridement infected Achilles tendon rupture. 3. Irrigation and debridement of posterior right leg skin, subcutaneous tissue, fascia, muscle and tendon. 4. Saucerization right posterior lower leg wound. 5. Debridement diabetic ulcer measuring 15 x 4 x 0.5 cm. Continue IV antibiotics as per medicine service. Continue ceftriaxone and flagyl currently. PT/OT protocols-nonweightbearing on the right lower extremity. Okay to put toes down for balance. Admission and Anticipated Discharge Date Admission Date: March 18, 2021 Subjective patient sitting on side of bed enjoying breakfast. He has no complaints today. He is feeling better overall. Physical Exam Physical Exam: Splint/dressing in place. Toes mobile. Results & Data ([facility]) Vital Signs (Past 12 Hours) Vital Signs Temp Pulse Resp BP Pulse Ox 03/27/21 07:13 36.7 C 55 L 16 131/69 95 03/26/21 23:22 36.6 C 74 18 134/68 92
[2021-03-27] MEDS: METOPROLOL SUCC 25MG EXT REL TAB PO SCH (20:42)
--- NOTE | 2021-03-27 20:58 | Hospitalist Progress Note ---
Date of Service March 27, 2021 Assessment & Plan (1) Hypotension: Plan: After orthopedic procedure, patient found to be hypotensive on postop day zero. POSTOP DAY #3 is normo/hypertensive Patient is asymptomatic. (2) Open leg wound: Plan: Distal RLE/ankle. Per plastics & ortho there is concern for tendon necrosis and exposed muscle. Remains on Zosyn/Vancomycin. Wound culture and blood cultures completed. On ceftriaxone IV and will be transitioned to oral flagyl (high bioavailability). Both plastic surgery & ortho advising BKA. Patient wishes for more conservative approach/salvage surgery. Obtained RLE arterial duplex - this suggests proximal inflow disease. Dr Sylvester is not available for the next [address] Euceda from cardiology. Awaiting input. Right ankle MRI completed Consulted vascular surgery: Reviewed CTA. Abdominal aorta/iliacs appear widely patent bilaterally. Appears to have severe, heavily calcified distal SFA/popliteal disease on right. Tibial/peroneal on right appear patent. As patient remains interested in a limb salvage: will try to optimize arterial perfusion and plan for right lower extremity angiogram with likely right SFA- popliteal angioplasty/stenting. Post angioplasty of severe thigh/popliteal stenosis. Post procedure appears to have improved recommend follow-up to wound bed. Loaded with clopidogrel 300 mg post procedure Clopidogrel can be held as necessary for planned surgical debridements Continue DAPT with aspirin/clopidogrel for 1 month Repeat noninvasive vascular testing in 2 weeks. S/P p Incision and Drainage of abscess right posterior leg, Irrigation and debridement of infected right Achilles tendon rupture, irrigation debridement of skin,Subcutaneous Tissue, fascia, muscle and tendon of Right posterior lower leg; Saucerization of Right posterior lower leg wound, debridement diabetic ulcer [id number](Right) - Cl Cormier, DO Add vit C and zinc to promote wound healing. Cont MVI, thiamine, folate, etc as well. Will need to contact wound care nurse to evaluate need for wound vac at discharge. Pending placement. will likely need about 2 weeks of antibiotics given no signs of oseomyelitis. will discuss with ortho on Sunday to confirm duration. if remains below 28 days, will recommend peripheral US guided line. (3) Polyneuropathy: Plan: Continue home Gabapentin 600 mg BID. 2nd to chronic etoh abuse?? other? (4) ETOH abuse: Plan: AWSS protocol. Cont thiamine high dose, folic acid, MVI. No signs/symptoms of etoh withdrawal at this time. (5) Hypertension: Plan: Controlled (6) COPD (chronic obstructive pulmonary disease): Plan: continue home inhalers. no exacerbation at this time. (7) Dyslipidemia: Plan: statin (8) BPH associated with nocturia: Plan: Continue home Flomax and Proscar. no LUTS at this time (9) Anemia: Plan: mild, Hb dropped to 8.3, repeat was 9.3 will monitor (10) DVT prophylaxis: Plan: add heparin 5000 TID (11) Prediabetes: Plan: a1c 6.6% - this is c/w early T2DM change diet to DM diet and check BSGs in am to trend Admission and Anticipated Discharge Date Admission Date: March 18, 2021 Subjective Patient reports no new symptoms. Review of Systems Review of Systems: All systems reviewed & are unremarkable except as noted in HPI & below Physical Exam Physical Exam: Constitutional: Patient is lying in bed, and in no acute distress. WD, WN. Eyes: EOMI ENMT: MMM, no thrush Heart: RRR, Normal S1 S2 Lungs: CTA BL Abd: soft, NT, ND, BS+ Vascular: popliteal pulses 1-2+ b/l; DP, pos tib pulses right foot ~1+, left foot 1-2+ skin: right foot with dry dressing. Results & Data Results & Data ([facility]) Vital Signs (Past 12 Hours) Vital Signs Temp Pulse Resp BP BP Pulse Ox 03/27/21 20:41 61 130/63 95 03/27/21 15:50 36.6 C 80 16 115/66 95 PG Care Time/CCT Total # of Minutes Spent Total Time Spent with Patient: Total time spent is greater than 50% in coordination of care (as documented) at patient's floor/unit and/or counseling patient: Coding Level of Care Code 85916 Subseq Hosp Care Lvl 2 Diagnoses Hypotension I95.9 Open leg wound S81.809A Polyneuropathy G62.9 ETOH abuse F10.10 Hypertension I10 Hypertension type: unspecified COPD (chronic obstructive pulmonary disease) J44.9 Dyslipidemia E78.5 BPH associated with nocturia N40.1; R35.1 Anemia D64.9 DVT prophylaxis Z29.9 Prediabetes R73.03 (1) Hypertension Hypertension type: unspecified Qualified Code(s): I10 - Essential (primary) hypertension
[2021-03-27] MEDS: cefTRIAXone SODIUM 2,000 MG in DEXTROSE 5% 50 ML IV SCH (21:49)
[2021-03-28] MEDS: metroNIDAZOLE 500 MG/100 ML BAG IV SCH ×3 (05:24→22:20)
[2021-03-28] MEDS: DOCUSATE SODIUM 100 MG CAP PO SCH ×2 (08:33→22:24)
[2021-03-28] MEDS: THIAMINE HCL 100 MG TAB PO SCH ×2 (08:33→22:22)
[2021-03-28] MEDS: GABAPENTIN 600 MG TAB PO SCH ×2 (08:33→22:21)
[2021-03-28] MEDS: allopurinoL 100 MG TAB PO SCH (08:34)
[2021-03-28] MEDS: ATORVASTATIN 40 MG TAB PO SCH (08:34)
[2021-03-28] MEDS: FOLIC ACID 1 MG TAB PO SCH (08:34)
[2021-03-28] MEDS: FLUTICASONE/VILANTEROL 100/25MCG 14 PUFFS/INHALER INH SCH (08:34)
[2021-03-28] MEDS: UMECLIDINIUM BROMIDE 62.5MCG/BLISTER 7 PUFFS/INHALER INH SCH (08:34)
[2021-03-28] MEDS: ASCORBIC ACID 500 MG TAB PO SCH (08:34)
[2021-03-28] MEDS: TAMSULOSIN HCL 0.4 MG CAP PO SCH (08:34)
[2021-03-28] MEDS: POTASSIUM CITRATE 10 MEQ TAB PO SCH (08:34)
[2021-03-28] MEDS: CEROVITE ADV FORMULA TAB PO SCH (08:35)
[2021-03-28] MEDS: FINASTERIDE 5 MG TAB PO SCH (08:35)
[2021-03-28] MEDS: ZINC SULFATE 220 MG CAPSULE PO SCH (08:35)
[2021-03-28] MEDS: ASPIRIN 81 MG ECTAB PO SCH (08:35)
[2021-03-28] MEDS: CLOPIDOGREL BISULFATE 75 MG TAB PO SCH (09:09)
[2021-03-28 10:08] LABS: Basophils # (auto) 0.12 K/uL (0-0.2); Basophils % (auto) 1.5 %; Eosinophils # (auto) 0.33 K/uL (0-0.5); Hematocrit (blood only) 31.9 % (42-52); Hemoglobin 10.3 g/dL (14.0-18.0); Immature Granulocytes # (auto) 0.02 K/uL (0.00-0.02); Immature Granulocytes % (auto) 0.2 %; Lymphocytes # (auto) 2.04 K/uL (1.2-3.4); Lymphocytes % (auto) 24.7 %; Mean Corpuscular Hemoglobin 31.5 pg (25-34); Mean Corpuscular Hgb Conc 32.3 g/dL (32-36); Mean Corpuscular Volume 97.6 fL (80-100); Mean Platelet Volume 10.5 fL (7.4-10.4); Monocytes # (auto) 0.29 K/uL (0.11-0.59); Monocytes % (auto) 3.5 %; Neutrophils # (auto) 5.46 K/uL (1.4-6.5); Neutrophils % (auto) 66.1 %; Platelet Count 392 K/uL (130-400); RDW Coefficient of Variation 14.3 % (11.5-14.5); RDW Standard Deviation 50.1 fL (36.4-46.3); Red Blood Count 3.27 M/uL (4.7-6.1); White Blood Count 8.26 K/uL (4.8-10.8)
[2021-03-28 10:17] LABS: BUN Creatinine Ratio 10.6 (10-20); C Reactive Protein 0.61 mg/dl (0-0.29); Calcium 8.9 mg/dl (8.5-10.1); Est GFR (African American) 100.7 ml/min; Est GFR (Non-African American) 86.9 ml/min; Potassium 3.8 mmol/L (3.5-5.1)
--- NOTE | 2021-03-28 12:19 | Orthopedic Progress Note ---
Date of Service March 28, 2021 Assessment & Plan (1) Open leg wound: Plan: Postop day 4 status post 1. Incision and drainage abscess, right posterior leg. 2. Irrigation and debridement infected Achilles tendon rupture. 3. Irrigation and debridement of posterior right leg skin, subcutaneous tissue, fascia, muscle and tendon. 4. Saucerization right posterior lower leg wound. 5. Debridement diabetic ulcer measuring 15 x 4 x 0.5 cm. Continue IV antibiotics as per medicine service. Continue ceftriaxone and flagyl currently. PT/OT protocols-nonweightbearing on the right lower extremity. Okay to put toes down for balance. Orthopedics will sign off at this time. Please call with any questions. Instructions placed in the discharge section. Admission and Anticipated Discharge Date Admission Date: March 18, 2021 Subjective Postop day 4 Patient lying in bed awake and alert. No complaints today. He is comfortable. Wound care team present to view the wound. Physical Exam Physical Exam: Dressings and splint removed. Wound is looking benign at this time. There is not much in the way of erythema around the edges. He does have some slight maceration on the distal aspect. [place] intact that are keeping and Adaptic covering the wound. Wound is redressed with Adaptic, 4 x 4's, Kerlix, and Jose wrap. Several extra ABDs were placed in a splint to give it extra padding around the toes. Results & Data ([facility]) Vital Signs (Past 12 Hours) Vital Signs Temp Pulse Resp BP Pulse Ox 03/28/21 07:29 36.4 C L 50 L 18 129/74 96
[2021-03-28] MEDS ORDERED: METOPROLOL TARTRATE 1 MG/ML VIAL IV ONE ×2 (21:00→21:32)
[2021-03-28] MEDS ORDERED: METOPROLOL TARTRATE 1 MG/ML VIAL IV STA (21:28)
[2021-03-28] MEDS ORDERED: POTASSIUM CHLORIDE / WTR 10 MEQ/100 ML PLCT IV ONE (21:45)
--- NOTE | 2021-03-28 21:47 | Communication Note ---
Date of Service: March 28, 2021 I was notified by RN around 20:00 that patient was feeling lightheaded and had HR in the 160s, normotensive at that time. EKG showed SVT with possible ST d epression in V4-V6. Patient was without CP or pain elsewhere, SOB, or other symptoms beyond dizziness/lightheadedness. Stat troponin was negative. Discussed with attending. Transferred patient to U tele in room 242-1. On arrival to new room, patient was hypotensive to 70/50s, still mentating well, no new symptoms. Started fluids. Attending arrived and recommended giving metoprolol IV 2.5mg - gave one dose with minimal effect, gave second dose and patient's HR improved to 80s. BP improved to 120/80s. EKG repeated and showed sinus rhythm with 1st degree AV block; ST depression in V4-V6 had resolved. Ordered an echo and cardiology consult. Resident Activity Tracking Resident Involvement: Resident Care Provided Care Provided: Adult Hospital Medicine
[2021-03-28 22:15] LABS: Albumin Level 3.1 gm/dl (3.4-5.0); BUN Creatinine Ratio 14.8 (10-20); Calcium 9.2 mg/dl (8.5-10.1); Est GFR (African American) 75.1 ml/min; Est GFR (Non-African American) 64.8 ml/min; Magnesium 1.5 mg/dl (1.8-2.4); Potassium 3.9 mmol/L (3.5-5.1)
[2021-03-28 22:18] LABS: Albumin Globulin Ratio 0.7 (0.9-2); Bilirubin,Total 0.2 mg/dl (0.2-1); Globulin 4.5 gm/dl (2.5-4.0); Total Protein 7.6 gm/dl (6.4-8.2)
[2021-03-28] MEDS: cefTRIAXone SODIUM 2,000 MG in DEXTROSE 5% 50 ML IV SCH (22:21)
[2021-03-28] MEDS: METOPROLOL SUCC 25MG EXT REL TAB PO SCH (22:22)
[2021-03-28] MEDS: MELATONIN 3 MG TAB PO PRN (22:25)
--- NOTE | 2021-03-28 23:48 | Hospitalist Progress Note ---
Date of Service March 28, 2021 Assessment & Plan (1) Open leg wound: Plan: Right infected achilles tendon rupture and posterior right lower extremity abscess Both plastic surgery & ortho advising BKA Patient wishes for more conservative approach/salvage surgery. Now POD #4 S/P Incision and Drainage of abscess right posterior leg, Irrigation and debridement of infected right Achilles tendon rupture, irrigation debridement of skin,Subcutaneous Tissue, fascia, muscle and tendon of Right posterior lower leg; Saucerization of Right posterior lower leg wound, debridement diabetic ulcer 76woc2ifp3.5cm(Right) - Cl Cormier, Currently on IV ceftriaxone + metronidazole. Unasyn/augmentin may be a better option given staph aureus (MSSA) in wound but not bacteremic. Given MSSA infection recommend antibiotics are directed by infectious disease and consult placed. Continue vit C and zinc to promote wound healing. (2) Peripheral arterial disease: Plan: Post angioplasty of severe thigh/popliteal stenosis. Post procedure appears to have improved recommend follow-up to wound bed. Loaded with clopidogrel 300 mg post procedure Continue DAPT with aspirin/clopidogrel for 1 month (started back on clopidogrel today) Repeat noninvasive vascular testing in 2 weeks. (3) Polyneuropathy: Plan: Continue home Gabapentin 600 mg BID. 2nd to chronic etoh abuse? (4) ETOH abuse: Plan: Cont thiamine, folic acid, MVI. Suspect cause of his peripheral neuropathy No signs/symptoms of etoh withdrawal at this time. (5) Hypertension: Plan: Controlled on metoprolol [id number] PO daily (6) COPD (chronic obstructive pulmonary disease): Plan: continue home inhalers. no exacerbation at this time. (7) Dyslipidemia: Plan: Continue atorvastatin 40mg PO daily (8) BPH associated with nocturia: Plan: Continue home Flomax and finasteride. no LUTS at this time (9) Anemia: Plan: Improving. Current Hgb 10.3. (10) T2DM (type 2 diabetes mellitus): Plan: a1c 6.6% - this is c/w early T2DM change diet to DM diet and check BSGs in am to trend BSG WNL therefore will discontinue this Start metformin 500mg PO daily Plan: VTE Prophylaxis - previously not on anticoagulation, start Lovenox 40mg SQ daily Admission and Anticipated Discharge Date Admission Date: March 18, 2021 Subjective Main concern regarding [place] vs. medicare payment. He denies any fevers or chills. Peripheral neuropathy with numbness to ankle for decades. Good cap refill in toes. Review of Systems Review of Systems: All systems reviewed & are unremarkable except as noted in HPI & below Physical Exam Constitutional: WD/WN, vitals as above Respiratory: normal respiratory effort, lungs clear to auscultation Cardiovascular: RRR, no murmur, no edema Gastrointestinal (Abdomen): normal bowel sounds, soft, nontender, no hepatosplenomegaly Musculoskeletal: Right foot dressing not removed Neurologic: awake Motor/Sensory: + sensory deficit (distal to ankle numbness b/l, chronic) Results & Data Results & Data ([facility]) Vital Signs (Past 12 Hours) Vital Signs Temp Pulse Resp BP Pulse Ox 03/28/21 20:15 164 H 109/68 03/28/21 15:40 36.4 C L 63 18 138/72 92 PG Care Time/CCT Total # of Minutes Spent Total Time Spent with Patient: Total time spent is greater than 50% in coordination of care (as documented) at patient's floor/unit and/or counseling patient: Coding Level of Care Code 08467 Subseq Hosp Care Lvl 2 Diagnoses Open leg wound S81.809A Polyneuropathy G62.9 ETOH abuse F10.10 Hypertension I10 Hypertension type: unspecified COPD (chronic obstructive pulmonary disease) J44.9 Dyslipidemia E78.5 BPH associated with nocturia N40.1; R35.1 Anemia D64.9 T2DM (type 2 diabetes mellitus) E11.9 Peripheral arterial disease I73.9 (1) Hypertension Hypertension type: unspecified Qualified Code(s): I10 - Essential (primary) hypertension
[2021-03-29] MEDS: metroNIDAZOLE 500 MG/100 ML BAG IV SCH ×3 (05:51→21:21)
[2021-03-29] MEDS: ZINC SULFATE 220 MG CAPSULE PO SCH (08:56)
[2021-03-29] MEDS: FLUTICASONE/VILANTEROL 100/25MCG 14 PUFFS/INHALER INH SCH (08:56)
[2021-03-29] MEDS: UMECLIDINIUM BROMIDE 62.5MCG/BLISTER 7 PUFFS/INHALER INH SCH (08:56)
[2021-03-29] MEDS: FINASTERIDE 5 MG TAB PO SCH (08:56)
[2021-03-29] MEDS: ASCORBIC ACID 500 MG TAB PO SCH (08:57)
[2021-03-29] MEDS: ATORVASTATIN 40 MG TAB PO SCH (08:57)
[2021-03-29] MEDS: CEROVITE ADV FORMULA TAB PO SCH (08:57)
[2021-03-29] MEDS: THIAMINE HCL 100 MG TAB PO SCH ×2 (08:57→20:14)
[2021-03-29] MEDS: POTASSIUM CITRATE 10 MEQ TAB PO SCH (08:57)
[2021-03-29] MEDS: allopurinoL 100 MG TAB PO SCH (08:57)
[2021-03-29] MEDS: GABAPENTIN 600 MG TAB PO SCH ×2 (08:57→20:12)
[2021-03-29] MEDS: TAMSULOSIN HCL 0.4 MG CAP PO SCH (08:58)
[2021-03-29] MEDS: FOLIC ACID 1 MG TAB PO SCH (08:58)
[2021-03-29] MEDS: DOCUSATE SODIUM 100 MG CAP PO SCH ×2 (08:58→20:12)
[2021-03-29] MEDS: ASPIRIN 81 MG ECTAB PO SCH (08:58)
[2021-03-29] MEDS: CLOPIDOGREL BISULFATE 75 MG TAB PO SCH (08:58)
[2021-03-29] MEDS: ENOXAPARIN INJ 40 MG/0.4 ML SYR SQ SCH (09:29)
--- NOTE | 2021-03-29 18:18 | Hospitalist Progress Note ---
Date of Service March 29, 2021 Assessment & Plan (1) Open leg wound: Plan: Right infected achilles tendon rupture and posterior right lower extremity abscess Both plastic surgery & ortho advising BKA Patient wishes for more conservative approach/salvage surgery. Now POD #5 S/P Incision and Drainage of abscess right posterior leg, Irrigation and debridement of infected right Achilles tendon rupture, irrigation debridement of skin,Subcutaneous Tissue, fascia, muscle and tendon of Right posterior lower leg; Saucerization of Right posterior lower leg wound, debridement diabetic ulcer [id number](Right) - Cl Cormier, Currently on IV ceftriaxone + metronidazole. Unasyn may be a better option given staph aureus (MSSA) in wound but not bacteremic. Given MSSA infection recommend antibiotics are directed by infectious disease and consult placed. Continue vit C and zinc to promote wound healing. (2) SVT (supraventricular tachycardia): Plan: Discussed with cardiology Consideration for EP study if still here on . Replace magnesium (3) Peripheral arterial disease: Plan: Post angioplasty of severe thigh/popliteal stenosis. Post procedure appears to have improved recommend follow-up to wound bed. Loaded with clopidogrel 300 mg post procedure Continue DAPT with aspirin/clopidogrel for 1 month (started back on clopidogrel today) Repeat noninvasive vascular testing in 2 weeks. (4) Polyneuropathy: Plan: Continue home Gabapentin 600 mg BID. 2nd to chronic etoh abuse? (5) ETOH abuse: Plan: Cont thiamine, folic acid, MVI. Suspect cause of his peripheral neuropathy No signs/symptoms of etoh withdrawal at this time. (6) Hypertension: Plan: Controlled on metoprolol succinate 25mg PO daily (7) COPD (chronic obstructive pulmonary disease): Plan: continue home inhalers. no exacerbation at this time. (8) Dyslipidemia: Plan: Continue atorvastatin 40mg PO daily (9) BPH associated with nocturia: Plan: Continue home Flomax and finasteride. no LUTS at this time (10) Anemia: Plan: Improving. Current Hgb 10.3. (11) T2DM (type 2 diabetes mellitus): Plan: a1c 6.6% - this is c/w early T2DM change diet to DM diet and check BSGs in am to trend BSG WNL therefore will discontinue this Start metformin 500mg PO daily on discharge Plan: VTE Prophylaxis - Lovenox 40mg SQ daily Admission and Anticipated Discharge Date Admission Date: March 18, 2021 Subjective SVT episode overnight. Very symptomatic with this with shortness of breath, chest pain and lightheadedness. Resolved SVT episode @ 21:30. In NSR and feeling his normal self since then. No fever or chills. Son updated over the phone. Review of Systems Review of Systems: All systems reviewed & are unremarkable except as noted in HPI & below Physical Exam Constitutional: WD/WN, vitals as above Respiratory: normal respiratory effort, lungs clear to auscultation Cardiovascular: RRR, no murmur, no edema Gastrointestinal (Abdomen): normal bowel sounds, soft, nontender, no hepatosplenomegaly Neurologic: awake Motor/Sensory: + sensory deficit (distal to ankle numbness b/l, chronic) Results & Data Results & Data ([facility]) Vital Signs (Past 12 Hours) Vital Signs Temp Pulse Pulse Resp BP Pulse Ox 03/29/21 16:00 63 03/29/21 11:22 36.4 C L 73 20 138/76 96 03/29/21 08:00 74 03/29/21 07:50 36.3 C L 64 20 101/64 96 03/29/21 06:22 85 PG Care Time/CCT Total # of Minutes Spent Total Time Spent with Patient: Total time spent is greater than 50% in coordination of care (as documented) at patient's floor/unit and/or counseling patient: Coding Level of Care Code 60335 Subseq Hosp Care Lvl 2 Diagnoses Open leg wound S81.809A Peripheral arterial disease I73.9 Polyneuropathy G62.9 ETOH abuse F10.10 Hypertension I10 Hypertension type: unspecified COPD (chronic obstructive pulmonary disease) J44.9 Dyslipidemia E78.5 BPH associated with nocturia N40.1; R35.1 Anemia D64.9 T2DM (type 2 diabetes mellitus) E11.9 SVT (supraventricular tachycardia) I47.1 (1) Hypertension Hypertension type: unspecified Qualified Code(s): I10 - Essential (primary) hypertension
[2021-03-29] MEDS ORDERED: MAGNESIUM SULFATE / D5W 1 GM/100 ML BAG IV ONE (19:00)
--- NOTE | 2021-03-29 20:12 | Cardiology Consultation ---
Date of Consultation March 29, 2021 Assessment & Plan (1) SVT (supraventricular tachycardia): (2) ETOH abuse: (3) Hyperlipemia: (4) Hypertension: (5) Peripheral arterial disease: (6) Ascending aortic aneurysm: ASSESSMENT/PLAN: 1. Sustained SVT: Was quite symptomatic and developed hypotension. Fortunately, converted to sinus rhythm and remains in sinus rhythm. No symptoms similar to this in the past per his report. No change in medical therapy for now. Would consider electrophysiology evaluation, non urgently, for consideration of EP study and ablation, especially if recurrence. This was discussed with him. 2. Ascending aortic aneurysm: Follows with [facility]. 3. Alcohol abuse: Recommended that he reduce alcohol consumption to no more than 1 or 2 drinks per day. 4. Hypertension: Blood pressure adequately controlled. No changes made at this time. 5. Dyslipidemia: Agree with high-intensity statin therapy. 6. PAD s/p angioplasty right lower extremity: Performed by Dr. Euceda earlier this hospital stay. 7. Disposition: Plan of care discussed with Dr. Baron of the primary hospitalist service. Patient care communicated with Dr. Sterling of [facility] as he follows with [facility] as an outpatient per patient report. Dr. Sterling will investigate and likely resume cardiology care tomorrow. Thank you for allowing me to participate in the care of your patient. Please call for any other questions or concerns. Sincerely, Edu Holguin M.D. History of Present Illness Reason for Consultation: SVT Requesting Physician: Piyush Leo Attending Physician: Sanchez Baron MD History of Present Illness Mr. España is a very pleasant 75-year-old gentleman with history significant for PAD s/p angioplasty of right mid SFA to proximal popliteal artery, ascending aortic aneurysm followed by [facility], borderline AAA followed by [facility] vascular, hypertension, dyslipidemia, COPD, and prediabetes. He was admitted on 03/18/2021 with large necrotic right lower extremity heel ulceration with tendon involvement and possible osteomyelitis. He has been seen by Dr. Euceda of vascular and underwent angioplasty of right SFA to popliteal artery. On 03/28/2021, records indicate that he developed lightheadedness and tachycardia with heart rate in the 160s. He was initially normotensive and ECG demonstrated SVT. He was transferred to PCU and developed hypotension with blood pressures reported in the 70s/50s. He was given fluids per hospitalist report and metoprolol 2.5 mg IV x2. Heart rate improved to the 80s and blood pressure normalized. He recalls the events stating that he developed palpitations feeling as a pounding sensation. He also felt near syncopal at times. He does not recall having symptoms such as this in the past. He denies chest pain, shortness of breath, syncope. He has remained in sinus rhythm since that time based on telemetry findings. He has had intermittent discomfort in his right lower extremity. Review of systems: As above. Review of systems otherwise negative/unremarkable. Family history: Mother had diabetes. Father at 91. No known premature CAD. Social history: Quit smoking 2-3 years ago after smoking for Approximately 45 years including 4 packs per day for 15 years. He consumes approximately 5 beers per day nearly daily. He lives alone. . Two children. He was unaccompanied. Allergies Allergy/AdvReac Type Severity Reaction Status Date / Time No Known Allergies Allergy Verified 03/18/21 17:08 Home Medications Medication Instructions Recorded Confirmed Type aspirin 81 mg tablet,delayed 81 mg PO QAM 07/30/18 03/18/21 History release (Adult Low Dose Aspirin) atorvastatin 40 mg tablet 40 mg PO QAM 07/30/18 03/18/21 History gabapentin 300 mg capsule 600 mg PO BID 07/30/18 03/18/21 History losartan 100 mg tablet (Cozaar) 50 mg PO QAM 07/30/18 03/18/21 History tamsulosin 0.4 mg capsule (Flomax) 0.4 mg PO QAM 07/30/18 03/18/21 History tiotropium bromide 18 mcg capsule 1 cap INH QAM 07/30/18 03/18/21 History with inhalation device (Spiriva with HandiHaler) albuterol sulfate 90 mcg/actuation 2 inh INHALATION QID PRN 03/12/20 03/18/21 History breath activated powder inhaler budesonide-formoterol HFA 160 2 puff INHALATION BID 03/12/20 03/18/21 History mcg-4.5 mcg/actuation aerosol inhaler metoprolol succinate 25 mg 25 mg PO QPM 03/12/20 03/18/21 History tablet,extended release 24 hr diclofenac sodium 1 % topical gel 4 g TOPICAL QID PRN 03/25/20 03/18/21 History (Voltaren) finasteride 5 mg tablet 5 mg PO DAILY #90 tab 04/06/20 03/18/21 Rx allopurinol 100 mg tablet 200 mg PO DAILY 03/18/21 03/18/21 History ibuprofen 200 mg tablet 400 mg PO BID 03/18/21 03/18/21 History potassium citrate 10 mEq (1,080 10 meq PO DAILY 03/18/21 03/18/21 History mg) tablet,extended release (Urocit-K 10) sulfamethoxazole 800 1 tab PO BID 03/18/21 03/18/21 History mg-trimethoprim 160 mg tablet Patient History Medical History (Updated 03/29/21 @ 20:30 by Natanael Holguin MD) Anemia Ascending aortic aneurysm Follows with [facility]. BPH (benign prostatic hyperplasia) COPD (chronic obstructive pulmonary disease) History of skin cancer Hx of gout Hyperlipemia Hypertension Insomnia Kidney stones Neuropathy Osteoarthritis Surgical History H/O spinal fusion LUMBAR History of colonoscopy History of herniorrhaphy History of tonsillectomy History of tooth extraction Family History Mother Family history of diabetes mellitus Social History Smoking Status: Former smoker Second Hand Exposure: No; Hx Alcohol Use: Yes Alcohol type: beer Hx Substance Use: No Preferred Language: Lithuanian Communication Ability: Effective Visual Impairment: Diminished Hearing Ability: Use of Hearing Aid Right Of Way Buyer Required: No Beliefs That Will Affect Care: None marital status: / Current Living Situation: Alone current occupational status: employed and unemployed Feels Safe at Home: Yes Assistive Devices: Glasses, Oxygen - at Night and Walker Physical Exam Physical Exam: Gen.: No acute distress. Alert and oriented. HEENT: Anicteric sclera. Neck: No JVD. No bruits. Normal carotid upstrokes bilaterally. Cardiac: PMI was nonpalpable. No ventricular heave. Regular. Normal S1-S2. No murmurs, rubs, or gallops. Pulmonary: Clear to auscultation bilaterally without wheezes, rales, or rhonchi. Abdomen: Soft, nontender, nondistended, with normoactive bowel sounds. No bruits noted. Extremities: 2+ radial pulses bilaterally. 2+ left dorsalis pedis pulse. 1+ right dorsalis pedis pulse. Trace bilateral lower extremity edema. No cyanosis. Right foot is wrapped/bandaged. Psychiatric: Affect appears appropriate. Results & Data ([facility]) Vital Signs (Past 12 Hours) Vital Signs Temp Pulse Pulse Resp BP Pulse Ox 03/29/21 18:49 36.3 C L 64 20 119/67 93 03/29/21 16:00 63 03/29/21 11:22 36.4 C L 73 20 138/76 96 Laboratory Results Laboratory Results - last 24 hr 03/28/21 03/28/21 03/28/21 20:21 20:55 20:55 Sodium 137 Potassium 3.9 Chloride 106 Carbon Dioxide 24 Anion Gap 7.0 BUN 17 D Creatinine 1.12 Est Cr Clr Drug Dosing 75.0 Est GFR ( Amer) 75.1 Est GFR (Non-Af Amer) 64.8 BUN/Creatinine Ratio 14.8 Glucose 198 H POC Glucose 182 H Calcium 9.2 Magnesium 1.5 L Total Bilirubin 0.2 AST 58 H ALT 67 Alkaline Phosphatase 117 Troponin I < 0.015 Total Protein 7.6 Albumin 3.1 L Globulin 4.5 H Albumin/Globulin Ratio 0.7 L Diagnostic Findings Telemetry personally reviewed: SVT converted to sinus rhythm on 03/28/2021 at 9:39 p.m. ECGs personally reviewed: ECG 03/28/2021 at 8:37 p.m.: SVT 164 beats per minute. Anterolateral ST depression. ECG 03/28/2021 at 9:44 p.m.: Sinus rhythm first-degree AV block 80 beats per minute. Improvement of ST depression. Echo 03/29/2021 preliminary review: Normal LV systolic function. Medications Administered Current Inpatient Medications Acetaminophen (Acetaminophen 325 Mg Tab) 650 mg PO Q4H PRN PRN Reason: pain/fever Stop: 04/17/21 20:21 Albuterol (Albuterol Hfa 8 Gm Inhaler) 2 puffs INH QID PRN PRN Reason: SHORT OF BREATH Stop: 04/17/21 20:21 Allopurinol (Allopurinol 100 Mg Tab) 200 mg PO DAILY [facility] Stop: 04/18/21 08:59 Last Admin: 03/29/21 08:57 Dose: 200 mg Documented by: Ascorbic Acid (Ascorbic Acid 500 Mg Tab) 500 mg PO QAM [facility] Stop: 04/20/21 08:59 Last Admin: 03/29/21 08:57 Dose: 500 mg Documented by: Aspirin (Aspirin 81 Mg Ectab) 81 mg PO QAM [facility] Stop: 04/18/21 08:59 Last Admin: 03/29/21 08:58 Dose: 81 mg Documented by: Atorvastatin Calcium (Atorvastatin 40 Mg Tab) 40 mg PO QAM [facility] Stop: 04/18/21 08:59 Last Admin: 03/29/21 08:57 Dose: 40 mg Documented by: Bisacodyl (Bisacodyl 10 Mg Supp) 10 mg LA DAILY PRN PRN Reason: Constipation Stop: 04/23/21 11:36 Clopidogrel Bisulfate (Clopidogrel Bisulfate 75 Mg Tab) [facility] [place]: 04/27/21 08:59 Last Admin: 03/29/21 08:58 Dose: 75 mg Documented by: Diclofenac Sodium (Diclofenac Sod 1% Gel 100 Gm Tube) 4 gm EXT QID PRN PRN Reason: Pain Stop: 04/17/21 20:21 Docusate Sodium (Docusate Sodium 100 Mg Cap) 100 mg PO BID [facility] Stop: 04/23/21 11:36 Last Admin: 03/29/21 20:12 Dose: Not Given Documented by: Enoxaparin Sodium (Enoxaparin Inj 40 Mg/0.4 Ml Syr) 40 mg SQ QAM [facility] Stop: 04/28/21 08:59 Last Admin: 03/29/21 09:29 Dose: 40 mg Documented by: Finasteride (Finasteride 5 Mg Tab) 5 mg PO DAILY [facility] Stop: 04/18/21 08:59 Last Admin: 03/29/21 08:56 Dose: 5 mg Documented by: Fluticasone/Vilanterol (Fluticasone/Vilanterol 100/25mcg 14 Puffs/Inhaler) 1 puffs INH DAILY [facility] Stop: 04/18/21 08:59 Last Admin: 03/29/21 08:56 Dose: 1 puffs Documented by: Folic Acid (Folic Acid 1 Mg Tab) 1 mg PO QAM [facility] Stop: 04/17/21 20:21 Last Admin: 03/29/21 08:58 Dose: 1 mg Documented by: Gabapentin (Gabapentin 600 Mg Tab) 600 mg PO BID [facility] Stop: 04/17/21 20:59 Last Admin: 03/29/21 20:12 Dose: 600 mg Documented by: Hydromorphone HCl (Hydromorphone Inj 0.5 Mg/0.5 Ml Syr) 0.5 mg IV Q4H PRN PRN Reason: Pain or Pre PT Stop: 04/07/21 11:36 Ceftriaxone Sodium 2,000 mg/ (Dextrose) 70 mls @ 140 mls/hr IV Q24H [facility] Stop: 03/30/21 21:29 Last Infusion: 03/28/21 23:23 Dose: Infused Documented by: Metronidazole (Flagyl) 500 mg in 100 mls @ 100 mls/hr IV Q8H [facility] Stop: 03/31/21 12:59 Last Infusion: 03/29/21 14:00 Dose: Infused Documented by: Magnesium Sulfate/Dextrose (Magnesium Sulfate / D5w) 1 gm in 100 mls @ 50 mls/hr IV ONE ONE Stop: 03/29/21 20:59 Last Admin: 03/29/21 19:20 Dose: 50 mls/hr Documented by: Lorazepam (Lorazepam 1 Mg Tab) 1 mg PO ONE PRN; Protocol PRN Reason: EtoH Withdrawal AWSS 6-10 Magnesium Hydroxide (Magnesium Hydroxide Susp 30 Ml Udc) 30 ml PO Q6H PRN PRN Reason: Constipation Stop: 04/23/21 11:36 Magnesium Oxide (Magnesium Oxide 400 Mg Tab) 400 mg PO BID [facility] Stop: 04/28/21 20:59 Last Admin: 03/29/21 20:13 Dose: 400 mg Documented by: Melatonin (Melatonin 3 Mg Tab) 3 mg PO HS PRN PRN Reason: Sleep Stop: 04/27/21 20:08 Last Admin: 03/28/21 22:25 Dose: 3 mg Documented by: Metoprolol Succinate (Metoprolol Succ 25mg Ext Rel Tab) 25 mg PO QPM [facility] Stop: 04/17/21 20:59 Last Admin: 03/29/21 20:13 Dose: 25 mg Documented by: Morphine Sulfate (Morphine Sulfate 2 Mg/Ml Carp) 2 mg IV Q30M PRN PRN Reason: Chest Pain Stop: 04/06/21 20:52 Multivitamins/Minerals (Cerovite Adv Formula Tab) 1 tab PO QAM [facility] Stop: 04/19/21 11:59 Last Admin: 03/29/21 08:57 Dose: 1 tab Documented by: Naloxone HCl (Naloxone Hcl 0.4 Mg/1 Ml Vial/Carp) 0.1 mg IV Q5M PRN PRN Reason: Oversedation/Resp Depression Stop: 04/23/21 11:36 Nitroglycerin (Nitroglycerin Sl 0.4 Mg/Tab Tab) 0.4 mg SL UD PRN PRN Reason: Chest Pain Stop: 04/22/21 20:52 Ondansetron HCl (Ondansetron Inj 2 Mg/Ml 2 Ml Vial) 4 mg IV Q6H PRN PRN Reason: Nausea Stop: 04/17/21 20:21 Oxycodone HCl (Oxycodone Hcl Ir 5 Mg Tab (Immediate Release)) 5 - 10 mg PO Q4H PRN PRN Reason: Pain or Pre PT Stop: 04/07/21 11:36 Polyethylene Glycol (Polyethylene (Miralax) 17 Gm Pack) 17 gm PO DAILY PRN PRN Reason: Constipation Stop: 04/17/21 20:21 Potassium Citrate (Potassium Citrate 10 Meq Tab) 10 meq PO DAILY [facility] Stop: 04/18/21 08:59 Last Admin: 03/29/21 08:57 Dose: 10 meq Documented by: Tamsulosin HCl (Tamsulosin Hcl 0.4 Mg Cap) 0.4 mg PO QAM [facility] Stop: 04/18/21 08:59 Last Admin: 03/29/21 08:58 Dose: 0.4 mg Documented by: Thiamine HCl (Thiamine Hcl 100 Mg Tab) 200 mg PO BID [facility] Stop: 04/19/21 20:59 Last Admin: 03/29/21 20:14 Dose: 200 mg Documented by: Umeclidinium Byron (Umeclidinium Byron 62.5mcg/Blister 7 Puffs/Inhaler) 1 puffs INH QAM [facility] Stop: 04/18/21 08:59 Last Admin: 03/29/21 08:56 Dose: 1 puffs Documented by: Zinc Sulfate (Zinc Sulfate 220 Mg Capsule) 220 mg PO QAM [facility] Stop: 04/20/21 08:59 Last Admin: 03/29/21 08:56 Dose: 220 mg Documented by: PG Care Time/CCT Total # of Minutes Spent Total Time Spent with Patient: Total time spent is greater than 50% in coordination of care (as documented) at patient's floor/unit and/or counseling patient: Coding Level of Care Code 14806 Initial Inpt Care Lvl 3 Diagnoses SVT (supraventricular tachycardia) I47.1 ETOH abuse F10.10 Hyperlipemia E78.5 Hypertension I10 Hypertension type: unspecified Peripheral arterial disease I73.9 Ascending aortic aneurysm I71.2 (1) Hypertension Hypertension type: unspecified Qualified Code(s): I10 - Essential (primary) hypertension
[2021-03-29] MEDS: MAGNESIUM OXIDE 400 MG TAB PO SCH (20:13)
[2021-03-29] MEDS: METOPROLOL SUCC 25MG EXT REL TAB PO SCH (20:13)
[2021-03-29] MEDS: cefTRIAXone SODIUM 2,000 MG in DEXTROSE 5% 50 ML IV SCH (22:30)
--- NOTE | 2021-03-29 22:48 | Electrocardiogram Report ---
Test Reason : Blood Pressure : / mmHG Vent. Rate : 164 BPM Atrial Rate : 153 BPM P-R Int : 000 ms QRS Dur : 116 ms QT Int : 294 ms P-R-T Axes : 000 007 090 degrees QTc Int : 485 ms Supraventricular tachycardia Marked ST abnormality, possible lateral subendocardial injury Abnormal ECG When compared with ECG of 02-FEB-2021 19:33, Supraventricular tachycardia has replaced Sinus rhythm Vent. rate has increased BY 98 BPM QRS duration has increased ST now depressed in Lateral leads Confirmed by Natanael Holguin ([id number]) on 03/29/2021 10:48:10 PM Referred By: REFERRED SELF Confirmed By:Natanael Holguin
--- NOTE | 2021-03-29 22:49 | Electrocardiogram Report ---
Test Reason : Blood Pressure : / mmHG Vent. Rate : 080 BPM Atrial Rate : 080 BPM P-R Int : 312 ms QRS Dur : 092 ms QT Int : 380 ms P-R-T Axes : 012 -14 070 degrees QTc Int : 438 ms Sinus rhythm with 1st degree A-V block Otherwise normal ECG When compared with ECG of 28-MAR-2021 20:37, Sinus rhythm has replaced Supraventricular tachycardia Vent. rate has decreased BY 84 BPM QRS duration has decreased ST no longer depressed in Lateral leads Confirmed by Natanael oHlguin ([id number]) on 03/29/2021 10:48:36 PM Referred By: REFERRED SELF Confirmed By:Natanael Holguin
--- NOTE | 2021-03-29 22:51 | XCELERA ---
[id number] \\[id number]
[2021-03-29] MEDS ORDERED: METOPROLOL TARTRATE 1 MG/ML VIAL IV STA (23:17)
[2021-03-29] MEDS ORDERED: METOPROLOL TARTRATE 1 MG/ML VIAL IV ONE (23:21)
[2021-03-30] MEDS ORDERED: METOPROLOL TARTRATE 1 MG/ML VIAL IV STA (00:15)
[2021-03-30] MEDS ORDERED: SODIUM CHLORIDE 0.9% 1000ML 1,000 ML IV ONE (01:06)
[2021-03-30] MEDS: metroNIDAZOLE 500 MG/100 ML BAG IV SCH (04:45)
[2021-03-30] MEDS: allopurinoL 100 MG TAB PO SCH (09:04)
[2021-03-30] MEDS: ZINC SULFATE 220 MG CAPSULE PO SCH (09:04)
[2021-03-30] MEDS: FINASTERIDE 5 MG TAB PO SCH (09:04)
[2021-03-30] MEDS: THIAMINE HCL 100 MG TAB PO SCH ×2 (09:04→20:55)
[2021-03-30] MEDS: ASCORBIC ACID 500 MG TAB PO SCH (09:04)
[2021-03-30] MEDS: ASPIRIN 81 MG ECTAB PO SCH (09:05)
[2021-03-30] MEDS: MAGNESIUM OXIDE 400 MG TAB PO SCH ×2 (09:05→20:55)
[2021-03-30] MEDS: CLOPIDOGREL BISULFATE 75 MG TAB PO SCH (09:05)
[2021-03-30] MEDS: ENOXAPARIN INJ 40 MG/0.4 ML SYR SQ SCH (09:05)
[2021-03-30] MEDS: TAMSULOSIN HCL 0.4 MG CAP PO SCH (09:05)
[2021-03-30] MEDS: GABAPENTIN 600 MG TAB PO SCH ×2 (09:05→20:55)
[2021-03-30] MEDS: CEROVITE ADV FORMULA TAB PO SCH (09:05)
[2021-03-30] MEDS: ATORVASTATIN 40 MG TAB PO SCH (09:05)
[2021-03-30] MEDS: FOLIC ACID 1 MG TAB PO SCH (09:05)
[2021-03-30] MEDS: POTASSIUM CITRATE 10 MEQ TAB PO SCH (09:05)
[2021-03-30] MEDS: DOCUSATE SODIUM 100 MG CAP PO SCH ×2 (09:06→20:55)
[2021-03-30] MEDS: FLUTICASONE/VILANTEROL 100/25MCG 14 PUFFS/INHALER INH SCH (09:06)
[2021-03-30] MEDS: UMECLIDINIUM BROMIDE 62.5MCG/BLISTER 7 PUFFS/INHALER INH SCH (09:06)
[2021-03-30 09:59] LABS: BUN Creatinine Ratio 14.3 (10-20); Calcium 8.5 mg/dl (8.5-10.1); Creatinine Clr Calc Pharmacy 93.4 ml/min; Est GFR (African American) 97.9 ml/min; Est GFR (Non-African American) 84.4 ml/min; Potassium 3.7 mmol/L (3.5-5.1)
[2021-03-30] MEDS ORDERED: POTASSIUM CHLORIDE CRTAB 20 MEQ TABCR PO STA (11:03)
[2021-03-30] MEDS ORDERED: VANCOMYCIN CONSULT ACTIVE PRN (11:07)
--- NOTE | 2021-03-30 11:16 | Hospitalist Progress Note ---
Date of Service March 30, 2021 Assessment & Plan (1) Open leg wound: Plan: Right infected achilles tendon rupture and posterior right lower extremity abscess Both plastic surgery & ortho advising BKA - declined by patient POD #6 S/P Incision and Drainage of abscess right posterior leg, Irrigation and debridement of infected right Achilles tendon rupture, irrigation debridement of skin,Subcutaneous Tissue, fascia, muscle and tendon of Right posterior lower leg; Saucerization of Right posterior lower leg wound, debridement diabetic ulcer [id number](Right) - Cl Cormier, DO Per ID consult IV vancomycin and ertapenem - recommend 6 weeks of treatment. Continue vit C and zinc to promote wound healing. (2) SVT (supraventricular tachycardia): Plan: Under [facility] cardiology - ?EP study given second episode. Pending consult. Use adenosine overnight if occurs again. (3) Peripheral arterial disease: Plan: Post angioplasty of severe thigh/popliteal stenosis. Post procedure appears to have improved recommend follow-up to wound bed. Loaded with clopidogrel 300 mg post procedure Continue DAPT with aspirin/clopidogrel for 1 month (started back on clopidogrel today) Repeat noninvasive vascular testing in 2 weeks. (4) Polyneuropathy: Plan: Continue home Gabapentin 600 mg BID. 2nd to chronic etoh abuse? (5) ETOH abuse: Plan: Cont thiamine, folic acid, MVI. Suspect cause of his peripheral neuropathy No signs/symptoms of etoh withdrawal at this time. (6) Hypertension: Plan: Controlled on metoprolol succinate 25mg PO daily (7) COPD (chronic obstructive pulmonary disease): Plan: continue home inhalers. no exacerbation at this time. (8) Dyslipidemia: Plan: Continue atorvastatin 40mg PO daily (9) BPH associated with nocturia: Plan: Continue home Flomax and finasteride. no LUTS at this time (10) Anemia: Plan: Improving. Current Hgb 10.3. (11) T2DM (type 2 diabetes mellitus): Plan: a1c 6.6% - this is c/w early T2DM change diet to DM diet and check BSGs in am to trend BSG WNL therefore will discontinue this Start metformin 500mg PO daily on discharge Plan: VTE Prophylaxis - Lovenox 40mg SQ daily Admission and Anticipated Discharge Date Admission Date: March 18, 2021 Subjective Another SVT episode overnight. Very symptomatic during this. Lasted 23:00- 1:52am. Otherwise back to baseline this morning. Review of Systems Review of Systems: All systems reviewed & are unremarkable except as noted in HPI & below Physical Exam Constitutional: WD/WN, vitals as above Respiratory: normal respiratory effort, lungs clear to auscultation Cardiovascular: RRR, no murmur, no edema Gastrointestinal (Abdomen): normal bowel sounds, soft, nontender, no hepatosplenomegaly Neurologic: awake Motor/Sensory: + sensory deficit (distal to ankle numbness b/l, chronic) Results & Data Results & Data ([facility]) Vital Signs (Past 12 Hours) Vital Signs Temp Pulse Pulse Resp BP BP BP 03/30/21 08:00 63 03/30/21 07:03 36.4 C L 67 18 126/68 03/30/21 04:24 36.7 C 70 20 111/70 03/30/21 01:37 94/68 L 03/30/21 01:00 84/60 L 03/30/21 00:34 140 H 112/76 03/29/21 23:43 72 03/29/21 23:41 140 H 109/70 Pulse Ox 03/30/21 08:00 03/30/21 07:03 97 03/30/21 04:24 92 03/30/21 01:37 03/30/21 01:00 03/30/21 00:34 03/29/21 23:43 03/29/21 23:41 PG Care Time/CCT Total # of Minutes Spent Total Time Spent with Patient: Total time spent is greater than 50% in coordin ation of care (as documented) at patient's floor/unit and/or counseling patient: Coding Level of Care Code 60814 Subseq Hosp Care Lvl 2 Diagnoses Open leg wound S81.809A SVT (supraventricular tachycardia) I47.1 Peripheral arterial disease I73.9 Polyneuropathy G62.9 ETOH abuse F10.10 Hypertension I10 Hypertension type: unspecified COPD (chronic obstructive pulmonary disease) J44.9 Dyslipidemia E78.5 BPH associated with nocturia N40.1; R35.1 Anemia D64.9 T2DM (type 2 diabetes mellitus) E11.9 (1) Hypertension Hypertension type: unspecified Qualified Code(s): I10 - Essential (primary) hypertension
[2021-03-30] MEDS ORDERED: VANCOMYCIN HCL 2,000 MG in SODIUM CHLORIDE 0.9% 500 ML IV STA (11:31)
[2021-03-30] MEDS: ERTAPENEM SODIUM 1,000 MG in SODIUM CHLORIDE 0.9% 50 ML IV SCH (11:50)
--- NOTE | 2021-03-30 12:01 | Pharmacy Report ---
Pharmacy Abx Dose Short Note - Date of Service March 30, 2021 - Assessment & Plan Assessment 75 year old M admitted on 03/18/21 secondary to a chronic right heel ulcer * Went to OR on 03/24/21 for angiogram, angioplasty and I&D of the wound. BKA was considered but patient chose to manage with abx alone. * Patient has received multiple abx this admission including: Vancomycin, Zosyn, Flagyl, Cefazolin and Ceftriaxone * [facility] consulted and recommended: * "D/C ceftriaxone and metronidazole. Start vancomycin per pharmacy (goal trough of 15-20) and ertapenem 1g IV qd. OK to place PICC line--anticipate a 6 week course" * Will resume previous vancomycin dosing from this admission which patient was stable on Plan Vancomycin * Loading Dose: 2000 mg IV x 1 * Maintenance Dose: 1250 mg IV every 12 hours * Goal Trough: 15-20 mcg/mL * Trough ordered for 04/01/21 prior to the 1100 dose Pharmacy will continue to follow and will adjust dose/frequency as necessary. Thank you.
--- NOTE | 2021-03-30 16:37 | Cardiology Consultation ---
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 I discussed with the pt today about vagal manevuers and instructed him to perform them if he starts having another episode. If he has another episode while in the hospital recommend giving adenosine to break the episode. Pt already on metoprolol unable to increase the dose given underlying bradycardia. Would consider EPS with possible ablation as an outpatient if he has recurrent episodes-but given his non healing leg ulcer and he is to go on detention IV antibiotics for 6 weeks would try to hold off on any elective EP cardiac procedures. Present on Admission?: Yes (2) Peripheral arterial disease: s/p peripheral intervention continue ASA (3) ETOH abuse: encourage cessation (4) HTN, goal to be determined: controlled; no change in medications (5) Dyslipidemia: continue statin (6) 1st degree AV block: (7) Sinus bradycardia: continue current dose of metoprolol History of Present Illness Reason for Consultation: SVT Requesting Physician: Dr. Sterling Attending Physician: Sanchez Baron MD History of Present Illness Palpitations Pt had palpitations with associated near syncope, dizziness and SOB found to be in an SVT. Duration minutes to hours. Frequency just started this week. He reports in the past having anxiety like attacks but those episodes felt different then the one he had recently with the SVT. He had SVT narrow complex short [place] overnight on telemetry rates 130-160bpm for 3 hours-it does not look like pt had any intervention or medication was given Of note pt had recent peripheral vascular intervention due to right LE arterial occlusions and possible osteomyelitis with non healing ulcers Allergies Allergy/AdvReac Type Severity Reaction Status Date / Time No Known Allergies Allergy Verified 03/18/21 17:08 Home Medications Medication Instructions Recorded Confirmed Type aspirin 81 mg tablet,delayed 81 mg PO QAM 07/30/18 03/18/21 History release (Adult Low Dose Aspirin) atorvastatin 40 mg tablet 40 mg PO QAM 07/30/18 03/18/21 History gabapentin 300 mg capsule 600 mg PO BID 07/30/18 03/18/21 History losartan 100 mg tablet (Cozaar) 50 mg PO QAM 07/30/18 03/18/21 History tamsulosin 0.4 mg capsule (Flomax) 0.4 mg PO QAM 07/30/18 03/18/21 History tiotropium bromide 18 mcg capsule 1 cap INH QAM 07/30/18 03/18/21 History with inhalation device (Spiriva with HandiHaler) albuterol sulfate 90 mcg/actuation 2 inh INHALATION QID PRN 03/12/20 03/18/21 History breath activated powder inhaler budesonide-formoterol HFA 160 2 puff INHALATION BID 03/12/20 03/18/21 History mcg-4.5 mcg/actuation aerosol inhaler metoprolol succinate 25 mg 25 mg PO QPM 03/12/20 03/18/21 History tablet,extended release 24 hr diclofenac sodium 1 % topical gel 4 g TOPICAL QID PRN 03/25/20 03/18/21 History (Voltaren) finasteride 5 mg tablet 5 mg PO DAILY #90 tab 04/06/20 03/18/21 Rx allopurinol 100 mg tablet 200 mg PO DAILY 03/18/21 03/18/21 History ibuprofen 200 mg tablet 400 mg PO BID 03/18/21 03/18/21 History potassium citrate 10 mEq (1,080 10 meq PO DAILY 03/18/21 03/18/21 History mg) tablet,extended release (Urocit-K 10) sulfamethoxazole 800 1 tab PO BID 03/18/21 03/18/21 History mg-trimethoprim 160 mg tablet Patient History Medical History Anemia Ascending aortic aneurysm Follows with [facility]. BPH (benign prostatic hyperplasia) COPD (chronic obstructive pulmonary disease) History of skin cancer Hx of gout Hyperlipemia Hypertension Insomnia Kidney stones Neuropathy Osteoarthritis Surgical History H/O spinal fusion LUMBAR History of colonoscopy History of herniorrhaphy History of tonsillectomy History of tooth extraction Family History Mother Family history of diabetes mellitus Social History Smoking Status: Former smoker Second Hand Exposure: No; Hx Alcohol Use: Yes Alcohol type: beer Hx Substance Use: No Preferred Language: Kazakh Communication Ability: Effective Visual Impairment: Diminished Hearing Ability: Use of Hearing Aid 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 Beliefs That Will Affect Care: None marital status: / Current Living Situation: Alone current occupational status: employed and unemployed Feels Safe at Home: Yes Assistive Devices: Glasses and Special Shoe Review of Systems Review of Systems: All systems reviewed & are unremarkable except as noted in HPI & below Physical Exam Physical Exam: aaox3, NAD NC/AT, EOMI Supple No JVD Nrl S1/S2, No murmur CTA b/l no w/r/r soft nt/nd no LE edema b/l right leg/foot wrapped skin dry and warm no focal deficits radial pulses and carotid intact neuro intact Results & Data ([facility]) Vital Signs (Past 12 Hours) Vital Signs Temp Pulse Pulse Resp BP BP Pulse Ox 03/30/21 15:57 36.6 C 65 18 130/72 92 03/30/21 15:20 66 03/30/21 11:39 36.4 C L 65 18 120/71 96 03/30/21 08:00 63 03/30/21 07:03 36.4 C L 67 18 126/68 97 Laboratory Results Abnormal Lab Results 03/29/21 03/30/21 03/30/21 21:29 00:33 07:39 Sodium Potassium Chloride Carbon Dioxide Anion Gap BUN Creatinine Est Cr Clr Drug Dosing Est GFR ( Amer) Est GFR (Non-Af Amer) BUN/Creatinine Ratio Glucose POC Glucose 128 H 98 Calcium Troponin I < 0.015 03/30/21 03/30/21 08:47 11:28 Sodium 140 Potassium 3.7 Chloride 110 H Carbon Dioxide 24 Anion Gap 6.0 BUN 13 Creatinine 0.90 Est Cr Clr Drug Dosing 93.4 Est GFR ( Amer) 97.9 Est GFR (Non-Af Amer) 84.4 BUN/Creatinine Ratio 14.3 Glucose 143 H POC Glucose 109 H Calcium 8.5 Troponin I Diagnostic Findings EcGs; Reviewed: SVT short RP noted on admission Prior EcGs SR/SB with 1st degree AV block Echo normal EF Telemetry: 3 hours overnight of Short RP SVT Medications Administered Current Inpatient Medications Acetaminophen (Acetaminophen 325 Mg Tab) 650 mg PO Q4H PRN PRN Reason: pain/fever Stop: 04/17/21 20:21 Albuterol (Albuterol Hfa 8 Gm Inhaler) 2 puffs INH QID PRN PRN Reason: SHORT OF BREATH Stop: 04/17/21 20:21 Allopurinol (Allopurinol 100 Mg Tab) 200 mg PO DAILY [facility] Stop: 04/18/21 08:59 Last Admin: 03/30/21 09:04 Dose: 200 mg Documented by: Ascorbic Acid (Ascorbic Acid 500 Mg Tab) 500 mg PO QAM [facility] Stop: 04/20/21 08:59 Last Admin: 03/30/21 09:04 Dose: 500 mg Documented by: Aspirin ([facility]spirin 81 Mg [facility]ab) [facility] [place]: 04/18/21 08:59 Last Admin: 03/30/21 09:05 Dose: 81 mg Documented by: Atorvastatin Calcium (Atorvastatin 40 Mg Tab) 40 mg PO QAM [facility] Stop: 04/18/21 08:59 Last Admin: 03/30/21 09:05 Dose: 40 mg Documented by: Bisacodyl (Bisacodyl 10 Mg Supp) 10 mg [place] DAILY PRN PRN Reason: Constipation Stop: 04/23/21 11:36 Clopidogrel Bisulfate (Clopidogrel Bisulfate 75 Mg Tab) [facility] [place]: 04/27/21 08:59 Last Admin: 03/30/21 09:05 Dose: 75 mg Documented by: Diclofenac Sodium (Diclofenac Sod 1% Gel 100 Gm Tube) 4 gm EXT QID PRN PRN Reason: Pain Stop: 04/17/21 20:21 Docusate Sodium (Docusate Sodium 100 Mg Cap) 100 mg PO BID [facility] Stop: 04/23/21 11:36 Last Admin: 03/30/21 09:06 Dose: Not Given Documented by: Enoxaparin Sodium (Enoxaparin Inj 40 Mg/0.4 Ml Syr) 40 mg SQ QAM [facility] Stop: 04/28/21 08:59 Last Admin: 03/30/21 09:05 Dose: 40 mg Documented by: Finasteride (Finasteride 5 Mg Tab) 5 mg PO DAILY [facility] Stop: 04/18/21 08:59 Last Admin: 03/30/21 09:04 Dose: 5 mg Documented by: Fluticasone/Vilanterol (Fluticasone/Vilanterol 100/25mcg 14 Puffs/Inhaler) 1 puffs INH DAILY [facility] Stop: 04/18/21 08:59 Last Admin: 03/30/21 09:06 Dose: 1 puffs Documented by: Folic Acid (Folic Acid 1 Mg Tab) 1 mg PO QAM [facility] Stop: 04/17/21 20:21 Last Admin: 03/30/21 09:05 Dose: 1 mg Documented by: Gabapentin (Gabapentin 600 Mg Tab) 600 mg PO BID [facility] Stop: 04/17/21 20:59 Last Admin: 03/30/21 09:05 Dose: 600 mg Documented by: Hydromorphone HCl (Hydromorphone Inj 0.5 Mg/0.5 Ml Syr) 0.5 mg IV Q4H PRN PRN Reason: Pain or Pre PT Stop: 04/07/21 11:36 Ertapenem 1,000 mg/ Sodium (Chloride) 60 mls @ 100 mls/hr IV Q24H [facility] Stop: 05/11/21 11:59 Last Infusion: 03/30/21 12:39 Dose: Infused Documented by: Vancomycin HCl 1,250 mg/ (Sodium Chloride) 275 mls @ 200 mls/hr IV Q12H [facility]; Protocol Stop: 05/11/21 22:59 Lorazepam (Lorazepam 1 Mg Tab) 1 mg PO ONE PRN; Protocol PRN Reason: EtoH Withdrawal AWSS 6-10 Magnesium Hydroxide (Magnesium Hydroxide Susp 30 Ml Udc) 30 ml PO Q6H PRN PRN Reason: Constipation Stop: 04/23/21 11:36 Magnesium Oxide (Magnesium Oxide 400 Mg Tab) 400 mg PO BID [facility] Stop: 04/28/21 20:59 Last Admin: 03/30/21 09:05 Dose: 400 mg Documented by: Melatonin (Melatonin 3 Mg Tab) 3 mg PO HS PRN PRN Reason: Sleep Stop: 04/27/21 20:08 Last Admin: 03/28/21 22:25 Dose: 3 mg Documented by: Metoprolol Succinate (Metoprolol Succ 25mg Ext Rel Tab) 25 mg PO QPM [facility] Stop: 04/17/21 20:59 Last Admin: 03/29/21 20:13 Dose: 25 mg Documented by: Miscellaneous Information (Vancomycin Consult Active) 1 ea N/A UD PRN PRN Reason: Consult Stop: 04/29/21 11:06 Morphine Sulfate (Morphine Sulfate 2 Mg/Ml Carp) 2 mg IV Q30M PRN PRN Reason: Chest Pain Stop: 04/06/21 20:52 Multivitamins/Minerals (Cerovite Adv Formula Tab) 1 tab PO QAM [facility] Stop: 04/19/21 11:59 Last Admin: 03/30/21 09:05 Dose: 1 tab Documented by: Naloxone HCl (Naloxone Hcl 0.4 Mg/1 Ml Vial/Carp) 0.1 mg IV Q5M PRN PRN Reason: Oversedation/Resp Depression Stop: 04/23/21 11:36 Nitroglycerin (Nitroglycerin Sl 0.4 Mg/Tab Tab) 0.4 mg SL UD PRN PRN Reason: Chest Pain Stop: 04/22/21 20:52 Ondansetron HCl (Ondansetron Inj 2 Mg/Ml 2 Ml Vial) 4 mg IV Q6H PRN PRN Reason: Nausea Stop: 04/17/21 20:21 Oxycodone HCl (Oxycodone Hcl Ir 5 Mg Tab (Immediate Release)) 5 - 10 mg PO Q4H PRN PRN Reason: Pain or Pre PT Stop: 04/07/21 11:36 Polyethylene Glycol (Polyethylene (Miralax) 17 Gm Pack) 17 gm PO DAILY PRN PRN Reason: Constipation Stop: 04/17/21 20:21 Potassium Citrate (Potassium Citrate 10 Meq Tab) 10 meq PO DAILY [facility] Stop: 04/18/21 08:59 Last Admin: 03/30/21 09:05 Dose: 10 meq Documented by: Tamsulosin HCl (Tamsulosin Hcl 0.4 Mg Cap) 0.4 mg PO QAM [facility] Stop: 04/18/21 08:59 Last Admin: 03/30/21 09:05 Dose: 0.4 mg Documented by: Thiamine HCl (Thiamine Hcl 100 Mg Tab) 200 mg PO BID [facility] Stop: 04/19/21 20:59 Last Admin: 03/30/21 09:04 Dose: 200 mg Documented by: Umeclidinium [place] (Umeclidinium [place] 62.5mcg/Blister 7 Puffs/Inhaler) 1 puffs INH QAM [facility] Stop: 04/18/21 08:59 Last Admin: 03/30/21 09:06 Dose: 1 puffs Documented by: Zinc Sulfate (Zinc Sulfate 220 Mg Capsule) 220 mg PO QAM [facility] Stop: 04/20/21 08:59 Last Admin: 03/30/21 09:04 Dose: 220 mg Documented by:
[2021-03-30] MEDS: METOPROLOL SUCC 25MG EXT REL TAB PO SCH (20:56)
[2021-03-30] MEDS: VANCOMYCIN HCL 1,250 MG in SODIUM CHLORIDE 0.9% 250 ML IV SCH (22:39)
[2021-03-31 06:05] LABS: Basophils # (auto) 0.06 K/uL (0-0.2); Basophils % (auto) 0.7 %; Eosinophils # (auto) 0.34 K/uL (0-0.5); Eosinophils % (auto) 4.1 %; Hematocrit (blood only) 30.6 % (42-52); Hemoglobin 9.6 g/dL (14.0-18.0); Immature Granulocytes # (auto) 0.01 K/uL (0.00-0.02); Immature Granulocytes % (auto) 0.1 %; Lymphocytes # (auto) 1.76 K/uL (1.2-3.4); Lymphocytes % (auto) 21.4 %; Mean Corpuscular Hemoglobin 30.4 pg (25-34); Mean Corpuscular Hgb Conc 31.4 g/dL (32-36); Mean Corpuscular Volume 96.8 fL (80-100); Mean Platelet Volume 10.2 fL (7.4-10.4); Monocytes # (auto) 0.42 K/uL (0.11-0.59); Monocytes % (auto) 5.1 %; Neutrophils # (auto) 5.65 K/uL (1.4-6.5); Neutrophils % (auto) 68.6 %; Platelet Count 348 K/uL (130-400); RDW Coefficient of Variation 15.1 % (11.5-14.5); RDW Standard Deviation 52.7 fL (36.4-46.3); Red Blood Count 3.16 M/uL (4.7-6.1); White Blood Count 8.24 K/uL (4.8-10.8)
[2021-03-31 06:46] LABS: BUN Creatinine Ratio 13.3 (10-20); Calcium 8.8 mg/dl (8.5-10.1); Creatinine Clr Calc Pharmacy 112.8 ml/min; Est GFR (African American) 106.1 ml/min; Est GFR (Non-African American) 91.5 ml/min; Magnesium 2.1 mg/dl (1.8-2.4); Potassium 4.4 mmol/L (3.5-5.1)
[2021-03-31] MEDS: MAGNESIUM OXIDE 400 MG TAB PO SCH ×2 (08:12→21:23)
[2021-03-31] MEDS: allopurinoL 100 MG TAB PO SCH (08:12)
[2021-03-31] MEDS: POTASSIUM CITRATE 10 MEQ TAB PO SCH (08:12)
[2021-03-31] MEDS: TAMSULOSIN HCL 0.4 MG CAP PO SCH (08:12)
[2021-03-31] MEDS: GABAPENTIN 600 MG TAB PO SCH ×2 (08:12→21:20)
[2021-03-31] MEDS: ATORVASTATIN 40 MG TAB PO SCH (08:13)
[2021-03-31] MEDS: THIAMINE HCL 100 MG TAB PO SCH ×2 (08:13→21:21)
[2021-03-31] MEDS: FOLIC ACID 1 MG TAB PO SCH (08:13)
[2021-03-31] MEDS: ASPIRIN 81 MG ECTAB PO SCH (08:13)
[2021-03-31] MEDS: FINASTERIDE 5 MG TAB PO SCH (08:13)
[2021-03-31] MEDS: UMECLIDINIUM BROMIDE 62.5MCG/BLISTER 7 PUFFS/INHALER INH SCH (08:13)
[2021-03-31] MEDS: CEROVITE ADV FORMULA TAB PO SCH (08:13)
[2021-03-31] MEDS: ASCORBIC ACID 500 MG TAB PO SCH (08:13)
[2021-03-31] MEDS: CLOPIDOGREL BISULFATE 75 MG TAB PO SCH (08:13)
[2021-03-31] MEDS: FLUTICASONE/VILANTEROL 100/25MCG 14 PUFFS/INHALER INH SCH (08:13)
[2021-03-31] MEDS: DOCUSATE SODIUM 100 MG CAP PO SCH ×2 (08:14→21:20)
[2021-03-31] MEDS: ENOXAPARIN INJ 40 MG/0.4 ML SYR SQ SCH (08:14)
[2021-03-31] MEDS: ZINC SULFATE 220 MG CAPSULE PO SCH (08:14)
[2021-03-31] MEDS: VANCOMYCIN HCL 1,250 MG in SODIUM CHLORIDE 0.9% 250 ML IV SCH ×2 (10:40→22:49)
[2021-03-31] MEDS: ERTAPENEM SODIUM 1,000 MG in SODIUM CHLORIDE 0.9% 50 ML IV SCH (12:47)
--- NOTE | 2021-03-31 14:54 | Discharge Summary ---
Date of Service March 31, 2021 Admission HPI Per Admitting Provider Bola is a 75-year-old male with a notable past medical history hypertension, hyperlipidemia, COPD, BPH, COPD, neuropathy who presented to [facility] for evaluation of right heel ulcer. Patient says that he has been following with wound care regularly for this right ankle ulcer. He said that he noticed increased swelling within this area on Sunday, and return to his wound clinicwas subsequently prescribed antibiotics. Today, he was [place] the [employer] when he "looked down and saw a puddle of blood." He then reported to the ER for further evaluation. My exam, patient reports significant neuropathy in both of his lower extremities bilaterally, he does not endorse any pain and says that he feels comfortable. Denies any recent fevers, chills, night sweats. Says appetite has been good. Of note, patient reports that he does drink between 5 and 6 beers a day. He denies any withdrawal in the past, but does not think he is ever stop suddenly. In the ED, patient was found to have a gaping right lower extremity ulcer with evidence of necrotic tendon and exposed muscle belly. Peripheral pulses are intact, capillary refill under 3 seconds. Patient was found to be afebrile and hemodynamically stable. X-ray of the right foot demonstrating no fracture, but extensive posterior soft tissue wound as well as air within the soft tissue. Patient was given Zosyn and vancomycin. Admission Exam Per Admitting Provider General: Overall, well-appearing 75-year-old male who is lying back in his hospital bed, lies upon my arrival. He converses freely and is alert and oriented. No acute distress. Does not appear sickly. HEENT: NCAT. Eyes - Sclera are white, anicteric, and without injection. PERRL. EOMs display full ROM bilaterally. Mouth - MMM with no tonsillar edema or exudates. Cardiac: Normal rate and regular rhythm; S1 and S2 present with no murmurs, rubs, or gallops. Pulmonary: Good respiratory effort with symmetric expansion of the chest. No use of accessory muscles. Lungs were clear to auscultation bilaterally with no crackles or wheezes. Abdominal: Normoactive bowel sounds. Abdomen was soft, nondistended, and non- tender to palpation. Derm: Examination of the posterior aspect of the right calf demonstrates a gaping, exposed open wound with protrusion of muscle belly and what appears to be necrotic tendon. There is also surrounding erythema, that is mild, extending circumferentially to the anterior beltran. Extremities: Upper and lower extremities are warm and well perfused. Radial and dorsalis pedis pulses were 2+ b/l. Capillary refill assessed in UE was < 3 sec. Psych: Well-developed, well-nourished, appropriately dressed for occasion. Behavior is cooperative and appropriate. Affect is WNL. Insight is appropriate. Principal Diagnosis Right infected Achilles tendon rupture and posterior right lower extremity abscess Peripheral artery disease Discharge Exam Constitutional WD/WN, vitals as above Eyes + anicteric sclerae; normal pupil size Respiratory normal respiratory effort, lungs clear to auscultation Cardiovascular RRR, no murmur, no edema Extremities: normal capillary refill (right toes) Psychiatric A+Ox3, euthymic affect Discharge Data Allergies Allergy/AdvReac Type Severity Reaction Status Date / Time No Known Allergies Allergy Verified 03/18/21 17:08 Consultations 03/18/21 16:27 ED Decision to Admit Stat 03/18/21 18:36 Consult Plastic Surgery Routine 03/20/21 11:23 Consult Orthopedic Surgery Routine 03/21/21 09:16 Consult Vascular Surgery Routine 03/28/21 08:27 Consult Infectious Diseases Routine 03/29/21 08:00 Consult Cardiology Routine Procedures Performed Operation Date: 03/23/21 08:00 Actual Procedures p Angio Extremity Unilateral - Konrad Euceda MD s Femoral Popliteal Balloon - Konrad Euceda MD s SC Select Cath ALEP 3rd Order - Konrad Euceda MD s Ultrasound Vascular Access - Konrad Euceda MD Operation Date: 03/24/21 07:30 Actual Procedures p Incision and Drainage of abscess right posterior leg, Irrigation and debridement of Right Achilles,Skin,Subcutaneous Tissue of Right Leg; Saucerization of Right Foot Wound, diabetic ulcer [id number](Right) - Cl Cormier DO Ordered Studies 03/20/21 11:12 US arterial duplex LE RT Routine IMPRESSION: 1. Extensive atherosclerotic involvement of the arterial vascular but of the right lower extremity with monophasic flow and no evidence of increased velocity likely due to upstream stenosis. 03/20/21 11:29 MR ankle RT wo/w con Routine IMPRESSION: 1. Complete tear of Achilles tendon with overlying soft tissue and cutaneous defect and diffuse soft tissue edema. 2. Complete tear of anterior talofibular ligament. The rest of the tendons and ligaments are intact. 3. Diffuse soft tissue edema. 03/21/21 19:06 CT ang AA runof w inc wo ifdon Routine IMPRESSION: 1. Small intimal flap is seen at the origin of the celiac artery which might represent developing dissection or chronic findings. Comparison to prior studies is impossible due to the lack of IV contrast or different contrast timing. Other areas of visualized thoracic and abdominal aorta shows no evidence of dissection. No definite dilatation of focal stenosis of aorta are seen. Extensive partial calcified plaques within aortic wall and its branches associated with mild stenosis of celiac, superior mesenteric and renal arteries. Follow-up evaluation is per clinical protocol. 2. Extensive partial calcified plaques throughout vessels of bilateral lower extremities with few areas of stenosis and possible occlusion of the distal aspect of the left posterior tibialis artery as detailed above. 3. No acute intra-abdominal findings. Contracted gallbladder likely in postprandial state. 4. Diffuse thickening of urinary bladder wall which could be due to low volume or due to cystitis. Please correlate above-mentioned findings with results of urinalysis. 5. Nondilated appendix. 6. Diverticulosis of sigmoid colon without evidence of diverticulitis. 7. Findings within left lower lobe might represent sequela from recent pneumonia however neoplastic process cannot be completely ruled out. Please see discussion above. 8. Other findings as above. 03/23/21 06:38 CL Cath Imgs for PACS use only Stat 03/23/21 17:37 CL Cath Imgs for PACS use only Stat Hospital Course (1) Open leg wound: (2) SVT (supraventricular tachycardia): (3) Peripheral arterial disease: (4) Polyneuropathy: (5) ETOH abuse: (6) Hypertension: (7) COPD (chronic obstructive pulmonary disease): (8) Dyslipidemia: (9) BPH associated with nocturia: (10) Anemia: (11) T2DM (type 2 diabetes mellitus): Bola España is a 75 year old male admitted to [facility] from March 18 to March 31, 2021 due to right heel ulcer with increased swelling. He was diagnosed with right infected Achilles tendon rupture and posterior right lower extremity abscess. Given peripheral artery disease, peripheral neuropathy and extent of infection it was recommended to have below knee amputation however on consultation with the patient he elected for limb salvage surgery incision and drainage. As workup for the surgery he underwent peripheral angiography by Dr Euceda (interventional cardiology) performed on March 23, 2021. Right lower extremity showed calcified severe diffuse mid SFA to proximal popliteal disease up to 90%. Two-vessel runoff to the foot and wound bed via peroneal, PACKAGE SEALER MACHINE. He underwent successful angioplasty of mid SFA to proximal popliteal with single drug-eluting balloon (6.0 x 220 mm Lutonix). For this he should remain on dual antiplatelets with aspirin and clopidogrel for 1 month (then aspirin alone) with follow up non-invasive vascular testing on approximately April 06. He underwent debridement of diabetic ulcer, incision and drainage right posterior leg abscess, skin, subcutaneous tissue, fascia, muscle and infected Achilles tendon on March [address] Cormier. He is non-weight bearing on his right leg until follow up with Dr Cormier. Recommend Lovenox 40mg SQ daily while non- weightbearing on right leg. On consultation with infectious disease recommend intravenous vancomycin and ertapenem for a today of 6 weeks from operation date (March 24). PICC line was placed on March 31 to facilitate this. He should have weekly CBC, BMP and vancomycin trough level while on these antibiotics. He should follow up in [facility] infectious disease clinic in the next 2-4 weeks. He was also diagnosed with diabetes. HbA1C 6.6. Recommend started metformin for this. His blood pressure has also been stable off losartan therefore this has been discontinued. Suspect secondary to current infection and may need to be restarted in the future. His stay was prolonged due to symptomatic supraventricular tachycardia episodes. He was reviewed by Dr Johnson ([facility] electrophysiology). Recommended using carotid massage to limit episodes in the future. Recommended against inpatient electrophysiology study due to his significant co-morbidities. He is now medically stable for discharge but requiring further rehabilitation therefore will be transferred to [facility] for this. Total Time Total Time Spent Total Time Spent (In Minutes): 50 Discharge Plan Discharge Items Patient Disposition: Transfer Inpatient Rehab Fac Reason For Visit: GAPING RLE ULCER Discharge Diagnosis: Supraventricular tachycardia Right infected Achilles tendon rupture and posterior right lower extremity abscess Peripheral artery disease Condition on Discharge: Good Activity: Per Instructions section Weightbearing: Right non-weightbearing Weightbearing Comment: Ok to put foot down for balance Non-emergency contact: Primary Care Provider and Surgeon Call non-emergency contact if: you have any medication questions and your symptoms worsen Follow-up/Referrals: Konrad Euceda MD [Physician] - (follow up non-invasive vascular testing around Apr 06) Cl Cormier DO [Surgeon] - (Follow-up in 7 to 10 days for wound check) Carmen Johnson DO [Physician] - (4-6 weeks) Chrissie Kwan PA-C [Primary Care Provider] - Lonnie Hunt MD [Physician] - (2-4 week follow up) Diet: Carb Consistent or DM2 Addtl Attending Provider Instructions: Bola España is a 75 year old male admitted to [facility] from March 18 to March 31, 2021 due to right heel ulcer with increased swelling. He was diagnosed with right infected Achilles tendon rupture and posterior right lower extremity abscess. Given peripheral artery disease, peripheral neuropathy and extent of infection it was recommended to have below knee amputation however on consultation with the patient he elected for limb salvage surgery incision and drainage. As workup for the surgery he underwent peripheral angiography by Dr Euceda (interventional cardiology) performed on March 23, 2021. Right lower extremity showed calcified severe diffuse mid SFA to proximal popliteal disease up to 90%. Two-vessel runoff to the foot and wound bed via peroneal, PACKAGE SEALER MACHINE. He underwent successful angioplasty of mid SFA to proximal popliteal with single drug-eluting balloon (6.0 x 220 mm Lutonix). For this he should remain on dual antiplatelets with aspirin and clopidogrel for 1 month (then aspirin alone) with follow up no n-invasive vascular testing on approximately April 06. He underwent debridement of diabetic ulcer, incision and drainage right posterior leg abscess, skin, subcutaneous tissue, fascia, muscle and infected Achilles tendon on March [address] Cormier. He is non-weight bearing on his right leg until follow up with Dr Cormier. Recommend Lovenox 40mg SQ daily while non- weightbearing on right leg. On consultation with infectious disease recommend intravenous vancomycin and ertapenem for a today of 6 weeks from operation date (March 24). PICC line was placed on March 31 to facilitate this. He should have weekly CBC, BMP and vancomycin trough level while on these antibiotics. He should follow up in [facility] infectious disease clinic in the next 2-4 weeks. He was also diagnosed with diabetes. HbA1C 6.6. Recommend started metformin for this. His blood pressure has also been stable off losartan therefore this has been discontinued. Suspect secondary to current infection and may need to be restarted in the future. His stay was prolonged due to symptomatic supraventricular tachycardia episodes. He was reviewed by Dr Johnson ([facility] electrophysiology). Recommended using carotid massage to limit episodes in the future. Recommended against inpatient electrophysiology study due to his significant co-morbidities. He is now medically stable for discharge but requiring further rehabilitation therefore will be transferred to [facility] for this. 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 Please use Adaptic, 4 x 4's, ABDs, Kerlix wrap, and Jose wrap. Please call with any wound changes. It is normal to have some serous drainage from the wound secondary to implanted antibiotic beads. Please call the office if the drainage changed to a more purulent drainage or if the patient has increased erythema, increased pain, or temp of 101.5 or greater. You must remain nonweightbearing on the right foot for now. Follow-up with Dr. Cormier in 7 to 10 days. Please call for appointment. Pending Studies at Discharge: No Stand-Alone Forms: My [employer], Smoking Cessation Skilled Items Patient informed of condition?: Yes DNR: No Discharge Level of Care: Acute rehab Communicable Disease: No Discharge Prognosis: Improving Lines: PICC Urinary Catheter: No Medications and DC Order Prescriptions: New clopidogrel 75 mg Tablet 75 mg PO QAM Qty: 30 RF: 0 enoxaparin 40 mg/0.4 mL Syringe 40 mg subcut QAM 30 Days Qty: 12 RF: 0 zinc sulfate [Orazinc] 50 mg zinc (220 mg) Capsule 220 mg PO QAM Qty: 30 RF: 0 thiamine HCl (vitamin B1) [Vitamin B-1] 100 mg Tablet 200 mg PO BID Qty: 120 RF: 0 ascorbic acid (vitamin C) [Vitamin C] 500 mg Tablet 500 mg PO QAM Qty: 30 RF: 0 Certavite-Antioxidant 18-400 mg-mcg Tablet 1 tab PO QAM Qty: 30 RF: 0 magnesium oxide 400 mg (241.3 mg magnesium) Tablet 400 mg PO BID Qty: 60 RF: 0 vancomycin 1.25 gram recon soln 1.25 g IV Q12H 42 Days Qty: 10 RF: 0 ertapenem 1 gram recon soln 1 g IV DAILY 42 Days Qty: 10 RF: 0 metformin 500 mg tablet extended release 24 hr 500 mg PO DAILY Qty: 30 RF: 0 Continued aspirin [Adult Low Dose Aspirin] 81 mg tablet,delayed release (DR/EC) 81 mg PO QAM RF: 0 atorvastatin 40 mg tablet 40 mg PO QAM RF: 0 gabapentin 300 mg capsule 600 mg PO BID RF: 0 tamsulosin [Flomax] 0.4 mg capsule 0.4 mg PO QAM RF: 0 tiotropium bromide [Spiriva with HandiHaler] 18 mcg capsule, w/inhalation device 1 cap INH QAM RF: 0 finasteride 5 mg tablet 5 mg PO DAILY Qty: 90 RF: 3 metoprolol succinate 25 mg Tablet Extended Release 24 Hr 25 mg PO QPM RF: 0 budesonide-formoterol 160-4.5 mcg/actuation Hfa Aerosol Inhaler 2 puff INHALATION BID RF: 0 albuterol sulfate 90 mcg/actuation Aerosol Powdr Breath Activated 2 inh INHALATION QID PRN (Reason: SHORT OF BREATH) RF: 0 diclofenac sodium [Voltaren] 1 % Gel 4 g TOPICAL QID PRN (Reason: Pain) RF: 0 allopurinol 100 mg Tablet 200 mg PO DAILY RF: 0 potassium citrate [Urocit-K 10] 10 mEq (1,080 mg) tablet extended release 10 meq PO DAILY RF: 0 Discontinued losartan [Cozaar] 100 mg tablet 50 mg PO QAM RF: 0 sulfamethoxazole-trimethoprim 800-160 mg tablet 1 tab PO BID RF: 0 ibuprofen 200 mg Tablet 400 mg PO BID RF: 0 Discharge Orders: Discharge Order (Routine); Ordered 03/31/21 Ordered By: Sanchez Moya/Other Patient Handouts: A1C, 5 Steps for Eating Healthier, Diabetes: Meal Planning Admission Data Admit Date/Time: 03/18/21 18:45 Attending Provider: Sanchez Baron Admit Provider: Lyle Kumari Primary Care Provider: Chrissie Kwan Other Providers: [facility] ; Jason Lee ; [facility] ; Sky Matos ; Aicha Mccray ; Cl Cormier ; Konrad Euceda ; Redd Weiner ; Claudy Matson ; Lonnie Hunt I. ; Valente Rodrgiues II ; Karyn Roland ; Lawrence Yun ; Natanael Holguin Coding Level of Care Code D/C DAY MANAGEMENT >30 MINS Diagnoses Open leg wound S81.809A SVT (supraventricular tachycardia) I47.1 Peripheral arterial disease I73.9 Polyneuropathy G62.9 ETOH abuse F10.10 Hypertension I10 Hypertension type: unspecified COPD (chronic obstructive pulmonary disease) J44.9 Dyslipidemia E78.5 BPH associated with nocturia N40.1; R35.1 Anemia D64.9 T2DM (type 2 diabetes mellitus) E11.9
[2021-03-31] MEDS ORDERED: ADENOSINE IV SOLN 3 MG/ML 2 ML VIAL IV STA (17:00)
--- NOTE | 2021-03-31 17:14 | Communication Note ---
Date of Service: March 31, 2021 Patient with recurrent SVT this afternoon with palpitations and heart pounding mild shortness of breath but better tolerated hemodynamically, no hypotension. Did not respond to vagal maneuvers but broke with 6 mg IV adenosine. Electrolytes are within normal limits. Plan: Will increase metoprolol succinate slightly give 12.5 mg p.o. now continue 25 mg p.m. dosing. Will discuss with EP regarding timing of possible ablation if indicated.
--- NOTE | 2021-03-31 17:17 | Cardiology Progress Note ---
Date of Service March 31, 2021 Assessment & Plan (1) SVT (supraventricular tachycardia): (2) Hypertension: Plan: ASSESSMENT/PLAN: 1. Sustained SVT: Has had recurrent sustained and symptomatic SVT. Urgently called to the bedside today by nursing staff. Carotid massage had been attempted without success and he had become hypotensive and significantly symptomatic. Recommended adenosine 6 mg IV x1. Was at the bedside for administration of the medication. SVT terminated and he regained sinus rhythm. Symptoms resolved and he felt back to baseline. Blood pressure normalized. ECG demonstrated sinus rhythm. He had been in SVT for approximately 34 minutes. He has been seen by electrophysiology (Dr. Johnson) with plans for EP study and ablation in the future as an outpatient. Continue metoprolol at current dose for now as this has been recommended by electrophysiology. He has had intermittent bradycardia while in sinus which may limit titration. Could consider antiarrhythmic therapy while awaiting EP study given frequency and degree of symptoms. Will defer long-term management to [facility], his primary cardiology service. 2. Hypertension: Became mildly hypotensive while in sustained SVT but blood pressure normalized once sinus rhythm was regained. 3. PAD s/p angioplasty right lower extremity: Performed by Dr. Euceda earlier this hospital stay. 4. Disposition: Today's event was communicated with Dr. Baron of the primary hospitalist service. Dr. Sterling of [facility] was notified. Daily cardiology care as per [facility]. Admission and Anticipated Discharge Date Admission Date: March 18, 2021 Subjective I was called urgently by nursing staff as patient developed symptomatic SVT. He initially maintain normal blood pressure but then became mildly hypotensive with systolic blood pressure in the 90s. His symptoms included palpitations, lightheadedness, and shortness of breath. He denies chest pain. He has been seen by Dr. Johnson on 03/30/2021 and electrophysiology study with possible ablation as an outpatient was recommended given nonhealing leg ulcer. Review of systems: As above. Physical Exam Physical Exam: Gen.: While in SVT, appeared pale and visibly uncomfortable. Alert. HEENT: Anicteric sclera. Cardiac: After regains sinus rhythm, heart was regular with normal rate.. Normal S1-S2. No murmurs, rubs, or gallops. Pulmonary: Clear to auscultation bilaterally without wheezes, rales, or rhonchi. Abdomen: Soft, nontender, nondistended, with normoactive bowel sounds. No bruits noted. Extremities: 2+ radial pulses bilaterally. Trace bilateral lower extremity edema. No cyanosis. Right foot is wrapped/bandaged. Psychiatric: Affect appears appropriate. Results & Data ([facility]) Vital Signs (Past 12 Hours) Vital Signs Temp Pulse Pulse Resp BP Pulse Ox 03/31/21 16:40 77 22 127/75 03/31/21 16:37 26 H 97/56 L 96 03/31/21 16:30 28 H 127/81 97 03/31/21 16:16 146 H 26 H 132/111 H 03/31/21 16:09 150 H 26 H 116/76 96 03/31/21 15:20 69 03/31/21 08:19 37.0 C 64 18 137/72 94 03/31/21 08:00 58 L Laboratory Results Laboratory Results - last 24 hr 03/31/21 03/31/21 05:46 05:46 WBC 8.24 RBC 3.16 L Hgb 9.6 L Hct 30.6 L MCV 96.8 MCH 30.4 MCHC 31.4 L RDW Std Deviation 52.7 H RDW Coeff of Norm 15.1 H Plt Count 348 MPV 10.2 Immature Gran % (Auto) 0.1 Neut % (Auto) 68.6 Lymph % (Auto) 21.4 Ramsey % (Auto) 5.1 Eos % (Auto) 4.1 Baso % (Auto) 0.7 Neut # (Auto) 5.65 Lymph # (Auto) 1.76 Ramsey # (Auto) 0.42 Eos # (Auto) 0.34 Baso # (Auto) 0.06 Immature Gran # (Auto) 0.01 Sodium 139 Potassium 4.4 D Chloride 110 H Carbon Dioxide 28 Anion Gap 1.0 L BUN 10 Creatinine 0.74 Est Cr Clr Drug Dosing 112.8 Est GFR ( Amer) 106.1 Est GFR (Non-Af Amer) 91.5 BUN/Creatinine Ratio 13.3 Glucose 92 Calcium 8.8 Magnesium 2.1 Diagnostic Findings Telemetry personally reviewed: Had been in sinus rhythm and then developed SVT on 03/31/2021 at approximately 4:01 p.m. and then after adenosine, regain sinus rhythm at 4:35 p.m.. ECG after adenosine personally reviewed from 03/31/2021: Sinus rhythm with normal rate. Medications Administered Current Inpatient Medications Acetaminophen (Acetaminophen 325 Mg Tab) 650 mg PO Q4H PRN PRN Reason: pain/fever Stop: 04/17/21 20:21 Albuterol (Albuterol Hfa 8 Gm Inhaler) 2 puffs INH QID PRN PRN Reason: SHORT OF BREATH Stop: 04/17/21 20:21 Allopurinol (Allopurinol 100 Mg Tab) 200 mg PO DAILY [facility] Stop: 04/18/21 08:59 Last Admin: 03/31/21 08:12 Dose: 200 mg Documented by: Ascorbic Acid (Ascorbic Acid 500 Mg Tab) [facility] Stop: 04/20/21 08:59 Last Admin: 03/31/21 08:13 Dose: 500 mg Documented by: Aspirin (Aspirin 81 Mg Ectab) [facility] Stop: 04/18/21 08:59 Last Admin: 03/31/21 08:13 Dose: 81 mg Documented by: Atorvastatin Calcium (Atorvastatin 40 Mg Tab) 40 mg PO QAM [facility] Stop: 04/18/21 08:59 Last Admin: 03/31/21 08:13 Dose: 40 mg Documented by: Bisacodyl (Bisacodyl 10 Mg Supp) 10 mg TX DAILY PRN PRN Reason: Constipation Stop: 04/23/21 11:36 Clopidogrel Bisulfate (Clopidogrel Bisulfate 75 Mg Tab) 75 mg PO QAM [facility] Stop: 04/27/21 08:59 Last Admin: 03/31/21 08:13 Dose: 75 mg Documented by: Diclofenac Sodium (Diclofenac Sod 1% Gel 100 Gm Tube) 4 gm EXT QID PRN PRN Reason: Pain Stop: 04/17/21 20:21 Docusate Sodium (Docusate Sodium 100 Mg Cap) 100 mg PO BID [facility] Stop: 04/23/21 11:36 Last Admin: 03/31/21 08:14 Dose: Not Given Documented by: Enoxaparin Sodium (Enoxaparin Inj 40 Mg/0.4 Ml Syr) 40 mg SQ QAM [facility] Stop: 04/28/21 08:59 Last Admin: 03/31/21 08:14 Dose: 40 mg Documented by: Finasteride (Finasteride 5 Mg Tab) 5 mg PO DAILY [facility] Stop: 04/18/21 08:59 Last Admin: 03/31/21 08:13 Dose: 5 mg Documented by: Fluticasone/Vilanterol (Fluticasone/Vilanterol 100/25mcg 14 Puffs/Inhaler) 1 puffs INH DAILY [facility] Stop: 04/18/21 08:59 Last Admin: 03/31/21 08:13 Dose: 1 puffs Documented by: Folic Acid (Folic Acid 1 Mg Tab) 1 mg PO QAM [facility] Stop: 04/17/21 20:21 Last Admin: 03/31/21 08:13 Dose: 1 mg Documented by: Gabapentin (Gabapentin 600 Mg Tab) 600 mg PO BID [facility] Stop: 04/17/21 20:59 Last Admin: 03/31/21 08:12 Dose: 600 mg Documented by: Hydromorphone HCl (Hydromorphone Inj 0.5 Mg/0.5 Ml Syr) 0.5 mg IV Q4H PRN PRN Reason: Pain or Pre PT Stop: 04/07/21 11:36 Ertapenem 1,000 mg/ Sodium (Chloride) 60 mls @ 100 mls/hr IV Q24H [facility] Stop: 05/11/21 11:59 Last Infusion: 03/31/21 13:26 Dose: Infused Documented by: Vancomycin HCl 1,250 mg/ (Sodium Chloride) 275 mls @ 200 mls/hr IV Q12H [facility]; Protocol Stop: 05/11/21 22:59 Last Infusion: 03/31/21 12:06 Dose: Infused Documented by: Lactobacillus Acidoph/Casei/Rhamnos (Advanced Probiotic 1250 Mg Capsule) 2 cap PO DAILY [facility] Stop: 05/01/21 08:59 Lorazepam (Lorazepam 1 Mg Tab) 1 mg PO ONE PRN; Protocol PRN Reason: EtoH Withdrawal AWSS 6-10 Magnesium Hydroxide (Magnesium Hydroxide Susp 30 Ml Udc) 30 ml PO Q6H PRN PRN Reason: Constipation Stop: 04/23/21 11:36 Magnesium Oxide (Magnesium Oxide 400 Mg Tab) 400 mg PO BID [facility] Stop: 04/28/21 20:59 Last Admin: 03/31/21 08:12 Dose: 400 mg Documented by: Melatonin (Melatonin 3 Mg Tab) 3 mg PO HS PRN PRN Reason: Sleep Stop: 04/27/21 20:08 Last Admin: 03/28/21 22:25 Dose: 3 mg Documented by: Metoprolol Succinate (Metoprolol Succ 25mg Ext Rel Tab) 25 mg PO QPM [facility] Stop: 04/17/21 20:59 Last Admin: 03/30/21 20:56 Dose: 25 mg Documented by: Miscellaneous Information (Vancomycin Consult Active) 1 ea N/A UD PRN PRN Reason: Consult Stop: 04/29/21 11:06 Morphine Sulfate (Morphine Sulfate 2 Mg/Ml Carp) 2 mg IV Q30M PRN PRN Reason: Chest Pain Stop: 04/06/21 20:52 Multivitamins/Minerals (Cerovite Adv Formula Tab) 1 tab PO QAM [facility] Stop: 04/19/21 11:59 Last Admin: 03/31/21 08:13 Dose: 1 tab Documented by: Naloxone HCl (Naloxone Hcl 0.4 Mg/1 Ml Vial/Carp) 0.1 mg IV Q5M PRN PRN Reason: Oversedation/Resp Depression Stop: 04/23/21 11:36 Nitroglycerin (Nitroglycerin Sl 0.4 Mg/Tab Tab) 0.4 mg SL UD PRN PRN Reason: Chest Pain Stop: 04/22/21 20:52 Ondansetron HCl (Ondansetron Inj 2 Mg/Ml 2 Ml Vial) 4 mg IV Q6H PRN PRN Reason: Nausea Stop: 04/17/21 20:21 Oxycodone HCl (Oxycodone Hcl Ir 5 Mg Tab (Immediate Release)) 5 - 10 mg PO Q4H PRN PRN Reason: Pain or Pre PT Stop: 04/07/21 11:36 Polyethylene Glycol (Polyethylene (Miralax) 17 Gm Pack) 17 gm PO DAILY PRN PRN Reason: Constipation Stop: 04/17/21 20:21 Potassium Citrate (Potassium Citrate 10 Meq Tab) 10 meq PO DAILY [facility] Stop: 04/18/21 08:59 Last Admin: 03/31/21 08:12 Dose: 10 meq Documented by: Tamsulosin HCl (Tamsulosin Hcl 0.4 Mg Cap) 0.4 mg PO QAM [facility] Stop: 04/18/21 08:59 Last Admin: 03/31/21 08:12 Dose: 0.4 mg Documented by: Thiamine HCl (Thiamine Hcl 100 Mg Tab) 200 mg PO BID [facility] Stop: 04/19/21 20:59 Last Admin: 03/31/21 08:13 Dose: 200 mg Documented by: Umeclidinium Acampo (Umeclidinium Acampo 62.5mcg/Blister 7 Puffs/Inhaler) 1 puffs INH QAM [facility] Stop: 04/18/21 08:59 Last Admin: 03/31/21 08:13 Dose: 1 puffs Documented by: Zinc Sulfate (Zinc Sulfate 220 Mg Capsule) 220 mg PO QAM [facility] Stop: 04/20/21 08:59 Last Admin: 03/31/21 08:14 Dose: 220 mg Documented by: PG Care Time/CCT Total # of Minutes Spent Total Time Spent with Patient: Total time spent is greater than 50% in coordination of care (as documented) at patient's floor/unit and/or counseling patient: Coding Level of Care Code 40100 Subseq Hosp Care Lvl 3 Diagnoses SVT (supraventricular tachycardia) I47.1 Hypertension I10 Hypertension type: unspecified (1) Hypertension Hypertension type: unspecified Qualified Code(s): I10 - Essential (primary) hypertension
[2021-03-31] MEDS: METOPROLOL SUCC 25MG EXT REL TAB PO SCH ×2 (17:43→21:24)
--- NOTE | 2021-03-31 21:02 | Hospitalist Progress Note ---
Date of Service March 31, 2021 Assessment & Plan (1) Open leg wound: Plan: Right infected Achilles tendon rupture and posterior right lower extremity abscess Both plastic surgery & ortho advising BKA - declined by patient POD #8 S/P Incision and Drainage of abscess right posterior leg, Irrigation and debridement of infected right Achilles tendon rupture, irrigation debridement of skin,Subcutaneous Tissue, fascia, muscle and tendon of Right posterior lower leg; Saucerization of Right posterior lower leg wound, debridement diabetic ulcer [id number](Right) - Cl Cormier, Per ID consult IV vancomycin and ertapenem - recommend 6 weeks of treatment. Continue vit C and zinc to promote wound healing. (2) SVT (supraventricular tachycardia): Plan: Very symptomatic. Appreciate cardiology management. Use adenosine overnight if occurs again. (3) Peripheral arterial disease: Plan: Post angioplasty of severe thigh/popliteal stenosis. Post procedure appears to have improved recommend follow-up to wound bed. Loaded with clopidogrel 300 mg post procedure Continue DAPT with aspirin/clopidogrel for 1 month (started back on clopidogrel today) Repeat noninvasive vascular testing in 2 weeks. (4) Polyneuropathy: Plan: Continue home Gabapentin 600 mg BID. 2nd to chronic etoh abuse? (5) ETOH abuse: Plan: Cont thiamine, folic acid, MVI. Suspect cause of his peripheral neuropathy No signs/symptoms of etoh withdrawal at this time. (6) Hypertension: Plan: Controlled on metoprolol succinate 25mg PO daily (7) COPD (chronic obstructive pulmonary disease): Plan: continue home inhalers. no exacerbation at this time. (8) Dyslipidemia: Plan: Continue atorvastatin 40mg PO daily (9) BPH associated with nocturia: Plan: Continue home Flomax and finasteride. no LUTS at this time (10) Anemia: Plan: Stable (11) T2DM (type 2 diabetes mellitus): Plan: a1c 6.6% - this is c/w early T2DM change diet to DM diet and check BSGs in am to trend BSG WNL therefore will discontinue this Start metformin 500mg PO daily on discharge Plan: VTE Prophylaxis - Lovenox 40mg SQ daily Admission and Anticipated Discharge Date Admission Date: March 18, 2021 Subjective Initially planned on discharging patient today as no plans on EP study and no SVT overnight. Unfortunately had another episode today lasting for 30 minutes, terminated by adenosine. Otherwise at his baseline when in normal sinus rhythm. No fevers or chills. Review of Systems Review of Systems: All systems reviewed & are unremarkable except as noted in HPI & below Physical Exam Constitutional: WD/WN, vitals as above Respiratory: normal respiratory effort, lungs clear to auscultation Cardiovascular: RRR, no murmur, no edema Skin: Right leg foot wrapped Neurologic: awake Motor/Sensory: + sensory deficit (distal to ankle numbness b/l, chronic) Results & Data Results & Data ([facility] [place]) Vital Signs (Past 12 Hours) Vital Signs Temp Pulse Pulse Resp BP Pulse Ox 03/31/21 19:04 36.4 C L 71 18 119/77 95 03/31/21 16:40 77 22 127/75 03/31/21 16:37 26 H 97/56 L 96 03/31/21 16:30 28 H 127/81 97 03/31/21 16:16 146 H 26 H 132/111 H 03/31/21 16:09 150 H 26 H 116/76 96 03/31/21 15:20 69 PG Care Time/CCT Total # of Minutes Spent Total Time Spent with Patient: Total time spent is greater than 50% in coordination of care (as documented) at patient's floor/unit and/or counseling patient: Coding Level of Care Code 73331 Subseq Hosp Care Lvl 1 Diagnoses Open leg wound S81.809A SVT (supraventricular tachycardia) I47.1 Peripheral arterial disease I73.9 Polyneuropathy G62.9 ETOH abuse F10.10 Hypertension I10 Hypertension type: unspecified COPD (chronic obstructive pulmonary disease) J44.9 Dyslipidemia E78.5 BPH associated with nocturia N40.1; R35.1 Anemia D64.9 T2DM (type 2 diabetes mellitus) E11.9 (1) Hypertension Hypertension type: unspecified Qualified Code(s): I10 - Essential (primary) hypertension
[2021-03-31] MEDS: MELATONIN 3 MG TAB PO PRN (21:20)
[2021-04-01 06:16] LABS: Creatinine Clr Calc Pharmacy 127.4 ml/min; Est GFR (African American) 111.2 ml/min; Est GFR (Non-African American) 95.9 ml/min
--- NOTE | 2021-04-01 06:32 | Electrocardiogram Report ---
Test Reason : Blood Pressure : / mmHG Vent. Rate : 139 BPM Atrial Rate : 122 BPM P-R Int : 000 ms QRS Dur : 086 ms QT Int : 320 ms P-R-T Axes : 000 016 088 degrees QTc Int : 486 ms Supraventricular tachycardia Nonspecific ST and T wave abnormality Abnormal ECG When compared with ECG of 28-MAR-2021 21:44, Supraventricular tachycardia has replaced Sinus rhythm Vent. rate has increased BY 59 BPM Confirmed by Natanael Holguin ([id number]) on 04/01/2021 6:32:03 AM Referred By: REFERRED SELF Confirmed By:Natanael Holguin
[2021-04-01] MEDS: ASPIRIN 81 MG ECTAB PO SCH (09:16)
[2021-04-01] MEDS: ADVANCED PROBIOTIC 1250 MG CAPSULE PO SCH (09:17)
[2021-04-01] MEDS: THIAMINE HCL 100 MG TAB PO SCH ×2 (09:17→20:51)
[2021-04-01] MEDS: GABAPENTIN 600 MG TAB PO SCH ×2 (09:17→20:50)
[2021-04-01] MEDS: TAMSULOSIN HCL 0.4 MG CAP PO SCH (09:18)
[2021-04-01] MEDS: ASCORBIC ACID 500 MG TAB PO SCH (09:18)
[2021-04-01] MEDS: CEROVITE ADV FORMULA TAB PO SCH (09:19)
[2021-04-01] MEDS: FINASTERIDE 5 MG TAB PO SCH (09:19)
[2021-04-01] MEDS: CLOPIDOGREL BISULFATE 75 MG TAB PO SCH (09:20)
[2021-04-01] MEDS: ZINC SULFATE 220 MG CAPSULE PO SCH (09:20)
[2021-04-01] MEDS: POTASSIUM CITRATE 10 MEQ TAB PO SCH (09:20)
[2021-04-01] MEDS: FOLIC ACID 1 MG TAB PO SCH (09:20)
[2021-04-01] MEDS: allopurinoL 100 MG TAB PO SCH (09:20)
[2021-04-01] MEDS: ATORVASTATIN 40 MG TAB PO SCH (09:20)
[2021-04-01] MEDS: METOPROLOL SUCC 25MG EXT REL TAB PO SCH ×2 (09:21→20:50)
[2021-04-01] MEDS: UMECLIDINIUM BROMIDE 62.5MCG/BLISTER 7 PUFFS/INHALER INH SCH (09:22)
[2021-04-01] MEDS: FLUTICASONE/VILANTEROL 100/25MCG 14 PUFFS/INHALER INH SCH (09:23)
[2021-04-01] MEDS: ENOXAPARIN INJ 40 MG/0.4 ML SYR SQ SCH (09:23)
[2021-04-01] MEDS: MAGNESIUM OXIDE 400 MG TAB PO SCH ×2 (09:24→20:51)
[2021-04-01] MEDS: DOCUSATE SODIUM 100 MG CAP PO SCH ×2 (09:34→20:51)
[2021-04-01] MEDS ORDERED: VANCOMYCIN TROUGH ONE (10:30)
--- NOTE | 2021-04-01 11:38 | Cardiology Progress Note ---
Date of Service April 01, 2021 Assessment & Plan (1) SVT (supraventricular tachycardia): Plan: Patient with recurrent episode of supraventricular tachycardia yesterday afternoon which responded promptly to IV adenosine Very brief run of less than 3 seconds overnight. Metoprolol succinate increased slightly to 12.5 mg a.m. 25 mg p.m. with overall tolerance so far resting sinus bradycardia but no pauses Plan: Continue current metoprolol succinate dosing Doctor Alex scheduling patient for SVT ablation next Sunday. May be done as an outpatient if patient discharged to rehab (2) Peripheral arterial disease: Plan: s/p peripheral intervention continue ASA (3) ETOH abuse: Plan: encourage cessation (4) HTN, goal to be determined: Plan: controlled; no change in medications (5) Dyslipidemia: Plan: continue statin (6) 1st degree AV block: (7) Sinus bradycardia: Admission and Anticipated Discharge Date Admission Date: March 18, 2021 Subjective Patient was seen and examined, chart, medications, telemetry reviewed Patient with episode of atrial tachycardia yesterday afternoon which was responsive to IV adenosine. Metoprolol succinate increased slightly with limitation secondary to bradycardia at rest but tolerated overnight. Only one brief run of atrial tachycardia No chest pains or shortness of breath. Last episode better tolerated hemodynamically Review of Systems Review of Systems: All systems reviewed & are unremarkable except as noted in Subjective Physical Exam Constitutional: WD/WN, vitals as above Eyes: PERRL, conjunctivae normal, anicteric sclerae ENMT: external ear and nose normal, oropharynx normal Neck: trachea midline, no thyromegaly Respiratory: normal respiratory effort, lungs clear to auscultation Cardiovascular: Rate/Rhythm: regular rate and regular rhythm Heart Sounds: normal S1 and normal S2; no gallop and no murmur Palpation: normal PMI Vessels: normal carotid upstroke and radial pulses present; no JVD and no carotid bruit Extremities: no edema Gastrointestinal (Abdomen): normal bowel sounds, soft, nontender, no hepatosplenomegaly Musculoskeletal: Right foot remains bandaged Neurologic: PERRL, EOMI, accommodation nl, no face palsy, no dysarthria Psychiatric: A+Ox3, euthymic affect Results & Data ([facility]) Vital Signs (Past 12 Hours) Vital Signs Temp Pulse Resp BP Pulse Ox 04/01/21 08:00 36.4 C L 57 L 18 126/79 95 04/01/21 04:50 36.5 C 59 L 16 124/76 96 04/01/21 00:00 36.5 C 61 18 112/64 94 Laboratory Results Laboratory Results - last 24 hr 04/01/21 04/01/21 05:43 10:24 Creatinine 0.66 Est Cr Clr Drug Dosing 127.4 Est GFR ( Amer) 111.2 Est GFR (Non-Af Amer) 95.9 Vancomycin Trough 11.1
--- NOTE | 2021-04-01 12:49 | Pharmacy Report ---
Pharmacy Abx Dose Progress Nt - Date of Service April 01, 2021 - Pharmacy Dosing Scope The patient is currently receiving the following antimicrobial agents per Pharmacy consult: VANCOMYCIN 1250 mg IV/PO every 12 hours - Objective Vital Signs (Past 12hrs): Vital Signs Temp Pulse Resp BP Pulse Ox 04/01/21 08:00 36.4 C L 57 L 18 126/79 95 04/01/21 04:50 36.5 C 59 L 16 124/76 96 04/01/21 00:00 36.5 C 61 18 112/64 94 Lab Results (24hrs): Laboratory Tests (24 Hours) 04/01/21 04/01/21 10:24 05:43 Creatinine 0.66 Est Cr Clr Drug Dosing 127.4 Vancomycin Trough 11.1 Micro Results: 03/24/21 08:49 Gram Stain - Final Leg,Right Aerobic and Anaerobic Culture - Final Coag negative Staphylococcus 03/18/21 15:49 Aerobic Blood Culture - Final Blood No growth in Aerobic bottle after 5 days. Anaerobic Blood Culture - Final No growth in Anaerobic bottle after 5 days. 03/18/21 15:49 Aerobic Blood Culture - Final Blood No growth in Aerobic bottle after 5 days. Anaerobic Blood Culture - Final No growth in Anaerobic bottle after 5 days. 03/18/21 23:00 Gram Stain - Final Foot,Right Deep Wound Culture - Final Staphylococcus aureus Alcaligenes faecalis Staphylococcus aureus#2 Anaerobic gram positive cocci - Assessment & Plan Assessment 75 year old M receiving Vancomycin + Ertapenem for treatment of chronic right heel ulcer Managing with antibiotics per patient preference over BKA Day # 3 of antimicrobial therapy for this admission. Pt will require a 6 week course of antibiotics * Per previous admission; Vancomycin 1250mg IV Q 12hrs was started as this yielded therapeutic trough levels. However, Scr significantly improved this admission as compared to last admission last week Plan Vancomycin IV * Trough level of 11.1 mcg/mL is subtherapeutic * Change to 1750 mg IV every 12 hours * Goal trough level for bone/joint : 15 to 20 mcg/mL * Trough or random level ordered for: 04/03/21 @ 0900 Pharmacy will continue to follow and will adjust dose/frequency as necessary. Thank you.
--- NOTE | 2021-04-01 12:52 | Hospitalist Progress Note ---
Date of Service April 01, 2021 Assessment & Plan (1) Open leg wound: Plan: Right infected Achilles tendon rupture and posterior right lower extremity abscess Both plastic surgery & ortho advising BKA - declined by patient POD #9 S/P Incision and Drainage of abscess right posterior leg, Irrigation and debridement of infected right Achilles tendon rupture, irrigation debridement of skin,Subcutaneous Tissue, fascia, muscle and tendon of Right posterior lower leg; Saucerization of Right posterior lower leg wound, debridement diabetic ulcer [id number](Right) - Cl Cormier, DO Per ID consult IV vancomycin and ertapenem - recommend 6 weeks of treatment. Continue vit C and zinc to promote wound healing. (2) SVT (supraventricular tachycardia): Plan: Very symptomatic. Appreciate cardiology management. Increasing metoprolol. Will defer to cardiology when safe for discharge. Use adenosine overnight if occurs again. (3) Peripheral arterial disease: Plan: Post angioplasty of severe thigh/popliteal stenosis. Post procedure appears to have improved recommend follow-up to wound bed. Loaded with clopidogrel 300 mg post procedure Continue DAPT with aspirin/clopidogrel for 1 month (started back on clopidogrel today) Repeat noninvasive vascular testing in 2 weeks. (4) Polyneuropathy: Plan: Continue home Gabapentin 600 mg BID. 2nd to chronic etoh abuse? (5) ETOH abuse: Plan: Cont thiamine, folic acid, MVI. Suspect cause of his peripheral neuropathy No signs/symptoms of etoh withdrawal at this time. (6) Hypertension: Plan: Controlled on metoprolol succinate 25mg PO daily + 12.5 in AM (7) COPD (chronic obstructive pulmonary disease): Plan: continue home inhalers. no exacerbation at this time. (8) Dyslipidemia: Plan: Continue atorvastatin 40mg PO daily (9) BPH associated with nocturia: Plan: Continue home Flomax and finasteride. no LUTS at this time (10) Anemia: Plan: Stable (11) T2DM (type 2 diabetes mellitus): Plan: a1c 6.6% - this is c/w early T2DM change diet to DM diet and check BSGs in am to trend BSG WNL therefore will discontinue this Start metformin 500mg PO daily on discharge Plan: VTE Prophylaxis - Lovenox 40mg SQ daily Disposition - deferred to cardiology when safe to discharge. No DVT episodes today. Denied [facility] due to NWB status and no need for physician three times /week. Admission and Anticipated Discharge Date Admission Date: March 18, 2021 Subjective No SVT epidsodes since yesterday afternoon requiring adenosine. Currently at baseline. Right toes and perfused. No fever or chills. Review of Systems Review of Systems: All systems reviewed & are unremarkable except as noted in HPI & below Physical Exam Constitutional: WD/WN, vitals as above Eyes: + anicteric sclerae; normal pupil size Respiratory: normal respiratory effort, lungs clear to auscultation Cardiovascular: RRR, no murmur, no edema Extremities: normal capillary refill (right toes) Gastrointestinal (Abdomen): normal bowel sounds, soft, nontender, no hepatosplenomegaly Neurologic: awake Motor/Sensory: + sensory deficit (distal to ankle numbness b/l, chronic) Psychiatric: A+Ox3, euthymic affect Results & Data Results & Data ([facility]) Vital Signs (Past 12 Hours) Vital Signs Temp Pulse Resp BP Pulse Ox 04/01/21 12:11 36.4 C L 58 L 18 108/70 96 04/01/21 08:00 36.4 C L 57 L 18 126/79 95 04/01/21 04:50 36.5 C 59 L 16 124/76 96 PG Care Time/CCT Total # of Minutes Spent Total Time Spent with Patient: Total time spent is greater than 50% in coordination of care (as documented) at patient's floor/unit and/or counseling patient: Coding Level of Care Code 27352 Subseq Hosp Care Lvl 2 Diagnoses Open leg wound S81.809A SVT (supraventricular tachycardia) I47.1 Peripheral arterial disease I73.9 Polyneuropathy G62.9 ETOH abuse F10.10 Hypertension I10 Hypertension type: unspecified COPD (chronic obstructive pulmonary disease) J44.9 Dyslipidemia E78.5 BPH associated with nocturia N40.1; R35.1 Anemia D64.9 T2DM (type 2 diabetes mellitus) E11.9 (1) Hypertension Hypertension type: unspecified Qualified Code(s): I10 - Essential (primary) hypertension
[2021-04-01] MEDS: VANCOMYCIN HCL 1,250 MG in SODIUM CHLORIDE 0.9% 250 ML IV SCH (13:39)
[2021-04-01] MEDS: ERTAPENEM SODIUM 1,000 MG in SODIUM CHLORIDE 0.9% 50 ML IV SCH (13:40)
[2021-04-01] MEDS: VANCOMYCIN HCL 1,750 MG in SODIUM CHLORIDE 0.9% 500 ML IV SCH (20:49)
[2021-04-02] MEDS: MELATONIN 3 MG TAB PO PRN (01:54)
--- NOTE | 2021-04-02 06:19 | Electrocardiogram Report ---
Test Reason : Blood Pressure : / mmHG Vent. Rate : 151 BPM Atrial Rate : 170 BPM P-R Int : 000 ms QRS Dur : 112 ms QT Int : 306 ms P-R-T Axes : 000 022 099 degrees QTc Int : 485 ms Poor data quality, interpretation may be adversely affected Supraventricular tachycardia ST depression, consider subendocardial injury Abnormal ECG When compared with ECG of 29-MAR-2021 23:33, No significant change was found Confirmed by Natanael Holguin ([id number]) on 04/02/2021 6:18:30 AM Referred By: REFERRED SELF Confirmed By:Natanael Holguin
--- NOTE | 2021-04-02 06:20 | Electrocardiogram Report ---
Test Reason : Blood Pressure : / mmHG Vent. Rate : 074 BPM Atrial Rate : 074 BPM P-R Int : 316 ms QRS Dur : 090 ms QT Int : 398 ms P-R-T Axes : 045 004 068 degrees QTc Int : 441 ms Sinus rhythm with 1st degree A-V block Otherwise normal ECG When compared with ECG of 31-MAR-2021 16:09, Sinus rhythm has replaced Supraventricular tachycardia Vent. rate has decreased BY 77 BPM QRS duration has decreased ST no longer depressed in Inferior leads ST no longer depressed in Lateral leads Confirmed by Natanael Holguin ([id number]) on 04/02/2021 6:19:55 AM Referred By: REFERRED SELF Confirmed By:Natanael Holguin
--- NOTE | 2021-04-02 07:17 | Orthopedic Progress Note ---
Date of Service April 02, 2021 Assessment & Plan (1) Open leg wound: Plan: Postop day #9, he is s/p I&D of his abscess, right posterior leg, infected Achilles tendon rupture I&D of posterior right leg skin, subcutaneous tissue, fascia, muscle and tendon. he is currently stable for discharge from ortho standpoint, he should follow up with Dr Cormier team at [facility] in 7-10 days. PT/OT protocols-nonweightbearing on the right lower extremity. Okay to put toes down for balance. Please call with any questions. Instructions placed in the discharge section. Admission and Anticipated Discharge Date Admission Date: March 18, 2021 Subjective POD #1 s/p right ankle I&D Physical Exam Physical Exam: Vital Signs Temp Pulse Pulse Resp BP Pulse Ox 04/02/21 03:44 36.5 C 60 17 113/70 92 04/02/21 00:00 60 04/01/21 23:32 36.3 C L 60 17 128/78 94 04/01/21 19:18 36.3 C L 64 19 114/72 94 04/01/21 16:44 36.6 C 58 L 18 115/61 95 04/01/21 12:11 36.4 C L 58 L 18 108/70 96 04/01/21 08:00 36.4 C L 57 L 18 126/79 95 Intake and Output 04/01/21 04/02/21 04/02/21 22:59 06:59 14:59 Intake Total 515 / 2115 1015 / 2115 Output Total 275 / 276 Balance 515 / 1839 740 / 1839 Intake: IV 275 / 870 535 / 870 Vancomycin HCl 1,250 mg In 275 / 275 Sodium Chlorid e 0.9% 250 ml @ 200 mls/hr IV Q12H [facility] Rx#: [id number] Vancomycin HCl 1,750 mg In 535 / 535 Sodium Chlorid e 0.9% 500 ml @ 200 mls/hr IV Q12 [facility] Rx#: [id number] Oral 240 / 1245 480 / 1245 Output: Urine Amount (Ca theter) 275 / 275 Straight 275 / 275 Other: # Unmeasured Voi ds 1 1 Constitutional: WD/WN, vitals as above Musculoskeletal: Right Ankle: I removed his splint and dressing this morning, his wound is showing improvement from prior picture on 03/28/21 in his chart. no surrounding erythema noted, there are agata on the edges holding the Adaptic in place. I then did redress his wound with Adaptic, 4 x 4's, Kerlix, and Jose wrap. Results & Data ([facility]) Vital Signs (Past 12 Hours) Vital Signs Temp Pulse Pulse Resp BP Pulse Ox 04/02/21 03:44 36.5 C 60 17 113/70 92 04/02/21 00:00 60 04/01/21 23:32 36.3 C L 60 17 128/78 94 04/01/21 19:18 36.3 C L 64 19 114/72 94
[2021-04-02] MEDS: CEROVITE ADV FORMULA TAB PO SCH (08:10)
[2021-04-02] MEDS: CLOPIDOGREL BISULFATE 75 MG TAB PO SCH (08:10)
[2021-04-02] MEDS: allopurinoL 100 MG TAB PO SCH (08:10)
[2021-04-02] MEDS: METOPROLOL SUCC 25MG EXT REL TAB PO SCH ×2 (08:11→21:05)
[2021-04-02] MEDS: TAMSULOSIN HCL 0.4 MG CAP PO SCH (08:11)
[2021-04-02] MEDS: ASPIRIN 81 MG ECTAB PO SCH (08:11)
[2021-04-02] MEDS: ZINC SULFATE 220 MG CAPSULE PO SCH (08:11)
[2021-04-02] MEDS: POTASSIUM CITRATE 10 MEQ TAB PO SCH (08:12)
[2021-04-02] MEDS: ATORVASTATIN 40 MG TAB PO SCH (08:13)
[2021-04-02] MEDS: FOLIC ACID 1 MG TAB PO SCH (08:13)
[2021-04-02] MEDS: ASCORBIC ACID 500 MG TAB PO SCH (08:13)
[2021-04-02] MEDS: ENOXAPARIN INJ 40 MG/0.4 ML SYR SQ SCH (08:14)
[2021-04-02] MEDS: MAGNESIUM OXIDE 400 MG TAB PO SCH ×2 (08:14→21:05)
[2021-04-02] MEDS: THIAMINE HCL 100 MG TAB PO SCH ×2 (08:15→21:06)
[2021-04-02] MEDS: ADVANCED PROBIOTIC 1250 MG CAPSULE PO SCH (08:15)
[2021-04-02] MEDS: GABAPENTIN 600 MG TAB PO SCH ×2 (08:15→21:04)
[2021-04-02] MEDS: FINASTERIDE 5 MG TAB PO SCH (08:15)
[2021-04-02] MEDS: DOCUSATE SODIUM 100 MG CAP PO SCH ×2 (08:23→21:04)
[2021-04-02] MEDS: VANCOMYCIN HCL 1,750 MG in SODIUM CHLORIDE 0.9% 500 ML IV SCH ×2 (08:27→22:16)
[2021-04-02] MEDS: UMECLIDINIUM BROMIDE 62.5MCG/BLISTER 7 PUFFS/INHALER INH SCH (08:51)
[2021-04-02] MEDS: FLUTICASONE/VILANTEROL 100/25MCG 14 PUFFS/INHALER INH SCH (08:52)
--- NOTE | 2021-04-02 11:13 | Hospitalist Progress Note ---
Date of Service April 02, 2021 Assessment & Plan (1) Open leg wound: Plan: Right infected Achilles tendon rupture and posterior right lower extremity abscess Both plastic surgery & ortho advising BKA - declined by patient POD #10 S/P Incision and Drainage of abscess right posterior leg, Irrigation and debridement of infected right Achilles tendon rupture, irrigation debridement of skin,Subcutaneous Tissue, fascia, muscle and tendon of Right posterior lower leg; Saucerization of Right posterior lower leg wound, debridement diabetic ulcer [id number](Right) - Cl Cormier, Per ID consult IV vancomycin and ertapenem - recommend 6 weeks of treatment. Continue vit C and zinc to promote wound healing. (2) SVT (supraventricular tachycardia): Plan: Very symptomatic. Appreciate cardiology management. Increasing metoprolol. Use adenosine overnight if occurs again. Discussed with Dr Schumacher and medically stable from cardiac perpective. (3) Peripheral arterial disease: Plan: Post angioplasty of severe thigh/popliteal stenosis. Post procedure appears to have improved recommend follow-up to wound bed. Loaded with clopidogrel 300 mg post procedure Continue DAPT with aspirin/clopidogrel for 1 month (started back on clopidogrel today) Repeat noninvasive vascular testing in 2 weeks. (4) Polyneuropathy: Plan: Continue home Gabapentin 600 mg BID. 2nd to chronic etoh abuse? (5) ETOH abuse: Plan: Cont thiamine, folic acid, MVI. Suspect cause of his peripheral neuropathy No signs/symptoms of etoh withdrawal at this time. (6) Hypertension: Plan: Controlled on metoprolol succinate 12.5 mg every morning, 25 mg every afternoon (7) COPD (chronic obstructive pulmonary disease): Plan: continue home inhalers. no exacerbation at this time. (8) Dyslipidemia: Plan: Continue atorvastatin 40mg PO daily (9) BPH associated with nocturia: Plan: Continue home Flomax and finasteride. no LUTS at this time (10) Anemia: Plan: Stable (11) T2DM (type 2 diabetes mellitus): Plan: a1c 6.6% - this is c/w early T2DM change diet to DM diet and check BSGs in am to trend BSG WNL therefore will discontinue this Start metformin 500mg PO daily on discharge Plan: VTE Prophylaxis - Lovenox 40mg SQ daily Disposition -medically stable for discharge pending placement. Admission and Anticipated Discharge Date Admission Date: March 18, 2021 Subjective No further SVT episodes on increased dose of metoprolol. Patient is at his baseline. Like milligrams daily. Will refill current dose. Review of Systems Review of Systems: All systems reviewed & are unremarkable except as noted in HPI & below Physical Exam Constitutional: WD/WN, vitals as above Eyes: + anicteric sclerae; normal pupil size Respiratory: normal respiratory effort, lungs clear to auscultation Cardiovascular: RRR, no murmur, no edema Extremities: normal capillary refill (right toes) Neurologic: awake Motor/Sensory: + sensory deficit (distal to ankle numbness b/l, chronic) Psychiatric: A+Ox3, euthymic affect Results & Data Results & Data ([facility]) Vital Signs (Past 12 Hours) Vital Signs Temp Pulse Pulse Resp BP Pulse Ox 04/02/21 10:05 51 L 04/02/21 07:42 36.5 C 76 16 106/70 98 04/02/21 03:44 36.5 C 60 17 113/70 92 04/02/21 00:00 60 04/01/21 23:32 36.3 C L 60 17 128/78 94 PG Care Time/CCT Total # of Minutes Spent Total Time Spent with Patient: Total time spent is greater than 50% in coordination of care (as documented) at patient's floor/unit and/or counseling patient: Coding Level of Care Code 49933 Subseq Hosp Care Lvl 1 Diagnoses Open leg wound S81.809A SVT (supraventricular tachycardia) I47.1 Peripheral arterial disease I73.9 Polyneuropathy G62.9 ETOH abuse F10.10 Hypertension I10 Hypertension type: unspecified COPD (chronic obstructive pulmonary disease) J44.9 Dyslipidemia E78.5 BPH associated with nocturia N40.1; R35.1 Anemia D64.9 T2DM (type 2 diabetes mellitus) E11.9 (1) Hypertension Hypertension type: unspecified Qualified Code(s): I10 - Essential (primary) hypertension
--- NOTE | 2021-04-02 11:14 | Cardiology Progress Note ---
Date of Service April 02, 2021 Assessment & Plan (1) SVT (supraventricular tachycardia): Plan: Patient with recurrent episode of supraventricular tachycardia yesterday afternoon which responded promptly to IV adenosine Very brief run of less than 3 seconds overnight. Metoprolol succinate increased slightly to 12.5 mg a.m. 25 mg p.m. with overall tolerance so far resting sinus bradycardia but no pauses Plan: Continue current metoprolol succinate dosing Doctor Alex scheduling patient for SVT ablation next Sunday. May be done as an outpatient if patient discharged to rehab Patient can be discharged per the medical service. (2) Peripheral arterial disease: Plan: s/p peripheral intervention continue ASA (3) ETOH abuse: Plan: encourage cessation (4) HTN, goal to be determined: Plan: controlled; no change in medications (5) Dyslipidemia: Plan: continue statin (6) 1st degree AV block: (7) Sinus bradycardia: Admission and Anticipated Discharge Date Admission Date: March 18, 2021 Subjective No new complaints today. Review of Systems Review of Systems: Review of Systems: See HPI for pertinent positives. All other 10 point review of systems are negative. Physical Exam Physical Exam: General: no acute distress and stated age Head: normocephalic, no masses, lesions, tenderness or abnormalities Eyes: conjunctiva are pink and non-injected, sclera clear Neck: supple, no adenopathy, no bruits, normal jugular venous pulse, no hepatojugular reflux Chest: normal shape and normal respiratory effort Lungs: clear to auscultation and percussion Cardiac Exam: - regular rate & rhythm, no murmurs gallops or rubs - normal S1, normal S2 Pulses: 2(+) throughout Abdomen: abdomen soft, non-tender, no abnormal masses and no hepatosplenomegaly Musculoskeletal: no gait disturbance, no joint inflammation, no deforming arthritis Extremities: no edema and no cyanosis Neuro: grossly normal exam Results & Data ([facility]) Vital Signs (Past 12 Hours) Vital Signs Temp Pulse Pulse Resp BP Pulse Ox 04/02/21 10:05 51 L 04/02/21 07:42 36.5 C 76 16 106/70 98 04/02/21 03:44 36.5 C 60 17 113/70 92 04/02/21 00:00 60 04/01/21 23:32 36.3 C L 60 17 128/78 94 Medications Administered Current Inpatient Medications Acetaminophen (Acetaminophen 325 Mg Tab) 650 mg PO Q4H PRN PRN Reason: pain/fever Stop: 04/17/21 20:21 Albuterol (Albuterol Hfa 8 Gm Inhaler) 2 puffs INH QID PRN PRN Reason: SHORT OF BREATH Stop: 04/17/21 20:21 Allopurinol (Allopurinol 100 Mg Tab) 200 mg PO DAILY [facility] Stop: 04/18/21 08:59 Last Admin: 04/02/21 08:10 Dose: 200 mg Documented by: Ascorbic Acid (Ascorbic Acid 500 Mg Tab) [facility] Stop: 04/20/21 08:59 Last Admin: 04/02/21 08:13 Dose: 500 mg Documented by: Aspirin (Aspirin 81 Mg Ectab) 81 mg PO QAM [facility] Stop: 04/18/21 08:59 Last Admin: 04/02/21 08:11 Dose: 81 mg Documented by: Atorvastatin Calcium (Atorvastatin 40 Mg Tab) [facility] Stop: 04/18/21 08:59 Last Admin: 04/02/21 08:13 Dose: 40 mg Documented by: Bisacodyl (Bisacodyl 10 Mg Supp) 10 mg PA DAILY PRN PRN Reason: Constipation Stop: 04/23/21 11:36 Clopidogrel Bisulfate (Clopidogrel Bisulfate 75 Mg Tab) 75 mg PO QAM [facility] Stop: 04/27/21 08:59 Last Admin: 04/02/21 08:10 Dose: 75 mg Documented by: Diclofenac Sodium (Diclofenac Sod 1% Gel 100 Gm Tube) 4 gm EXT QID PRN PRN Reason: Pain Stop: 04/17/21 20:21 Docusate Sodium (Docusate Sodium 100 Mg Cap) 100 mg PO BID [facility] Stop: 04/23/21 11:36 Last Admin: 04/02/21 08:23 Dose: Not Given Documented by: Enoxaparin Sodium (Enoxaparin Inj 40 Mg/0.4 Ml Syr) 40 mg SQ QAM [facility] Stop: 04/28/21 08:59 Last Admin: 04/02/21 08:14 Dose: 40 mg Documented by: Finasteride (Finasteride 5 Mg Tab) 5 mg PO DAILY [facility] Stop: 04/18/21 08:59 Last Admin: 04/02/21 08:15 Dose: 5 mg Documented by: Fluticasone/Vilanterol (Fluticasone/Vilanterol 100/25mcg 14 Puffs/Inhaler) 1 puffs INH DAILY [facility] Stop: 04/18/21 08:59 Last Admin: 04/02/21 08:52 Dose: 1 puffs Documented by: Folic Acid (Folic Acid 1 Mg Tab) 1 mg PO QAM [facility] Stop: 04/17/21 20:21 Last Admin: 04/02/21 08:13 Dose: 1 mg Documented by: Gabapentin (Gabapentin 600 Mg Tab) 600 mg PO BID [facility] Stop: 04/17/21 20:59 Last Admin: 04/02/21 08:15 Dose: 600 mg Documented by: Heparin Sodium (Beef Lung) (Heparin 10 Unit/Ml 5 Ml Flush) 5 ml FLUSH PRN PRN PRN Reason: Flush Stop: 05/01/21 00:16 Hydromorphone HCl (Hydromorphone Inj 0.5 Mg/0.5 Ml Syr) 0.5 mg IV Q4H PRN PRN Reason: Pain or Pre PT Stop: 04/07/21 11:36 Ertapenem 1,000 mg/ Sodium (Chloride) 60 mls @ 100 mls/hr IV Q24H [facility] Stop: 05/11/21 11:59 Last Infusion: 04/01/21 14:25 Dose: Infused Documented by: Vancomycin HCl 1,750 mg/ (Sodium Chloride) 535 mls @ 200 mls/hr IV Q12 [facility] Stop: 05/13/21 20:59 Last Admin: 04/02/21 08:27 Dose: 200 mls/hr Documented by: Lactobacillus Acidoph/Casei/Rhamnos (Advanced Probiotic 1250 Mg Capsule) 2 cap PO DAILY [facility] Stop: 05/01/21 08:59 Last Admin: 04/02/21 08:15 Dose: 2 cap Documented by: Lorazepam (Lorazepam 1 Mg Tab) 1 mg PO ONE PRN; Protocol PRN Reason: EtoH Withdrawal AWSS 6-10 Magnesium Hydroxide (Magnesium Hydroxide Susp 30 Ml Udc) 30 ml PO Q6H PRN PRN Reason: Constipation Stop: 04/23/21 11:36 Magnesium Oxide (Magnesium Oxide 400 Mg Tab) 400 mg PO BID [facility] Stop: 04/28/21 20:59 Last Admin: 04/02/21 08:14 Dose: 400 mg Documented by: Melatonin (Melatonin 3 Mg Tab) 3 mg PO HS PRN PRN Reason: Sleep Stop: 04/27/21 20:08 Last Admin: 04/02/21 01:54 Dose: 3 mg Documented by: Metoprolol Succinate (Metoprolol Succ 25mg Ext Rel Tab) 25 mg PO QPM [facility] Stop: 04/17/21 20:59 Last Admin: 04/01/21 20:50 Dose: 25 mg Documented by: Metoprolol Succinate (Metoprolol Succ 25mg Ext Rel Tab) 12.5 mg PO QAM [facility] Stop: 04/30/21 17:14 Last Admin: 04/02/21 08:11 Dose: 12.5 mg Documented by: Miscellaneous Information (Vancomycin Consult Active) 1 ea N/A UD PRN PRN Reason: Consult Stop: 04/29/21 11:06 Morphine Sulfate (Morphine Sulfate 2 Mg/Ml Carp) 2 mg IV Q30M PRN PRN Reason: Chest Pain Stop: 04/06/21 20:52 Multivitamins/Minerals (Cerovite Adv Formula Tab) 1 tab PO QAM [facility] Stop: 04/19/21 11:59 Last Admin: 04/02/21 08:10 Dose: 1 tab Documented by: Naloxone HCl (Naloxone Hcl 0.4 Mg/1 Ml Vial/Carp) 0.1 mg IV Q5M PRN PRN Reason: Oversedation/Resp Depression Stop: 04/23/21 11:36 Nitroglycerin (Nitroglycerin Sl 0.4 Mg/Tab Tab) 0.4 mg SL UD PRN PRN Reason: Chest Pain Stop: 04/22/21 20:52 Ondansetron HCl (Ondansetron Inj 2 Mg/Ml 2 Ml Vial) 4 mg IV Q6H PRN PRN Reason: Nausea Stop: 04/17/21 20:21 Oxycodone HCl (Oxycodone Hcl Ir 5 Mg Tab (Immediate Release)) 5 - 10 mg PO Q4H PRN PRN Reason: Pain or Pre PT Stop: 04/07/21 11:36 Polyethylene Glycol (Polyethylene (Miralax) 17 Gm Pack) 17 gm PO DAILY PRN PRN Reason: Constipation Stop: 04/17/21 20:21 Potassium Citrate (Potassium Citrate 10 Meq Tab) 10 meq PO DAILY [facility] Stop: 04/18/21 08:59 Last Admin: 04/02/21 08:12 Dose: 10 meq Documented by: Tamsulosin HCl (Tamsulosin Hcl 0.4 Mg Cap) 0.4 mg PO QAM [facility] Stop: 04/18/21 08:59 Last Admin: 04/02/21 08:11 Dose: 0.4 mg Documented by: Thiamine HCl (Thiamine Hcl 100 Mg Tab) 200 mg PO BID [facility] Stop: 04/19/21 20:59 Last Admin: 04/02/21 08:15 Dose: 200 mg Documented by: Umeclidinium Sylvester (Umeclidinium Sylvester 62.5mcg/Blister 7 Puffs/Inhaler) [facility] Stop: 04/18/21 08:59 Last Admin: 04/02/21 08:51 Dose: 1 puffs Documented by: Zinc Sulfate (Zinc Sulfate 220 Mg Capsule) 220 [facility] Stop: 04/20/21 08:59 Last Admin: 04/02/21 08:11 Dose: 220 mg Documented by:
[2021-04-02] MEDS: ERTAPENEM SODIUM 1,000 MG in SODIUM CHLORIDE 0.9% 50 ML IV SCH (11:39)
[2021-04-03] MEDS: UMECLIDINIUM BROMIDE 62.5MCG/BLISTER 7 PUFFS/INHALER INH SCH (08:04)
[2021-04-03] MEDS: VANCOMYCIN HCL 1,750 MG in SODIUM CHLORIDE 0.9% 500 ML IV SCH (08:04)
[2021-04-03] MEDS: FLUTICASONE/VILANTEROL 100/25MCG 14 PUFFS/INHALER INH SCH (08:04)
[2021-04-03] MEDS: CLOPIDOGREL BISULFATE 75 MG TAB PO SCH (08:05)
[2021-04-03] MEDS: POTASSIUM CITRATE 10 MEQ TAB PO SCH (08:05)
[2021-04-03] MEDS: ATORVASTATIN 40 MG TAB PO SCH (08:05)
[2021-04-03] MEDS: ZINC SULFATE 220 MG CAPSULE PO SCH (08:05)
[2021-04-03] MEDS: ASPIRIN 81 MG ECTAB PO SCH (08:05)
[2021-04-03] MEDS: FINASTERIDE 5 MG TAB PO SCH (08:05)
[2021-04-03] MEDS: CEROVITE ADV FORMULA TAB PO SCH (08:05)
[2021-04-03] MEDS: ADVANCED PROBIOTIC 1250 MG CAPSULE PO SCH (08:05)
[2021-04-03] MEDS: METOPROLOL SUCC 25MG EXT REL TAB PO SCH ×2 (08:06→20:35)
[2021-04-03] MEDS: FOLIC ACID 1 MG TAB PO SCH (08:06)
[2021-04-03] MEDS: TAMSULOSIN HCL 0.4 MG CAP PO SCH (08:06)
[2021-04-03] MEDS: GABAPENTIN 600 MG TAB PO SCH ×2 (08:07→20:35)
[2021-04-03] MEDS: THIAMINE HCL 100 MG TAB PO SCH ×2 (08:07→20:35)
[2021-04-03] MEDS: allopurinoL 100 MG TAB PO SCH (08:07)
[2021-04-03] MEDS: ASCORBIC ACID 500 MG TAB PO SCH (08:07)
[2021-04-03] MEDS: ENOXAPARIN INJ 40 MG/0.4 ML SYR SQ SCH (08:07)
[2021-04-03] MEDS: MAGNESIUM OXIDE 400 MG TAB PO SCH ×2 (08:07→20:35)
[2021-04-03] MEDS: DOCUSATE SODIUM 100 MG CAP PO SCH ×2 (08:08→20:36)
[2021-04-03] MEDS ORDERED: VANCOMYCIN TROUGH ONE ×2 (08:30→20:30)
[2021-04-03 09:14] LABS: Creatinine Clr Calc Pharmacy 116.3 ml/min; Est GFR (African American) 107.3 ml/min; Est GFR (Non-African American) 92.5 ml/min
[2021-04-03] MEDS ORDERED: ADENOSINE IV SOLN 3 MG/ML 2 ML VIAL IV STA ×2 (10:52→17:25)
[2021-04-03] MEDS ORDERED: ADENOSINE IV SOLN 3 MG/ML 2 ML VIAL IV ONE ×2 (10:53→17:27)
--- NOTE | 2021-04-03 10:55 | Hospitalist Progress Note ---
Date of Service April 03, 2021 Assessment & Plan (1) Open leg wound: Plan: Right infected Achilles tendon rupture and posterior right lower extremity abscess Both plastic surgery & ortho advised BKA - declined by patient S/P 03/24 Incision and Drainage of abscess right posterior leg, Irrigation and debridement of infected right Achilles tendon rupture, irrigation debridement of skin,Subcutaneous Tissue, fascia, muscle and tendon of Right posterior lower leg; Saucerization of Right posterior lower leg wound, debridement diabetic ulcer [id number](Right) - Cl Cormier, DO Nonweightbearing on the right lower extremity. Okay to put toes down for balance. Per ID consult IV vancomycin and ertapenem - recommend 6 weeks of treatment. Continue vit C and zinc to promote wound healing. (2) SVT (supraventricular tachycardia): Plan: Main current issue. Very symptomatic. Appreciate cardiology management. Increased metoprolol - however still having episodes. Carotid massage unsuccessful. Blowing into syringe unsuccessful. Required adenosine again today. Would recommend patient has EP study given repeated very symptomatic episodes. Blood cultures have always been negative. Discussed with Dr Schumacher. (3) Peripheral arterial disease: Plan: Post angioplasty of severe thigh/popliteal stenosis. Post procedure appears to have improved recommend follow-up to wound bed. Loaded with clopidogrel 300 mg post procedure Continue DAPT with aspirin/clopidogrel for 1 month (started back on clopidogrel today) Repeat noninvasive vascular testing in 2 weeks. (4) Polyneuropathy: Plan: Continue home Gabapentin 600 mg BID. 2nd to chronic etoh abuse? (5) ETOH abuse: Plan: Cont thiamine, folic acid, MVI. Suspect cause of his peripheral neuropathy No signs/symptoms of etoh withdrawal at this time. (6) Hypertension: Plan: Controlled on metoprolol succinate 12.5 mg every morning, 25 mg every afternoon (7) COPD (chronic obstructive pulmonary disease): Plan: continue home inhalers. no exacerbation at this time. (8) Dyslipidemia: Plan: Continue atorvastatin 40mg PO daily (9) BPH associated with nocturia: Plan: Continue home Flomax and finasteride. no LUTS at this time (10) Anemia: Plan: Stable (11) T2DM (type 2 diabetes mellitus): Plan: a1c 6.6% - this is c/w early T2DM change diet to DM diet and check BSGs in am to trend BSG WNL therefore will discontinue this Start metformin 500mg PO daily on discharge Plan: VTE Prophylaxis - Lovenox 40mg SQ daily Disposition -medically stable for discharge pending placement. Admission and Anticipated Discharge Date Admission Date: March 18, 2021 Subjective Called to bedside as patient having another episode of SVT. Feeling short of breath with chest pain during episode. SVT terminated with 6mg IV adenosine. After episode patient is back to his baseline. Review of Systems Review of Systems: All systems reviewed & are unremarkable except as noted in HPI & below Physical Exam Constitutional: WD/WN, vitals as above Eyes: + anicteric sclerae; normal pupil size Respiratory: normal respiratory effort, lungs clear to auscultation Cardiovascular: Rate/Rhythm: regular rhythm and + tachycardic Extremities: normal capillary refill (right toes) Gastrointestinal (Abdomen): normal bowel sounds, soft, nontender, no hepato splenomegaly Neurologic: awake Motor/Sensory: + sensory deficit (distal to ankle numbness b/l, chronic) Psychiatric: A+Ox3, euthymic affect Results & Data Results & Data ([facility]) Vital Signs (Past 12 Hours) Vital Signs Temp Pulse Pulse Resp BP Pulse Ox 04/03/21 08:00 37.2 C 65 18 135/72 91 04/03/21 07:34 69 04/03/21 03:54 56 L PG Care Time/CCT Total # of Minutes Spent Total Time Spent with Patient: Total time spent is greater than 50% in coordination of care (as documented) at patient's floor/unit and/or counseling patient: Critical Care Time: Yes Total Critical Care Time: 35 SVT Coding Level of Care Code 17590 Subseq Hosp Care Lvl 3 Diagnoses Open leg wound S81.809A SVT (supraventricular tachycardia) I47.1 Peripheral arterial disease I73.9 Polyneuropathy G62.9 ETOH abuse F10.10 Hypertension I10 Hypertension type: unspecified COPD (chronic obstructive pulmonary disease) J44.9 Dyslipidemia E78.5 BPH associated with nocturia N40.1; R35.1 Anemia D64.9 T2DM (type 2 diabetes mellitus) E11.9 Additional Codes Critical Care Time - Critical Care Time: Yes ([id number]) (1) Hypertension Hypertension type: unspecified Qualified Code(s): I10 - Essential (primary) hypertension
--- NOTE | 2021-04-03 11:45 | Cardiology Progress Note ---
Date of Service April 03, 2021 Assessment & Plan (1) SVT (supraventricular tachycardia): Plan: The patient had a episode of SVT this morning and was given adenosine which converted him to sinus rhythm. I will increase his morning dose of metoprolol to 25 mg. His evening dose will remain the same. I will discuss with the EP tomorrow to determine a game plan. Otherwise the patient is stable. (2) Peripheral arterial disease: Plan: s/p peripheral intervention continue ASA (3) ETOH abuse: Plan: encourage cessation (4) HTN, goal to be determined: Plan: controlled; no change in medications (5) Dyslipidemia: Plan: continue statin (6) 1st degree AV block: (7) Sinus bradycardia: Admission and Anticipated Discharge Date Admission Date: March 18, 2021 Subjective No current complaints. He did have SVT this morning and was given adenosine which converted him to sinus rhythm. Review of Systems Review of Systems: Review of Systems: See HPI for pertinent positives. All other 10 point review of systems are negative. Physical Exam Physical Exam: General: no acute distress and stated age Head: normocephalic, no masses, lesions, tenderness or abnormalities Eyes: conjunctiva are pink and non-injected, sclera clear Neck: supple, no adenopathy, no bruits, normal jugular venous pulse, no hepatojugular reflux Chest: normal shape and normal respiratory effort Lungs: clear to auscultation and percussion Cardiac Exam: - regular rate & rhythm, no murmurs gallops or rubs - normal S1, normal S2 Pulses: 2(+) throughout Abdomen: abdomen soft, non-tender, no abnormal masses and no hepatosplenomegaly Musculoskeletal: no gait disturbance, no joint inflammation, no deforming arth ritis Extremities: no edema and no cyanosis Neuro: grossly normal exam Results & Data ([facility]) Vital Signs (Past 12 Hours) Vital Signs Temp Pulse Pulse Resp BP Pulse Ox 04/03/21 08:00 37.2 C 65 18 135/72 91 04/03/21 07:34 69 04/03/21 03:54 56 L Laboratory Results Laboratory Results - last 24 hr 04/03/21 08:48 Creatinine 0.72 Est Cr Clr Drug Dosing 116.3 Est GFR ( Amer) 107.3 Est GFR (Non-Af Amer) 92.5 Medications Administered Current Inpatient Medications Acetaminophen (Acetaminophen 325 Mg Tab) 650 mg PO Q4H PRN PRN Reason: pain/fever Stop: 04/17/21 20:21 Albuterol (Albuterol Hfa 8 Gm Inhaler) 2 puffs INH QID PRN PRN Reason: SHORT OF BREATH Stop: 04/17/21 20:21 Allopurinol (Allopurinol 100 Mg Tab) 200 mg PO DAILY [facility] Stop: 04/18/21 08:59 Last Admin: 04/03/21 08:07 Dose: 200 mg Documented by: Ascorbic Acid (Ascorbic Acid 500 Mg Tab) 500 mg PO QAM [facility] Stop: 04/20/21 08:59 Last Admin: 04/03/21 08:07 Dose: 500 mg Documented by: Aspirin (Aspirin 81 Mg Ectab) [facility] [place]: 04/18/21 08:59 Last Admin: 04/03/21 08:05 Dose: 81 mg Documented by: Atorvastatin Calcium (Atorvastatin 40 Mg Tab) 40 mg PO QAM [facility] Stop: 04/18/21 08:59 Last Admin: 04/03/21 08:05 Dose: 40 mg Documented by: Bisacodyl (Bisacodyl 10 Mg Supp) 10 mg [place] DAILY PRN PRN Reason: Constipation Stop: 04/23/21 11:36 Clopidogrel Bisulfate (Clopidogrel Bisulfate 75 Mg Tab) [facility] [place] Stop: 04/27/21 08:59 Last Admin: 04/03/21 08:05 Dose: 75 mg Documented by: Diclofenac Sodium (Diclofenac Sod 1% Gel 100 Gm Tube) 4 gm EXT QID PRN PRN Reason: Pain Stop: 04/17/21 20:21 Docusate Sodium (Docusate Sodium 100 Mg Cap) 100 mg PO BID [facility] Stop: 04/23/21 11:36 Last Admin: 04/03/21 08:08 Dose: Not Given Documented by: Enoxaparin Sodium (Enoxaparin Inj 40 Mg/0.4 Ml Syr) 40 mg SQ QAM [facility] Stop: 04/28/21 08:59 Last Admin: 04/03/21 08:07 Dose: 40 mg Documented by: Finasteride (Finasteride 5 Mg Tab) 5 mg PO DAILY [facility] Stop: 04/18/21 08:59 Last Admin: 04/03/21 08:05 Dose: 5 mg Documented by: Fluticasone/Vilanterol (Fluticasone/Vilanterol 100/25mcg 14 Puffs/Inhaler) 1 puffs INH DAILY [facility] Stop: 04/18/21 08:59 Last Admin: 04/03/21 08:04 Dose: 1 puffs Documented by: Folic Acid (Folic Acid 1 Mg Tab) 1 mg PO QAM [facility] Stop: 04/17/21 20:21 Last Admin: 04/03/21 08:06 Dose: 1 mg Documented by: Gabapentin (Gabapentin 600 Mg Tab) 600 mg PO BID [facility] Stop: 04/17/21 20:59 Last Admin: 04/03/21 08:07 Dose: 600 mg Documented by: Heparin Sodium (Beef Lung) (Heparin 10 Unit/Ml 5 Ml Flush) 5 ml FLUSH PRN PRN PRN Reason: Flush Stop: 05/01/21 00:16 Last Admin: 04/03/21 01:51 Dose: 5 ml Documented by: Hydromorphone HCl (Hydromorphone Inj 0.5 Mg/0.5 Ml Syr) 0.5 mg IV Q4H PRN PRN Reason: Pain or Pre PT Stop: 04/07/21 11:36 Ertapenem 1,000 mg/ Sodium (Chloride) 60 mls @ 100 mls/hr IV Q24H [facility] Stop: 05/11/21 11:59 Last Infusion: 04/02/21 12:15 Dose: Infused Documented by: Vancomycin HCl 1,750 mg/ (Sodium Chloride) 535 mls @ 200 mls/hr IV Q12 [facility] Stop: 05/13/21 20:59 Last Admin: 04/03/21 08:04 Dose: 200 mls/hr Documented by: Lactobacillus Acidoph/Casei/Rhamnos (Advanced Probiotic 1250 Mg Capsule) 2 cap PO DAILY [facility] Stop: 05/01/21 08:59 Last Admin: 04/03/21 08:05 Dose: 2 cap Documented by: Lorazepam (Lorazepam 1 Mg Tab) 1 mg PO ONE PRN; Protocol PRN Reason: EtoH Withdrawal AWSS 6-10 Magnesium Hydroxide (Magnesium Hydroxide Susp 30 Ml Udc) 30 ml PO Q6H PRN PRN Reason: Constipation Stop: 04/23/21 11:36 Magnesium Oxide (Magnesium Oxide 400 Mg Tab) 400 mg PO BID [facility] Stop: 04/28/21 20:59 Last Admin: 04/03/21 08:07 Dose: 400 mg Documented by: Melatonin (Melatonin 3 Mg Tab) 3 mg PO HS PRN PRN Reason: Sleep Stop: 04/27/21 20:08 Last Admin: 04/02/21 01:54 Dose: 3 mg Documented by: Metoprolol Succinate (Metoprolol Succ 25mg Ext Rel Tab) 25 mg PO QPM [facility] Stop: 04/17/21 20:59 Last Admin: 04/02/21 21:05 Dose: 25 mg Documented by: Metoprolol Succinate (Metoprolol Succ 25mg Ext Rel Tab) 25 mg PO QAM [facility] Stop: 05/04/21 08:59 Miscellaneous Information (Vancomycin Consult Active) 1 ea N/A UD PRN PRN Reason: Consult Stop: 04/29/21 11:06 Morphine Sulfate (Morphine Sulfate 2 Mg/Ml Carp) 2 mg IV Q30M PRN PRN Reason: Chest Pain Stop: 04/06/21 20:52 Multivitamins/Minerals (Cerovite Adv Formula Tab) 1 tab PO QAM [facility] Stop: 04/19/21 11:59 Last Admin: 04/03/21 08:05 Dose: 1 tab Documented by: Naloxone HCl (Naloxone Hcl 0.4 Mg/1 Ml Vial/Carp) 0.1 mg IV Q5M PRN PRN Reason: Oversedation/Resp Depression Stop: 04/23/21 11:36 Nitroglycerin (Nitroglycerin Sl 0.4 Mg/Tab Tab) 0.4 mg SL UD PRN PRN Reason: Chest Pain Stop: 04/22/21 20:52 Ondansetron HCl (Ondansetron Inj 2 Mg/Ml 2 Ml Vial) 4 mg IV Q6H PRN PRN Reason: Nausea Stop: 04/17/21 20:21 Oxycodone HCl (Oxycodone Hcl Ir 5 Mg Tab (Immediate Release)) 5 - 10 mg PO Q4H PRN PRN Reason: Pain or Pre PT Stop: 04/07/21 11:36 Polyethylene Glycol (Polyethylene (Miralax) 17 Gm Pack) 17 gm PO DAILY PRN PRN Reason: Constipation Stop: 04/17/21 20:21 Potassium Citrate (Potassium Citrate 10 Meq Tab) 10 meq PO DAILY [facility] Stop: 04/18/21 08:59 Last Admin: 04/03/21 08:05 Dose: 10 meq Documented by: Tamsulosin HCl (Tamsulosin Hcl 0.4 Mg Cap) 0.4 mg PO QAM [facility] Stop: 04/18/21 08:59 Last Admin: 04/03/21 08:06 Dose: 0.4 mg Documented by: Thiamine HCl (Thiamine Hcl 100 Mg Tab) 200 mg PO BID [facility] Stop: 04/19/21 20:59 Last Admin: 04/03/21 08:07 Dose: 200 mg Documented by: Umeclidinium [place] (Umeclidinium [place] 62.5mcg/Blister 7 Puffs/Inhaler) 1 puffs INH [facility] [place] Stop: 04/18/21 08:59 Last Admin: 04/03/21 08:04 Dose: 1 puffs Documented by: Zinc Sulfate (Zinc Sulfate 220 Mg Capsule) 220 mg PO [facility] [place] Stop: 04/20/21 08:59 Last Admin: 04/03/21 08:05 Dose: 220 mg Documented by:
[2021-04-03] MEDS: ERTAPENEM SODIUM 1,000 MG in SODIUM CHLORIDE 0.9% 50 ML IV SCH (13:22)
[2021-04-03] MEDS ORDERED: METOPROLOL TARTRATE 1 MG/ML VIAL IV ONE (16:22)
[2021-04-03] MEDS ORDERED: METOPROLOL TARTRATE 1 MG/ML VIAL IV STA (16:22)
--- NOTE | 2021-04-03 21:57 | Pharmacy Report ---
Pharmacy Abx Dose Short Note - Date of Service April 03, 2021 - Assessment & Plan Assessment Laboratory Tests 04/03/21 20:46 Vancomycin Trough 19.8 Plan Vancomycin * Trough level is SUPRAtherapeutic. * Slightly decrease maintenance dose to 1500mg (14mg/kg) IV every 12 hours * Goal trough level 15-20 mcg/mL * Will recheck vanc trough at [facility]. Pharmacy will continue to follow and will adjust dose/frequency as necessary. Thank you.
[2021-04-04] MEDS: VANCOMYCIN HCL 1,500 MG in SODIUM CHLORIDE 0.9% 500 ML IV SCH ×3 (02:38→20:21)
[2021-04-04 07:42] LABS: BUN Creatinine Ratio 11.1 (10-20); Creatinine Clr Calc Pharmacy 121.4 ml/min; Est GFR (African American) 109.2 ml/min; Est GFR (Non-African American) 94.2 ml/min; Magnesium 1.6 mg/dl (1.8-2.4); Potassium 3.9 mmol/L (3.5-5.1)
--- NOTE | 2021-04-04 07:46 | Hospitalist Progress Note ---
Date of Service April 04, 2021 Assessment & Plan (1) Open leg wound: Plan: Right infected Achilles tendon rupture and posterior right lower extremity abscess Both plastic surgery & ortho advised BKA - declined by patient S/P 03/24 Incision and Drainage of abscess right posterior leg, Irrigation and debridement of infected right Achilles tendon rupture, irrigation debridement of skin,Subcutaneous Tissue, fascia, muscle and tendon of Right posterior lower leg; Saucerization of Right posterior lower leg wound, debridement diabetic ulcer [id number](Right) - Cl Cormier, DO Nonweightbearing on the right lower extremity. Okay to put toes down for balance. Per ID consult IV vancomycin and ertapenem - recommend 6 weeks of treatment. Continue vit C and zinc to promote wound healing. (2) SVT (supraventricular tachycardia): Plan: Main current issue. Very symptomatic. Appreciate cardiology management. Increased metoprolol - however still having episodes. Carotid massage unsuccessful. . Required adenosine Would recommend patient has EP study given repeated very symptomatic episodes. Blood cultures have always been negative. Discussed with Dr Schumacher/ [facility] plan for possible ablative therapy on April 06 (3) Peripheral arterial disease: Plan: Post angioplasty of severe thigh/popliteal stenosis. Post procedure appears to have improved recommend follow-up to wound bed. Loaded with clopidogrel 300 mg post procedure Continue DAPT with aspirin/clopidogrel for 1 month (started back on clopidogrel) Repeat noninvasive vascular testing in 2 weeks.mid march (4) Polyneuropathy: Plan: Continue home Gabapentin 600 mg BID. 2nd to chronic etoh abuse? (5) ETOH abuse: Plan: Cont thiamine, folic acid, MVI. Suspect cause of his peripheral neuropathy No signs/symptoms of etoh withdrawal at this time. (6) Hypertension: Plan: Controlled on metoprolol succinate 25 mg twice daily (7) COPD (chronic obstructive pulmonary disease): Plan: continue home inhalers. no exacerbation at this time. (8) Dyslipidemia: Plan: Continue atorvastatin 40mg PO daily (9) BPH associated with nocturia: Plan: Continue home Flomax and finasteride. no LUTS at this time (10) Anemia: Plan: Stable (11) T2DM (type 2 diabetes mellitus): Plan: a1c 6.6% - this is c/w early T2DM change diet to DM diet and check BSGs in am to trend BSG WNL therefore discontinued Start metformin 500mg PO daily on discharge Plan: VTE Prophylaxis - Lovenox 40mg SQ daily Disposition -only patient placement for infection treatment and addressing his wounds Admission and Anticipated Discharge Date Admission Date: March 18, 2021 Subjective Patient awaiting ablation for his SVT reportedly is scheduled for April 06. His foot is bandaged and will inspected once it is undressed to determine if it is improving with treatment for his vascularly compromised foot infection. 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 Physical Exam Physical Exam: The patient appeared well nourished and normally developed. Vital signs as documented. Head exam is normocephalic atraumatic Neck is without JVD, thyromegaly, or carotid bruits. Lungs are clear to auscultation, no focal loss of breath sounds Cardiac exam, Rhythm is regular has had no arrhythmia this last 12 hours on the monitor.. No murmurs, rubs or gallops. Abdominal exam reveals normal bowel sounds, soft non tender, no masses Extremities manageable according with the nurses to undress his wounds and have a more significant inspection. Neurologic exam is alert and oriented, no focal loss of strength or sensation Skin is without bruises or rashes Psychologically is without concerns for anxiety or depression Results & Data Results & Data ([facility]) Vital Signs (Past 12 Hours) Vital Signs Temp Pulse Resp BP Pulse Ox 04/04/21 07:23 97.7 F 65 19 146/71 H 93 04/04/21 03:25 98.1 F 63 18 148/74 H 95 04/03/21 23:08 97.7 F 67 18 135/63 95 PG Care Time/CCT Total # of Minutes Spent Total Time Spent with Patient: Total time spent is greater than 50% in coordination of care (as documented) at patient's floor/unit and/or counseling patient: Coding Level of Care Code 04456 Subseq Hosp Care Lvl 3 Diagnoses Open leg wound S81.809A SVT (supraventricular tachycardia) I47.1 Peripheral arterial disease I73.9 Polyneuropathy G62.9 ETOH abuse F10.10 Hypertension I10 Hypertension type: unspecified COPD (chronic obstructive pulmonary disease) J44.9 Dyslipidemia E78.5 BPH associated with nocturia N40.1; R35.1 Anemia D64.9 T2DM (type 2 diabetes mellitus) E11.9 (1) Hypertension Hypertension type: unspecified Qualified Code(s): I10 - Essential (primary) hypertension
[2021-04-04] MEDS: MAGNESIUM SULFATE / D5W 1 GM/100 ML BAG IV SCH ×2 (09:18→11:24)
[2021-04-04] MEDS: THIAMINE HCL 100 MG TAB PO SCH ×2 (09:22→20:20)
[2021-04-04] MEDS: ZINC SULFATE 220 MG CAPSULE PO SCH (09:22)
[2021-04-04] MEDS: POTASSIUM CITRATE 10 MEQ TAB PO SCH (09:23)
[2021-04-04] MEDS: TAMSULOSIN HCL 0.4 MG CAP PO SCH (09:23)
[2021-04-04] MEDS: CEROVITE ADV FORMULA TAB PO SCH (09:23)
[2021-04-04] MEDS: MAGNESIUM OXIDE 400 MG TAB PO SCH ×2 (09:23→20:20)
[2021-04-04] MEDS: METOPROLOL SUCC 25MG EXT REL TAB PO SCH ×2 (09:23→20:21)
[2021-04-04] MEDS: ASCORBIC ACID 500 MG TAB PO SCH (09:24)
[2021-04-04] MEDS: CLOPIDOGREL BISULFATE 75 MG TAB PO SCH (09:24)
[2021-04-04] MEDS: ATORVASTATIN 40 MG TAB PO SCH (09:24)
[2021-04-04] MEDS: GABAPENTIN 600 MG TAB PO SCH ×2 (09:24→20:20)
[2021-04-04] MEDS: ENOXAPARIN INJ 40 MG/0.4 ML SYR SQ SCH (09:24)
[2021-04-04] MEDS: FOLIC ACID 1 MG TAB PO SCH (09:24)
[2021-04-04] MEDS: ADVANCED PROBIOTIC 1250 MG CAPSULE PO SCH (09:24)
[2021-04-04] MEDS: FINASTERIDE 5 MG TAB PO SCH (09:24)
[2021-04-04] MEDS: allopurinoL 100 MG TAB PO SCH (09:24)
[2021-04-04] MEDS: ASPIRIN 81 MG ECTAB PO SCH (09:24)
[2021-04-04] MEDS: FLUTICASONE/VILANTEROL 100/25MCG 14 PUFFS/INHALER INH SCH (09:25)
[2021-04-04] MEDS: UMECLIDINIUM BROMIDE 62.5MCG/BLISTER 7 PUFFS/INHALER INH SCH (09:25)
--- NOTE | 2021-04-04 09:37 | Cardiology Progress Note ---
Date of Service April 04, 2021 Assessment & Plan (1) SVT (supraventricular tachycardia): Plan: I spoke with Dr. Gallegos this morning. At present we will continue current treatment. The plan as of today is to continue with the ablation on Sunday. (2) Peripheral arterial disease: Plan: s/p peripheral intervention continue ASA (3) ETOH abuse: Plan: encourage cessation (4) HTN, goal to be determined: Plan: controlled; no change in medications (5) Dyslipidemia: Plan: continue statin (6) 1st degree AV block: (7) Sinus bradycardia: Admission and Anticipated Discharge Date Admission Date: March 18, 2021 Subjective The patient has no complaints this morning although once again last evening he had about 2 hours of SVT and did receive a second dose of adenosine. Review of Systems Review of Systems: Review of Systems: See HPI for pertinent positives. All other 10 point review of systems are negative. Physical Exam Physical Exam: General: no acute distress and stated age Head: normocephalic, no masses, lesions, tenderness or abnormalities Eyes: conjunctiva are pink and non-injected, sclera clear Neck: supple, no adenopathy, no bruits, normal jugular venous pulse, no hepatojugular reflux Chest: normal shape and normal respiratory effort Lungs: clear to auscultation and percussion Cardiac Exam: - regular rate & rhythm, no murmurs gallops or rubs - normal S1, normal S2 Pulses: 2(+) throughout Abdomen: abdomen soft, non-tender, no abnormal masses and no hepatosplenomegaly Musculoskeletal: no gait disturbance, no joint inflammation, no deforming arthritis Extremities: Right foot and ankle bandaged. Neuro: grossly normal exam Results & Data ([facility]) Vital Signs (Past 12 Hours) Vital Signs Temp Pulse Pulse Resp BP Pulse Ox 04/04/21 07:23 36.5 C 65 19 146/71 H 93 04/04/21 07:09 58 L 04/04/21 03:25 36.7 C 63 18 148/74 H 95 04/03/21 23:08 36.5 C 67 18 135/63 95 Laboratory Results Laboratory Results - last 24 hr 04/03/21 04/04/21 20:46 06:33 Sodium 140 Potassium 3.9 Chloride 109 H Carbon Dioxide 28 Anion Gap 4.0 BUN 8 Creatinine 0.69 Est Cr Clr Drug Dosing 121.4 Est GFR ( Amer) 109.2 Est GFR (Non-Af Amer) 94.2 BUN/Creatinine Ratio 11.1 Glucose 87 Calcium 9.0 Magnesium 1.6 L Vancomycin Trough 19.8 Medications Administered Current Inpatient Medications Acetaminophen (Acetaminophen 325 Mg Tab) 650 mg PO Q4H PRN PRN Reason: pain/fever Stop: 04/17/21 20:21 Albuterol (Albuterol Hfa 8 Gm Inhaler) 2 puffs INH QID PRN PRN Reason: SHORT OF BREATH Stop: 04/17/21 20:21 Allopurinol (Allopurinol 100 Mg Tab) 200 mg PO DAILY [facility] Stop: 04/18/21 08:59 Last Admin: 04/04/21 09:24 Dose: 200 mg Documented by: Ascorbic Acid (Ascorbic Acid 500 Mg Tab) 500 mg PO QAM [facility] Stop: 04/20/21 08:59 Last Admin: 04/04/21 09:24 Dose: 500 mg Documented by: Aspirin (Aspirin 81 Mg Ectab) 81 mg PO [facility] Stop: 04/18/21 08:59 Last Admin: 04/04/21 09:24 Dose: 81 mg Documented by: Atorvastatin Calcium (Atorvastatin 40 Mg Tab) [facility] Stop: 04/18/21 08:59 Last Admin: 04/04/21 09:24 Dose: 40 mg Documented by: Bisacodyl (Bisacodyl 10 Mg Supp) 10 mg [place] DAILY PRN PRN Reason: Constipation Stop: 04/23/21 11:36 Clopidogrel Bisulfate (Clopidogrel Bisulfate 75 Mg Tab) [facility] [place] [place] Stop: 04/27/21 08:59 Last Admin: 04/04/21 09:24 Dose: 75 mg Documented by: Diclofenac Sodium (Diclofenac Sod 1% Gel 100 Gm Tube) 4 gm EXT QID PRN PRN Reason: Pain Stop: 04/17/21 20:21 Docusate Sodium (Docusate Sodium 100 Mg Cap) 100 mg PO BID [facility] Stop: 04/23/21 11:36 Last Admin: 04/03/21 20:36 Dose: Not Given Documented by: Enoxaparin Sodium (Enoxaparin Inj 40 Mg/0.4 Ml Syr) 40 mg SQ QAM [facility] Stop: 04/28/21 08:59 Last Admin: 04/04/21 09:24 Dose: 40 mg Documented by: Finasteride (Finasteride 5 Mg Tab) 5 mg PO DAILY [facility] Stop: 04/18/21 08:59 Last Admin: 04/04/21 09:24 Dose: 5 mg Documented by: Fluticasone/Vilanterol (Fluticasone/Vilanterol 100/25mcg 14 Puffs/Inhaler) 1 puffs INH DAILY [facility] Stop: 04/18/21 08:59 Last Admin: 04/04/21 09:25 Dose: 1 puffs Documented by: Folic Acid (Folic Acid 1 Mg Tab) 1 mg PO QAM [facility] Stop: 04/17/21 20:21 Last Admin: 04/04/21 09:24 Dose: 1 mg Documented by: Gabapentin (Gabapentin 600 Mg Tab) 600 mg PO BID [facility] Stop: 04/17/21 20:59 Last Admin: 04/04/21 09:24 Dose: 600 mg Documented by: Heparin Sodium (Beef Lung) (Heparin 10 Unit/Ml 5 Ml Flush) 5 ml FLUSH PRN PRN PRN Reason: Flush Stop: 05/01/21 00:16 Last Admin: 04/03/21 01:51 Dose: 5 ml Documented by: Hydromorphone HCl (Hydromorphone Inj 0.5 Mg/0.5 Ml Syr) 0.5 mg IV Q4H PRN PRN Reason: Pain or Pre PT Stop: 04/07/21 11:36 Ertapenem 1,000 mg/ Sodium (Chloride) 60 mls @ 100 mls/hr IV Q24H [facility] Stop: 05/11/21 11:59 Last Infusion: 04/03/21 14:44 Dose: Infused Documented by: Vancomycin HCl 1,500 mg/ (Sodium Chloride) 530 mls @ 200 mls/hr IV Q12 [facility] Stop: 05/15/21 21:59 Last Admin: 04/04/21 02:38 Dose: Not Given Documented by: Magnesium Sulfate/Dextrose (Magnesium Sulfate / D5w) 1 gm in 100 mls @ 50 mls/hr IV Q2H [facility] Stop: 04/04/21 11:59 Last Admin: 04/04/21 09:18 Dose: 50 mls/hr Documented by: Lactobacillus Acidoph/Casei/Rhamnos (Advanced Probiotic 1250 Mg Capsule) 2 cap PO DAILY [facility] Stop: 05/01/21 08:59 Last Admin: 04/04/21 09:24 Dose: 2 cap Documented by: Lorazepam (Lorazepam 1 Mg Tab) 1 mg PO ONE PRN; Protocol PRN Reason: EtoH Withdrawal AWSS 6-10 Magnesium Hydroxide (Magnesium Hydroxide Susp 30 Ml Udc) 30 ml PO Q6H PRN PRN Reason: Constipation Stop: 04/23/21 11:36 Magnesium Oxide (Magnesium Oxide 400 Mg Tab) 400 mg PO BID [facility] Stop: 04/28/21 20:59 Last Admin: 04/04/21 09:23 Dose: 400 mg Documented by: Melatonin (Melatonin 3 Mg Tab) 3 mg PO HS PRN PRN Reason: Sleep Stop: 04/27/21 20:08 Last Admin: 04/02/21 01:54 Dose: 3 mg Documented by: Metoprolol Succinate (Metoprolol Succ 25mg Ext Rel Tab) 25 mg PO QPM [facility] Stop: 04/17/21 20:59 Last Admin: 04/03/21 20:35 Dose: 25 mg Documented by: Metoprolol Succinate (Metoprolol Succ 25mg Ext Rel Tab) 25 mg PO QAM [facility] Stop: 05/04/21 08:59 Last Admin: 04/04/21 09:23 Dose: 25 mg Documented by: Miscellaneous Information (Vancomycin Consult Active) 1 ea N/A UD PRN PRN Reason: Consult Stop: 04/29/21 11:06 Morphine Sulfate (Morphine Sulfate 2 Mg/Ml Carp) 2 mg IV Q30M PRN PRN Reason: Chest Pain Stop: 04/06/21 20:52 Multivitamins/Minerals (Cerovite Adv Formula Tab) 1 tab PO QAM [facility] Stop: 04/19/21 11:59 Last Admin: 04/04/21 09:23 Dose: 1 tab Documented by: Naloxone HCl (Naloxone Hcl 0.4 Mg/1 Ml Vial/Carp) 0.1 mg IV Q5M PRN PRN Reason: Oversedation/Resp Depression Stop: 04/23/21 11:36 Nitroglycerin (Nitroglycerin Sl 0.4 Mg/Tab Tab) 0.4 mg SL UD PRN PRN Reason: Chest Pain Stop: 04/22/21 20:52 Ondansetron HCl (Ondansetron Inj 2 Mg/Ml 2 Ml Vial) 4 mg IV Q6H PRN PRN Reason: Nausea Stop: 04/17/21 20:21 Oxycodone HCl (Oxycodone Hcl Ir 5 Mg Tab (Immediate Release)) 5 - 10 mg PO Q4H PRN PRN Reason: Pain or Pre PT Stop: 04/07/21 11:36 Polyethylene Glycol (Polyethylene (Miralax) 17 Gm Pack) 17 gm PO DAILY PRN PRN Reason: Constipation Stop: 04/17/21 20:21 Potassium Citrate (Potassium Citrate 10 Meq Tab) 10 meq PO DAILY [facility] Stop: 04/18/21 08:59 Last Admin: 04/04/21 09:23 Dose: 10 meq Documented by: Tamsulosin HCl (Tamsulosin Hcl 0.4 Mg Cap) 0.4 mg PO QAM [facility] Stop: 04/18/21 08:59 Last Admin: 04/04/21 09:23 Dose: 0.4 mg Documented by: Thiamine HCl (Thiamine Hcl 100 Mg Tab) 200 mg PO BID [facility] Stop: 04/19/21 20:59 Last Admin: 04/04/21 09:22 Dose: 200 mg Documented by: Umeclidinium [place] (Umeclidinium [place] 62.5mcg/Blister 7 Puffs/Inhaler) 1 puffs INH QAM [facility] Stop: 04/18/21 08:59 Last Admin: 04/04/21 09:25 Dose: 1 puffs Documented by: Zinc Sulfate (Zinc Sulfate 220 Mg Capsule) 220 mg PO QAM [facility] Stop: 04/20/21 08:59 Last Admin: 04/04/21 09:22 Dose: 220 mg Documented by:
[2021-04-04] MEDS: DOCUSATE SODIUM 100 MG CAP PO SCH ×2 (10:15→20:21)
[2021-04-04] MEDS: ERTAPENEM SODIUM 1,000 MG in SODIUM CHLORIDE 0.9% 50 ML IV SCH (12:51)
--- NOTE | 2021-04-04 18:17 | Electrocardiogram Report ---
Test Reason : Blood Pressure : / mmHG Vent. Rate : 141 BPM Atrial Rate : 187 BPM P-R Int : 000 ms QRS Dur : 086 ms QT Int : 312 ms P-R-T Axes : 000 014 090 degrees QTc Int : 477 ms Supraventricular tachycardia Nonspecific ST abnormality Abnormal ECG When compared with ECG of 31-MAR-2021 16:40, [place] interval has decreased Vent. rate has increased BY [address] now depressed in Inferior leads ST now depressed in Lateral leads Confirmed by Tomas Lopez ([id number]) on 04/04/2021 6:16:58 PM Referred By: REFERRED SELF Confirmed By:Julien Lopez
[2021-04-04] MEDS: MELATONIN 3 MG TAB PO PRN (23:06)
[2021-04-05 07:03] LABS: Creatinine Clr Calc Pharmacy 128.2 ml/min; Est GFR (African American) 111.9 ml/min; Est GFR (Non-African American) 96.5 ml/min
--- NOTE | 2021-04-05 08:04 | Hospitalist Progress Note ---
Date of Service April 05, 2021 Assessment & Plan (1) Open leg wound: Plan: Right infected Achilles tendon rupture and posterior right lower extremity abscess Both plastic surgery & ortho advised BKA - declined by patient S/P 03/24 Incision and Drainage of abscess right posterior leg, Irrigation and debridement of infected right Achilles tendon rupture, irrigation debridement of skin,Subcutaneous Tissue, fascia, muscle and tendon of Right posterior lower leg; Saucerization of Right posterior lower leg wound, debridement diabetic ulcer [id number](Right) - Cl Cormier, DO Nonweightbearing on the right lower extremity. Okay to put toes down for balance. Per ID consult IV vancomycin and ertapenem - recommend 6 weeks of treatment. ld 04/29 Continue vit C and zinc to promote wound healing. (2) SVT (supraventricular tachycardia): Plan: Main current issue. Very symptomatic when it does occur. Appreciate cardiology management. Increased metoprolol - however still having episodes. Discussed with Dr Schumacher/ [facility] plan for possible ablative therapy on April 06 (3) Peripheral arterial disease: Plan: Post angioplasty of severe thigh/popliteal stenosis. Post procedure appears to have improved recommend follow-up to wound bed. Loaded with clopidogrel 300 mg post procedure Continue DAPT with aspirin/clopidogrel for 1 month (started back on clopidogrel) Repeat noninvasive vascular testing in 2 weeks.->mid march (4) Polyneuropathy: Plan: Continue home Gabapentin 600 mg BID. 2nd to chronic etoh abuse? (5) ETOH abuse: Plan: Cont thiamine, folic acid, MVI. Suspect cause of his peripheral neuropathy No signs/symptoms of etoh withdrawal at this time. (6) Hypertension: Plan: Controlled on metoprolol succinate 25 mg twice daily (7) COPD (chronic obstructive pulmonary disease): Plan: continue home inhalers. Stable, no exacerbation at this time. (8) Dyslipidemia: Plan: Continues on atorvastatin 40mg PO daily (9) BPH associated with nocturia: Plan: Continue home Flomax and finasteride. Remains without LUTS at this time (10) Anemia: Plan: Remains stable (11) T2DM (type 2 diabetes mellitus): Plan: a1c 6.6% - this is c/w early T2DM change diet to DM diet and check BSGs in am to trend BSG WNL therefore discontinued Start metformin 500mg PO daily on discharge Plan: VTE Prophylaxis - Lovenox 40mg SQ daily Disposition -only patient placement for infection treatment and addressing his wounds Admission and Anticipated Discharge Date Admission Date: March 18, 2021 Subjective Patient is no complaints or problems he had asymptomatic 4-second pause in the afternoon but he did not notice this. He is scheduled for ablation on April 06 Review of Systems Review of Systems: Mild distress and fatigue no headache, no visual changes no speech or swallowing issues no chest pain, pressure or palpitations no shortness of breath, cough or wheezes no abdominal pain, nausea or vomiting, diarrhea or constipation no dysuria, hematuria or frequency Patient has discoloration and bilateral neuropathy to his feet no back pain, CVA tenderness or radicular pain Patient is cellulitis of his right foot no focal signs of weakness or numbness or altered sensation no complaints of anxiety or depression.. Physical Exam Physical Exam: The patient appeared well nourished and normally developed. Vital signs as documented. Head exam is normocephalic atraumatic Neck is without JVD, thyromegaly, or carotid bruits. Lungs are clear to auscultation, no focal loss of breath sounds Cardiac exam, Rhythm is regular has had no arrhythmia this last 12 hours on the monitor.. No murmurs, rubs or gallops. Abdominal exam reveals normal bowel sounds, soft non tender, no masses Extremities right lower extremity wound is inspected it appears to be clean and dry there is very little serosanguineous drainage there is are agata and sutures in place holding material over the wound itself likely this will need to be revised in the office with consideration of a skin flap to be needed in the future Neurologic exam is alert and oriented, no focal loss of strength does have peripheral neuropathy Skin is witho a defect of the posterior right Achilles area Psychologically is without concerns for anxiety or depression Results & Data Results & Data ([facility]) Vital Signs (Past 12 Hours) Vital Signs Temp Pulse Pulse Resp BP Pulse Ox 04/05/21 07:47 98.1 F 62 16 126/64 92 04/05/21 07:00 54 L 04/05/21 03:28 97.7 F 67 18 138/43 L 93 04/05/21 01:07 58 L 04/04/21 23:28 97.7 F 56 L 18 135/65 95 PG Care Time/CCT Total # of Minutes Spent Total Time Spent with Patient: Total time spent is greater than 50% in coordination of care (as documented) at patient's floor/unit and/or counseling patient: Coding Level of Care Code 20308 Subseq Hosp Care Lvl 3 Diagnoses Open leg wound S81.809A SVT (supraventricular tachycardia) I47.1 Peripheral arterial disease I73.9 Polyneuropathy G62.9 ETOH abuse F10.10 Hypertension I10 Hypertension type: unspecified COPD (chronic obstructive pulmonary disease) J44.9 Dyslipidemia E78.5 BPH associated with nocturia N40.1; R35.1 Anemia D64.9 T2DM (type 2 diabetes mellitus) E11.9 (1) Hypertension Hypertension type: unspecified Qualified Code(s): I10 - Essential (primary) hypertension
[2021-04-05] MEDS: UMECLIDINIUM BROMIDE 62.5MCG/BLISTER 7 PUFFS/INHALER INH SCH (09:19)
[2021-04-05] MEDS: CEROVITE ADV FORMULA TAB PO SCH (09:21)
[2021-04-05] MEDS: METOPROLOL SUCC 25MG EXT REL TAB PO SCH ×2 (09:21→20:43)
[2021-04-05] MEDS: TAMSULOSIN HCL 0.4 MG CAP PO SCH (09:21)
[2021-04-05] MEDS: POTASSIUM CITRATE 10 MEQ TAB PO SCH (09:21)
[2021-04-05] MEDS: THIAMINE HCL 100 MG TAB PO SCH ×2 (09:21→20:43)
[2021-04-05] MEDS: ATORVASTATIN 40 MG TAB PO SCH (09:22)
[2021-04-05] MEDS: ASCORBIC ACID 500 MG TAB PO SCH (09:22)
[2021-04-05] MEDS: allopurinoL 100 MG TAB PO SCH (09:22)
[2021-04-05] MEDS: FINASTERIDE 5 MG TAB PO SCH (09:22)
[2021-04-05] MEDS: ASPIRIN 81 MG ECTAB PO SCH (09:22)
[2021-04-05] MEDS: ADVANCED PROBIOTIC 1250 MG CAPSULE PO SCH (09:22)
[2021-04-05] MEDS: FOLIC ACID 1 MG TAB PO SCH (09:22)
[2021-04-05] MEDS: CLOPIDOGREL BISULFATE 75 MG TAB PO SCH (09:22)
[2021-04-05] MEDS: GABAPENTIN 600 MG TAB PO SCH ×2 (09:22→20:43)
[2021-04-05] MEDS: FLUTICASONE/VILANTEROL 100/25MCG 14 PUFFS/INHALER INH SCH (09:23)
[2021-04-05] MEDS: DOCUSATE SODIUM 100 MG CAP PO SCH ×2 (09:23→20:44)
[2021-04-05] MEDS: ENOXAPARIN INJ 40 MG/0.4 ML SYR SQ SCH (09:24)
[2021-04-05] MEDS: VANCOMYCIN HCL 1,500 MG in SODIUM CHLORIDE 0.9% 500 ML IV SCH ×2 (09:24→21:13)
[2021-04-05] MEDS: ZINC SULFATE 220 MG CAPSULE PO SCH (09:28)
[2021-04-05] MEDS ORDERED: VANCOMYCIN TROUGH ONE (09:30)
--- NOTE | 2021-04-05 09:36 | Cardiology Progress Note ---
Date of Service April 05, 2021 Assessment & Plan (1) SVT (supraventricular tachycardia): (2) Peripheral arterial disease: Plan: s/p peripheral intervention continue ASA (3) 1st degree AV block: (4) Sinus bradycardia: Plan: The patient is scheduled for ablation tomorrow. I have made him n.p.o. after midnight. Otherwise continue current treatment. Admission and Anticipated Discharge Date Admission Date: March 18, 2021 Subjective No additional SVT through the night. Patient has no complaints today. Review of Systems Review of Systems: Review of Systems: See HPI for pertinent positives. All other 10 point review of systems are negative. Physical Exam Physical Exam: General: no acute distress and stated age Head: normocephalic, no masses, lesions, tenderness or abnormalities Eyes: conjunctiva are pink and non-injected, sclera clear Neck: supple, no adenopathy, no bruits, normal jugular venous pulse, no hepatojugular reflux Chest: normal shape and normal respiratory effort Lungs: clear to auscultation and percussion Cardiac Exam: - regular rate & rhythm, no murmurs gallops or rubs - normal S1, normal S2 Pulses: 2(+) throughout Abdomen: abdomen soft, non-tender, no abnormal masses and no hepatosplenomegaly Musculoskeletal: no gait disturbance, no joint inflammation, no deforming arthritis Extremities: no edema and no cyanosis Neuro: grossly normal exam Results & Data ([facility]) Vital Signs (Past 12 Hours) Vital Signs Temp Pulse Pulse Resp BP Pulse Ox 04/05/21 07:47 36.7 C 62 16 126/64 92 04/05/21 07:00 54 L 04/05/21 03:28 36.5 C 67 18 138/43 L 93 04/05/21 01:07 58 L 04/04/21 23:28 36.5 C 56 L 18 135/65 95 Laboratory Results Laboratory Results - last 24 hr 04/05/21 05:55 Creatinine 0.65 Est Cr Clr Drug Dosing 128.2 Est GFR ( Amer) 111.9 Est GFR (Non-Af Amer) 96.5 Medications Administered Current Inpatient Medications Acetaminophen (Acetaminophen 325 Mg Tab) 650 mg PO Q4H PRN PRN Reason: pain/fever Stop: 04/17/21 20:21 Albuterol (Albuterol Hfa 8 Gm Inhaler) 2 puffs INH QID PRN PRN Reason: SHORT OF BREATH Stop: 04/17/21 20:21 Allopurinol (Allopurinol 100 Mg Tab) 200 mg PO DAILY [facility] Stop: 04/18/21 08:59 Last Admin: 04/05/21 09:22 Dose: 200 mg Documented by: Ascorbic Acid (Ascorbic Acid 500 Mg Tab) 500 mg PO QAM [facility] Stop: 04/20/21 08:59 Last Admin: 04/05/21 09:22 Dose: 500 mg Documented by: Aspirin (Aspirin 81 Mg Ectab) 81 mg PO QAM [facility] Stop: 04/18/21 08:59 Last Admin: 04/05/21 09:22 Dose: 81 mg Documented by: Atorvastatin Calcium (Atorvastatin 40 Mg Tab) 40 mg PO QAM [facility] Stop: 04/18/21 08:59 Last Admin: 04/05/21 09:22 Dose: 40 mg Documented by: Bisacodyl (Bisacodyl 10 Mg Supp) 10 mg [place] DAILY PRN PRN Reason: Constipation Stop: 04/23/21 11:36 Clopidogrel Bisulfate (Clopidogrel Bisulfate 75 Mg Tab) [facility] Stop: 04/27/21 08:59 Last Admin: 04/05/21 09:22 Dose: 75 mg Documented by: Diclofenac Sodium (Diclofenac Sod 1% Gel 100 Gm Tube) 4 gm EXT QID PRN PRN Reason: Pain Stop: 04/17/21 20:21 Docusate Sodium (Docusate Sodium 100 Mg Cap) 100 mg PO BID [facility] Stop: 04/23/21 11:36 Last Admin: 04/05/21 09:23 Dose: Not Given Documented by: Enoxaparin Sodium (Enoxaparin Inj 40 Mg/0.4 Ml Syr) 40 mg SQ QAM [facility] Stop: 04/28/21 08:59 Last Admin: 04/05/21 09:24 Dose: 40 mg Documented by: Finasteride (Finasteride 5 Mg Tab) 5 mg PO DAILY [facility] Stop: 04/18/21 08:59 Last Admin: 04/05/21 09:22 Dose: 5 mg Documented by: Fluticasone/Vilanterol (Fluticasone/Vilanterol 100/25mcg 14 Puffs/Inhaler) 1 puffs INH DAILY [facility] Stop: 04/18/21 08:59 Last Admin: 04/05/21 09:23 Dose: 1 puffs Documented by: Folic Acid (Folic Acid 1 Mg Tab) 1 mg PO QAM [facility] Stop: 04/17/21 20:21 Last Admin: 04/05/21 09:22 Dose: 1 mg Documented by: Gabapentin (Gabapentin 600 Mg Tab) 600 mg PO BID [facility] Stop: 04/17/21 20:59 Last Admin: 04/05/21 09:22 Dose: 600 mg Documented by: Heparin Sodium (Beef Lung) (Heparin 10 Unit/Ml 5 Ml Flush) 5 ml FLUSH PRN PRN PRN Reason: Flush Stop: 05/01/21 00:16 Last Admin: 04/03/21 01:51 Dose: 5 ml Documented by: Hydromorphone HCl (Hydromorphone Inj 0.5 Mg/0.5 Ml Syr) 0.5 mg IV Q4H PRN PRN Reason: Pain or Pre PT Stop: 04/07/21 11:36 Ertapenem 1,000 mg/ Sodium (Chloride) 60 mls @ 100 mls/hr IV Q24H [facility] Stop: 05/11/21 11:59 Last Infusion: 04/04/21 13:28 Dose: Infused Documented by: Vancomycin HCl 1,500 mg/ (Sodium Chloride) 530 mls @ 200 mls/hr IV Q12 [facility] Stop: 05/15/21 21:59 Last Admin: 04/05/21 09:24 Dose: 200 mls/hr Documented by: Lactobacillus Acidoph/Casei/Rhamnos (Advanced Probiotic 1250 Mg Capsule) 2 cap PO DAILY [facility] Stop: 05/01/21 08:59 Last Admin: 04/05/21 09:22 Dose: 2 cap Documented by: Lorazepam (Lorazepam 1 Mg Tab) 1 mg PO ONE PRN; Protocol PRN Reason: EtoH Withdrawal AWSS 6-10 Magnesium Hydroxide (Magnesium Hydroxide Susp 30 Ml Udc) 30 ml PO Q6H PRN PRN Reason: Constipation Stop: 04/23/21 11:36 Magnesium Oxide (Magnesium Oxide 400 Mg Tab) 400 mg PO BID [facility] Stop: 04/28/21 20:59 Last Admin: 04/04/21 20:20 Dose: 400 mg Documented by: Melatonin (Melatonin 3 Mg Tab) 3 mg PO HS PRN PRN Reason: Sleep Stop: 04/27/21 20:08 Last Admin: 04/04/21 23:06 Dose: 3 mg Documented by: Metoprolol Succinate (Metoprolol Succ 25mg Ext Rel Tab) 25 mg PO QPM [facility] Stop: 04/17/21 20:59 Last Admin: 04/04/21 20:21 Dose: 25 mg Documented by: Metoprolol Succinate (Metoprolol Succ 25mg Ext Rel Tab) 25 mg PO QAM [facility] Stop: 05/04/21 08:59 Last Admin: 04/05/21 09:21 Dose: 25 mg Documented by: Miscellaneous Information (Vancomycin Consult Active) 1 ea N/A UD PRN PRN Reason: Consult Stop: 04/29/21 11:06 Morphine Sulfate (Morphine Sulfate 2 Mg/Ml Carp) 2 mg IV Q30M PRN PRN Reason: Chest Pain Stop: 04/06/21 20:52 Multivitamins/Minerals (Cerovite Adv Formula Tab) 1 tab PO QAM [facility] Stop: 04/19/21 11:59 Last Admin: 04/05/21 09:21 Dose: 1 tab Documented by: Naloxone HCl (Naloxone Hcl 0.4 Mg/1 Ml Vial/Carp) 0.1 mg IV Q5M PRN PRN Reason: Oversedation/Resp Depression Stop: 04/23/21 11:36 Nitroglycerin (Nitroglycerin Sl 0.4 Mg/Tab Tab) 0.4 mg SL UD PRN PRN Reason: Chest Pain Stop: 04/22/21 20:52 Ondansetron HCl (Ondansetron Inj 2 Mg/Ml 2 Ml Vial) 4 mg IV Q6H PRN PRN Reason: Nausea Stop: 04/17/21 20:21 Oxycodone HCl (Oxycodone Hcl Ir 5 Mg Tab (Immediate Release)) 5 - 10 mg PO Q4H PRN PRN Reason: Pain or Pre PT Stop: 04/07/21 11:36 Polyethylene Glycol (Polyethylene (Miralax) 17 Gm Pack) 17 gm PO DAILY PRN PRN Reason: Constipation Stop: 04/17/21 20:21 Potassium Citrate (Potassium Citrate 10 Meq Tab) 10 meq PO DAILY [facility] Stop: 04/18/21 08:59 Last Admin: 04/05/21 09:21 Dose: 10 meq Documented by: Tamsulosin HCl (Tamsulosin Hcl 0.4 Mg Cap) 0.4 mg PO QAM [facility] Stop: 04/18/21 08:59 Last Admin: 04/05/21 09:21 Dose: 0.4 mg Documented by: Thiamine HCl (Thiamine Hcl 100 Mg Tab) 200 mg PO BID [facility] Stop: 04/19/21 20:59 Last Admin: 04/05/21 09:21 Dose: 200 mg Documented by: Umeclidinium [place] (Umeclidinium [place] 62.5mcg/Blister 7 Puffs/Inhaler) 1 puffs INH QAM [facility] Stop: 04/18/21 08:59 Last Admin: 04/05/21 09:19 Dose: 1 puffs Documented by: Zinc Sulfate (Zinc Sulfate 220 Mg Capsule) 220 mg PO QAM [facility] Stop: 04/20/21 08:59 Last Admin: 04/05/21 09:28 Dose: 220 mg Documented by:
[2021-04-05 10:36] LABS: BUN Creatinine Ratio 13.4 (10-20); Calcium 8.6 mg/dl (8.5-10.1); Creatinine Clr Calc Pharmacy 109.7 ml/min; Est GFR (African American) 104.9 ml/min; Est GFR (Non-African American) 90.5 ml/min; Magnesium 2.2 mg/dl (1.8-2.4); Potassium 3.8 mmol/L (3.5-5.1)
--- NOTE | 2021-04-05 11:18 | Pharmacy Report ---
Pharmacy Vanc AUC Short Note - Date of Service April 05, 2021 - Assessment & Plan Assessment 75 year old M receiving vancomycin for treatment of leg abscess/tenosynovitis. Day # 7 of antimicrobial therapy. Plan Vancomycin * AUC/DOMINIQUE is the preferred PK/PD target for vancomycin * AUC guided dosing is effective and associated with decreased risk of nephrotoxicity compared to traditional trough targets * Trough level of 15.5 mcg/mL is predicted to achieve target AUC/DOMINIQUE of 400-600 mg/L.hr and may be associated with a 13 % risk of nephrotoxicity * Continue dose of 1500 mg IV every 12 hours * Trough or random level ordered for: 04/08/21 @0930-Consider an earlier level if clinically indicated Pharmacy will continue to follow and will adjust dose/frequency as necessary. Thank you.
[2021-04-05] MEDS: MAGNESIUM OXIDE 400 MG TAB PO SCH ×2 (11:22→20:43)
[2021-04-05] MEDS: ERTAPENEM SODIUM 1,000 MG in SODIUM CHLORIDE 0.9% 50 ML IV SCH (12:27)
[2021-04-06 07:24] LABS: BUN Creatinine Ratio 13.4 (10-20); Calcium 8.6 mg/dl (8.5-10.1); Creatinine Clr Calc Pharmacy 122.6 ml/min; Est GFR (African American) 109.8 ml/min; Est GFR (Non-African American) 94.7 ml/min
[2021-04-06] MEDS ORDERED: VANCOMYCIN TROUGH ONE (08:30)
[2021-04-06] MEDS: FINASTERIDE 5 MG TAB PO SCH (08:46)
[2021-04-06] MEDS: THIAMINE HCL 100 MG TAB PO SCH ×2 (08:47→20:19)
[2021-04-06] MEDS: METOPROLOL SUCC 25MG EXT REL TAB PO SCH (08:47)
[2021-04-06] MEDS: ADVANCED PROBIOTIC 1250 MG CAPSULE PO SCH (08:47)
[2021-04-06] MEDS: ENOXAPARIN INJ 40 MG/0.4 ML SYR SQ SCH (08:47)
[2021-04-06] MEDS: ATORVASTATIN 40 MG TAB PO SCH (08:47)
[2021-04-06] MEDS: GABAPENTIN 600 MG TAB PO SCH ×2 (08:47→20:18)
[2021-04-06] MEDS: ZINC SULFATE 220 MG CAPSULE PO SCH (08:47)
[2021-04-06] MEDS: CLOPIDOGREL BISULFATE 75 MG TAB PO SCH (08:48)
[2021-04-06] MEDS: POTASSIUM CITRATE 10 MEQ TAB PO SCH (08:48)
[2021-04-06] MEDS: allopurinoL 100 MG TAB PO SCH (08:48)
[2021-04-06] MEDS: ASPIRIN 81 MG ECTAB PO SCH (08:48)
[2021-04-06] MEDS: TAMSULOSIN HCL 0.4 MG CAP PO SCH (08:48)
[2021-04-06] MEDS: FOLIC ACID 1 MG TAB PO SCH (08:48)
[2021-04-06] MEDS: CEROVITE ADV FORMULA TAB PO SCH (08:48)
[2021-04-06] MEDS: ASCORBIC ACID 500 MG TAB PO SCH (08:49)
[2021-04-06] MEDS: VANCOMYCIN HCL 1,500 MG in SODIUM CHLORIDE 0.9% 500 ML IV SCH ×2 (08:49→20:18)
[2021-04-06] MEDS: FLUTICASONE/VILANTEROL 100/25MCG 14 PUFFS/INHALER INH SCH (08:49)
[2021-04-06] MEDS: UMECLIDINIUM BROMIDE 62.5MCG/BLISTER 7 PUFFS/INHALER INH SCH (08:49)
[2021-04-06] MEDS: MAGNESIUM OXIDE 400 MG TAB PO SCH ×2 (08:55→20:19)
[2021-04-06] MEDS: DOCUSATE SODIUM 100 MG CAP PO SCH ×2 (08:55→20:23)
[2021-04-06] MEDS ORDERED: LIDOCAINE 1% LOCAL 20 ML VIAL ONE (10:02)
--- NOTE | 2021-04-06 10:37 | Pre Anesthesia Assessment ---
Date of Service April 06, 2021 Pre Sedation Assessment Vital Signs Temp Pulse Pulse Resp BP BP Pulse Ox 04/06/21 10:33 66 20 155/74 H 93 04/06/21 09:00 60 04/06/21 07:55 36.6 C 62 18 136/79 93 04/06/21 03:34 36.6 C 62 18 138/63 95 04/05/21 23:24 36.5 C 61 18 167/69 H 94 04/05/21 23:00 61 04/05/21 20:00 36.5 C 66 18 153/91 H 93 04/05/21 15:35 36.6 C 68 18 111/69 93 04/05/21 15:00 66 04/05/21 11:40 36.7 C 54 L 19 103/59 L 93 Cardiovascular RRR, no murmur, no edema Respiratory normal respiratory effort, lungs clear to auscultation Pre-Sedation Airway Assessment Smoking Status: Former smoker Hx Sleep Apnea: No Hx Difficult Intubation: No Short, Thick Neck: No Thyromental Distance: > or= 3.5 Finger Breadths Oral Cavity: + Dentures Mallampati Class: I ASA: ASA4 NPO Status Date of Last Intake of Fluids: 04/06/21 Time of Last Intake of Fluids: 07:00 Date of Last Intake of Solid Food: 04/05/21 Time of Last Intake of Solid Foods: 19:00 Procedure Planning Contraindications for Sedation: none Current Medications Reviewed: Yes Notes The planned sedation has been discussed with the patient. Informed Consent was obtained. I have identified the patient, determined the appropriateness of sedation and have assessed the patient immediately prior to the procedure. All medicine(s) and interventions are by my order.
--- NOTE | 2021-04-06 10:39 | History & Physical Bridge Note ---
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
[2021-04-06] MEDS ORDERED: MIDAZOLAM HCL 5 MG/ML 1 ML VIAL ONE ×2 (10:51→12:15)
[2021-04-06] MEDS ORDERED: fentaNYL citrate 100 MCG/2 ML VIAL ONE ×2 (10:51→12:00)
[2021-04-06] MEDS ORDERED: HEPARIN (PORCINE) 1000 UNIT/ML 10 ML (CATH LAB USE ONLY) ONE (11:08)
[2021-04-06] MEDS: ERTAPENEM SODIUM 1,000 MG in SODIUM CHLORIDE 0.9% 50 ML IV SCH (14:06)
--- NOTE | 2021-04-06 19:01 | Hospitalist Progress Note ---
Date of Service April 06, 2021 Assessment & Plan (1) Open leg wound: Plan: Right infected Achilles tendon rupture and posterior right lower extremity abscess Both plastic surgery & ortho advised BKA - declined by patient S/P 03/24 Incision and Drainage of abscess right posterior leg, Irrigation and debridement of infected right Achilles tendon rupture, irrigation debridement of skin,Subcutaneous Tissue, fascia, muscle and tendon of Right posterior lower leg; Saucerization of Right posterior lower leg wound, debridement diabetic ulcer [id number](Right) - Cl Cormier, DO Nonweightbearing on the right lower extremity. Okay to put toes down for balance. Per ID consult IV vancomycin and ertapenem - recommend 6 weeks of treatment. ld 04/29 Continue vit C and zinc to promote wound healing. (2) SVT (supraventricular tachycardia): Plan: Main current issue. Very symptomatic when it does occur. Appreciate cardiology management. Increased metoprolol - however still having episodes. Discussed with Dr Schumacher/ [facility] plan for possible ablative therapy on April 06 (3) Peripheral arterial disease: Plan: Post angioplasty of severe thigh/popliteal stenosis. Post procedure appears to have improved recommend follow-up to wound bed. Loaded with clopidogrel 300 mg post procedure Continue DAPT with aspirin/clopidogrel for 1 month (started back on clopidogrel) Repeat noninvasive vascular testing in 2 weeks.->mid march (4) Polyneuropathy: Plan: Continue home Gabapentin 600 mg BID. 2nd to chronic etoh abuse? (5) ETOH abuse: Plan: Cont thiamine, folic acid, MVI. Suspect cause of his peripheral neuropathy No signs/symptoms of etoh withdrawal at this time. (6) Hypertension: Plan: Controlled on metoprolol succinate 25 mg twice daily (7) COPD (chronic obstructive pulmonary disease): Plan: continue home inhalers. Stable, no exacerbation at this time. (8) Dyslipidemia: Plan: Continues on atorvastatin 40mg PO daily (9) BPH associated with nocturia: Plan: Continue home Flomax and finasteride. Remains without LUTS at this time (10) Anemia: Plan: Remains stable (11) T2DM (type 2 diabetes mellitus): Plan: a1c 6.6% - this is c/w early T2DM change diet to DM diet and check BSGs in am to trend BSG WNL therefore discontinued Start metformin 500mg PO daily on discharge Plan: VTE Prophylaxis - Lovenox 40mg SQ daily Disposition -only patient placement for infection treatment and addressing his wounds Admission and Anticipated Discharge Date Admission Date: March 18, 2021 Subjective Patient is nervous about his ablation on April 06, he has no focal complaints, has good pain control of his ankle wound Review of Systems Review of Systems: Mild distress and fatigue no headache, no visual changes no speech or swallowing issues no chest pain, pressure or palpitations no shortness of breath, cough or wheezes no abdominal pain, nausea or vomiting, diarrhea or constipation no dysuria, hematuria or frequency Patient has discoloration and bilateral neuropathy to his feet no back pain, CVA tenderness or radicular pain Patient is cellulitis of his right foot no focal signs of weakness or numbness or altered sensation no complaints of anxiety or depression.. Physical Exam Physical Exam: The patient appeared well nourished and normally developed. Vital signs as documented. Head exam is normocephalic atraumatic Neck is without JVD, thyromegaly, or carotid bruits. Lungs are clear to auscultation, no focal loss of breath sounds Cardiac exam, Rhythm is regular has had no arrhythmia this last 12 hours on the monitor.. No murmurs, rubs or gallops. Abdominal exam reveals normal bowel sounds, soft non tender, no masses Extremities right lower extremity wound is inspected it appears to be clean and dry there is very little serosanguineous drainage there is are agata and sutures in place holding material over the wound itself likely this will need to be revised in the office with consideration of a skin flap to be needed in the future Neurologic exam is alert and oriented, no focal loss of strength does have peripheral neuropathy Skin is witho a defect of the posterior right Achilles area Psychologically is without concerns for anxiety or depression Results & Data Results & Data ([facility]) Vital Signs (Past 12 Hours) Vital Signs Temp Pulse Pulse Pulse Resp BP BP 04/06/21 15:41 97.9 F 61 18 126/68 04/06/21 15:09 57 L 04/06/21 14:45 97.9 F 48 L 16 134/74 04/06/21 14:15 97.3 F L 54 L 14 107/64 04/06/21 14:00 97.3 F L 54 L 14 91/59 L 04/06/21 13:45 59 L 04/06/21 13:44 97.3 F L 54 L 15 116/67 04/06/21 13:30 59 L 20 124/65 04/06/21 13:20 60 20 137/74 04/06/21 10:33 66 20 155/74 H 04/06/21 09:00 60 04/06/21 07:55 97.9 F 62 18 136/79 Pulse Ox 04/06/21 15:41 94 04/06/21 15:09 04/06/21 14:45 96 04/06/21 14:15 93 04/06/21 14:00 93 04/06/21 13:45 04/06/21 13:44 93 04/06/21 13:30 92 04/06/21 13:20 94 04/06/21 10:33 93 04/06/21 09:00 04/06/21 07:55 93 PG Care Time/CCT Total # of Minutes Spent Total Time Spent with Patient: Total time spent is greater than 50% in coordination of care (as documented) at patient's floor/unit and/or counseling patient: Coding Level of Care Code 10669 Subseq Hosp Care Lvl 2 Diagnoses Open leg wound S81.809A SVT (supraventricular tachycardia) I47.1 Peripheral arterial disease I73.9 Polyneuropathy G62.9 ETOH abuse F10.10 Hypertension I10 Hypertension type: unspecified COPD (chronic obstructive pulmonary disease) J44.9 Dyslipidemia E78.5 BPH associated with nocturia N40.1; R35.1 Anemia D64.9 T2DM (type 2 diabetes mellitus) E11.9 (1) Hypertension Hypertension type: unspecified Qualified Code(s): I10 - Essential (primary) hypertension
[2021-04-07 07:21] LABS: Hematocrit (blood only) 33.3 % (42-52); Hemoglobin 10.6 g/dL (14.0-18.0); Mean Corpuscular Hemoglobin 30.7 pg (25-34); Mean Corpuscular Hgb Conc 31.8 g/dL (32-36); Mean Corpuscular Volume 96.5 fL (80-100); Mean Platelet Volume 10.7 fL (7.4-10.4); Platelet Count 289 K/uL (130-400); RDW Coefficient of Variation 14.9 % (11.5-14.5); RDW Standard Deviation 52.3 fL (36.4-46.3); Red Blood Count 3.45 M/uL (4.7-6.1); White Blood Count 8.65 K/uL (4.8-10.8)
[2021-04-07 07:53] LABS: BUN Creatinine Ratio 15.5 (10-20); Calcium 8.8 mg/dl (8.5-10.1); Creatinine Clr Calc Pharmacy 124.4 ml/min; Est GFR (African American) 110.5 ml/min; Est GFR (Non-African American) 95.3 ml/min; Potassium 3.9 mmol/L (3.5-5.1)
[2021-04-07] MEDS: ZINC SULFATE 220 MG CAPSULE PO SCH (08:59)
[2021-04-07] MEDS: TAMSULOSIN HCL 0.4 MG CAP PO SCH (08:59)
[2021-04-07] MEDS: THIAMINE HCL 100 MG TAB PO SCH ×2 (08:59→20:01)
[2021-04-07] MEDS: METOPROLOL SUCC 25MG EXT REL TAB PO SCH (09:00)
[2021-04-07] MEDS: POTASSIUM CITRATE 10 MEQ TAB PO SCH (09:00)
[2021-04-07] MEDS: CEROVITE ADV FORMULA TAB PO SCH (09:00)
[2021-04-07] MEDS: UMECLIDINIUM BROMIDE 62.5MCG/BLISTER 7 PUFFS/INHALER INH SCH (09:00)
[2021-04-07] MEDS: MAGNESIUM OXIDE 400 MG TAB PO SCH ×2 (09:01→20:01)
[2021-04-07] MEDS: FINASTERIDE 5 MG TAB PO SCH (09:01)
[2021-04-07] MEDS: GABAPENTIN 600 MG TAB PO SCH ×2 (09:01→20:00)
[2021-04-07] MEDS: ATORVASTATIN 40 MG TAB PO SCH (09:01)
[2021-04-07] MEDS: ASPIRIN 81 MG ECTAB PO SCH (09:01)
[2021-04-07] MEDS: FOLIC ACID 1 MG TAB PO SCH (09:01)
[2021-04-07] MEDS: CLOPIDOGREL BISULFATE 75 MG TAB PO SCH (09:02)
[2021-04-07] MEDS: ASCORBIC ACID 500 MG TAB PO SCH (09:02)
[2021-04-07] MEDS: allopurinoL 100 MG TAB PO SCH (09:02)
[2021-04-07] MEDS: ENOXAPARIN INJ 40 MG/0.4 ML SYR SQ SCH (09:02)
[2021-04-07] MEDS: FLUTICASONE/VILANTEROL 100/25MCG 14 PUFFS/INHALER INH SCH (09:03)
[2021-04-07] MEDS: ADVANCED PROBIOTIC 1250 MG CAPSULE PO SCH (09:03)
[2021-04-07] MEDS: DOCUSATE SODIUM 100 MG CAP PO SCH ×2 (09:07→20:01)
[2021-04-07] MEDS: VANCOMYCIN HCL 1,500 MG in SODIUM CHLORIDE 0.9% 500 ML IV SCH ×2 (10:01→20:01)
--- NOTE | 2021-04-07 10:58 | Operative Report (OR) ---
DATE OF PROCEDURE: 04/06/2021. PREOPERATIVE DIAGNOSIS: Recurrent supraventricular tachycardia. POSTOPERATIVE DIAGNOSIS: Recurrent supraventricular tachycardia. PROCEDURE: Electrophysiology study, 3D His bundle and coronary sinus anatomical mapping, slow pathway modification, radiofrequency ablation. SURGEON: Carmen Johnson DO. INDUSTRIAL ECONOMIST: None. ANESTHESIA: Monitored conscious sedation administered under my supervision by Sri Mccormack. Start time 11:13, end time 12:58. A total of 6 mg of Versed and 150 mcg of fentanyl. INTRAVENOUS FLUIDS: 100 mL. BLOOD LOSS: 5 mL. URINE OUTPUT: Not applicable. SPECIMENS: None. FINDINGS: See below. DRAINS: None. INDICATIONS: This is a 75-year-old gentleman with a past medical history for severe peripheral arterial disease where he presented to the hospital a few weeks ago with a huge ulcer where part of his muscle and tendons to his right leg were showing. He ended up going through surgical debridement as well as peripheral vascular interventions. He had a PICC line and is on vancomycin. His other underlying medical problems are sinus bradycardia, first-degree AV block, BPH, hyperlipidemia, hypertension, COPD, neuropathy, alcohol abuse, diabetes. While he was in the hospital over the last week, he kept having episodes of SVT with associated hypotension, responding to adenosine, limited to how much metoprolol we could give him due to his underlying sinus bradycardia, but at the same time, he continued to have episodes, so he was recommended an electrophysiology study with possible ablation prior to discharge. CONSENT: Consent was obtained prior to the patient going into the electrophysiology lab. The patient was explained of the risks, benefits, and alternatives to the procedure. Risks include but not limited to sudden cardiac , cardiac arrhythmias, cerebrovascular accident, myocardial infarction, injury to the blood vessels, chamber of the heart or the [place] electrical system where he will need a permanent pacemaker, bleeding, and infection. The patient understood these risks and agreed to proceed with the procedure as planned. Informed consent was obtained. DESCRIPTION OF PROCEDURE: The patient was brought into the electrophysiology lab in a fasting state. He was connected to continuous cardiac monitoring. A time-out was performed to ensure the patient identity and procedure correctly. He was prepped and draped over the bilateral groins in a normal surgical standard fashion. Yoder precautions were maintained throughout the procedure. Monitored conscious sedation was given throughout the procedure for the patient's comfort level. 10 mL of 1% lidocaine were given in the bilateral groins for local anesthesia. Then, using modified Seldinger technique, venous access was obtained in the following manner. The right femoral vein had a 6-Niuean sheath followed by a quadripolar Joe catheter positioned in the high right atrium. A 6-Niuean sheath was ultimately swapped out for an SRO sheath and a Biosense non-irrigated 4 mm DF curved ablation catheter. The left femoral vein was very lateral and I did use some ultrasound guidance just to give me an idea where it was, ultimately had the following sheaths. A 6-Niuean sheath followed by a quadripolar Joe catheter positioned in the right ventricular apex. A 7-Niuean sheath followed by a decapolar coronary sinus catheter DF curve positioned out in the coronary sinus. A 7-Niuean sheath followed by an octapolar Hisser catheter positioned over the His bundle. With all the catheters in position, an electrophysiology study was performed with the following findings: IA interval 275 milliseconds, QRS 75 milliseconds, QT 403 milliseconds. Sinus cycle length 969 milliseconds, IA 236 milliseconds, AH 225 milliseconds, HV 37 milliseconds. I started to give atrial burst pacing from the high right atrium and I quickly went into SVT at [address] The SVT tachycardia cycle length was 406 milliseconds. The VA time was 46 milliseconds. The retrograde A activation was concentric and it continued to break with PVCs. 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 Of note, he continued to have echo beats at right atrial extrastimuli was 600/240 and 650/500, a short burst of the AVNRT. I never was able to get down defined by preablation Wenckebach or atrial or AV luis ERPs given that he kept going into the SVT. The right ventricular ERP preablation was 600/260 and 400/240. With a diagnosis of AVNRT, we set up to do a slow pathway modification. The 6-Niuean sheath in the right femoral vein was swapped out for an SRO sheath and then the ablation catheter was advanced up into the heart. The His bundle cloud was 3D marked as well as the coronary sinus os. Then, I placed the ablation catheter on the low right atrial septum when I had decent-looking signals in my A-V ratio, I then came on ablation at 30 martin. Ultimately, I was a little bit higher up and a little bit medial towards the CS os, but still very far away from the His and I have had junctional rhythm. I gave a series of radiofrequency ablations in this area for about 40 seconds in duration, maybe the longest was 1 minute. Ultimately then I removed the ablation catheter from the heart and then did a post-ablation electrophysiology study with the following findings: IA interval 320 milliseconds, QRS 65 milliseconds, QT 371 milliseconds. Sinus cycle length 988 milliseconds, AH 247 milliseconds, HV 48 milliseconds. The AV Wenckebach was 660 milliseconds, the AV luis ERP was 800/590 milliseconds, the atrial ERP was 800/340, the right ventricular ERP was 600/280 and 400/260. I did not have any echo beats or inducible AVNRT with giving right atrial extrastimuli up to doubles. I felt confident that we got the AVNRT as he easily went into preablation. All the catheters were then removed from the body and the sheaths were pulled and manual compression was used to establish hemostasis. IMPRESSION: 1. 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 2. Sinus node and atrioventricular node dysfunction is noted, but still stable. PLAN: Monitor the patient post procedure. Transfer him back to the inpatient unit. I would decrease his metoprolol back to 25 a day. We might even ultimately have to stop that given his sinus node dysfunction. He is at a high risk to have a pacemaker infection, so we do not want him to have a pacemaker implantation. He is not to do any heavy lifting or squatting for a week and he should follow up with cardiology in 1 month's time. Job ID: [id number] [facility]
--- NOTE | 2021-04-07 12:47 | Cardiology Progress Note ---
Date of Service April 07, 2021 Assessment & Plan (1) SVT (supraventricular tachycardia): (2) Peripheral arterial disease: Plan: s/p peripheral intervention continue ASA (3) 1st degree AV block: (4) Sinus bradycardia: Plan: No recurrence of SVT or significant PACs status post ablation. Patient feeling much better. We will continue current dose of metoprolol. Okay to discharge from a cardiac standpoint. Patient already scheduled to be seen with Dr. Schumacher on the , recommend keeping that appointment. Admission and Anticipated Discharge Date Admission Date: March 18, 2021 Subjective Patient seen and examined, chart reviewed. States he is feeling much better today and notes resolution of palpitations after ablation. Denies chest pain, shortness of breath, palpitations, lightheadedness, dizziness or syncope. Telemetry reviewed: Normal sinus rhythm without arrhythmia or significant ectopy. Review of Systems Review of Systems: All systems reviewed & are unremarkable except as noted in HPI & below Physical Exam Physical Exam: General: Awake, alert and oriented x 3. No acute distress. HEENT: Normocephalic, atraumatic. Pupils equal, round and reactive to light and accommodation. Extraocular muscles are intact. Anicteric sclera. Moist mucous membranes. Neck: No JVD. No bruit. Cardiovascular: Regular. Positive S-4. Normal S-1 and S-2. No S-3. 3/6 mid to late systolic ejection murmur, greatest at the right sternal border, second intercostal space with radiation to the bilateral carotids. No rubs. Pulmonary: Clear to auscultation bilaterally. No rales, rhonchi, or wheezing. Abdomen: Bowel sounds x 4, soft. No rebound, guarding or tenderness. No organomegaly. Extremities: No clubbing, cyanosis or edema. +2 pedal pulses bilaterally. Skin: Warm and dry. Results & Data ([facility]) Vital Signs (Past 12 Hours) Vital Signs Temp Pulse Pulse Resp BP Pulse Ox 04/07/21 11:02 36.4 C L 79 17 121/61 92 04/07/21 08:00 39 L 04/07/21 07:09 36.4 C L 64 17 120/72 94 04/07/21 04:04 36.4 C L 62 16 120/76 96
[2021-04-07] MEDS: ERTAPENEM SODIUM 1,000 MG in SODIUM CHLORIDE 0.9% 50 ML IV SCH (14:06)
--- NOTE | 2021-04-07 15:40 | Hospitalist Progress Note ---
Date of Service April 07, 2021 Assessment & Plan (1) Open leg wound: Plan: Right infected Achilles tendon rupture and posterior right lower extremity abscess Both plastic surgery & ortho advised BKA - declined by patient S/P 03/24 Incision and Drainage of abscess right posterior leg, Irrigation and debridement of infected right Achilles tendon rupture, irrigation debridement of skin,Subcutaneous Tissue, fascia, muscle and tendon of Right posterior lower leg; Saucerization of Right posterior lower leg wound, debridement diabetic ulcer [id number](Right) - Cl Cormier, DO Nonweightbearing on the right lower extremity. Okay to put toes down for balance. Per ID consult IV vancomycin and ertapenem - recommend 6 weeks of treatment. ld 04/29 Continue vit C and zinc to promote wound healing. (2) SVT (supraventricular tachycardia): Plan: Main current issue. Very symptomatic when it does occur. Appreciate cardiology management. Increased metoprolol - however still having episodes. Discussed with Dr Schumacher/ [facility] plan ablative therapy on April 06, no arrythmia's (3) Peripheral arterial disease: Plan: Post angioplasty of severe thigh/popliteal stenosis. Post procedure appears to have improved recommend follow-up to wound bed. Loaded with clopidogrel 300 mg post procedure Continue DAPT with aspirin/clopidogrel for 1 month (started back on clopidogrel) Repeat noninvasive vascular testing in 2 weeks.->mid march (4) Polyneuropathy: Plan: Continue home Gabapentin 600 mg BID. 2nd to chronic etoh abuse? (5) ETOH abuse: Plan: Cont thiamine, folic acid, MVI. Suspect cause of his peripheral neuropathy No signs/symptoms of etoh withdrawal at this time. (6) Hypertension: Plan: Controlled on metoprolol succinate 25 mg twice daily (7) COPD (chronic obstructive pulmonary disease): Plan: continue home inhalers. Stable, no exacerbation at this time. (8) Dyslipidemia: Plan: Continues on atorvastatin 40mg PO daily (9) BPH associated with nocturia: Plan: Continue home Flomax and finasteride. Remains without LUTS at this time (10) Anemia: Plan: Remains stable (11) T2DM (type 2 diabetes mellitus): Plan: a1c 6.6% - this is c/w early T2DM change diet to DM diet and check BSGs in am to trend BSG WNL therefore discontinued Start metformin 500mg PO daily on discharge Plan: VTE Prophylaxis - Lovenox 40mg SQ daily Disposition -only patient placement for infection treatment and addressing his wounds Admission and Anticipated Discharge Date Admission Date: March 18, 2021 Subjective pt feels well, no particular ectopy, looking forward to get to rehab Telemetry reviewed: Normal sinus rhythm without arrhythmia or significant ectopy. Review of Systems Review of Systems: Mild distress and fatigue no headache, no visual changes no speech or swallowing issues no chest pain, pressure or palpitations no shortness of breath, cough or wheezes no abdominal pain, nausea or vomiting, diarrhea or constipation no dysuria, hematuria or frequency Patient has discoloration and bilateral neuropathy to his feet no back pain, CVA tenderness or radicular pain Patient is cellulitis of his right foot no focal signs of weakness or numbness or altered sensation no complaints of anxiety or depression.. Physical Exam Physical Exam: The patient appeared well nourished and normally developed. Vital signs as documented. Head exam is normocephalic atraumatic Neck is without JVD, thyromegaly, or carotid bruits. Lungs are clear to auscultation, no focal loss of breath sounds Cardiac exam, Rhythm is regular has had no arrhythmia this last 12 hours on the monitor.. No murmurs, rubs or gallops. Abdominal exam reveals normal bowel sounds, soft non tender, no masses Extremities right lower extremity wound is inspected it appears to be clean and dry there is very little serosanguineous drainage there is are agata and sutures in place holding material over the wound itself likely this will need to be revised in the office with consideration of a skin flap to be needed in the future Neurologic exam is alert and oriented, no focal loss of strength does have peripheral neuropathy Skin is witho a defect of the posterior right Achilles area Psychologically is without concerns for anxiety or depression Results & Data Results & Data ([facility]) Vital Signs (Past 12 Hours) Vital Signs Temp Pulse Pulse Resp BP Pulse Ox 04/07/21 15:35 98.1 F 71 19 114/72 95 04/07/21 11:02 97.5 F L 79 17 121/61 92 04/07/21 08:00 39 L 04/07/21 07:09 97.5 F L 64 17 120/72 94 04/07/21 04:04 97.5 F L 62 16 120/76 96 PG Care Time/CCT Total # of Minutes Spent Total Time Spent with Patient: Total time spent is greater than 50% in coordination of care (as documented) at patient's floor/unit and/or counseling patient: Coding Level of Care Code 24890 Subseq Hosp Care Lvl 2 Diagnoses Open leg wound S81.809A SVT (supraventricular tachycardia) I47.1 Peripheral arterial disease I73.9 Polyneuropathy G62.9 ETOH abuse F10.10 Hypertension I10 Hypertension type: unspecified COPD (chronic obstructive pulmonary disease) J44.9 Dyslipidemia E78.5 BPH associated with nocturia N40.1; R35.1 Anemia D64.9 T2DM (type 2 diabetes mellitus) E11.9 (1) Hypertension Hypertension type: unspecified Qualified Code(s): I10 - Essential (primary) hypertension
--- NOTE | 2021-04-08 07:55 | Discharge Summary ---
Date of Service April 08, 2021 Admission HPI Per Admitting Provider Bola is a 75-year-old male with a notable past medical history hypertension, hyperlipidemia, COPD, BPH, COPD, neuropathy who presented to [facility] for evaluation of right heel ulcer. Patient says that he has been following with wound care regularly for this right ankle ulcer. He said that he noticed increased swelling within this area on Sunday, and return to his wound clinicwas subsequently prescribed antibiotics. Today, he was at the [employer] when he "looked down and saw a puddle of blood." He then reported to the ER for further evaluation. My exam, patient reports significant neuropathy in both of his lower extremities bilaterally, he does not endorse any pain and says that he feels comfortable. Denies any recent fevers, chills, night sweats. Says appetite has been good. Of note, patient reports that he does drink between 5 and 6 beers a day. He denies any withdrawal in the past, but does not think he is ever stop suddenly. In the ED, patient was found to have a gaping right lower extremity ulcer with evidence of necrotic tendon and exposed muscle belly. Peripheral pulses are intact, capillary refill under 3 seconds. Patient was found to be afebrile and hemodynamically stable. X-ray of the right foot demonstrating no fracture, but extensive posterior soft tissue wound as well as air within the soft tissue. Patient was given Zosyn and vancomycin. Principal Diagnosis Supraventricular tachycardia, s/p EP ablation Right infected Achilles tendon rupture and posterior right lower extremity abscess. S/p surgical debridement and antibiotic bead placement Peripheral artery disease, s/p angioplasty Discharge Exam The patient appeared well Vital signs as documented. Lungs are clear to auscultation and appear unlabored Cardiac exam, Rhythm is regular.. No murmurs, rubs or gallops. Abdominal exam reveals normal bowel sounds, soft non tender, no masses Extremities patient has a firm brace in the posterior left leg keeping his leg fixed he is a defect in his Achilles tendon that sutured in place with the surgical dressing that needs to be addressed by orthopedics in the future. He has reasonable capillary refill to that leg Neurologic exam is alert and oriented, no focal loss of strength or sensation Skin is with surgical defect the posterior left leg Psychologically is without concerns for anxiety or depression. Discharge Data Allergies Allergy/AdvReac Type Severity Reaction Status Date / Time No Known Allergies Allergy Verified 03/18/21 17:08 Consultations 03/18/21 16:27 ED Decision to Admit Stat 03/18/21 18:36 Consult Plastic Surgery Routine 03/20/21 11:23 Consult Orthopedic Surgery Routine 03/21/21 09:16 Consult Vascular Surgery Routine 03/28/21 08:27 Consult Infectious Diseases Routine 03/29/21 08:00 Consult Cardiology Routine 04/01/21 11:43 Consult Cardiology Routine Procedures Performed Operation Date: 03/23/21 08:00 Actual Procedures p Angio Extremity Unilateral - Konrad Euceda MD s Femoral Popliteal Balloon - Konrad Euceda MD s SC Select Cath ALEP 3rd Order - Konrad Euceda MD s Ultrasound Vascular Access - Konrad Euceda MD Operation Date: 03/24/21 07:30 Actual Procedures p Incision and Drainage of abscess right posterior leg, Irrigation and debridement of Right Achilles,Skin,Subcutaneous Tissue of Right Leg; Saucerization of Right Foot Wound, diabetic ulcer [id number](Right) - Mendoza Cormier DO Operation Date: 04/06/21 12:00 Actual Procedures p EPS + Ablation for SVT Flutter - DO sirisha Palma 3D Mapping (Carto) - DO sirisha Palma LA Pacing (Add-On) - DO sirisha Palma Ultrasound Vascular Access - Carmen Johnson DO Ordered Studies 03/20/21 11:12 US arterial duplex LE RT Routine 03/20/21 11:29 MR ankle RT wo/w con Routine 03/21/21 19:06 CT ang AA runof w inc wo ifdon Routine 03/23/21 06:38 CL Cath Imgs for PACS use only Stat 03/23/21 17:37 CL Cath Imgs for PACS use only Stat 04/06/21 06:30 EP Lab Images for PACS ONCE 04/08/21 07:49 US arterial duplex LE RT Routine Hospital Course (1) Open leg wound: Right infected Achilles tendon rupture and posterior right lower extremity abscess Both plastic surgery & ortho advised BKA - declined by patient S/P 03/24 Incision and Drainage of abscess right posterior leg, Irrigation and debridement of infected right Achilles tendon rupture, irrigation debridement of skin,Subcutaneous Tissue, fascia, muscle and tendon of Right posterior lower leg; Saucerization of Right posterior lower leg wound, debridement diabetic ulcer [id number](Right) - Cl Cormier, DO Nonweightbearing on the right lower extremity. Okay to put toes down for balance. Per ID consult IV vancomycin and ertapenem - recommend 6 weeks of treatment. ld 04/29 Continue vit C and zinc to promote wound healing. (2) SVT (supraventricular tachycardia): Main current issue. Very symptomatic when it does occur. Appreciate cardiology management. Increased metoprolol - however still having episodes. Discussed with Dr Schumacher/ [facility] plan ablative therapy on April 06, no arrythmia's (3) Peripheral arterial disease: Post angioplasty of severe thigh/popliteal stenosis. Post procedure appears to have improved recommend follow-up to wound bed. Loaded with clopidogrel 300 mg post procedure Continue DAPT with aspirin/clopidogrel for 1 month (started back on clopidogrel) Repeat noninvasive vascular testing before discharge (4) Polyneuropathy: Continue home Gabapentin 600 mg BID. 2nd to chronic etoh abuse? (5) ETOH abuse: Cont thiamine, folic acid, MVI. Suspect cause of his peripheral neuropathy No signs/symptoms of etoh withdrawal at this time. (6) Hypertension: Controlled on metoprolol succinate 25 mg twice daily (7) COPD (chronic obstructive pulmonary disease): continue home inhalers. Stable, no exacerbation at this time. (8) Dyslipidemia: Continues on atorvastatin 40mg PO daily (9) BPH associated with nocturia: Continue home Flomax and finasteride. Remains without LUTS at this time (10) Anemia: Remains stable (11) T2DM (type 2 diabetes mellitus): a1c 6.6% - this is c/w early T2DM change diet to DM diet and check BSGs in am to trend BSG WNL therefore discontinued Start metformin 500mg PO daily on discharge VTE Prophylaxis - Lovenox 40mg SQ daily Disposition -only patient placement for infection treatment and addressing his wounds Total Time Total Time Spent Total Time Spent (In Minutes): It required greater than 30 minutes to prepare this patient for discharge Discharge Plan Discharge Items Patient Disposition: Transfer Inpatient Rehab Fac Reason For Visit: GAPING RLE ULCER Discharge Diagnosis: Supraventricular tachycardia, s/p EP ablation Right infected Achilles tendon rupture and posterior right lower extremity abscess. S/p surgical debridement and antibiotic bead placement Peripheral artery disease, s/p angioplasty Condition on Discharge: Good Activity: Per Instructions section Weightbearing: Right non-weightbearing Weightbearing Comment: Ok to put foot down for balance Non-emergency contact: Primary Care Provider and Surgeon Call non-emergency contact if: you have any medication questions and your symptoms worsen Follow-up/Referrals: Cl Cormier DO [Surgeon] - (Follow-up next week for wound check.) Carmen Johnson DO [Physician] - (4-6 weeks) Chrissie Kwan PA-C [Primary Care Provider] - Lonnie Hunt MD [Physician] - (2-4 week follow up) Diet: Carb Consistent or DM2 Addtl Attending Provider Instructions: Bola España is a 75 year old male admitted to [facility] from March 18 to March 31, 2021 due to right heel ulcer with increased swelling. He was diagnosed with right infected Achilles tendon rupture and posterior right lower extremity abscess. Given peripheral artery disease, peripheral neuropathy and extent of infection it was recommended to have below knee amputation however on consultation with the patient he elected for limb salvage surgery incision and drainage. As workup for the surgery he underwent peripheral angiography by Dr Euceda (interventional cardiology) performed on March 23, 2021. Right lower extremity showed calcified severe diffuse mid SFA to proximal popliteal disease up to 90%. 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 He underwent successful angioplasty of mid SFA to proximal popliteal with single drug-eluting balloon (6.0 x 220 mm Lutonix). For this he should remain on dual antiplatelets with aspirin and clopidogrel for 1 month (then aspirin alone) with follow up non-invasive vascular testing on approximately April 06. He underwent debridement of diabetic ulcer, incision and drainage right posterior leg abscess, skin, subcutaneous tissue, fascia, muscle and infected Achilles tendon on March [address] Cormier. He is non-weight bearing on his right leg until follow up with Dr Cormier. Recommend Lovenox 40mg SQ daily while non- weightbearing on right leg. On consultation with infectious disease recommend intravenous vancomycin and ertapenem for a today of 6 weeks from operation date (March 24). PICC line was placed on March 31 to facilitate this. He should have weekly CBC, BMP and vancomycin trough level while on these antibiotics. He should follow up in [facility] infectious disease clinic in the next 2-4 weeks. He was also diagnosed with diabetes. HbA1C 6.6. Recommend started metformin for this. His blood pressure has also been stable off losartan therefore this has been discontinued. Suspect secondary to current infection and may need to be restarted in the future. His stay was prolonged due to symptomatic supraventricular tachycardia episodes. He was reviewed by Dr Johnson ([facility] electrophysiology). Recommended using carotid massage to limit episodes in the future. Recommended against inpatient electrophysiology study due to his significant co-morbidities. He is now medically stable for discharge but requiring further rehabilitation therefore will be transferred to rehab for this. 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 Please use Adaptic, 4 x 4's, ABDs, Kerlix wrap, and Jose wrap. Please call with any wound changes. It is normal to have some serous drainage from the wound secondary to implanted antibiotic beads. Please call the office if the drainage changed to a more purulent drainage or if the patient has increased erythema, increased pain, or temp of 101.5 or greater. You must remain nonweightbearing on the right foot for now. Follow-up with Dr. Cormier next week for wound check. Please call for appointment. Pending Studies at Discharge: No Stand-Alone Forms: My [employer], Smoking Cessation Skilled Items Patient informed of condition?: Yes DNR: No Discharge Level of Care: Acute rehab Communicable Disease: No Discharge Prognosis: Improving Lines: PICC Urinary Catheter: No Medications and DC Order Prescriptions: New clopidogrel 75 mg Tablet 75 mg PO QAM Qty: 30 RF: 0 enoxaparin 40 mg/0.4 mL Syringe 40 mg subcut QAM 30 Days Qty: 12 RF: 0 zinc sulfate [Orazinc] 50 mg zinc (220 mg) Capsule 220 mg PO QAM Qty: 30 RF: 0 thiamine HCl (vitamin B1) [Vitamin B-1] 100 mg Tablet 200 mg PO BID Qty: 120 RF: 0 ascorbic acid (vitamin C) [Vitamin C] 500 mg Tablet 500 mg PO QAM Qty: 30 RF: 0 Certavite-Antioxidant 18-400 mg-mcg Tablet 1 tab PO QAM Qty: 30 RF: 0 magnesium oxide 400 mg (241.3 mg magnesium) Tablet 400 mg PO BID Qty: 60 RF: 0 vancomycin 1.25 gram recon soln 1.25 g IV Q12H 42 Days Qty: 10 RF: 0 ertapenem 1 gram recon soln 1 g IV DAILY 42 Days Qty: 10 RF: 0 metformin 500 mg tablet extended release 24 hr 500 mg PO DAILY Qty: 30 RF: 0 Continued aspirin [Adult Low Dose Aspirin] 81 mg tablet,delayed release (DR/EC) 81 mg PO QAM RF: 0 atorvastatin 40 mg tablet 40 mg PO QAM RF: 0 gabapentin 300 mg capsule 600 mg PO BID RF: 0 tamsulosin [Flomax] 0.4 mg capsule 0.4 mg PO QAM RF: 0 tiotropium bromide [Spiriva with HandiHaler] 18 mcg capsule, w/inhalation device 1 cap INH QAM RF: 0 finasteride 5 mg tablet 5 mg PO DAILY Qty: 90 RF: 3 budesonide-formoterol 160-4.5 mcg/actuation Hfa Aerosol Inhaler 2 puff INHALATION BID RF: 0 albuterol sulfate 90 mcg/actuation Aerosol Powdr Breath Activated 2 inh INHALATION QID PRN (Reason: SHORT OF BREATH) RF: 0 diclofenac sodium [Voltaren] 1 % Gel 4 g TOPICAL QID PRN (Reason: Pain) RF: 0 allopurinol 100 mg Tablet 200 mg PO DAILY RF: 0 potassium citrate [Urocit-K 10] 10 mEq (1,080 mg) tablet extended release 10 meq PO DAILY RF: 0 Changed metoprolol succinate 25 mg Tablet Extended Release 24 Hr 25 mg PO QAM Qty: 0 RF: 0 Discontinued losartan [Cozaar] 100 mg tablet 50 mg PO QAM RF: 0 sulfamethoxazole-trimethoprim 800-160 mg tablet 1 tab PO BID RF: 0 ibuprofen 200 mg Tablet 400 mg PO BID RF: 0 Discharge Orders: Discharge Order (Routine); Ordered 04/08/21 Ordered By: Nitish Moya/Other Patient Handouts: A1C, 5 Steps for Eating Healthier, Diabetes: Meal Planning Admission Data Admit Date/Time: 03/18/21 18:45 Attending Provider: Nitsih Cedeño Admit Provider: Lyle Kumari Primary Care Provider: Chrissie Kwan Other Providers: [facility] ; Jason Lee ; [facility] ; Taina Flores at [place] ; [facility], ; [place] ; Sky Matos ; Aicha Mccray ; Cl Cormier ; Konrad Euceda ; Redd Weiner ; Claudy Matson ; Lonnie Hunt I. ; Valente Rodrigues II ; Karyn Roland ; Lawrence Yun ; Natanael Holguin ; Jose Sterling Other Interventions: Discharge Summary Assessment (RN) Last Done: 04/08/21 11:56 Coding Level of Care Code D/C DAY MANAGEMENT >30 MINS Diagnoses Open leg wound S81.809A SVT (supraventricular tachycardia) I47.1 Peripheral arterial disease I73.9 Polyneuropathy G62.9 ETOH abuse F10.10 Hypertension I10 Hypertension type: unspecified COPD (chronic obstructive pulmonary disease) J44.9 Dyslipidemia E78.5 BPH associated with nocturia N40.1; R35.1 Anemia D64.9 T2DM (type 2 diabetes mellitus) E11.9
[2021-04-08] MEDS ORDERED: VANCOMYCIN TROUGH ONE ×2 (08:30→09:30)
[2021-04-08] MEDS ORDERED: ALTEPLASE, RECOMBINANT 1 MG/ML 2ML VIAL INSTIL ONE (08:59)
[2021-04-08] MEDS: FLUTICASONE/VILANTEROL 100/25MCG 14 PUFFS/INHALER INH SCH (09:36)
[2021-04-08] MEDS: UMECLIDINIUM BROMIDE 62.5MCG/BLISTER 7 PUFFS/INHALER INH SCH (09:36)
[2021-04-08] MEDS: MAGNESIUM OXIDE 400 MG TAB PO SCH (09:36)
[2021-04-08] MEDS: METOPROLOL SUCC 25MG EXT REL TAB PO SCH (09:36)
[2021-04-08] MEDS: POTASSIUM CITRATE 10 MEQ TAB PO SCH (09:36)
[2021-04-08] MEDS: CEROVITE ADV FORMULA TAB PO SCH (09:36)
[2021-04-08] MEDS: THIAMINE HCL 100 MG TAB PO SCH (09:36)
[2021-04-08] MEDS: ZINC SULFATE 220 MG CAPSULE PO SCH (09:36)
[2021-04-08] MEDS: TAMSULOSIN HCL 0.4 MG CAP PO SCH (09:36)
[2021-04-08] MEDS: GABAPENTIN 600 MG TAB PO SCH (09:37)
[2021-04-08] MEDS: CLOPIDOGREL BISULFATE 75 MG TAB PO SCH (09:37)
[2021-04-08] MEDS: ADVANCED PROBIOTIC 1250 MG CAPSULE PO SCH (09:37)
[2021-04-08] MEDS: ASPIRIN 81 MG ECTAB PO SCH (09:37)
[2021-04-08] MEDS: FOLIC ACID 1 MG TAB PO SCH (09:37)
[2021-04-08] MEDS: FINASTERIDE 5 MG TAB PO SCH (09:37)
[2021-04-08] MEDS: ATORVASTATIN 40 MG TAB PO SCH (09:37)
[2021-04-08] MEDS: ASCORBIC ACID 500 MG TAB PO SCH (09:37)
[2021-04-08] MEDS: allopurinoL 100 MG TAB PO SCH (09:37)
--- NOTE | 2021-04-08 09:37 | XRay Report ---
SINGLE VIEW CHEST CLINICAL HISTORY: PICC placement. FINDINGS: An AP, portable, upright chest radiograph is compared to study dated 02/02/2021 and correlate d with chest CT dated 02/03/2021. A right PICC line has been placed. The catheter appears intact and t he tip projects over the cavoatrial junction. The heart is enlarged noting atherosclerotic calcificat ion of the thoracic aorta. The pulmonary vasculature is noncongested. Emphysema and chronic interstit ial thickening is similar to previous. There is bibasilar scarring/atelectasis. No airspace consolida tion or large pleural effusion is identified. No pneumothorax is seen. The skeletal structures are os teopenic. The bony thorax is grossly intact. Degenerative change is noted in the shoulders. IMPRESSION: 1. A right-sided PICC line has been placed as above. 2. Cardiomegaly and emphysema with no acute cardiopulmonary abnormality. ACT 112: Negative or not required by law. Electronically signed by: Sammy Vazquez M.D. 04/08/2021 9:36 AM
[2021-04-08] MEDS: ENOXAPARIN INJ 40 MG/0.4 ML SYR SQ SCH (09:38)
[2021-04-08] MEDS: DOCUSATE SODIUM 100 MG CAP PO SCH (09:38)
[2021-04-08 09:47] LABS: BUN Creatinine Ratio 15.1 (10-20); Creatinine Clr Calc Pharmacy 111.3 ml/min; Est GFR (African American) 105.5 ml/min; Potassium 3.6 mmol/L (3.5-5.1)
--- NOTE | 2021-04-08 10:31 | Pharmacy Report ---
Pharmacy Vanc AUC Short Note - Date of Service April 08, 2021 - Assessment & Plan Assessment 75 year old M receiving IV Vancomycin + Ertapenem for treatment of Right infected Achilles tendon rupture and posterior right lower extremity abscess s\p 03/24 I&D, requires 6 wks IV antibiotic therapy per ID. Day # 10 of antimicrobial therapy. Plan Vancomycin * AUC/DOMINIQUE is the preferred PK/PD target for vancomycin * AUC guided dosing is effective and associated with decreased risk of nephrotoxicity compared to traditional trough targets * Trough level of 19.1 mcg/mL is predicted to achieve target AUC/DOMINIQUE of 400-600 mg/L.hr and may be associated with a 15 % risk of nephrotoxicity * Continue dose of 1500 mg IV every 12 hours * Plan to DC to rehab today, no further levels needed at [facility] Pharmacy will continue to follow and will adjust dose/frequency as necessary. Thank you.
--- NOTE | 2021-04-08 10:57 | Ultrasound Report ---
US ankle/brachial index comp HISTORY: Peripheral arterial disease LEFT leg please TECHNIQUE: Ankle-brachial indices. FINDINGS: BRACHIAL: Right: Unable to be recorded secondary to IV catheter. Left: 129 mmHg. ANKLE (POSTERIOR TIBIAL): Right: Not recorded. Left: 100 mmHg. (0.78) ANKLE (DORSALIS PEDIS): Right: Not recorded. Left: 110 mmHg. (0.85) IMPRESSION: Left sided [place] as above. ACT 112: Negative or not required by law. The above report was generated using voice recognition software. It may contain grammatical, syntax o r spelling errors. Electronically signed by: Boris Goldberg M.D. 04/08/2021 10:56 AM
[2021-04-08] MEDS: VANCOMYCIN HCL 1,500 MG in SODIUM CHLORIDE 0.9% 500 ML IV SCH (11:23)
[2021-04-08] MEDS: ERTAPENEM SODIUM 1,000 MG in SODIUM CHLORIDE 0.9% 50 ML IV SCH (11:23)
--- NOTE | 2021-04-08 17:42 | Electrocardiogram Report ---
Test Reason : Blood Pressure : / mmHG Vent. Rate : 069 BPM Atrial Rate : 069 BPM P-R Int : 352 ms QRS Dur : 094 ms QT Int : 406 ms P-R-T Axes : 030 005 057 degrees QTc Int : 435 ms Sinus rhythm with 1st degree A-V block Otherwise normal ECG When compared with ECG of 03-APR-2021 10:57, W[place] interval has increased Vent. rate has decreased BY [address] no longer depressed in Inferior leads ST no longer depressed in Anterolateral leads Confirmed by Tomas Lopez ([id number]) on 04/08/2021 5:42:07 PM Referred By: REFERRED SELF Confirmed By:Julien Lopez
== END 2021-04-08 13:49 | DRG 229 ==
LOC: ED 14:50 → SUATTDRO 18:45 → 3W 18:45 → 2E 03-23 16:55 → 3N 03-24 08:45 → 2S 03-28 20:54 → 2W 04-02 11:14 → 2E 04-03 12:26 → 2S 04-06 12:25 → 2N 04-07 16:49
PROC: CLB.AEU (2021-03-23 08:00)

== ENCOUNTER 2023-02-12 08:52 | Observation (INO) ==
--- NOTE | 2023-02-02 12:47 | Anesthesiology Consultation ---
Date of Service February 02, 2023 Assessment & Plan (1) Encounter for pre-operative examination: - check BSG am DOS. - cardiology clearance 01/24/23 [facility]: "...Patient appeared compensated and stable at last office visit. Okay to proceed with procedure at a moderate risk. 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 Atherosclerotic vascular disease, follows with Dr. Crenshaw [facility] Vascular. Peripheral arterial disease with severe neuropathy status post right SFA/popliteal ELIA 02/2021 s/p APPLICATION SUPPORT TECHNICIAN of R ORDER TO DELIVERY SUPERVISOR and I&D of R of wound followed by 6 weeks of IV ABX, 07/2022 at [facility] with Dr. Euceda. Carotid artery stenosis, >50% stenosis of the right and left ICA (08/2022). AAA. Ascending aorta measuring 4.1 cm per echocardiogram 01/2021. 3.4 cm abdominal aortic aneurysm per duplex 06/2021. Coronary atherosclerosis per chest CT 09/2020. Hyperlipidemia. Hypertension. COPD with history of tobacco use (quit approx. 2018, 3ppd at that time). Alcohol use, 2-3 beers daily...feeling generally well from a cardiac standpoint. Denies any exertional chest pain. Does chronic dyspnea with exertion due to underlying. Unchanged for years. Follows with a nuclear criticality safety engineer the [place]. due for pulmonary function test coming up in the near future. No palpitations...Repeat CT of the chest to reassess aortic measurements...Will update resting echocardiogram to reassess LV systolic function/wall motion, and valvular status given EDOUARD..." - COVID screening: Per lobster man on 02/02/2023: Travel screen negative, no kn own COVID-19 positive contacts or current COVID-19 related symptoms in past 2 weeks. To surgeon's discretion if preop COVID testing is needed. Chart Review Chart Review: Acceptable Risk for Surgery and Patient NOT seen in Pre Admission Testing History Surgery Operation Date: 02/12/23 13:20 Proposed Procedures p Split Thickness Skin Graft - Aicha Mccray MD Height/Weight Height: 5 ft 11 in Weight: 112.491 kg Allergies Allergy/AdvReac Type Severity Reaction Status Date / Time No Known Allergies Allergy Verified 02/02/23 11:46 Medications Home Medications Medication Instructions Recorded Confirmed Last Taken aspirin 81 mg tablet,delayed 81 mg PO QAM 07/30/18 02/02/23 07/31/22 release (Adult Low Dose Aspirin) atorvastatin 40 mg tablet 40 mg PO QAM 07/30/18 02/02/23 03/25/20 05:30 tamsulosin 0.4 mg capsule (Flomax) 0.4 mg PO QAM 07/30/18 02/02/23 03/25/20 05:30 tiotropium bromide 18 mcg capsule 1 cap inhalation QAM 07/30/18 02/02/23 03/25/20 05:30 with inhalation device (Spiriva with HandiHaler) albuterol sulfate 90 mcg/actuation 2 inh inhalation QID PRN SHORT OF 03/12/20 02/02/23 Unknown breath activated powder inhaler BREATH budesonide-formoterol HFA 160 2 puff inhalation BID 03/12/20 02/02/23 03/25/20 05:30 mcg-4.5 mcg/actuation aerosol inhaler diclofenac sodium 1 % topical gel 4 g topical QID PRN Pain 03/25/20 02/02/23 03/24/20 09:30 (Voltaren) allopurinol 100 mg tablet 200 mg PO QAM 03/18/21 02/02/23 Unknown ascorbic acid (vitamin C) 500 mg 500 mg PO QAM #30 tabs 03/31/21 02/02/23 Unknown tablet (Vitamin C) magnesium oxide 400 mg (241.3 mg 400 mg PO BID #60 tabs 03/31/21 02/02/23 Unknown magnesium) tablet metoprolol succinate 25 mg 25 mg PO QAM #0 tabs 04/08/21 02/02/23 03/24/20 05:30 tablet,extended release 24 hr primidone 50 mg tablet 50 mg PO BID 02/08/22 02/02/23 Unknown acetaminophen 500 mg tablet 500 mg PO Q6H PRN Pain 01/17/23 02/02/23 Unknown (Tylenol Extra Strength) cephalexin 500 mg capsule 500 mg PO TID 7 days #21 caps 01/25/23 02/02/23 Unknown tetracycline 500 mg capsule 500 mg PO Q12H 14 days #28 caps 01/29/23 02/02/23 Unknown clopidogrel 75 mg tablet 75 mg PO QAM 02/02/23 02/02/23 Unknown finasteride 5 mg tablet 5 mg PO QAM 02/02/23 02/02/23 Unknown pregabalin 50 mg capsule 50 mg PO QAM 02/02/23 02/02/23 Unknown Past Medical History Medical History (Updated 02/02/23 @ 12:44 by Estelle Salamanca PA-C) Alcohol dependence per [facility] and [place] records Anemia Ascending aortic aneurysm BPH (benign prostatic hyperplasia) Carotid artery disease Multifocal atherosclerotic plaque most significant for just under 70% stenosis of the proximal right internal carotid artery, 50-69% stenosis of the proximal left internal carotid artery, severe stenosis of the proximal left external carotid artery, as well as suspected focal occlusion of the proximal right external carotid artery on neck CTA 2020, < 50% 2022 carotid doppler COPD (chronic obstructive pulmonary disease) History of skin cancer Hx of gout Hx of renal calculi Hyperlipemia Hypertension Neuropathy Open wound on right heel Peripheral arterial disease SVT (supraventricular tachycardia) T2DM (type 2 diabetes mellitus) Past Family History Family History Mother Family history of diabetes mellitus Past Surgical History Surgical History H/O spinal fusion lumbar History of colonoscopy History of femoropopliteal bypass right leg History of herniorrhaphy right History of radiofrequency ablation procedure for cardiac arrhythmia irregular fast heart beat and needed ablation. follow with [facility] History of tonsillectomy History of tooth extraction Hx of lithotripsy Social History Smoking Status: Former smoker tobacco type: cigarettes Do You Dip or Chew Tobacco: No Smoking End Date: 2017 Hx Alcohol Use: Yes Alcohol type: beer alcohol intake frequency: a few times a week Hx Substance Use: No substance use type: does not use Substance Use Type Other:: has a medical card for it Lab Results Anesthesia Preop Results Results Anesthesia Widget: WBC 7.43 K/ul (4.8-10.8) 02/01/23 Hgb 13.7 g/dl (14.0-18.0) L 02/01/23 Hct 40.7 % (42.0-52.0) L 02/01/23 Plt 198 K/uL (130-400) 02/01/23 Na 136 mmol/L (136-145) 02/01/23 K 3.9 mmol/L (3.5-5.1) 02/01/23 Cl 103 mmol/L (98-107) 02/01/23 CO2 26 mmol/L (21-32) 02/01/23 BUN 16 mg/dl (6-23) 02/01/23 Creat 0.77 mg/dl (0.6-1.4) 02/01/23 Glucose Level 105 mg/dl (70-99(Fasting)) H 02/01/23 PT 11.2 Seconds (9.0-12.0) 02/01/23 INR 1.0 (0.9-1.1) 02/01/23 Testing Electrocardiogram Date: 02/01/23 Sinus rhythm with 1st degree AV block, rate 65 bpm Septal infarct, age undetermined No significant change when compared with 04/08/21 EKG Echocardiogram Date: 03/29/21 EF 60-65% No LV regional wall motion abnormalities No LVH Mildly dilated RV No significant valvular abnormalities Stress Test Date: 03/22/20 Pharmacologic MPHR 95% Negative for ischemia Small defect of mild intensity involving the base and mid inferior wall, inferior defect is likely secondary to ramp filter artifact in setting of hepatic and small bowel isotopic tracer uptake EF 72% Other Testing Chest CT 01/15/23 1. Slightly increased ground-glass markings at the left lung base with new irregular 1.1 cm left basilar nodule. This is likely postinflammatory however close follow-up within 3 months recommended to ensure resolution. 2. Other nodules and granulomata stable compared to previous. Carotid doppler 09/21/22 Right carotid artery duplex examination indicates evidence of less than 50% stenosis of the internal carotid artery. Heavy calcification in the carotid prevents accurate assessment of flow velocity. Consider alternative imaging method. Left carotid artery duplex examination indicates evidence of less than 50% stenosis of the internal carotid artery. Neck CTA 09/14/20 1. Multifocal atherosclerotic plaque most significant for just under 70% stenosis of the proximal right internal carotid artery, 50-69% stenosis of the proximal left internal carotid artery, severe stenosis of the proximal left external carotid artery, as well as suspected focal occlusion of the proximal right external carotid artery. 2. No acute intracranial abnormality. 3. There is pleural thickening and scarring of the visualized right upper lung although there is also a nonspecific 13 mm ground-glass consolidative focus of the left lower lobe. Dedicated chest CT imaging is recommended for further evaluation.
[~2023-02-12 08:52] MED LIST: LR 15ML/HR IV SCH; ceFAZolin 2000MG 2,000 MG/15 ML SYR IV SCH
[2023-02-12] MEDS ORDERED: PROPOFOL IV EMULSION 10 MG/ML 20 ML VIAL IV ONE ×2 (09:50→11:29)
[2023-02-12] MEDS ORDERED: LIDOCAINE 2% 2 ML VIAL/AMP(20MG/ML) INFIL ONE ×2 (09:50)
[2023-02-12] MEDS ORDERED: ONDANSETRON INJ 2 MG/ML 2 ML VIAL IV PRN ×2 (09:51→14:46)
[2023-02-12] MEDS ORDERED: ATROPINE SULFATE 0.1 MG/ML 10ML SYR IV PRN (09:51)
[2023-02-12] MEDS ORDERED: fentaNYL citrate PF 100 MCG/2 ML VIAL IV PRN (09:51)
[2023-02-12] MEDS ORDERED: ePHEDrine sulfate 50 MG/ML AMP IV PRN (09:51)
[2023-02-12] MEDS ORDERED: ROCURONIUM BROMIDE 10 MG/ML 5 ML VIAL IV ONE ×2 (10:28→11:27)
[2023-02-12] MEDS ORDERED: fentaNYL citrate PF 100 MCG/2 ML VIAL ONE (10:32)
[2023-02-12] MEDS ORDERED: EPINEPHrine INJ 1 MG/ML AMP ONE (10:36)
--- NOTE | 2023-02-12 10:40 | History & Physical Bridge Note ---
Date of Service February 12, 2023 History & Physical Bridge Note I have examined the patient, reviewed the History & Physical and in the interval since the performance of the History & Physical I have noted the following changes of clinical significance: no changes noted
[2023-02-12] MEDS ORDERED: ONDANSETRON INJ 2 MG/ML 2 ML VIAL ONE (11:26)
[2023-02-12] MEDS ORDERED: GLYCOPYRROLATE 0.2 MG/ML VIAL ONE ×2 (11:43)
[2023-02-12] MEDS ORDERED: TISSEEL FIBRIN SEALANT 4ML TOP ONE (12:05)
[2023-02-12] MEDS ORDERED: ePHEDrine sulfate 50 MG/ML AMP ONE (12:07)
--- NOTE | 2023-02-12 12:35 | Post Operative Brief Note ---
PG Immediate Post Op with CF Date of Surgery February 12, 2023 Pre & Post Diagnosis Operation Date: 02/12/23 10:20 Pre-Op Diagnosis: Surgical Wound Non Healing Post-Op Diagnosis: Surgical Wound Non Healing I identified the patient and participated in the time-out.: Yes Procedure Operation Date: 02/12/23 10:20 Actual Procedures p Split Thickness Skin Graft Closure of Non-Healing Wound of Right Achilles Tendon with Donor Site Right Thigh(Right) - Aicha Mccray MD Surgeon Aicha Mccray MD Assistant Cross Country Coach Flores Doty PA-C Estimated Blood Loss 5 Findings Consistent with Post-Op Diagnosis
--- NOTE | 2023-02-12 12:41 | Operative Report ---
PG Post Operative Report Pre & Post Diagnosis Operation Date: 02/12/23 10:20 Pre-Op Diagnosis: Surgical Wound Non Healing Post-Op Diagnosis: Surgical Wound Non Healing I identified the patient and participated in the time-out.: Yes Procedure Operation Date: 02/12/23 10:20 Actual Procedures p Split Thickness Skin Graft Closure of Non-Healing Wound of Right Achilles Tendon with Donor Site Right Thigh(Right) - Aicha Mccray MD Surgeon Aicha Mccray MD Pig Caster Flores Doyt PA-C Estimated Blood Loss 5 Findings Consistent with Post-Op Diagnosis Specimens none Anesthesia Type General Complications none Indications chronic nonhealing wound right posterior heel s/p multiple unsuccessful nonsurgical wound healing modalities Description of Procedure The risks, benefits, terms of procedure were explained the patient agreed and signed consent. He was identified and marked in the preoperative holding area. He was brought to the operating room where he was placed under general anesthesia, positioned left lateral. Wound was prepped and draped sterilely. Timeout procedure was performed. The wound was located on the right posterior heel measuring 4.5 x 1.5x 0.3 cm. Periwound had some desquamated skin, wound itself was completely covered in granulation with some minimal slough. I began by debriding the right posterior heel wound, using a curette to debride the wound base, scalpel to remove desquamated skin and some slough from the wound periphery. No tendon was noted to be exposed. I then harvested a split- thickness skin graft from the right proximal lateral thigh. A 1 inch dermatome blade was used to harvest a split-thickness graft 0.013 of an inch inch thick from the right proximal lateral thigh, using surgilube and epinephrine as lubricant for the dermatome. Graft was then meshed 1-1-1/2, inset and stapled into the recipient wound bed. Tisseel was sprayed over the graft and donor site for hemostasis. Wound was dressed using conformant, single-layer Acticoat, wound VAC. Right thigh donor site was dressed using Kaltostat and Aquacel. The right lower was splinted, dressed using 4x4s to protect the heel, Kerlix, cast padding, fiberglass splint and Jose wraps. Estimated blood loss 5 cc. Procedure was tolerated well. Flores Maney, PA-C was present and scrubbed throughout the procedure, prepared the skin graft and placed wound VAC. I attest to the content of the Intraoperative Record and any orders documented therein. Any exceptions are noted below.
--- NOTE | 2023-02-12 13:39 | Anesthesiology Progress Note ---
Date of Service February 12, 2023 Anesthesia Post Procedure Vital Signs Vital Signs: Temp Pulse Pulse Resp BP Pulse Ox O2 Del Method 02/12/23 13:30 74 15 115/68 93 Nasal Cannula 02/12/23 13:10 80 20 122/62 92 Nasal Cannula 02/12/23 13:00 82 23 107/71 93 Nasal Cannula 02/12/23 13:20 75 21 139/51 L 92 Nasal Cannula 02/12/23 12:50 88 25 H 136/68 94 Nasal Cannula 02/12/23 12:44 36.0 C L 91 H 23 152/66 H 92 Oxymask 02/12/23 09:35 36.8 C 66 20 162/76 H 93 Room Air O2 Flow Rate 02/12/23 13:30 2 02/12/23 13:10 2 02/12/23 13:00 2 02/12/23 13:20 2 02/12/23 12:50 2 02/12/23 12:44 6 02/12/23 09:35 Transfer of Care Handoff Completed per policy Notes Mental Status: alert / awake / arousable Patient Amnestic to Procedure: Yes Nausea / Vomiting: adequately controlled Pain: adequately controlled Airway Patency, RR, SpO2: stable & adequate BP & HR: stable & adequate Hydration State: stable & adequate Anesthetic Complications: no major complications apparent
[2023-02-12] MEDS ORDERED: LORazepam 0.5 MG TAB PO PRN (14:46)
[2023-02-12] MEDS ORDERED: diphenhydrAMINE 50 MG/ML VIAL IV PRN (14:46)
[2023-02-12] MEDS ORDERED: D5W AND 1/2NSS + 20MEQ KCL 20 MEQ/1,000 ML BAG IV SCH (14:46)
[2023-02-12] MEDS ORDERED: oxyCODONE/ACETAMINOPHEN 5mg/325mg TAB PO PRN ×2 (14:46)
[2023-02-12] MEDS ORDERED: ACETAMINOPHEN 325 MG TAB PO PRN (14:46)
[2023-02-12] MEDS ORDERED: diphenhydrAMINE Capsule 25 MG CAP PO PRN (14:46)
[2023-02-12] MEDS ORDERED: MoRPHine SULFATE 4 MG/ML 1 ML CARP\\VIAL IV PRN (14:46)
[2023-02-12] MEDS ORDERED: MoRPHine SULFATE 2 MG/ML CARP IV PRN (14:46)
[2023-02-12] MEDS ORDERED: ALBUTEROL HFA 8 GM INHALER INH PRN (15:15)
--- NOTE | 2023-02-12 16:38 | Hospitalist Consultation ---
Date of Consultation February 12, 2023 Assessment & Plan (1) Peripheral arterial disease: post op day #0 split thickness skin graft closure of non healing wound of right achilles tendon with donor site right thigh (2) Dyslipidemia: chronic and stable continue Atorvastatin (3) HTN, goal to be determined: Chronic stable continue metoprolol (4) COPD (chronic obstructive pulmonary disease): chronic stable continue home inhalers educated on incentive spirometry usage (5) BPH associated with nocturia: chronic stable cont finasteride and tamsulosin Plan Continue home medications incentive spirometry PT/OT check AM labs AWSS in place no evidence of any alcohol withdrawal at this time d/c IVFs eating and drinking well Borderline DM per patient last HgbA1C years ago, will repeat and change to carb consistent diet Educated on alcohol cessation and potential complications of daily alcohol usage Supervising Physician Co-Signing Physician Notes I personally saw and examined the patient. I verified all urrutia points and agree with Valery Hampton PA-C with the following exceptions and/or additions: 77 year old male POD#0 split thickness skin graft to right heel wound. EBL 5ml. No current concerns or questions. Drinks 4 beers/day. No prior alcohol withdrawal O/E A&Ox3, HS RRR, no murmurs, Chest CTAB, Abdo SNT, no tremors. A/P Alcohol use - no current alcohol withdrawal or history of such. AWSS but no current treatment required Otherwise as above History of Present Illness Reason for Consultation: possible alcohol withdrawal Requesting Physician: Dr Aicha Mccray Attending Physician: Aicha Mccray MD History of Present Illness Bola España is a 77 year old male with an extensive past medical history of HTN, HLD, Pre diabetes, COPD, BPH, PAD and lumbar stenosis who was admitted for elective surgery today with plastic surgery. Patienet underwent split thickness skin graft closure of non healing wound of right achilles tendon with donor site right thigh. Patient has no complaints currently he tells e his only complaint is a dry sore throat. He admits to drinking 2-4 beers daily and sometimes does not drink any alcohol. He denies any chest yessica, SOB, headache, irritability, anxiousness, tremors, nausea, vomiting or changes in his bowels or abdominal pain or weakness. He denies ever having alcohol withdrawal in the past and denies ever having liver issues or problems in the past. Allergies Allergy/AdvReac Type Severity Reaction Status Date / Time No Known Allergies Allergy Verified 02/12/23 09:47 Home Medications Medication Instructions Recorded Confirmed Type atorvastatin 40 mg tablet 40 mg PO QAM 07/30/18 02/12/23 History tamsulosin 0.4 mg capsule (Flomax) 0.4 mg PO QAM 07/30/18 02/12/23 History tiotropium bromide 18 mcg capsule 1 cap inhalation QAM 07/30/18 02/12/23 History with inhalation device (Spiriva with HandiHaler) albuterol sulfate 90 mcg/actuation 2 inh inhalation QID PRN SHORT OF 03/12/20 02/12/23 History breath activated powder inhaler BREATH budesonide-formoterol HFA 160 2 puff inhalation BID 03/12/20 02/12/23 History mcg-4.5 mcg/actuation aerosol inhaler allopurinol 100 mg tablet 200 mg PO QAM 03/18/21 02/12/23 History magnesium oxide 400 mg (241.3 mg 400 mg PO BID #60 tabs 03/31/21 02/12/23 Rx magnesium) tablet metoprolol succinate 25 mg 25 mg PO QAM #0 tabs 04/08/21 02/12/23 Rx tablet,extended release 24 hr primidone 50 mg tablet 50 mg PO BID 02/08/22 02/12/23 History acetaminophen 500 mg tablet 500 mg PO Q6H PRN Pain 01/17/23 02/12/23 History (Tylenol Extra Strength) cephalexin 500 mg capsule 500 mg PO TID 7 days #21 caps 01/25/23 02/12/23 Rx tetracycline 500 mg capsule 500 mg PO Q12H 14 days #28 caps 01/29/23 02/12/23 Rx clopidogrel 75 mg tablet 75 mg PO QAM 02/02/23 02/12/23 History finasteride 5 mg tablet 5 mg PO QAM 02/02/23 02/12/23 History pregabalin 50 mg capsule 50 mg PO QAM 02/02/23 02/12/23 History Patient History Medical History Alcohol dependence per [facility] and [place] records Anemia Ascending aortic aneurysm BPH (benign prostatic hyperplasia) Carotid artery disease Multifocal atherosclerotic plaque most significant for just under 70% stenosis of the proximal right internal carotid artery, 50-69% stenosis of the proximal left internal carotid artery, severe stenosis of the proximal left external carotid artery, as well as suspected focal occlusion of the proximal right external carotid artery on neck CTA 2020, < 50% 2022 carotid doppler COPD (chronic obstructive pulmonary disease) History of skin cancer Hx of gout Hx of renal calculi Hyperlipemia Hypertension Neuropathy Open wound on right heel Peripheral arterial disease SVT (supraventricular tachycardia) T2DM (type 2 diabetes mellitus) Surgical History H/O spinal fusion lumbar History of colonoscopy History of femoropopliteal bypass right leg History of herniorrhaphy right History of radiofrequency ablation procedure for cardiac arrhythmia irregular fast heart beat and needed ablation. follow with [facility] History of tonsillectomy History of tooth extraction Hx of lithotripsy Family History Mother Family history of diabetes mellitus Social History Smoking Status: Former smoker Smoking End Date: 2017; Second Hand Exposure: No; Do You Dip or Chew Tobacco: No; Tobacco Cessation Education Requested by Patient: No Hx Alcohol Use: Yes Alcohol type: beer Hx Substance Use: No Preferred Language: Japanese Communication Ability: Effective Visual Impairment: Diminished Hearing Ability: Use of Hearing Aid Specialty Molder Required: No Beliefs That Will Affect Care: None marital status: / Current Living Situation: Alone Current Living Situation Comment: he will need to go to [place] rehab. this has been lined up ahead of time current occupational status: employed and unemployed Other Information That Helps Us Care for You: No Feels Safe at Home: Yes Safety Concerns: Feels Safe At This Time Assistive Devices: Walker Review of Systems Constitutional: no fever, no chills, no sweats, no body aches and no anorexia Ear, Nose, Mouth, Throat: mild dry sore throat Respiratory: no cough, no chest congestion, no dyspnea and no hemoptysis Cardiovascular: no chest pain, no dyspnea, no orthopnea, no palpitations, no lightheadedness, no edema and no calf pain Gastrointestinal: no abdominal pain, no bloating, no nausea, no vomiting, no dysphagia, no change in bowel habits and no diarrhea/loose stools Neurologic: no falls, no paralysis, no tremor(s), no seizure-like activity, no headache(s) and no confusion Psychiatric: no behavioral changes, no depression, no hopelessness, no anxiety, no panic attacks, no difficulty concentrating, no confusion, no auditory hallucinations and no visual hallucinations Endocrine: no polydipsia, no polyphagia and no polyuria Physical Exam Constitutional: WD/WN, vitals as above Neck: trachea midline, no thyromegaly Respiratory: normal respiratory effort, lungs clear to auscultation Cardiovascular: RRR, no murmur, no edema Gastrointestinal (Abdomen): normal bowel sounds, soft, nontender, no hepatosplenomegaly Neurologic: patellar DTR's 2+ bilat, sensation intact and PERRL, EOMI, accommodation nl, no face palsy, no dysarthria Psychiatric: A+Ox3, euthymic affect Results & Data Results & Data Vital Signs (Past 12 Hours) Vital Signs Temp Pulse Pulse Resp BP Pulse Ox O2 Del Method 02/12/23 15:39 36.6 C 90 17 161/89 H 96 Nasal Cannula 02/12/23 15:08 82 18 150/76 H 96 Nasal Cannula 02/12/23 14:35 Nasal Cannula 02/12/23 14:35 36.6 C 83 17 132/75 94 Nasal Cannula 02/12/23 14:25 76 17 156/86 H 94 Nasal Cannula 02/12/23 14:10 74 19 128/59 L 93 Nasal Cannula 02/12/23 13:55 74 14 133/67 95 Nasal Cannula 02/12/23 13:40 36.0 C L 76 13 134/80 96 Nasal Cannula 02/12/23 13:30 74 15 115/68 93 Nasal Cannula 02/12/23 13:10 80 20 122/62 92 Nasal Cannula 02/12/23 13:00 82 23 107/71 93 Nasal Cannula 02/12/23 13:20 75 21 139/51 L 92 Nasal Cannula 02/12/23 12:50 88 25 H 136/68 94 Nasal Cannula 02/12/23 12:44 36.0 C L 91 H 23 152/66 H 92 Oxymask 02/12/23 09:35 36.8 C 66 20 162/76 H 93 Room Air O2 Flow Rate 06/19/23 15:39 2 02/12/23 15:08 2 02/12/23 14:35 2 02/12/23 14:35 2 02/12/23 14:25 2 02/12/23 14:10 2 02/12/23 13:55 2 02/12/23 13:40 2 02/12/23 13:30 2 02/12/23 13:10 2 02/12/23 13:00 2 02/12/23 13:20 2 02/12/23 12:50 2 02/12/23 12:44 6 02/12/23 09:35 Laboratory Results Abnormal lab results 02/12/23 02/12/23 02/12/23 Range/Units 09:46 13:16 14:36 POC Glucose 113 H 115 H 106 H (70-99) mg/dl PG Care Time/CCT Total # of Minutes Spent Total Time Spent with Patient: Total time spent is greater than 50% in coordination of care (as documented) at patient's floor/unit and/or counseling patient: Coding Level of Care Code 79843 IN/OBS CONSULT LVL 3,45M Diagnoses Peripheral arterial disease I73.9 Dyslipidemia E78.5 HTN, goal to be determined I10 COPD (chronic obstructive pulmonary disease) J44.9 BPH associated with nocturia N40.1; R35.1
[2023-02-12] MEDS ORDERED: LORazepam 2 MG/1 ML VIAL IV PRN (16:55)
[2023-02-12] MEDS: ceFAZolin 2000MG 2,000 MG/15 ML SYR IV SCH (18:35)
[2023-02-12] MEDS: PRIMIDONE 50 MG TAB PO SCH (19:50)
[2023-02-13] MEDS: ceFAZolin 2000MG 2,000 MG/15 ML SYR IV SCH (02:02)
[2023-02-13 06:45] LABS: Hematocrit (blood only) 39.6 % (42.0-52.0); Hemoglobin 13.2 g/dl (14.0-18.0); Mean Corpuscular Hemoglobin 32.3 pg (25.0-34.0); Mean Corpuscular Hgb Conc 33.3 g/dL (32.0-36.0); Mean Corpuscular Volume 96.8 fL (80.0-100.0); Mean Platelet Volume 9.7 fL (9.4-12.4); Platelet Count 163 K/uL (130-400); RDW Coefficient of Variation 13.6 % (11.5-14.5); RDW Standard Deviation 48.6 fL (36.4-46.3); Red Blood Count 4.09 M/uL (4.70-6.10); White Blood Count 7.33 K/ul (4.8-10.8)
[2023-02-13 07:03] LABS: Albumin Globulin Ratio 1.3 (0.9-2); Albumin Level 3.8 gm/dl (3.4-5.0); BUN Creatinine Ratio 15.9 (10-20); Bilirubin,Total 0.8 mg/dl (0.2-1.0); Calcium 9.2 mg/dl (8.6-10.3); Creatinine Clr Calc Pharmacy 92.6 ml/min; Est GFR (African American) 97.4 ml/min; Globulin 2.9 gm/dl (2.5-4.0); Potassium 4.4 mmol/L (3.5-5.1); Total Protein 6.7 gm/dl (6.0-8.3)
[2023-02-13 07:19] LABS: Prothrombin Time 11.1 Seconds (9.0-12.0)
[2023-02-13 07:21] LABS: Estimated Average Glucose 120 mg/dl; Hemoglobin A1C 5.8 % (4.5-5.6)
--- NOTE | 2023-02-13 08:17 | Surgery Progress Note ---
Date of Service February 13, 2023 Assessment & Plan (1) Surgical wound, non healing: Plan: Patient is doing well, POD#1 split thickness skin graft to right heel wound. Plan is for transfer to [facility] for the next two weeks, he will follow-up in clinic 6 days for wound vac removal. Appointments and travel has been arranged. he will continue on antibiotics, non weight baring to right leg. Admission and Anticipated Discharge Date Admission Date: February 12, 2023 Edna Bola is one day s/p split thickness skin graft right heel, donor site right thigh. He is doing well, stable overnight. Physical Exam Physical Exam: wound vac to right heel, splint and bandages all in place donor site dressing to right thigh changed Results & Data Vital Signs (Past 12 Hours) Vital Signs Temp Pulse Resp BP Pulse Ox O2 Del Method O2 Flow Rate 02/13/23 07:30 Room Air 02/13/23 07:30 36.5 C 65 18 123/77 96 Room Air 02/13/23 02:45 36.5 C 73 18 149/90 H 97 Nasal Cannula 1 02/12/23 23:00 36.5 C 73 18 122/75 98 Nasal Cannula 2 PG Care Time/CCT Total # of Minutes Spent Total Time Spent with Patient: Total time spent is greater than 50% in coordination of care (as documented) at patient's floor/unit and/or counseling patient: Coding Level of Care Code 26712 Post Operative Follow-Up Diagnoses Surgical wound, non healing T81.89XA
[2023-02-13] MEDS: PRIMIDONE 50 MG TAB PO SCH (08:19)
[2023-02-13] MEDS ORDERED: FINASTERIDE 5 MG TAB PO SCH (09:00)
[2023-02-13] MEDS ORDERED: TAMSULOSIN HCL 0.4 MG CAP PO SCH (09:00)
[2023-02-13] MEDS ORDERED: ATORVASTATIN 40 MG TAB PO SCH (09:00)
[2023-02-13] MEDS ORDERED: FLUTICASONE/VILANTEROL 200/25MCG 14 PUFFS/INHALER INH SCH (09:00)
[2023-02-13] MEDS ORDERED: METOPROLOL SUCC 25MG EXT REL TAB PO SCH (09:00)
[2023-02-13] MEDS ORDERED: UMECLIDINIUM BROMIDE 62.5MCG/BLISTER 7 PUFFS/INHALER INH SCH (09:00)
[2023-02-13] MEDS ORDERED: PREGABALIN 50 MG CAP PO SCH (09:00)
[2023-02-13] MEDS ORDERED: allopurinoL 100 MG TAB PO SCH (09:00)
[2023-02-13] MEDS ORDERED: MULTIVITAMIN TAB PO SCH (09:00)
--- NOTE | 2023-02-13 10:02 | Hospitalist Progress Note ---
Date of Service February 13, 2023 Assessment & Plan (1) Peripheral arterial disease: Plan: Day 1 s/p split thickness skin graft closure of non healing wound of right achilles tendon with donor site right thigh Wound vac in place Rest of mgt per plastic surgery (2) Dyslipidemia: Plan: chronic and stable continue Atorvastatin (3) HTN, goal to be determined: Plan: Chronic stable continue metoprolol (4) COPD (chronic obstructive pulmonary disease): Plan: chronic stable continue home inhalers educated on incentive spirometry usage (5) BPH associated with nocturia: Plan: chronic stable cont finasteride and tamsulosin Plan d/c plans per surgery Admission and Anticipated Discharge Date Admission Date: February 12, 2023 Subjective patient is doing well post skin graft for a non healing leg wound Review of Systems Review of Systems: All systems reviewed are negative, apart from the ones contained in the history. Physical Exam Physical Exam: The patient is awake, alert and oriented 3, well developed and well nourished, normocephalic and atraumatic, lying in bed and in no acute distress. HEENT--PERRL, EOMI, mucous membranes and oropharynx mildly dry Neck--supple. No JVD. No bruits. Thyroid normal, trachea midline, no adenopa thy. Heart--normal S1 and S2. No murmurs, rubs or gallops. Lungs--clear bilaterally, no respiratory distress, no accessory muscle use. Abdomen--normal bowel sounds and soft. Mild epigastric and left sided abdominal pain Extremities--right lower extremity in bandage. Dermatologic--normal skin turgor, normal color, no abnormal lymph nodes, no rash. Neurologic--cranial nerves II through XII grossly intact. Rheumatologic--normal range of motion. Psychiatric--normal affect. Results & Data Results & Data Vital Signs (Past 12 Hours) Vital Signs Temp Pulse Resp BP Pulse Ox O2 Del Method O2 Flow Rate 02/13/23 07:30 Room Air 02/13/23 07:30 97.7 F 65 18 123/77 96 Room Air 02/13/23 02:45 97.7 F 73 18 149/90 H 97 Nasal Cannula 1 02/12/23 23:00 97.7 F 73 18 122/75 98 Nasal Cannula 2 PG Care Time/CCT Total # of Minutes Spent Total Time Spent with Patient: Total time spent is greater than 50% in coordination of care (as documented) at patient's floor/unit and/or counseling patient: Coding Level of Care Code 51968 SUB INP/OBS CARE 235MIN Diagnoses Peripheral arterial disease I73.9 Dyslipidemia E78.5 HTN, goal to be determined I10 COPD (chronic obstructive pulmonary disease) J44.9 BPH associated with nocturia N40.1; R35.1 Time Spent (min) 35
--- NOTE | 2023-02-14 10:46 | Discharge Summary ---
Date of Service February 14, 2023 Admission HPI Per Admitting Provider History of non-healing wound to right heel. Principal Diagnosis Non-healing wound Discharge Exam wound vac to right heel, splint and bandages all in place donor site dressing to right thigh changed Discharge Data Allergies Allergy/AdvReac Type Severity Reaction Status Date / Time No Known Allergies Allergy Verified 02/12/23 09:47 Consultations 02/12/23 14:46 Consult Hospitalist Routine Procedures Performed Operation Date: 02/12/23 10:20 Actual Procedures p Split Thickness Skin Graft Closure of Non-Healing Wound of Right Achilles Tendon with Donor Site Right Thigh(Right) - Aicha Mccray MD Hospital Course (1) Surgical wound, non healing: Bola presented to [facility] with history of non-healing wound to his right heel. He was taken to the OR and underwent split thickness skin graft to right heel, with donor site from the right thigh. Wound Vac and splint dressing were applied to the right leg. he was taken to recovery. On POD#1, his donor site dressing was changed. He was compliant with non-weight baring. Report was provided to [facility] physician, and patient was transferred to the [facility] in [place] as planned for continued care. Total Time Total Time Spent Total Time Spent (In Minutes): 25 Total Time Includes: Examination of the Patient, Discharge Planning, Medication Reconciliation, Communication With Other Providers and Other Discharge Plan Discharge Items Patient Disposition: Transfer [facility] Reason For Visit: Surgical Wound Non Healing Discharge Diagnosis: s/p split thickness skin graft Activity: As commented below Non-emergency contact: Surgeon Call non-emergency contact if: you have any medication questions and your pain is concerning for you Follow-up/Referrals: Flores Doty PA-C [Physician Buckle Wire Inserter] - Chrissie Hernandez PA-C [Primary Care Provider] - Diet: Regular Addtl Attending Provider Instructions: ACTIVITY RECOMMENDATIONS: __Normal activities _x_No bending, lifting or straining. Non-weight baring __No driving __Driving allowed when you are off pain medications __Walking permitted __You should have help at home for ___ days DRESSINGS: __No dressings required _x_Keep dressings dry/in place until first office visit. Donor site dressing should be changed tomorrow (POD#1), day 3 and day 5. __Remove dressings ___ and leave dressings off __Apply ice ___ days __Remove dressings and reapply garment __Apply antibiotic ointment (Bacitracin, Neosporin, etc) to wounds 3-4 times/day for 10 days BATHING: _x_Keep dressings dry _x_Sponge bathing permitted away from all surgical dressings __Showering permitted _x_No swimming, hot tubs or soaking in a tub MEDICATIONS: Resume previous medications unless instructed otherwise by your surgeon. _x_Do not use aspirin, Motrin, Advil or Ibuprofen as these may promote bleeding. Please use Tylenol. _x_Prescription(s) provided: antibiotics were prescribed to you- start today OTHER INSTRUCTIONS: __Record drain output 2-3 times per day SPECIAL CARE INSTRUCTIONS: * It is normal to have a mild fever after surgery. If your temperature is higher than 101.5 degrees F, please call the office at [phone]. * Constipation is a typical side effect of pain medication. An [id number] stool softener will help relieve this. * Leaking around surgical drains may occur and should not cause concern. Sometimes these drains become clogged. If this happens, remove the bulb and milk the clot out of the tube, then replace the bulb. * Drainage from wounds after liposuction is normal and should be expected. Garments will become soiled. You should protect furniture and bedding. This drainage should mostly subside within 2-3 days. Leave garments in place unless instructed to remove them. * If you have unusual drainage from a wound or are concerned you have an infection or have any questions or concerns, please call the office at [phone]. FOLLOW UP VISIT: If not already scheduled, please call the office, , when you return home after surgery to schedule an appointment to be seen in __7_ days. Pending Studies at Discharge: Yes Skilled Items Patient informed of condition?: Yes DNR: Yes Discharge Level of Care: Other Communicable Disease: No Discharge Prognosis: Stable Lines: None Urinary Catheter: No Medications and DC Order Prescriptions: Continued atorvastatin 40 mg tablet 40 mg PO QAM Patient Comments: TAKES 1/2 TAB tamsulosin [Flomax] 0.4 mg capsule 0.4 mg PO QAM tiotropium bromide [Spiriva with HandiHaler] 18 mcg capsule, w/inhalation device 1 cap INH QAM primidone 50 mg tablet 50 mg PO BID acetaminophen [Tylenol Extra Strength] 500 mg tablet 500 mg PO Q6H PRN (Reason: Pain) tetracycline 500 mg capsule 500 mg PO Q12H 14 Days Qty: 28 0RF cephalexin 500 mg capsule 500 mg PO TID 7 Days Qty: 21 0RF Rx Instructions: Please begin prescription following surgery. budesonide-formoterol 160-4.5 mcg/actuation Hfa Aerosol Inhaler 2 puff INHALATION BID albuterol sulfate 90 mcg/actuation Aerosol Powdr Breath Activated 2 inh INHALATION QID PRN (Reason: SHORT OF BREATH) pregabalin 50 mg Capsule 50 mg PO QAM finasteride 5 mg tablet 5 mg PO QAM allopurinol 100 mg Tablet 200 mg PO QAM magnesium oxide 400 mg (241.3 mg magnesium) Tablet 400 mg PO BID Qty: 60 0RF metoprolol succinate 25 mg Tablet Extended Release 24 Hr 25 mg PO QAM Qty: 0 0RF Held clopidogrel 75 mg tablet 75 mg PO QAM Hold Instructions: Resume on 02/14/23. Rx Instructions: 02/02 states to hold 5 days prior to surgery Discontinued aspirin [Adult Low Dose Aspirin] 81 mg tablet,delayed release (DR/EC) 81 mg PO QAM diclofenac sodium [Voltaren] 1 % Gel 4 g TOPICAL QID PRN (Reason: Pain) ascorbic acid (vitamin C) [Vitamin C] 500 mg Tablet 500 mg PO QAM Qty: 30 0RF Discharge Orders: Discharge Order (Routine); Ordered 02/13/23 Ordered By: Flores Doty Admission Data Admit Date/Time: 02/12/23 12:43 Attending Provider: Aicha Mccray Admit Provider: Aicha Mccray Primary Care Provider: Chrissie Hernandez Other Providers: Sathya Geller ; Ginette Daniel ; Sanchez Lopez ; Kong Cooley ; Nitish Cedeño ; Lyle Mars ; Sammy Knight ; Sivan Griggs ; Loraine Harley ; Jb Cristina ; Diamante Hunt ; Amandeep Deluca ; Netta Salamanca ; Diego Li ; Gordon Zavala ; Prisca Hampton ; Ginette Cortez ; Yolanda Lawler ; Konrad Crawford ; Sanchez Baron ; Janel Correa ; Lex Limon ; Na Roman ; Quincy Clinton ; Flynn Perry ; Tiffany Moore ; Regine Montes ; Livan Lang ; Keena Washington ; Chavez Coulter ; Kong Corcoran ; Nitish Chester ; [facility] Other Interventions: Discharge Summary Assessment (RN) Last Done: 02/13/23 12:34 Coding Level of Care Code 37297 OBS Care - Discharge Diagnoses Surgical wound, non healing T81.89XA
== END 2023-02-13 13:53 ==
LOC: 3E 08:52 → ASU 08:52